=== PATIENT | male | born 1940 | race Caucasian/White ===

== ENCOUNTER → 2023-06-25 11:13 | Outpatient (CLI) | payer MEDICARE, SELFPAY ==
--- NOTE | ~2023-06-25 | XR_ITS ---
AP and lateral views of the right hip Clinical history: Pain Findings: No acute fracture or dislocation is seen. There is severe osteoarthritis of the right hip j oint, with severe joint space narrowing, subchondral cystic and sclerotic change, and mild remodeling of the femoral head. Soft tissues are unremarkable. Impression: Severe osteoarthritis of the right hip joint. Reviewed, dictated and finalized at location . Impression: Severe osteoarthritis of the right hip joint.
== END ==
PROVIDERS: PCP Nurse Practitioner; Visit Provider Nurse Practitioner
DX: M16.11 Unilateral primary osteoarthritis, right hip (principal); M25.551 Pain in right hip
CPT/HCPCS: 73502

== ENCOUNTER 2023-06-25 11:33 | Outpatient (CLI) | payer MEDICARE, SELFPAY ==
[2023-06-25 18:06] LABS: Basophils Percent Auto 0.4 % (0.2-1.2); Eosinophils Absolute Auto 0.1 K/mm3 (0-0.3); Eosinophils Percent Auto 1.6 % (0-4.4); Hematocrit 39.8 % (42.0-52.0); Immature Granulocyte Absolute 0.02 K/mm3 (0.00-0.031); Immature Granulocyte Percent A 0.3 % (0-0.5); Lymphocytes Absolute Auto 1.54 K/mm3 (0.9-3.2); Lymphocytes Percent Auto 19.9 % (18.3-44.2); Mean Corpuscular HGB Conc 32.7 g/dl (32-36); Mean Corpuscular Hemoglobin 29.8 pg (26-34); Mean Corpuscular Volume 91.3 fl (80-100); Mean Platelet Volume 9.9 fl (7.4-10.4); Monocytes Absolute Auto 0.9 K/mm3 (0.1-0.6); Monocytes Percent Auto 11.9 % (2.6-8.5); Neutrophils Absolute Auto 5.1 K/mm3 (1.3-6.7); Neutrophils Percent Auto 65.9 % (45.5-73.1); Platelet Count Result 204 k/mm3 (150-375); Red Blood Count 4.36 M/mm3 (4.6-6.20); Red Cell Distribution Width 12.3 % (11.5-14.5); White Blood Count 7.7 K/mm3 (4.5-10.0)
[2023-06-25 18:21] LABS: Appearance Urine Clear (Clear); Bacteria Urine None Seen /hpf; Bilirubin Urine Negative (Negative); Blood Urine Trace (Negative); Color Urine Yellow (Yellow); Glucose Urine UA Negative (Negative); Ketones Urine Negative (Negative); Leukocyte Esterase Ur Negative LEU/UL (Negative); Nitrate Urine Negative (Negative); Non Pathogenic Casts 0-2; Protein Urine Negative (Negative); Specific Grav Ur 1.015 (1.001-1.035); Squamous Epithelial Cell Urine None seen /hpf (Few); Urobilinogen Urine 0.2 mg/dL (<2.0); WBC Urine 0-5 /hpf
[2023-06-25 18:24] LABS: Add Urine Microscopic? YES
[2023-06-25 18:36] LABS: Alanine Aminotransferase 28 U/L (6-50); Albumin Level 4.1 g/dL (3.5-5.1); Alkaline Phosphatase 70 U/L (38-126); Anion Gap 4 mmol/L (8-16); Aspartate Amino Transferase 39 U/L (17-59); Bilirubin,Total 0.7 mg/dL (0.2-1.3); Blood Urea Nitrogen 17 mg/dL (9-20); Calcium 8.5 mg/dL (8.4-10.2); Carbon Dioxide 34 mmol/L (22-30); Chloride 96 mmol/L (98-107); Estimated Glomerular Filt Rate > 60; Glucose 88 mg/dL (65-110); Potassium 3.7 mmol/L (3.4-5.0); Sodium 134 mmol/L (137-145)
[2023-06-25 19:07] LABS: Prostate Specific Antigen 9.6 ng/mL (< OR = 4.0)
== END 2023-06-25 11:34 | disposition home or self-care (01) ==
PROVIDERS: PCP Nurse Practitioner; Visit Provider Nurse Practitioner
DX: R35.0 Frequency of micturition (principal); Z12.5 Encounter for screening for malignant neoplasm of prostate
CPT/HCPCS: 36415; 80053; 81001; 84153; 85025; G0103

== ENCOUNTER 2023-07-30 12:30 | Outpatient (RCR) | payer MEDICARE, SELFPAY ==
--- NOTE | 2023-07-02 14:33 | OPREHPOC ---
Outpatient Therapy Plan of Care This is a Multidisciplinary Plan of Care that may contain components documented by all disciplines (PT, OT, and ST.) PT Problem 1 PT Problem #1 Knowledge Deficit PT Goal 1 Goal Pt to be IND with issued HEP Target Visit 8 PT Problem 2 PT Problem #2 Pain PT Goal 1 Goal Pt to report hip pain no greater than 5/10 in the last week. Target Visit 8 PT Goal 2 Goal Pt to report 50% improvement in overall symptoms Target Visit 8 PT Problem 3 PT Problem #3 Impaired Range of Motion PT Goal 1 Goal Pt to improve passive hip extension to 0 deg on R Target Visit 8 PT Goal 2 Goal Pt to improve passive hip int rot to 0 deg to normalize gait pattern Target Visit 8 PT Problem 4 PT Problem #4 Impaired Gait PT Goal 1 Goal Pt to improve 2 min walk distance from 210ft to 300ft Target Visit 8 PT Goal 2 Goal Pt to ambulate with equal stride length Target Visit 8
--- NOTE | 2023-07-02 14:34 | PTOPEVAL1 ---
Assessment and note entered by Jaida Raygoza, PT, DPT Evaluation Information Assessment Status Evaluation Diagnosis R hip pain Onset chronic Subjective Information Pt states his hip has been bothering him for many years. He states up until about 2 years ago he was running 2 miles a day. He states he is taking advil and going stretch daily with only minimal improvements. He states he is limited in how long he can walk, he also states he would like to be able to run again. Imaging shows severe R hip OA with subchondral changes. Reported Pain Level Pain Score 8: Self Report Assessment PT Clinical Summary Sudeep presents to therapy today for his initial evaluation with a diagnosis of R hip pain. Today he demonstrates significant ROM deficits on his R hip, all limited by pain and a hard end feel. He demonstrates decreased hip strength garrison as well. He ambulates with a flexed posture, lack of hip extension, shuffled his LLE during the swing phase and has minimal weight shift to the R. Skilled therapy services are indicated to improve strength , minimize pain, and to normalized gait pattern. Plan of Care Interventions Electrical Stimulation,Gait Training,Hot Pack/Cold Pack,Manual Therapy,Neuro Re-education,Patient/ Caregiver Educati,Therapeutic Activities, Therapeutic Exercise PT Services Indicated Yes Treatment Frequency and 2x/wk for 8 visits Duration These treatments will address the objective and functional deficits as defined above. The patient will be advanced safely and appropriately in order for the patient to progress towards his/her prior level of function. Additional exercises will be introduced and as well as a comprehensive home exercise program upon discharge, if needed, ?to ensure carryover of functional gains achieved in the clinic. This treatment plan has been reviewed and agreement upon by the patient.
--- NOTE | 2023-07-30 13:23 | PTOPDC ---
Assessment and note entered by Jaida Raygoza, PT, DPT Evaluation Information Assessment Status Discharge Diagnosis R hip pain Onset chronic Subjective Information Pt states he feels like he is walking a lot better . He states he still is having some pain and soreness and wants to try a break to see if this helps at all. Reported Pain Level Pain Score 5: Self Report Assessment PT Clinical Summary Clive presents to therapy today for his progress report following 9 visits of skilled therapy with a diagnosis of R hip pain. Today he demonstrates mild improvements in his hip passive ROM but still significantly decreased from normal values. He was able to improve his gait speed and minimize his gait deviations but still ambulates with deviations and a decreased gait speed. Pt states he would like to be discharged from therapy at this time and complete his exercises IND. Plan of Care PT Services Indicated No
== END 2023-07-30 15:42 | disposition home or self-care (01) ==
LOC: ANHGOSHPT 12:30
PROVIDERS: PCP Nurse Practitioner; Visit Provider Nurse Practitioner
DX: M25.551 Pain in right hip (principal)
CPT/HCPCS: 97110; 97116; 97140; 97161; 97530

== ENCOUNTER 2023-11-01 12:54 | Outpatient (CLI) | payer MEDICARE, SELFPAY ==
--- NOTE | ~2023-11-01 | XR_ITS ---
EXAMINATION: XR lg joint inject/asp w image DATE: 11/01/2023 13:47 INDICATION: Right hip arthritis. TECHNIQUE: A time-out was performed to verify the patient's name, date of , and procedure to b e performed. The procedure including the risks, benefits, and alternatives was discussed with the pat ient. Risks discussed included bleeding and infection. The patient understood the risks and agreed to proceed. The skin overlying the right hip joint was prepped and draped in usual sterile fashion. A nesthetic was administered with 1% lidocaine subcutaneously. A 22 G needle was advanced under fluoro scopic guidance into the joint. Subsequently, injectate consisting of 2 mL 0.5% bupivacaine and 1 mL 80 mg/mL Depo-Medrol was instilled. The needle was removed and the entry site was cleaned and dress ed. There were no immediate complications. Fluoroscopy exposure time was 0.1 minutes. The total numb er of images was 1. FINDINGS: Real-time fluoroscopy demonstrates the needle in the right hip joint. Patient's pain prior to procedure:8/10. Patient's pain following the procedure: /10. IMPRESSION: 1. Fluoroscopy guided right hip joint injection of local anesthetic and steroid. Reviewed, dictated and finalized at location A. OGICAL ENGINEER IMPRESSION: 1. Fluoroscopy guided right hip joint injection of local anesthetic and steroid .
== END 2023-11-01 12:55 | disposition home or self-care (01) ==
PROVIDERS: PCP Nurse Practitioner; Visit Provider Nurse Practitioner Family
DX: M16.11 Unilateral primary osteoarthritis, right hip (principal)
CPT/HCPCS: 20610; 77002; J1040

== ENCOUNTER 2023-12-08 10:27 | Outpatient (CLI) | payer MEDICARE, SELFPAY ==
[2023-12-08 11:40] LABS: Basophils Percent Auto 0.3 % (0.2-1.2); Eosinophils Percent Auto 0.3 % (0-4.4); Hematocrit 42.9 % (42.0-52.0); Hemoglobin 14.1 g/dL (14.0-18.0); Immature Granulocyte Absolute 0.01 K/mm3 (0.00-0.031); Immature Granulocyte Percent A 0.1 % (0-0.5); Lymphocytes Absolute Auto 1.66 K/mm3 (0.9-3.2); Lymphocytes Percent Auto 24.2 % (18.3-44.2); Mean Corpuscular HGB Conc 32.9 g/dl (32-36); Mean Corpuscular Volume 91.3 fl (80-100); Mean Platelet Volume 9.8 fl (7.4-10.4); Monocytes Absolute Auto 0.6 K/mm3 (0.1-0.6); Monocytes Percent Auto 8.3 % (2.6-8.5); Neutrophils Absolute Auto 4.6 K/mm3 (1.3-6.7); Neutrophils Percent Auto 66.8 % (45.5-73.1); Platelet Count Result 207 k/mm3 (150-375); Red Cell Distribution Width 13.5 % (11.5-14.5); White Blood Count 6.9 K/mm3 (4.5-10.0)
[2023-12-08 18:45] LABS: Alanine Aminotransferase 26 U/L (6-50); Alkaline Phosphatase 77 U/L (38-126); Anion Gap 4 mmol/L (8-16); Aspartate Amino Transferase 53 U/L (17-59); Bilirubin,Total 1.7 mg/dL (0.2-1.3); Blood Urea Nitrogen 19 mg/dL (9-20); Calcium 8.9 mg/dL (8.4-10.2); Carbon Dioxide 30 mmol/L (22-30); Chloride 100 mmol/L (98-107); Estimated Glomerular Filt Rate > 60; Glucose 77 mg/dL (65-110); Sodium 134 mmol/L (137-145)
[2023-12-08 19:41] LABS: Folic Acid 14.6 ng/mL (2.76->20)
== END 2023-12-08 10:28 | disposition home or self-care (01) ==
LOC: ANHGOSHLAB 10:29
PROVIDERS: PCP Nurse Practitioner; Visit Provider Nurse Practitioner
DX: D64.9 Anemia, unspecified (principal); F32.A Depression, unspecified; R35.0 Frequency of micturition
CPT/HCPCS: 36415; 80053; 82607; 82746; 84443; 85025

== ENCOUNTER 2024-03-15 11:18 | Outpatient (CLI) | payer MEDICARE, SELFPAY ==
[2024-03-15 20:24] LABS: Bilirubin Indirect 0.8 mg/dL (0-1.1); Bilirubin,Total 1.3 mg/dL (0.2-1.3)
== END 2024-03-15 11:19 | disposition home or self-care (01) ==
LOC: ANHGOSHLAB 11:19
PROVIDERS: PCP Nurse Practitioner; Visit Provider Nurse Practitioner
DX: R17 Unspecified jaundice (principal)
CPT/HCPCS: 36415; 82247; 82248

== ENCOUNTER 2024-07-07 10:25 | Outpatient (CLI) | payer MEDICARE, SELFPAY ==
--- NOTE | ~2024-07-07 | XR_ITS ---
EXAMINATION: XR hip RT min 2V DATE: 07/07/2024 10:41 INDICATION: Lateral right hip pain post fall TECHNIQUE: Anteroposterior and frog leg lateral views of the right hip were obtained. COMPARISON: 09/23/2023 FINDINGS: Again seen is advanced osteoarthritis at the right hip with prominent subarticular cystic change and remodeling of the femoral head and acetabulum. No fracture or traumatic malalignment. Mild osteoarthr itis at the lateral sacral iliac joints. Mild lower lumbar spondylosis. IMPRESSION: 1. Advanced osteoarthritis at the right hip. No acute osseous abnormality. Reviewed, dictated and finalized at location B.
== END 2024-07-07 10:26 | disposition home or self-care (01) ==
PROVIDERS: PCP Nurse Practitioner; Visit Provider Nurse Practitioner
DX: M16.11 Unilateral primary osteoarthritis, right hip (principal); W19.XXXA Unspecified fall, initial encounter
CPT/HCPCS: 73502

== ENCOUNTER 2024-08-08 13:59 | Outpatient (CLI) | payer MEDICARE, SELFPAY ==
--- NOTE | ~2024-08-08 | MR_ITS ---
EXAMINATION: MR brain/brain stem wo/w con DATE: 08/08/2024 14:53 INDICATION: Other amnesia. TECHNIQUE: Magnetic resonance imaging (MRI) of the brain and brainstem was performed without and with 15 mL MultiHance intravenous contrast. COMPARISON: None. FINDINGS: There is no intracranial hemorrhage, acute infarction, or abnormal intracranial mass lesion . There are scattered areas of nonspecific increased T2-weighted signal intensity in the cerebral whi te matter, which is within normal limits for the patient's age. The ventricles are normal in size. Th ere is mild mucosal thickening in the paranasal sinuses. The orbits are normal. There is a trace left mastoid effusion. IMPRESSION: 1. Normal aging brain. Reviewed, dictated and finalized at location A. IMPRESSION: 1. Normal aging brain.
== END 2024-08-08 14:00 | disposition home or self-care (01) ==
LOC: MICIMG 14:00
PROVIDERS: PCP Nurse Practitioner; Visit Provider Nurse Practitioner
DX: R41.3 Other amnesia (principal)
CPT/HCPCS: 70553; A9577

== ENCOUNTER 2024-09-13 11:15 | Outpatient (CLI) | payer MEDICARE, SELFPAY ==
--- NOTE | ~2024-09-13 | XR_ITS ---
XR wrist LT min 3V Ordering provider: Vicenta Rowland NP History: . fall 2 months ago anterior wrist swelling for 2 weeks . Comparison: None. FINDINGS: BONES: No acute fracture or dislocation. No definite scaphoid fracture. Bony fragment seen anteriorl y. Old fracture in the ulnar styloid area. JOINT SPACES: Well maintained. SOFT TISSUES: Normal. IMPRESSION: No acute osseous abnormality left wrist. Old fracture and ulnar styloid area. Bony fragment seen anteriorly in the lateral view. Reviewed, dictated and finalized at location A. RNATIONAL SPECIALIST IMPRESSION: No acute osseous abnormality left wrist. Old fracture and ulnar styloid area. Bony fragment seen anteriorly in the later al view.
--- NOTE | ~2024-09-13 | XR_ITS ---
XR hand LT min 3V Ordering provider: Vicenta Rowland NP History: . fall 2 months ago anterior wrist swelling for 2 weeks . Comparison: None. FINDINGS: BONES: No acute fracture or dislocation. Bony fragment seen near to the ulnar styloid suggestive of o ld fracture. Bony fragment is seen in the lateral view anteriorly. Clinical correlation for tendernes s in the area advised. JOINT SPACES: Narrowing of the distal interphalangeal joints.. SOFT TISSUES: Unremarkable. IMPRESSION: No acute osseous abnormality left hand. Possible bony fragment seen anteriorly in the lateral view. Polyarticular osteoarthritic changes. Reviewed, dictated and finalized at location A. ETCHER HELPER
== END 2024-09-13 11:16 | disposition home or self-care (01) ==
PROVIDERS: PCP Nurse Practitioner; Visit Provider Nurse Practitioner
DX: M25.439 Effusion, unspecified wrist (principal); M79.89 Other specified soft tissue disorders
CPT/HCPCS: 73110; 73130

== ENCOUNTER 2024-11-13 12:32 | Emergency (ER) | payer MEDICARE, SELFPAY ==
[2024-11-13] VITALS (28 sets, daily range): BP systolic 149–193; BP diastolic 83–108; PULSE 86–111; RESP 15–24; TEMP 36.4–37.8; O2SAT 94–100
--- NOTE | ~2024-11-13 | CT_ITS ---
EXAMINATION: CT brain wo con DATE: 11/13/2024 12:45 INDICATION: Stroke with right-sided neurologic deficits. TECHNIQUE: Computed tomography (CT) of the head was performed without intravenous contrast. Sagittal and coronal reconstructions were performed. The mA was adjusted according to patient size. Iterative reconstruction technique was employed. The dose-length product was 681.00 mGy-cm. COMPARISON: Brain MR dated 08/08/2024 FINDINGS: No fracture. No acute intracranial hemorrhage, acute infarction or abnormal extra axial fluid collect ion. There is mild scattered white matter hypoattenuation consistent with chronic small vessel ischem ic disease. Symmetric prominence of the sulci consistent with mild age-appropriate diffuse cerebral v olume loss. Ventricles are normal and symmetric. No mass/mass effect. Mild mucosal thickening in the right maxillary and bilateral ethmoid sinuses. The orbits and mastoid air cells are normal. IMPRESSION: 1. Normal aging brain. No acute intracranial process. Reviewed, dictated and finalized at location A. UCT TECHNICIAN
--- NOTE | ~2024-11-13 | CT_ITS ---
EXAMINATION: CTA brain carotid DATE: 11/13/2024 12:50 INDICATION: Cerebrovascular accident. TECHNIQUE: Computed tomographic angiography (CTA) of the head was performed with 100 mL Omnipaque-350 intravenous contrast. CTA of the neck was performed with intravenous contrast. Automated exposure co ntrol and iterative reconstruction technique were employed. The dose-length product was 1042.29 mGy-c m. Maximum intensity projection and volume rendered 3D-reconstructions were created by the techn[employer]grami st on a separate workstation. COMPARISON: Head CT 11/13/2024, brain MRI 08/08/2024 FINDINGS: HEAD CTA: There are scattered areas of low attenuation in the cerebral white matter, which is within normal limits for the patient's age. There is no intracranial hemorrhage, acute infarction, or abnorm al intracranial mass lesion. The ventricles are normal in size. There is mild mucosal thickening in t he paranasal sinuses. The orbits are normal. The mastoid air cells are normal. There is cerumen in th e external auditory canals. The vertebral arteries are codominant. There is no significant stenosis o f basilar artery or the posterior cerebral arteries. There is no significant stenosis of the intracra nial internal carotid arteries or anterior or middle cerebral arteries. Anterior communicating artery is normal. The posterior communicating arteries are normal. There is no aneurysm. NECK CTA: There are no pathologically enlarged lymph nodes. There is no significant stenosis of the v ertebral arteries. There is plaque in the proximal internal carotid arteries. There is 0% stenosis o f the proximal right internal carotid artery relative to normal distal artery lumen diameter (NASCET criteria). There is 15% stenosis of the proximal left internal carotid artery relative to normal dist al artery lumen diameter. There is severe cervical spondylosis. IMPRESSION: 1. Normal aging brain. 2. No aneurysm or significant intracranial canal stenosis. 3. 0% stenosis of the proximal right internal carotid artery relative to normal distal artery lumen d iameter (NASCET criteria). 4. 15% stenosis of the proximal left internal carotid artery relative to normal distal artery lumen d iameter. Reviewed, dictated and finalized at location B. TECH IMPRESSION: 1. Normal aging brain. 2. No aneurysm or significant intracranial canal stenosis. 3. 0% stenosis of the proximal right internal carotid artery relative to normal distal artery lumen diameter (NASCET criteria). 4. 15% stenosis of the proximal left internal carotid artery relative to normal distal artery lumen diameter.
--- NOTE | ~2024-11-13 | XR_ITS ---
EXAMINATION: XR chest 1V portable DATE: 11/13/2024 13:12 INDICATION: Confusion. TECHNIQUE: A single frontal view of the chest was obtained on 2 radiographs. COMPARISON: Chest single view 04/14/2010 FINDINGS: There is mild atelectasis in left lower lung zone. No pleural effusion or pneumothorax. The heart size is normal. IMPRESSION: 1. Mild atelectasis in left lower lung zone. Reviewed, dictated and finalized at location B. [employer]
--- NOTE | 2024-11-13 12:36 | ECG_ITS ---
Test Date: 2024-11-13 13:01:24 Measurements Intervals [place] Rate: 106 P: 52 W[place]: 160 QRS: -67 QRSD: 156 T: 31 QT: 388 QTc: 517 Interpretive Statements SINUS TACHYCARDIA WITH FREQUENT VENTRICULAR PREMATURE COMPLEXES WITH OCCASIONAL SUPRAVENTRICULAR PREMATURE COMPLEXES RIGHT BUNDLE BRANCH BLOCK [120+ ms QRS DURATION, UPRIGHT V1, 40+ ms S IN I/aVL/V4/V5/V6] LEFT ANTERIOR FASCICULAR BLOCK [QRS AXIS <= -45, QR IN I, RS IN II] No previous ECG available for comparison Electronically Signed On 11-13-2024 18:02:01 [employer] by Shasta Valentin M.D.
--- NOTE | 2024-11-13 12:42 | ED_ITS ---
HPI - Neuro Symptoms/Deficit General Chief Complaint: Suspected CVA Stated Complaint: cva Time Seen by Provider: 11/13/24 12:38 History of Present Illness HPI Narrative: Patient a 4-year-old gentleman presents emergency department with chief complaint right-sided weakness. Patient has history of prostate CA and lives at the [facility] the patient approximately 20 minutes prior to arrival developed right-sided weakness and then was witnessed having seizure-like activity by EMS. The patient was confused afterwards and the EMS service for noticed that the patient was having movements on the right side of his body Related Data Allergies Allergy/AdvReac Type Severity Reaction Status Date / Time No Known Allergies Allergy Verified 11/13/24 14:43 Review of Systems 2 Review of Systems: A 10 system review of systems was completed on the patient and is negative except for what is stated in the HPI. Nursing and ancillary documentation was reviewed. [facility] Past Medical History Medical History Degenerative joint disease (DJD) of hip Right hip pain Frequent urination Arthritis Surgical History Surgical History History of bilateral knee replacement Family History Family History Mother Hypertension Family history of cardiomyopathy, Onset Age: 86 Patient's mother is Father Family history of congenital heart disease, Onset Age: 80 Unknown Hypertension Depression Diabetes mellitus Cerebrovascular accident Arthritis Social History Social History Social History: Caffeine-coffee Smoking status: Never smoker Alcohol intake: former Substance use: never Substance use type: does not use Lack of Transportation: No Lack of Food: Never True Current Housing: I Have Housing Concerned About Future Housing: No Difficulty Paying Gas/Electric Bills: No Difficulty Paying for Meds: No Currently Unemployed: No Education: Master's Degree or Higher Difficulty w/ Childcare or Family Care: Decline to Answer Living arrangements: alone Occupation/Education: retired 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 Gender identity (if verbalized by the patient): Male Sexual Orientation (if Verbalized by the Patient): Straight or Heterosexual Spiritual care concerns: No Agree to blood products: Yes Course Vital Signs Vital signs: Vital Signs Temperature 36.4 C 11/13/24 13:03 Pulse Rate 97 11/13/24 13:03 Respiratory Rate 22 H 11/13/24 13:03 Blood Pressure 181/91 H 11/13/24 13:03 Pulse Oximetry 97 11/13/24 13:03 Oxygen Delivery Nasal Cannula 11/13/24 13:03 Oxygen Flow Rate 2 11/13/24 13:03 Temperature 36.7 C 11/13/24 15:45 Pulse Rate 94 11/13/24 18:46 Respiratory Rate 24 H 11/13/24 18:46 Blood Pressure 166/105 H 11/13/24 18:46 Pulse Oximetry 100 11/13/24 18:46 Oxygen Delivery Nasal Cannula 11/13/24 13:49 Oxygen Flow Rate 2 11/13/24 16:53 MDM - Neuro Symptoms/Deficit MDM Narrative Medical decision making narrative: Differential diagnosis includes CVA, new onset seizure, intracranial mass, CTA head neck showed no evidence of large vessel occlusion The head showed no acute abnormality The patient had multiple seizures after developing right-sided weakness the patient would not be a candidate for thrombolytics therapy due to seizure. Patient was loaded with Keppra and also given Ativan for seizure. The patient has been confused since the onset of the last seizure and has not regained consciousness the patient now is opening his eyes spontaneously but due to prolonged postictal phase the case was discussed with [facility] transfer center and the patient will be transferred to the neuro ICU The patient was accepted by Dr. Pop of the neuro ICU Lab Data 11/13/24 12:38 11/13/24 12:42 Labs: Lab Results 11/13/24 11/13/24 11/13/24 Range/Units 12:38 12:42 13:06 WBC 9.6 (4.5-10.0) K/mm3 RBC 4.23 L (4.6-6.20) M/mm3 Hgb 12.9 L (14.0-18.0) g/dL Hct 39.4 L (42.0-52.0) % MCV 93.1 (80-100) fl MCH 30.5 (26-34) pg MCHC 32.7 (32-36) g/dl RDW 12.8 (11.5-14.5) % Plt Count 214 (150-375) k/mm3 MPV 8.8 (7.4-10.4) fl Immature Gran % (Auto) 0.3 (0-0.5) % Neut % (Auto) 71.8 (45.5-73.1) % Lymph % (Auto) 16.7 L (18.3-44.2) % [place] % (Auto) 9.8 H (2.6-8.5) % Eos % (Auto) 1.0 (0-4.4) % Baso % (Auto) 0.4 (0.2-1.2) % Lymph # (Auto) 1.60 (0.9-3.2) K/mm3 [place] # (Auto) 0.9 H (0.1-0.6) K/mm3 Eos # (Auto) 0.1 (0-0.3) K/mm3 Baso # (Auto) 0.0 (0.0-0.1) K/mm3 Abs Immat Gran (auto) 0.03 (0.00-0.031) K/mm3 Absolute Neuts (auto) 6.9 H (1.3-6.7) K/mm3 Absolute Nucleated RBC 0.000 (0.0-0.012) K/mm3 Nucleated RBC % 0.0 (0.0-0.2) % PT 13.7 (11.1-14.7) Seconds INR 1.0 APTT 27.4 (22.3-36.8) Seconds Sodium 134 L (137-145) mmol/L Potassium 3.5 (3.4-5.0) mmol/L Chloride 96 L (98-107) mmol/L Carbon Dioxide 24 (22-30) mmol/L Anion Gap 14 H (4-12) mmol/L BUN 13 D (9-20) mg/dL Creatinine 0.71 1.00 (0.7-1.3) mg/dL Estim Creat Clear Calc Not Reportable Not Reportable Estimated GFR > 60 > 60 (59 - ) Glucose 159 H (65-110) mg/dL POC Capillary Glucose 133 H (65-105) mg/dl Calcium 8.7 (8.4-10.2) mg/dL Total Bilirubin 1.3 (0.2-1.3) mg/dL AST 32 (17-59) U/L ALT 31 (6-50) U/L Alkaline Phosphatase 81 (38-126) U/L Troponin I < 0.012 (0.000-0.034) ng/mL Total Protein 7.0 (6.3-8.2) g/dL Albumin 4.4 (3.5-5.1) g/dL Urine Color (Yellow) Urine Appearance (Clear) Urine pH (5.0-9.0) Ur Specific [place] (1.001-1.035) Urine Protein (Negative) mg/dL Urine Glucose (UA) (Negative) mg/dL Urine Ketones (Negative) mg/dL Ur Blood (Man) (Negative) Urine Nitrate (Negative) Urine Bilirubin (Negative) Urine Urobilinogen (<2.0) mg/dL Leukocyte Esterase Rfl (Negative) AIDAN/UL Urine RBC (0-2) /hpf Urine WBC (0-3) /hpf Ur Squamous Epith Cells (Few) /hpf Urine Bacteria /hpf Urine Casts 11/13/24 Range/Units 14:06 WBC (4.5-10.0) K/mm3 RBC (4.6-6.20) M/mm3 Hgb (14.0-18.0) g/dL Hct (42.0-52.0) % MCV (80-100) fl MCH (26-34) pg MCHC (32-36) g/dl RDW (11.5-14.5) % Plt Count (150-375) k/mm3 MPV (7.4-10.4) fl Immature Gran % (Auto) (0-0.5) % Neut % (Auto) (45.5-73.1) % Lymph % (Auto) (18.3-44.2) % [place] % (Auto) (2.6-8.5) % Eos % (Auto) (0-4.4) % Baso % (Auto) (0.2-1.2) % Lymph # (Auto) (0.9-3.2) K/mm3 [place] # (Auto) (0.1-0.6) K/mm3 Eos # (Auto) (0-0.3) K/mm3 Baso # (Auto) (0.0-0.1) K/mm3 Abs Immat Gran (auto) (0.00-0.031) K/mm3 Absolute Neuts (auto) (1.3-6.7) K/mm3 Absolute Nucleated RBC (0.0-0.012) K/mm3 Nucleated RBC % (0.0-0.2) % PT (11.1-14.7) Seconds INR APTT (22.3-36.8) Seconds Sodium (137-145) mmol/L Potassium (3.4-5.0) mmol/L Chloride (98-107) mmol/L Carbon Dioxide (22-30) mmol/L Anion Gap (4-12) mmol/L BUN (9-20) mg/dL Creatinine (0.7-1.3) mg/dL Estim Creat Clear Calc Estimated GFR (59 - ) Glucose (65-110) mg/dL POC Capillary Glucose (65-105) mg/dl Calcium (8.4-10.2) mg/dL Total Bilirubin (0.2-1.3) mg/dL AST (17-59) U/L ALT (6-50) U/L Alkaline Phosphatase (38-126) U/L Troponin I (0.000-0.034) ng/mL Total Protein (6.3-8.2) g/dL Albumin (3.5-5.1) g/dL Urine Color Yellow (Yellow) Urine Appearance Cloudy H (Clear) Urine pH 7.5 (5.0-9.0) Ur Specific [place] 1.023 (1.001-1.035) Urine Protein Trace (Negative) mg/dL Urine Glucose (UA) Negative (Negative) mg/dL Urine Ketones Negative (Negative) mg/dL Ur Blood (Man) 1+ H (Negative) Urine Nitrate Negative (Negative) Urine Bilirubin Negative (Negative) Urine Urobilinogen 0.2 (<2.0) mg/dL Leukocyte Esterase Rfl 3+ H (Negative) AIDAN/UL Urine RBC 11-20 H (0-2) /hpf Urine WBC >100 H (0-3) /hpf Ur Squamous Epith Cells None seen (Few) /hpf Urine Bacteria 1+ H /hpf Urine Casts 0-2 Critical Care Time Critical Care Time Critical Care Time: Yes Total Critical Care Time: 75 Discharge Plan Discharge Clinical Impression: Seizure, Altered mental status, Right sided weakness Patient Disposition: Acute Care Hospital Condition: Stable Patient Language: Greek Prescriptions: No Action tamsulosin [Flomax] 0.4 mg capsule 0.4 mg PO QHS Qty: 90 1RF Follow-up/Referrals: Vicenta Rowland NP [Primary Care Provider] - Time of Disposition: 19:28
[2024-11-13 12:43] LABS: Basophils Percent Auto 0.4 % (0.2-1.2); Eosinophils Absolute Auto 0.1 K/mm3 (0-0.3); Hematocrit 39.4 % (42.0-52.0); Hemoglobin 12.9 g/dL (14.0-18.0); Immature Granulocyte Absolute 0.03 K/mm3 (0.00-0.031); Immature Granulocyte Percent A 0.3 % (0-0.5); Lymphocytes Percent Auto 16.7 % (18.3-44.2); Mean Corpuscular HGB Conc 32.7 g/dl (32-36); Mean Corpuscular Hemoglobin 30.5 pg (26-34); Mean Corpuscular Volume 93.1 fl (80-100); Mean Platelet Volume 8.8 fl (7.4-10.4); Monocytes Absolute Auto 0.9 K/mm3 (0.1-0.6); Monocytes Percent Auto 9.8 % (2.6-8.5); Neutrophils Absolute Auto 6.9 K/mm3 (1.3-6.7); Neutrophils Percent Auto 71.8 % (45.5-73.1); Platelet Count Result 214 k/mm3 (150-375); Red Blood Count 4.23 M/mm3 (4.6-6.20); Red Cell Distribution Width 12.8 % (11.5-14.5); White Blood Count 9.6 K/mm3 (4.5-10.0)
[2024-11-13 12:46] LABS: Estimated Glomerular Filt Rate > 60
[2024-11-13 12:54] LABS: Alanine Aminotransferase 31 U/L (6-50); Albumin Level 4.4 g/dL (3.5-5.1); Alkaline Phosphatase 81 U/L (38-126); Anion Gap 14 mmol/L (4-12); Aspartate Amino Transferase 32 U/L (17-59); Bilirubin,Total 1.3 mg/dL (0.2-1.3); Blood Urea Nitrogen 13 mg/dL (9-20); Calcium 8.7 mg/dL (8.4-10.2); Carbon Dioxide 24 mmol/L (22-30); Chloride 96 mmol/L (98-107); Estimated Glomerular Filt Rate > 60; Glucose 159 mg/dL (65-110); Potassium 3.5 mmol/L (3.4-5.0); Prothrombin Time 13.7 Seconds (11.1-14.7); Sodium 134 mmol/L (137-145)
[2024-11-13 12:55] LABS: Partial Thromboplastin Time 27.4 Seconds (22.3-36.8)
[2024-11-13 13:06] LABS: Troponin I < 0.012 ng/mL (0.000-0.034)
[2024-11-13 13:10] LABS: Glucose Point of Care 133 mg/dl (65-105)
[2024-11-13] MEDS: levETIRAcetam 1500MG/NACL100ML 1,500 MG/100 ML BAG 400 MG IVPB (13:25)
[2024-11-13] MEDS: LORazepam INJ (*CRX) 2 MG/ML VIAL 1 MG IV PUSH (13:51)
--- NOTE | 2024-11-13 14:01 | PC.NURSE ---
EDP is aware of pt bilateral leg swelling. this RN asked if EDP would like to add on a BNP, EDP declined. no new orders
--- NOTE | 2024-11-13 14:19 | PC.NURSE ---
pt had a seizure at 1330. pt was not moving his R arm, then started having tremors on that arm. EDP was called to bedside and determined the pt was having a seizure and ordered Keppra pt had another seizure at [id number]. pt teeth were clenched, L eye deviation, pt whole body went ridged, and bilateral clenching of the fists. EDP was called to bedside and ordered ativan that was given per orders
[2024-11-13 14:26] LABS: Add Urine Microscopic? YES; Appearance Urine Cloudy (Clear); Bacteria Urine 1+ /hpf; Bilirubin Urine Negative (Negative); Blood Urine 1+ (Negative); Color Urine Yellow (Yellow); Glucose Urine UA Negative (Negative); Ketones Urine Negative (Negative); Leukocyte Esterase Ur 3+ LEU/UL (Negative); Nitrate Urine Negative (Negative); Non Pathogenic Casts 0-2; Protein Urine Trace mg/dL (Negative); Specific Grav Ur 1.023 (1.001-1.035); Squamous Epithelial Cell Urine None Seen /hpf (Few); Urobilinogen Urine 0.2 mg/dL (<2.0); WBC Urine >100 /hpf (0-3); pH Urine 7.5 (5.0-9.0)
--- NOTE | 2024-11-13 19:24 | PC.NURSE ---
spoke to Radha at [facility] transfer center for triage assessment. pt will be going to [facility], waiting for a bed at this time
[2024-11-13] MEDS: ACETAMINOPHEN 650 MG SUPPOSITORY RECTAL (20:19)
--- OUTSIDE RECORDS SUMMARY | 2024-11-16 13:11 | XMS_ITS | Referral Summary ---
Author Organization [facility] ospital Address [address] [place] [address] Care Team Providers Care Site Controller Name Role Phone Jairo Ugalde MD Unavailable [phone] Sarbjit Saldivar DO Primary Care Provider [phone] Logan Pedro MD Unavailable [phone] Mayo Haile MD Unavailable [phone] Encounters Date Type Department Care Team Description 11/13/2024 9:22 PM HANDS HANGER - Present Hospital Encounter [facility] [address] [place] [address] Andrae Pop MD PhD Isrrael Sharma MD Dhar, Rajat, MD Seizure (HCC) (Primary Dx) 11/02/2024 Telephone [facility] Scheduling [address] [place] [address] Srini Lockwood MD Scheduling Appointments 09/08/2024 Telephone [facility] Medical Office Building 2 Radiation Oncology [address] [place] [phone] Alize Hinojosa RN 09/08/2024 Orders Only [facility] Medical Office Building 2 Radiation Oncology [address] [place] [phone] Alize Hinojosa RN Prostate CA (HCC) (Primary Dx) 09/07/2024 2:00 PM HANDS HANGER Clinical Support [facility] Medical Office Building 2 Radiation Oncology [address] [place] [address] Prostate CA (HCC) (Primary Dx) 09/07/2024 2:00 PM HANDS HANGER Office Visit [facility] Medical Office Building 2 Radiation Oncology [address] [place] [id number] Mayo Haile MD Prostate cancer (HCC) (Primary Dx) 09/01/2024 Telephone [facility] Office Building 2 Radiation Oncology [address] [place] [address] Alize Hinojosa, MAHAD 09/01/2024 Telephone [facility] Medical Office Building 2 Radiation Oncology [address] [place] [address] Alize Hinojosa, MAHAD 08/30/2024 Orders Only [facility] Medical Office Building 2 Radiation Oncology [address] [place] [address] Alize Hinojosa, MAHAD from Last 3 Months Allergies No known active allergies Medications naproxen (ALEVE) 220 mg tablet Take 1 tablet (220 mg total) by mouth Suspended tamsulosin (FLOMAX) 0.4 mg extended release capsule Take 1 capsule (0.4 mg total) by mouth nightly Suspended acetaminophen (TYLENOL) 325 mg tablet Take 2 tablets (650 mg total) by mouth every 6 (six) hours as needed for pain Suspended collagen, hydrolysate, bovine, (collagen, hydr, bovine,, bulk,) 100 % powder Suspended Active Problems Problem Noted Date Diagnosed Date Acute metabolic encephalopathy 11/14/2024 Seizure 11/13/2024 Prostate CA 06/22/2024 Cancer Staging:Clinical stage from 06/22/2024:Stage IIB(cT1c, cN0, cM0, PSA: 9.6, Grade Group: 2) - Signed by Mayo Haile MD on 06/22/2024 Social History Tobacco Use Types Packs/Day Years Used Date Smoking Tobacco: Never Smokeless Tobacco: Never Tobacco Cessation:Counseling Given: Not Answered AUDIT-C Answer Date Recorded Q1: How often do you have a drink containing alc ohol? Never 07/12/2024 Average Number of Drinks Not on file 024 Frequency of Binge Drinking Not on file 06/25 Personal Safety Answer Date Recorded Have you ever been in or are you currently in a harmful physical or emotional relationship or is someone making you feel afraid or unsafe? Patient unable to answer 11/14/2024 Sex and Gender Information Value Date Recorded Sex Assigned at Not on file Legal Sex Male 10:51 AM CDT Gender Identity Not on file Sexual Orientation Not on file Last Filed Vital Signs Vital Sign Reading Time Taken Comments Blood Pressure 152/75 11/16/2024 12:00 PM HANDS HANGER Pulse 65 11/16/2024 12:00 PM HANDS HANGER Temperature 37.3 ??C (99.1 ??F) 11/16/2024 12:[address] Respiratory Rate 19 11/16/2024 12:00 PM HANDS HANGER Oxygen Saturation 100% 11/16/2024 12:00 PM HANDS HANGER Inhaled Oxygen Concentration - - Weight 81.2 kg (179 lb 0.2 oz) 11/13/2024 9:29 P M HANDS HANGER Height 176.5 cm (5' 9.5 ) 11/13/2024 9:29 PM HANDS HANGER Body Mass Index 26.06 11/13/2024 9:29 PM HANDS HANGER Plan of Treatment Not on file Procedures * The patient is currently admitted. The information in this section might not be complete until the patient is discharged. Procedure Name Priority Date/Time Associated Diagnosis Comments POTASSIUM, WHOLE BLOOD STAT 6:35 AM HANDS HANGER CREATINE KINASE (CK), TOTAL STAT 11/16/2024 5:28 AM HANDS HANGER EGFR STAT 11/16/2024 5:28 AM HANDS HANGER DIFFERENTIAL AUTO STAT 11/16/2024 5:2 8 AM HANDS HANGER PHOSPHORUS STAT 11/16/2024 5:28 AM HANDS HANGER MAGNESIUM STAT 11/16/2024 5:28 AM HANDS HANGER CBC WITH AUTO DIFFERENTIAL STAT 11/16 5:28 AM HANDS HANGER BASIC METABOLIC PANEL STAT 11/16/2024 5:28 AM HANDS HANGER EGFR Timed 11/14/2024 8:57 PM HANDS HANGER MAGNESIUM Timed 11/14/2024 8:57 PM HANDS HANGER CREATINE KINASE (CK), TOTAL Routine 11/14/2024 8:57 PM HANDS HANGER PHOSPHORUS Timed 11/14/2024 8:57 PM HANDS HANGER COMPREHENSIVE METABOLIC PANEL Timed 11/14/2024 8:57 PM HANDS HANGER CBC WITHOUT DIFFERENTIAL Routine 025 8:57 PM HANDS HANGER TRANSTHORACIC ECHO (TTE) COMPLETE W DOPPLER/CF W CONTRAST Routine 11/14/2024 1:16 PM HANDS HANGER BLOOD CULTURE STAT 11/14/2024 12:17 PM HANDS HANGER BLOOD CULTURE STAT 11/14/2024 12:17 PM HANDS HANGER MRI BRAIN W WO CONTRAST ED Urgent/IP Urgent 11/14/2024 10:32 AM HANDS HANGER LIPID PANEL Timed 11/14/2024 6:27 AM HANDS HANGER CREATINE KINASE (CK), TOTAL Timed 11/14/2024 6:27 AM HANDS HANGER TROPONIN I HIGH-SENSITIVITY 6-HOUR Timed 11/14/2024 4:13 AM HANDS HANGER TROPONIN I HIGH-SENSITIVITY 4-HOUR Timed 11/14/2024 2:24 AM HANDS HANGER XR VENTRICULOPERITONEAL SHUNT SERIES (ADULT) ED Urgent/IP Urgent 11/14/2024 2:11 AM HANDS HANGER TROPONIN I HIGH-SENSITIVITY 2-HOUR Timed 11/14/2024 12:25 AM HANDS HANGER AR DIAGNOSTIC LUMBAR SPINAL PUNCTURE Routine 11/14/2024 12:16 AM HANDS HANGER Seizure (HCC) B CHECK SAMPLE STAT 11/13/2024 11:40 PM HANDS HANGER CELL COUNT W REFLEX DIFFERENTIAL, CSF STAT 11/13/2024 11:40 PM HANDS HANGER CSF PROTEIN STAT 11/13/2024 11:40 PM HANDS HANGER GLUCOSE, CSF STAT 11/13/2024 11:40 PM HANDS HANGER CELL COUNT W REFLEX DIFFERENTIAL, CSF Routine 11/13/2024 11:40 PM HANDS HANGER HERPES SIMPLEX VIRUS (HSV) PCR Routine 11/13/2024 11:40 PM HANDS HANGER VARICELLA ZOSTER VIRUS (VZV) PCR Routine 11/13/2024 11:40 PM HANDS HANGER BACTERIAL CULTURE AND GRAM STAIN, CSF STAT 11/13/2024 11:40 PM HANDS HANGER POCT GLUCOSE DEVICE Routine 11/13/2024 11:37 PM HANDS HANGER XR CHEST 1 VIEW ED Urgent/IP Urgent 11/13/2024 11:32 PM HANDS HANGER URINALYSIS, MICROSCOPIC ONLY STAT 11/13/2024 10:56 PM HANDS HANGER URINE CULTURE STAT 11/13/2024 10:56 PM HANDS HANGER URINALYSIS AND REFLEX TO MICROSCOPIC AND CULTURE STAT 11/13/2024 10:56 PM HANDS HANGER LACTATE, WHOLE BLOOD STAT 11/13/2024 10:54 PM HANDS HANGER CREATINE KINASE (CK), TOTAL STAT 11/13/2024 10:54 PM HANDS HANGER HEMOGLOBIN A1C STAT 11/13/2024 10:12 PM HANDS HANGER EGFR STAT 11/13/2024 10:12 PM HANDS HANGER TROPONIN I HIGH-SENSITIVITY SERIES (BASELINE, 2HR, 4HR, 6HR) STAT 11/13/2024 10:12 PM HANDS HANGER PROTIME-INR STAT 11/13/2024 10:12 PM HANDS HANGER APTT STAT 11/13/2024 10:12 PM HANDS HANGER TYPE AND SCREEN STAT 11/13/2024 10:12 PM HANDS HANGER CBC WITHOUT DIFFERENTIAL STAT 025 10:12 PM HANDS HANGER PHOSPHORUS STAT 11/13/2024 10:12 PM HANDS HANGER MAGNESIUM STAT 11/13/2024 10:12 PM HANDS HANGER COMPREHENSIVE METABOLIC PANEL STAT 11/13/2024 10:12 PM HANDS HANGER CYTOLOGY Routine 11/13/2024 10:04 PM HANDS HANGER ECG 12-LEAD STAT 11/13/2024 9:58 PM HANDS HANGER POCT GLUCOSE DEVICE Routine 11/13/2024 9 :27 PM HANDS HANGER from Last 3 Months Results * Potassium, whole blood (11/16/2024 6:35 AM HANDS HANGER) Potassium, bld 4.0 3.3 - 4.9 mmol/L Blood 11/16/2024 6:35 AM HANDS HANGER 11/16/2024 6:41 AM HANDS HANGER us Emma Regalado NP LAB BLOOD ORDERABLES Final Result [facility] [place] [address] * eGFR (11/16/2024 5:28 AM HANDS HANGER) eGFR 89 >=60 mL/min/1. 73 m2 Comment: Interpretive Data Reference Interval Normal ?>/= 90 mL/min/1.73m2 Mildly decreased* ? 60 - 89 mL/min/1.73m2 Mildly to moderately decreased ?45 - 59 mL/min/1.73m2 Moderately to severely decreased ??30 - 44 mL/min/1.73m2 Severely decreased ?15 - 29 mL/min/1.73m2 Kidney Failure ?< 15 ??mL/min/1.73m2 *Relative to young adult level Estimated glomerular filtration rate is determined by the 2020 CKD-EPI equation recommended by the National Kidney Foundation (A Unifying Approach to GFR Estimation: Recommendations of the NKF-ASK Task Force on Reassessing the Inclusion of Race in Diagnosing Kidney Disease, JASN 2020). The CKD-EPI equation should not be used for patients with unstable renal function and has not been validated in children and those over 70. Current interpretive data was last reviewed 2021. Blood 11/16/2024 5:28 AM HANDS HANGER 11/16/2024 5:42 AM HANDS HANGER us Isrrael Sharma MD LAB BLOOD ORDERABLES Final Result [facility] Department [place] [address] * (ABNORMAL) Differential, auto (11/16/2024 5:28 AM HANDS HANGER) Neutrophil abs 5.9 1.5 - 6.5 K/cumm Imm gran abs 0.0 0.0 - 0.1 K/cumm [facility] Lymphocyte abs 0.7(L) 0.8 - 3.3 K/cumm [facility] Monocyte abs 1.2(H) 0.2 - 0.8 K/cumm [facility] Eosinophil abs 0.1 0.0 - 0.5 K/cumm [facility] Basophil abs 0.0 0.0 - 0.1 K/cumm [facility] Neutrophil pct 74.2 % [facility] Comment: Interpretive Data Percent cell count reference ranges are not reported, since discordance with absolute values may lead to misinterpretation of CBC data. Current Interpretive Data was last revised on 2018. Imm gran pct 0.4 % [facility] Comment: Interpretive Data Percent cell count reference ranges are not reported, since discordance with absolute values may lead to misinterpretation of CBC data. Current Interpretive Data was last revised on 2018. Lymphocyte pct 9.0 % [facility] Comment: Interpretive Data Percent cell count reference ranges are not reported, since discordance with absolute values may lead to misinterpretation of CBC data. Current Interpretive Data was last revised on 2018. Monocyte pct 14.8 % [facility] Comment: Interpretive Data Percent cell count reference ranges are not reported, since discordance with absolute values may lead to misinterpretation of CBC data. Current Interpretive Data was last revised on 2018. Eosinophil pct 1.3 % [facility] Comment: Interpretive Data Percent cell count reference ranges are not reported, since discordance with absolute values may lead to misinterpretation of CBC data. Current Interpretive Data was last revised on 2018. Basophil pct 0.3 % [facility] Comment: Interpretive Data Percent cell count reference ranges are not reported, since discordance with absolute values may lead to misinterpretation of CBC data. Current Interpretive Data was last revised on 2018. Blood 11/16/2024 5:28 AM HANDS HANGER 11/16/2024 5:42 AM HANDS HANGER us Isrrael Sharma MD LAB BLOOD ORDERABLES Final Result [facility] Department [place] [address] * (ABNORMAL) CBC with auto differential (11/16/2024 5:28 AM HANDS HANGER) [facility] WBC 7.9 3.8 - 9.9 K/cumm Hgb 11.6(L) 13.0 - 17.5 g/dL [facility] Hct 33.2(L) 38.9 - 50.3 % [facility] Plt 178 150 - 400 K/cumm [facility] MPV 9.3 9.1 - 12.3 fL [facility] RBC 3.79(L) 4.30 - 5.80 M/cumm [facility] MCV 87.6 81.3 - 96.4 fL [facility] MCH 30.6 27.1 - 33.3 pg [facility] MCHC 34.9 32.3 - 35.7 g/dL [facility] RDW CV 12.5 11.1 - 14.9 % [facility] RDW SD 40.2 35.7 - 48.1 fL [facility] NRBC abs 0.00 0.00 - 0.01 K/cumm [facility] Blood 11/16/2024 5:28 AM HANDS HANGER 11/16/2024 5:42 AM HANDS HANGER Isrrael Sharma MD LAB BLOOD ORDERABLES Final Result Performing Organization Address City/[facility] Co de Phone Number [facility] [place] [address] * Phosphorus (11/16/2024 5:28 AM HANDS HANGER) [facility] Phosphorus, pl 3.1 2.3 - 4.5 mg/dL Blood 11/16/2024 5:28 AM HANDS HANGER 11/16/2024 5:42 AM HANDS HANGER Isrrael Sharma MD LAB BLOOD ORDERABLES Final Result Performing Organization Address City/State/[facility] Co de Phone Number [facility] Department [place] [address] * Magnesium (11/16/2024 5:28 AM HANDS HANGER) Pathologist [facility] Magnesium 1.7 1.4 - 2.5 mg/dL Blood 11/16/2024 5:28 AM HANDS HANGER 11/16/2024 5:42 AM HANDS HANGER Isrrael Sharma MD LAB BLOOD ORDERABLES Final Result Performing Organization Address City/[facility]/ZIP Co de Phone Number [facility] [place] [address] * (ABNORMAL) Creatine kinase (CK), total (11/16/2024 5:28 AM HANDS HANGER) [facility] CK 672(H) 40 - 300 Units/L Blood 11/16/2024 5:28 AM HANDS HANGER 11/16/2024 5:42 AM HANDS HANGER Isrrael Sharma MD LAB BLOOD ORDERABLES Final Result Performing Organization Address City/[facility] de Phone Number [facility] Department [place] [address] * (ABNORMAL) Basic metabolic panel (11/16/2024 5:28 AM HANDS HANGER) [facility] Sodium 140 135 - 145 mmol/L Potassium, pl 5.7(H) 3.3 - 4.9 mmol/L [facility] Chloride 107 97 - 110 mmol/L [facility] CO2 25 22 - 32 mmol/L [facility] Anion gap 8 2 - 15 mmol/L [facility] BUN 12 6 - 25 mg/dL [facility] Creatinine 0.73(L) 0.80 - 1.30 mg/dL [facility] Glucose 87 70 - 199 mg/dL [facility] Comment: Interpretive Data Fasting glucose >/= 126 mg/dl is diagnostic for diabetes. ?? Fasting is defined as no caloric intake for at least 8 hours. Fasting glucose between 100 mg/dl to 125 mg/dl is diagnostic of prediabetes. In a patient with classic symptoms of hyperglycemia or hyperglycemic crisis, a random glucose >/= 200 mg/dl is diagnostic for diabetes. In the absence of unequivocal hyperglycemia, results should be confirmed by repeat testing. The classification and Diagnosis of Diabetes Diabetes Care 202; 46: S19-S40. Current interpretive data was last revised 2022. Calcium 7.9(L) 8.5 - 10.3 mg/dL [facility] Blood 11/16/2024 5:28 AM HANDS HANGER 11/16/2024 5:42 AM HANDS HANGER us Isrrael Sharma MD LAB BLOOD ORDERABLES Final Result [facility] Department [place] [address] * eGFR (11/14/2024 8:57 PM HANDS HANGER) eGFR 88 >=60 mL/min/1. 73 m2 Comment: Interpretive Data Reference Interval Normal ?>/= 90 mL/min/1.73m2 Mildly decreased* ? 60 - 89 mL/min/1.73m2 Mildly to moderately decreased ?45 - 59 mL/min/1.73m2 Moderately to severely decreased ??30 - 44 mL/min/1.73m2 Severely decreased ?15 - 29 mL/min/1.73m2 Kidney Failure ?< 15 ??mL/min/1.73m2 *Relative to young adult level Estimated glomerular filtration rate is determined by the 2020 CKD-EPI equation recommended by the National Kidney Foundation (A Unifying Approach to GFR Estimation: Recommendations of the NKF-ASK Task Force on Reassessing the Inclusion of Race in Diagnosing Kidney Disease, JASN 2020). The CKD-EPI equation should not be used for patients with unstable renal function and has not been validated in children and those over 70. Current interpretive data was last reviewed 2021. Blood 11/14/2024 8:57 PM HANDS HANGER 11/14/2024 9:20 PM HANDS HANGER Mark Ahumada MACHINE CEMENTER AND FOLDER LAB BLOOD ORDERABLES Final Re sult Performing Organization Address [facility]/ZIP Co de Phone Number [facility] Department [place] [address] * (ABNORMAL) CBC without differential (11/14/2024 8:57 PM HANDS HANGER) Pathologist [facility] WBC 8.1 3.8 - 9.9 K/cumm Hgb 11.0(L) 13.0 - 17.5 g/dL [facility] Hct 31.8(L) 38.9 - 50.3 % [facility] Plt 198 150 - 400 K/cumm [facility] MPV 9.1 9.1 - 12.3 fL [facility] RBC 3.63(L) 4.30 - 5.80 M/cumm [facility] MCV 87.6 81.3 - 96.4 fL [facility] MCH 30.3 27.1 - 33.3 pg [facility] MCHC 34.6 32.3 - 35.7 g/dL [facility] RDW CV 12.6 11.1 - 14.9 % [facility] RDW SD 40.9 35.7 - 48.1 fL [facility] NRBC abs 0.00 0.00 - 0.01 K/cumm [facility] Blood 11/14/2024 8:57 PM HANDS HANGER 11/14/2024 9:19 PM HANDS HANGER Mark Ahumada MACHINE CEMENTER AND FOLDER LAB BLOOD ORDERABLES Final Re sult [facility] Department [place] [address] * Phosphorus (11/14/2024 8:57 PM HANDS HANGER) Pathologist [facility] Phosphorus, pl 3.1 2.3 - 4.5 mg/dL Blood 11/14/2024 8:57 PM HANDS HANGER 11/14/2024 9:12 PM HANDS HANGER us Mark Ahumada MACHINE CEMENTER AND FOLDER LAB BLOOD ORDERABLES Final Re sult Performing Organization Address [facility] Co de Phone Number [facility] [place] [address] * Magnesium (11/14/2024 8:57 PM HANDS HANGER) Pathologist [facility] Magnesium 2.1 1.4 - 2.5 mg/dL Blood 11/14/2024 8:57 PM HANDS HANGER 11/14/2024 9:12 PM HANDS HANGER us Isrrael Sharma MD LAB BLOOD ORDERABLES Final Result Performing Organization Address [facility] de Phone Number [facility] [place] [address] * (ABNORMAL) Creatine kinase (CK), total (11/14/2024 8:57 PM HANDS HANGER) [facility] CK 817(H) 40 - 300 Units/L Blood 11/14/2024 8:57 PM HANDS HANGER 11/14/2024 9:19 PM HANDS HANGER us Antolin Yancey MACHINE CEMENTER AND FOLDER LAB BLOOD ORDERABLES Fi nal Result Performing Organization Address [facility] de Phone Number [facility] [place] [address] * (ABNORMAL) Comprehensive metabolic panel (11/14/2024 8:57 PM HANDS HANGER) [facility] Sodium 139 135 - 145 mmol/L Potassium, pl 3.4 3.3 - 4.9 mmol/L [facility] Chloride 105 97 - 110 mmol/L [facility] CO2 27 22 - 32 mmol/L [facility] Anion gap 7 2 - 15 mmol/L [facility] BUN 8 6 - 25 mg/dL [facility] Creatinine 0.76(L) 0.80 - 1.30 mg/dL [facility] Glucose 93 70 - 199 mg/dL [facility] Comment: Interpretive Data Fasting glucose >/= 126 mg/dl is diagnostic for diabetes. ?? Fasting is defined as no caloric intake for at least 8 hours. Fasting glucose between 100 mg/dl to 125 mg/dl is diagnostic of prediabetes. In a patient with classic symptoms of hyperglycemia or hyperglycemic crisis, a random glucose >/= 200 mg/dl is diagnostic for diabetes. In the absence of unequivocal hyperglycemia, results should be confirmed by repeat testing. The classification and Diagnosis of Diabetes Diabetes Care 2021; 46: S19-S40. Current interpretive data was last revised 2022. Calcium 8.1(L) 8.5 - 10.3 mg/dL [facility] Bilirubin, total 1.3(H) 0.1 - 1.2 mg/dL [facility] Protein, pl 5.8(L) 6.5 - 8.5 g/dL [facility] Albumin 3.3(L) 3.5 - 5.0 g/dL [facility] Alk phos 68 40 - 130 Units/L [facility] ALT 24 7 - 55 Units/L [facility] AST 51(H) 10 - 50 Units/L [facility] Blood 11/14/2024 8:57 PM HANDS HANGER 11/14/2024 9:12 PM HANDS HANGER Mark Ahumada MACHINE CEMENTER AND FOLDER LAB BLOOD ORDERABLES Final Re sult [facility] [place] [address] * TRANSTHORACIC ECHO (TTE) COMPLETE W DOPPLER/CF W CONTRAST (11/14/2024 1:16 PM HANDS HANGER) LV EF % CONS SCIMAGE Anatomical Region Laterality Modality Ultrasound 11/14/2024 12:1 5 PM HANDS HANGER Narrative 11/14/2024 4:47 PM HANDS HANGER [facility] Cardiac [place] [address] Transthoracic Echocardiographic Report Patient Name: JARRELL RUBIO MELVIN ?? : 1940 (84y 4m) ??Gender: M Study Date: 11/14/2024 12:15:56 PM Ht(Inch): 69 ??Wt(Lb): 179.01 ??BSA: 1.99 Head Packager: Clay Mckeon RDCS ??Location: [id number] Order Provider: ANTOLIN YANCEY BMI: 26.43 ??BP: 140 / 70 ?Quality: The study images were of technically good quality. Ref Provider: ANTOLIN YANCEY ?? PROCEDURES: Echocardiographic Report: ([id number], [id number]) Transthoracic complete echo with contrast, 2D, spectral and tissue Doppler, color flow Doppler, M-mode. Contrast: 0.8 ml Optison Administered, (2.2 ml wasted). Technically difficult study due to: acoustic windows. ?? INDICATIONS: Stroke. ?? MEASUREMENTS: 2D/MM ? Value ?Range ? Doppler ? Value ? Range LVIDd 2D ?5.49 cm ?[ 4.20 - 5.80 ] ? AV Peak Oz ? 1.00 m/s ?[ 1.00 - 1.70 ] LVIDs 2D ?4.16 cm ?[ 2.50 - 4.00 ] ? AV Peak PG ?4.00 IVSd 2D ? 1.04 cm ?[ 0.60 - 1.00 ] ? AV Mean PG ?2.16 mmHg LVPWd 2D ?1.11 cm ?[ 0.60 - 1.00 ] ? AV VTI ?22.85 cm LV Thickness Ratio ?0.94 ? [ 1.50 - 3.00 ] ? LVOT Peak Oz ? 0.69 m/s ?[ 0.70 - 1.10 ] LV FS 2D ?24.16 % ?[ 25.00 - 43.00 ] ? LVOT Peak PG ?1.90 LV Mass 2D ?239.25 g ? LVOT Mean PG ?0.80 mmHg LV Mass Index 2D ?120.23 g/m2 ?LVOT VTI ?13.56 cm RWT ? 0.40 ? LVOT Diam ? 2.04 cm LV EDV 2D ? 146.80 ? LILI VTI ? 1.94 cm2 LV ESV 2D ? 76.82 ?LILI Vmax ?2.25 cm2 EF Teich 2D ? 48 % ? [ 52 - 72 ] ? LVOT/AV VTI ? 0.59 - Dimensionless index (DVI) LV EDV Index ?77.80 ml/m2 ?MV E Peak Oz ? 0.51 m/s ?[ 0.60 - 1.30 ] EDV Mod 2C ?136.78 ml ?[ 59.00 - 175.00 ] ?MV A Peak Oz ? 0.76 m/s ?[ 1.00 - 1.20 ] EDV Mod 4C ?163.25 ml ?MV E/A ?0.67 ratio ?[ 0.80 - 1.50 ] EDV Mod BP ?154.83 ml ?[ 62.00 - 150.00 ] ?MV Decel Time ? 230.46 msec ? [ 104.00 - 258.00 ] ESV Mod 2C ?71.64 ml ? Med E` Oz ?5.68 cm/sec ? [ 8.00 - 15.00 ] ESV Mod 4C ?85.97 ml ? Lat E` Oz ?4.55 cm/sec ? [ 10.00 - 15.00 ] ESV Mod BP ?80.86 ml ? [ 21.00 - 61.00 ] ? Average E/E` ?9.97 EF Mod 2C ? 48 % ? RV S` ? 0.126 m/s EF Mod 4C ? 47 % ? PV Peak Oz ? 0.61 m/s ?[ 0.40 - 0.80 ] EF Mod BP ? 48 % ? [ 52 - 72 ] ? PV Peak PG ?1.49 LA Length 2C ?4.31 cm ?PV Accel Time ? 57.09 msec ?[ 103.00 - 142.00 ] LA Length 4C ?3.77 cm ?PV Accel Simpson ?9.13 m/s LA Volume 2C ? 41.8 ml LA Volume 4C ? 32.9 ml LA Volume BP ? 42.81 ml LA Volume Index ?21.51 ml/m2 TAPSE ? 1.74 cm ?[ 1.71 - 5.00 ] RA Area ? 11.62 cm/m2 ?[ 10.00 - 18.00 ] RA Volume ?24.51 ml RA Volume Index ?12.32 ml/m2 AoR Diam 2D ? 4.61 cm ?[ 3.10 - 3.70 ] - ?? FINDINGS: Left Ventricle: Normal left ventricular cavity size based on 2D measurements. Mildly dilated left ventricle based on volume index. Eccentric LV hypertrophy. Mildly depressed left ventricular systolic function. The Ejection Fraction (Murray's) is measured at 48 %. Left ventricular diastolic parameters are consistent with mild (Grade I) diastolic dysfunction (impaired relaxation). The average global longitudinal strain rate is abnormal (less negative than -16%). Resting Segmental Wall Motion Analysis: Total wall motion score is 2.00. There is global left ventricular hypokinesis. Right Ventricle: Normal right ventricular systolic function. Left Atrium: The left atrium is normal in size. Right Atrium: The right atrium is normal in size. Mitral Valve: The mitral valve demonstrates normal leaflet morphology and function. No mitral regurgitation seen. Aortic Valve: Trileaflet aortic valve. The aortic cusps appear mildly thickened. Mild aortic valve regurgitation. No aortic valve stenosis. The peak transaortic gradient is 4 mmHg. The mean transaortic gradient is 2.16 mmHg. The aortic valve area by the continuity equation (using VTI) is 1.94 cm2. The aortic valve area by the continuity equation (using Vmax) is 2.25 cm2. The dimensionless index is 0.59. Tricuspid Valve: Normal tricuspid valve appearance and function. There is mild tricuspid regurgitation. Pulmonic Valve: Normal appearance of the pulmonic valve leaflets without evidence stenosis. There is trivial pulmonic regurgitation. Pericardium: Normal pericardium without evidence of pericardial effusion. Aorta: There is dilation of the aortic root. IVC: The inferior vena cava is of normal size. ?? CONCLUSIONS: 1. Normal left ventricular cavity size based on 2D measurements. Mildly dilated left ventricle based on volume index. Eccentric LV hypertrophy. Mildly depressed left ventricular systolic function. The Ejection Fraction (Murray's) is measured at 48 %. Left ventricular diastolic parameters are consistent with mild (Grade I) diastolic dysfunction (impaired relaxation). The average global longitudinal strain rate is abnormal (less negative than -16%). 2. Resting Segmental Wall Motion Analysis: Total wall motion score is 2.00. There is global left ventricular hypokinesis. 3. Normal right ventricular systolic function. 4. The left atrium is normal in size. 5. The mitral valve demonstrates normal leaflet morphology and function. No mitral regurgitation seen. 6. Trileaflet aortic valve. Mild aortic valve regurgitation. No aortic valve stenosis. The peak transaortic gradient is 4 mmHg. 7. Normal tricuspid valve appearance and function. There is mild tricuspid regurgitation. 8. There is dilation of the aortic root (4.6 cm). ?? ATTESTATION: I have reviewed and interpreted the pertinent images and measurements of this study. I attest to the conclusions in the final report that is provided above. ?? DISCLAIMER: The study images and the final report will be retained in the patient chart by the [facility] for the legally required time period. This chart constitutes the legal record of any testing performed. Electronically Signed By: Alban Hampton MD 11/14/2024 4:46:36 PM HANDS HANGER Electronically Signed By: Alban Hampton MD 11/14/2024 4:46:36 PM HANDS HANGER Wall Motion Analysis - Resting Procedure Note Alban Bennett MD - 11/14/2024 [facility] [place] [address] Transthoracic Echocardiographic Report Patient Name: JARRELL RUBIO MELVIN : 1940 (84y 4m) Gender: M Study Date: 11/14/2024 12:15:56 PM Ht(Inch): 69 Wt(Lb): 179.01 BSA: 1.99 Head Packager: Clay Mckeon RDCS Location: [id number] Order Provider:ANTOLIN YANCEY BMI: 26.43 BP: 140 / 70 Quality: The study images were oftechnically good quality. Ref Provider: ANTOLIN YANCEY PROCEDURES: Echocardiographic Report: [id number], [id number]) Transthoracic complete echo withcontrast, 2D, spectral and tissue Doppler, color flow Doppler, M-mode. Contrast: 0.8 ml Optison Administered, (2.2 ml wasted). Technically difficult study due to: acoustic windows. INDICATIONS: Stroke. MEASUREMENTS: 2D/MM Value Range DopplerValue Range LVIDd 2D 5.49 cm [ 4.20 - 5.80 ] AV Peak Vel1.00 m/s [ 1.00 - 1.70 ] LVIDs 2D 4.16 cm [ 2.50 - 4.00 ] AV Peak PG4.00 IVSd 2D 1.04 cm [ 0.60 - 1.00 ] AV Mean PG2.16 mmHg LVPWd 2D 1.11 cm [ 0.60 - 1.00 ] AV VTI22.85 cm LV Thickness Ratio 0.94 [ 1.50 - 3.00 ] LVOT Peak Vel0.69 m/s [ 0.70 - 1.10 ] LV FS 2D 24.16 % [ 25.00 - 43.00 ] LVOT Peak PG1.90 LV Mass 2D 239.25 g LVOT Mean PG0.80 mmHg LV Mass Index 2D 120.23 g/m2 LVOT VTI13.56 cm RWT 0.40 LVOT Diam2.04 cm LV EDV 2D 146.80 LILI VTI1.94 cm2 LV ESV 2D 76.82 LILI Vmax2.25 cm2 EF Teich 2D 48 % [ 52 - 72 ] LVOT/AV VTI0.59 - Dimensionless index (DVI) LV EDV Index 77.80 ml/m2 MV E Peak Vel0.51 m/s [ 0.60 - 1.30 ] EDV Mod 2C 136.78 ml [ 59.00 - 175.00 ] MV A Peak Vel0.76 m/s [ 1.00 - 1.20 ] EDV Mod 4C 163.25 ml MV E/A0.67 ratio [ 0.80 - 1.50 ] EDV Mod BP 154.83 ml [ 62.00 - 150.00 ] MV Decel Tuvp029.46 msec [ 104.00 - 258.00 ] ESV Mod 2C 71.64 ml Med E` Vel5.68 cm/sec [ 8.00 - 15.00 ] ESV Mod 4C 85.97 ml Lat E` Vel4.55 cm/sec [ 10.00 - 15.00 ] ESV Mod BP 80.86 ml [ 21.00 - 61.00 ] Average E/E`9.97 EF Mod 2C 48 % RV S`0.126 m/s EF Mod 4C 47 % PV Peak Vel0.61 m/s [ 0.40 - 0.80 ] EF Mod BP 48 % [ 52 - 72 ] PV Peak PG1.49 LA Length 2C 4.31 cm PV Accel Time57.09 msec [ 103.00 - 142.00 ] LA Length 4C 3.77 cm PV Accel Slope9.13 m/s LA Volume 2C41.8 ml LA Volume 4C32.9 ml LA Volume BP42.81 ml LA Volume Index21.51 ml/m2 TAPSE 1.74 cm [ 1.71 - 5.00 ] RA Area 11.62 cm/m2 [ 10.00 - 18.00 ] RA Nqcskb33.51 ml RA Volume Index12.32 ml/m2 AoR Diam 2D 4.61 cm [ 3.10 - 3.70 ] - FINDINGS: Left Ventricle: Normal left ventricular cavity size based on 2Dmeasurements. Mildly dilated left ventricle based on volume index. Eccentric LV hypertrophy.Mildly depressed left ventricular systolic function. The Ejection Fraction (Murray's) ismeasured at 48 %. Left ventricular diastolic parameters are consistent with mild (GradeI) diastolic dysfunction (impaired relaxation). The average global longitudinal strainrate is abnormal (less negative than -16%). Resting Segmental Wall Motion Analysis: Total wall motion score is 2.00.There is global left ventricular hypokinesis. Right Ventricle: Normal right ventricular systolic function. Left Atrium: The left atrium is normal in size. Right Atrium: The right atrium is normal in size. Mitral Valve: The mitral valve demonstrates normal leaflet morphology andfunction. No mitral regurgitation seen. Aortic Valve: Trileaflet aortic valve. The aortic cusps appear mildlythickened. Mild aortic valve regurgitation. No aortic valve stenosis. The peak transaorticgradient is 4 mmHg. The mean transaortic gradient is 2.16 mmHg. The aortic valve area bythe continuity equation (using VTI) is 1.94 cm2. The aortic valve area by the continuityequation (using Vmax) is 2.25 cm2. The dimensionless index is 0.59. Tricuspid Valve: Normal tricuspid valve appearance and function. There ismild tricuspid regurgitation. Pulmonic Valve: Normal appearance of the pulmonic valve leaflets withoutevidence stenosis. There is trivial pulmonic regurgitation. Pericardium: Normal pericardium without evidence of pericardialeffusion. Aorta: There is dilation of the aortic root. IVC: The inferior vena cava is of normal size. CONCLUSIONS: 1. Normal left ventricular cavity size based on 2D measurements. Mildlydilated left ventricle based on volume index. Eccentric LV hypertrophy. Mildlydepressed left ventricular systolic function. The Ejection Fraction (Murray's) ismeasured at 48 %. Left ventricular diastolic parameters are consistent with mild (Grade I)diastolic dysfunction (impaired relaxation). The average global longitudinal strainrate is abnormal (less negative than -16%). 2. Resting Segmental Wall Motion Analysis: Total wall motion score is2.00. There is global left ventricular hypokinesis. 3. Normal right ventricular systolic function. 4. The left atrium is normal in size. 5. The mitral valve demonstrates normal leaflet morphology and function.No mitral regurgitation seen. 6. Trileaflet aortic valve. Mild aortic valve regurgitation. No aorticvalve stenosis. The peak transaortic gradient is 4 mmHg. 7. Normal tricuspid valve appearance and function. There is mild tricuspidregurgitation. 8. There is dilation of the aortic root (4.6 cm). ATTESTATION: I have reviewed and interpreted the pertinent images and measurements ofthis study. I attest to the conclusions in the final report that is provided above. DISCLAIMER: The study images and the final report will be retained in the patientchart by the [facility] Laboratory for the legally required time period. This chart constitutesthe legal record of any testing performed. Electronically Signed By: Alban Hampton MD 11/14/2024 4:46:36 PM HANDS HANGER Electronically Signed By: Alban Hampton MD 11/14/2024 4:46:36 PM HANDS HANGER Wall Motion Analysis - Resting us Antolin Yancey NP CV ECHO PROCEDURES Angela l Result * MRI Brain W WO Contrast (11/14/2024 10:32 AM HANDS HANGER) Anatomical Region Laterality Modality Head and Neck N/A Magnetic Resonan ce 11/14/2024 10:5 0 AM HANDS HANGER Impressions 11/14/2024 11:20 AM HANDS HANGER 1. No acute intracranial process. 2. Small foci of susceptibility within the right frontal lobe and left occipital lobe are nonspecific and may represent sequela of aging or cerebral amyloid angiopathy. 3. Findings of small vessel disease as described above. Dictated by: Pop Ford MD The radiology attending physician has personally reviewed this study, and had reviewed and/or edited this written report and agrees with it. Electronically signed by: Abdon Cespedes M.D. Narrative 11/14/2024 11:20 AM HANDS HANGER EXAMINATION: Magnetic resonance imaging (MRI) of the brain and brainstem without and with contrast HISTORY: New onset of seizure TECHNIQUE: Multiplanar multi-weighted MRI of the brain and brainstem was performed without and with intravenous contrast using the general brain protocol. Contrast information: 16 mL Gadoterate Meglumine COMPARISON: None Available. FINDINGS: There is global parenchymal volume loss with ex vacuo dilatation of the lateral ventricles. Mild periventricular and subcortical T2/FLAIR hyperintensities are nonspecific but likely represent small vessel ischemic change. The scalp and calvarium are normal. The superior sagittal sinus demonstrates normal venous flow. The corpus callosum is normal in shape and signal intensity. The posterior fossa is unremarkable. The pituitary and sella are normal. The brainstem and craniocervical junction are unremarkable. Diffusion weighted images reveal no hyperintensities to suggest acute cerebral infarction. Small foci of susceptibility within the right frontal lobe and left occipital lobe are nonspecific and may represent sequela of aging or cerebral amyloid angiopathy. The ventricles are normal in size and position without evidence of hydrocephalus. Mild paranasal sinus disease. The visualized portions of the mastoids are unremarkable. The orbits appear normal. Normal flow voids are demonstrated in the carotid arteries and basilar artery. Post contrast images are limited due to patient motion. No abnormal contrast enhancement within this limitation. Procedure Note Abdon Cespedes MD - 11/14/2024 EXAMINATION: Magnetic resonance imaging (MRI) of the brain and brainstem without and with contrast HISTORY: New onset of seizure TECHNIQUE: Multiplanar multi-weighted MRI of the brain and brainstem was performed without and with intravenous contrast using the general brain protocol. Contrast information: 16 mL Gadoterate Meglumine COMPARISON: None Available. FINDINGS: There is global parenchymal volume loss with ex vacuo dilatation of the lateral ventricles. Mild periventricular and subcortical T2/FLAIR hyperintensities are nonspecific but likely represent small vessel ischemic change. The scalp and calvarium are normal. The superior sagittal sinus demonstrates normal venous flow. The corpus callosum is normal in shape and signal intensity. The posterior fossa is unremarkable. The pituitary and sella are normal. The brainstem and craniocervical junction are unremarkable. Diffusion weighted images reveal no hyperintensities to suggest acute cerebral infarction. Small foci of susceptibility within the right frontal lobe and left occipital lobe are nonspecific and may represent sequela of aging or cerebral amyloid angiopathy. The ventricles are normal in size and position without evidence of hydrocephalus. Mild paranasal sinus disease. The visualized portions of the mastoids are unremarkable. The orbits appear normal. Normal flow voids are demonstrated in the carotid arteries and basilar artery. Post contrast images are limited due to patient motion. No abnormal contrast enhancement within this limitation. IMPRESSION: 1. No acute intracranial process. 2. Small foci of susceptibility within the right frontal lobe and left occipital lobe are nonspecific and may represent sequela of aging or cerebral amyloid angiopathy. 3. Findings of small vessel disease as described above. Dictated by: Pop Ford MD The radiology attending physician has personally reviewed this study, and had reviewed and/or edited this written report and agrees with it. Electronically signed by: Abdon Cespedes M.D. Mark Ahumada MACHINE CEMENTER AND FOLDER IMG MRI PROCEDURES Final Resu lt * (ABNORMAL) Creatine kinase (CK), total (11/14/2024 6:27 AM HANDS HANGER) CK 782(H) 40 - 300 Units/L Blood 11/14/2024 6:2 7 AM HANDS HANGER 11/14/2024 6:48 AM HANDS HANGER us Mark Ahumada NP LAB BLOOD ORDERABLES Final Re sult [facility] [place] [address] * (ABNORMAL) Lipid panel (11/14/2024 6:27 AM HANDS HANGER) Cholesterol 199 30 - 199 mg/dL Comment: Interpretive Data Ages < or = 19 years ??Acceptable: ? <170 mg/dL ??Borderline high: ??170-199 mg/dL ??High: ? >or= 200 mg/dL Ages > or = 20 years ??Desirable: ?<200 mg/dL ??Borderline high: ??200-239 mg/dL ??High: ? >or= 240 mg/dL Literature References: 1. Expert Panel on Integrated Guidelines for Cardiovascular Health and Risk Reduction in Children and Adolescents. Pediatrics 2011;128:S213 2. NCEP Expert Panel. Circulation 2004;110:227 Current Interpretive Data was last revised on 2018. Triglycerides 69 <=149 mg/dL [facility] Comment: Interpretive Data Ages < or = 9 years ??Acceptable: ? <75 mg/dL ??Borderline high: ??75-99 mg/dL ??High: ? >or= 100 mg/dL Ages 10 to 20 years ??Acceptable: ? <90 mg/dL ??Borderline high: ??90-129 mg/dL ??High: ? >or= 130 mg/dL Ages > or = 20 years ??Desirable: ?<150 mg/dL ??Borderline high: ??150-199 mg/dL ??High: ? 200-499 mg/dL ?Very high: ?? >or= 499 mg/dL Literature References: 1. Expert Panel on Integrated Guidelines for Cardiovascular Health and Risk Reduction in Children and Adolescents. Pediatrics 2011;128:S213 2. NCEP Expert Panel. Circulation 2004;110:227 Current Interpretive Data was last revised on 2018. HDL 48 >=40 mg/dL [facility] Comment: Interpretive Data Ages < or = 19 years ??Acceptable: ? >45 mg/dL ??Borderline low: ?? 40-45 mg/dL ??Low: ? <40 mg/dL Ages > or = 20 years ??Desirable: ?>or= 60 mg/dL ??Low: ? <40 mg/dL Literature References: 1. Expert Panel on Integrated Guidelines for Cardiovascular Health and Risk Reduction in Children and Adolescents. Pediatrics 2011;128:S213 2. NCEP Expert Panel. Circulation 2004;110:227 Current Interpretive Data was last revised on 2018. LDL, calculated 138(H) <=129 mg/dL [facility] Comment: Interpretive Data Ages < or = 19 years ??Acceptable: ? <110 mg/dL ??Borderline high: ??110-129 mg/dL ??High: ?>or= 130 mg/dL Ages > or = 20 years ??Optimal: ? <100 mg/dL ??Near optimal: ?100-129 mg/dL ??Borderline high: ?? 130-159 mg/dL ??High: ?>160 mg/dL Calculated using the Ramiro LDL-C estimating equation. This equation was implemented on 2024. Prior to this date LDL-C was estimated using the Friedewald equation. Literature References: 1. Expert Panel on Integrated Guidelines for Cardiovascular Health and Risk Reduction in Children and Adolescents. Pediatrics 2011;128:S213 2. NCEP Expert Panel. Circulation 2004;110:227 3. Ramiro Woods et al. LEEANN Cardiol. 2020 February 22;5(5):540-548. doi: 10.1001/jamacardio.2020.0013 Current Interpretive Data was last revised on 2024. Non-HDL Cholesterol 151 mg/dL [facility] Comment: Interpretive Data Ages < or = 19 years ??Acceptable: ?<120 mg/dL ??Borderline high: ??120-144 mg/dL ??High: ?>145 mg/dL Ages > or = 20 years ??When triglycerides are >200 mg/dL, Non-HDL cholesterol is a secondary target of ? therapy with treatment goals that are 30 mg/dL greater than the LDL cholesterol target. ? Literature References: 1. Expert Panel on Integrated Guidelines for Cardiovascular Health and Risk Reduction in Children and Adolescents. Pediatrics 2011;128:S213 2. NCEP Expert Panel. Circulation 2004;110:227 Current Interpretive Data was last revised on 2018. Chol/HDL ratio 4 [facility] Blood 11/14/2024 6:27 AM HANDS HANGER 11/14/2024 6:48 AM HANDS HANGER us Isrrael Hunter Sharma MD LAB BLOOD ORDERABLES Final Result Performing Organization Address [facility] Co de Phone Number [facility] [place] [address] * Troponin I high-sensitivity 6-hour (11/14/2024 4:13 AM HANDS HANGER) Trop I hs 25 <=35 ng/L Comment: Interpretive Data For further hscTnI resources including the diagnostic algorithm and an aid in interpretation, copy and paste this link: [email or web address]/show/[email or web address] Current Interpretive Data last revised 2020. Trop I hs delta 7 ng/L [facility] Trop I hs interp Equivocal [facility] Blood 11/14/2024 4:13 AM HANDS HANGER 11/14/2024 4:34 AM HANDS HANGER us Mark Ahumada MACHINE CEMENTER AND FOLDER LAB BLOOD ORDERABLES Final Re sult Performing Organization Address [facility] [place] [address] * Troponin I high-sensitivity 4-hour (11/14/2024 2:24 AM HANDS HANGER) Trop I hs 25 <=35 ng/L Comment: Interpretive Data For further hscTnI resources including the diagnostic algorithm and an aid in interpretation, copy and paste this link: [email or web address]://[email or web address]/show/[email or web address] Current Interpretive Data last revised 2020. Trop I hs delta 7 ng/L [facility] Trop I hs interp Equivocal [facility] Blood 11/14/2024 2:24 AM HANDS HANGER 11/14/2024 2:38 AM HANDS HANGER Mark Ahumada MACHINE CEMENTER AND FOLDER LAB BLOOD ORDERABLES Final Re sult Performing Organization Address City/[facility]/ZIP Co de Phone Number [facility] [place] [address] * XR Ventriculoperitoneal Shunt Series (11/14/2024 2:11 AM HANDS HANGER) Anatomical Region Laterality Modality Head and Neck N/A Computed Radiogr aphy 11/14/2024 2:24 AM HANDS HANGER Impressions 11/14/2024 9:20 AM HANDS HANGER Stone catheter in place. ??No additional retained radiopaque foreign body. Dictated by: Veronique Duke MD The radiology attending physician has personally reviewed this study, and had reviewed and/or edited this written report and agrees with it. Electronically signed by: Augusto Evans M.D, PHD Narrative 11/14/2024 9:20 AM HANDS HANGER EXAMINATION: XR VENTRICULOPERITONEAL SHUNT SERIES HISTORY: Rule out metallic foreign body prior to MRI. COMPARISON: None Available. FINDINGS: A radiographic shunt series was performed including 4 total radiographs and the following views: AP SKULL, AP CHEST, AP ABDOMEN AND AP PELVIS. Multiple dental restorations. ??Low lung volumes. ??Tortuous trachea. No pulmonary consolidation. ??No pleural effusion or pneumothorax. Mildly enlarged cardiomediastinal silhouette. ??Nonobstructive bowel gas pattern. ??Severe right hip osteoarthritis. ??Temperature probe Stone catheter tip overlies the mid pelvis. Procedure Note Augusto Evans MD PhD - 11/14/2024 EXAMINATION: XR VENTRICULOPERITONEAL SHUNT SERIES HISTORY: Rule out metallic foreign body prior to MRI. COMPARISON: None Available. FINDINGS: A radiographic shunt series was performed including 4 total radiographs and the following views: AP SKULL, AP CHEST, AP ABDOMEN AND AP PELVIS. Multiple dental restorations. Low lung volumes. Tortuous trachea. No pulmonary consolidation. No pleural effusion or pneumothorax. Mildly enlarged cardiomediastinal silhouette. Nonobstructive bowel gas pattern. Severe right hip osteoarthritis. Temperature probe Stone catheter tip overlies the mid pelvis. IMPRESSION: Stone catheter in place. No additional retained radiopaque foreign body. Dictated by: Veronique Duke MD The radiology attending physician has personally reviewed this study, and had reviewed and/or edited this written report and agrees with it. Electronically signed by: Augusto Evans M.D, PHD Mark Ahumada MACHINE CEMENTER AND FOLDER IMG XR PROCEDURES Final Resul t * Troponin I high-sensitivity 2-hour (11/14/2024 12:25 AM HANDS HANGER) Trop I hs 25 <=35 ng/L Comment: Interpretive Data For further hscTnI resources including the diagnostic algorithm and an aid in interpretation, copy and paste this link: https://bjhlab.[email or web address]/show/[email or web address] Current Interpretive Data last revised 2020. Trop I hs delta 7 ng/L [facility] Trop I hs interp Equivocal [facility] Blood 11/14/2024 12:2 5 AM HANDS HANGER 11/14/2024 12:44 AM HANDS HANGER Mark Ahumada MACHINE CEMENTER AND FOLDER LAB BLOOD ORDERABLES Final Re sult Performing Organization Address City/State/[facility] Co de Phone Number [facility] [place] [address] * AR DIAGNOSTIC LUMBAR SPINAL PUNCTURE (11/14/2024 12:16 AM HANDS HANGER) Narrative Andrae Pop MD PhD - 11/14/2024 12:16 AM HANDS HANGER Andrae Pop MD PhD ? 11/14/2024 12:18 AM Lumbar Puncture Date/Time: 11/14/2024 12:16 AM Performed by: Andrae Pop MD PhD Authorized by: Andrae Pop MD PhD ?? Sidney Protocol: RN Notified of Procedure: yes ?? Informed consent: ??Risks, benefits, alternatives discussed and patient/accounts payable representative/guardian agrees and accepts Patient's stated name/ matches armband: ??Yes and patient unable to verbalize - armband matched to name and within medical record Allergies confirmed: yes ?? Consent form signed, dated, timed; matches correct patient, intended procedure and site: ??No consent form due to emergent status Imaging: ??N/a Lab/Diag test results: ??N/a Supplies, devices and special equipment are available: n/a ?? Site/side marked: n/a ??Immediately prior to the procedure a time out was called: a verbal verification by the procedure participants confirmed correct patient identity, correct site/side marked and visible (if applicable); agreement on procedure to be done; and correct patient positioning ?? Indications: ??Evaluation for infection and evaluation for altered mental status Anesthesia (see MAR for exact dosage) Anesthesia method: ??Local infiltration Local anesthetic: ??Lidocaine 1% Patient prepararion: ??Gloves, cap, mask and towels Skin preparation: ??Skin prepped with povidone-iodine Lumbar space: ??L3-L4 interspace Patient's position: ??Left lateral decubitus Needle gauge: ??18 Needle length: ??5.0 Needle type: ??Spinal needle - Quincke tip Number of attempts: ??1 Fluid appearance: ??Clear Tubes of fluid: ??5 Total volume (ml): ??15 Post-procedure: ??Adhesive bandage applied Patient tolerance: ??Patient tolerated the procedure well with no immediate complications Post Procedure Debrief: All guidewires, needles, sponges or other items are accounted for: yes ?? Any special post procedure monitoring, testing or other considerations: n/a ?? All specimens identified, labeled and matched to patient identification: n/a ?? Responsible libertarian for transporting specimen(s) to lab determined: n/a ?? Andrae Pop MD PhD IN CLINIC/[facility] DE ORDERABLES Final Result * Varicella Zoster Virus (VZV) PCR CSF (11/13/2024 11:40 PM HANDS HANGER) Pathologist [facility] VZV DNA Not Detected Not Detected [facility] Comment: Interpretative Data: Testing performed by [facility] ([phone]). This assay is performed using the [employer] Simplexa VZV Direct assay. This is a qualitative, real-time PCR assay for the detection of Varicella-zoster virus (VZV). This assay has been cleared by the U.S. Food and Drug Administration for performance on cerebrospinal fluid and lesion swabs. The performance characteristics have been verified by the [facility]. Results must be considered in the clinical context, and a negative result does not rule out infection. Interpretive data last revised 2021. CSF 11/13/2024 11:4 0 PM HANDS HANGER 11/14/2024 5:00 PM HANDS HANGER Isrrael Sharma MD LAB MICROBIOLOGY - GENERAL ORDERABLES Final Result Performing Organization Address [facility]/[place]IP [place] [address] [facility] * Herpes Simplex Virus (HSV) PCR CSF (11/13/2024 11:40 PM HANDS HANGER) Pathologist [facility] HSV DNA Not Detected Not Detected [facility] Comment: Interpretive Data This assay is performed using primers specific for the DNA polymerase gene of both HSV-1 and HSV-2. ??The assay contains unique primer/probe sets capable of distinguishing between HSV-1 and HSV-2. ??This assay has been cleared by the U.S. Food and Drug Administration for performance on cerebrospinal fluid and genital swabs. ??The assay has been evaluated for use on alternative sample types, though it is not FDA cleared for these applications. ??The performance of all sample types has been validated by the performing laboratory and deemed acceptable for patient testing. Current Interpretive Data was last reviewed on 02/21/2019 CSF 11/13/2024 11:4 0 PM HANDS HANGER 11/14/2024 5:00 PM HANDS HANGER Isrrael Sharma MD LAB MICROBIOLOGY - GENERAL ORDERABLES Final Result Performing Organization Address [facility] Co de Phone Number NADEGE [facility] [place] [address] [facility] * Cell count w/reflex diff, CSF (11/13/2024 11:40 PM HANDS HANGER) Tube Number, CSF Tube 1 Color, CSF Colorless Colorless [facility] Clarity, CSF Clear Clear [facility] Xanthochromia , CSF Absent Absent [facility] Nucleated cells, CSF 0 0 - 5 /cumm [facility] RBC, CSF 0 0 - 0 /cumm [facility] CSF 11/13/2024 11:4 0 PM HANDS HANGER 11/13/2024 11:52 PM HANDS HANGER Mark Ahumada MACHINE CEMENTER AND FOLDER LAB BODY FLUIDS AND STOOLS OR DERABLES Final Result Performing Organization Address [facility] Co de Phone Number [facility] [place] [address] * Cell count w/reflex diff, CSF (11/13/2024 11:40 PM HANDS HANGER) Tube Number, CSF Tube 4 Color, CSF Colorless Colorless [facility] Clarity, CSF Clear Clear [facility] Xanthochromia , CSF Absent Absent [facility] Nucleated cells, CSF 0 0 - 5 /cumm [facility] RBC, CSF 0 0 - 0 /cumm [facility] CSF 11/13/2024 11:4 0 PM HANDS HANGER 11/13/2024 11:52 PM HANDS HANGER Mark Ahumada MACHINE CEMENTER AND FOLDER LAB BODY FLUIDS AND STOOLS OR DERABLES Final Result Performing Organization Address [facility] Co de Phone Number [facility] [place] [address] * Check Sample (11/13/2024 11:40 PM HANDS HANGER) Pathologist [facility] ABO Rh A Positive [facility] HCLL OTHER 11/13/2024 11:4 0 PM HANDS HANGER 11/13/2024 11:59 PM HANDS HANGER Andrae Pop MD PhD LAB BLOOD ORDER DAR Final Result Performing Organization Address City/[facility] Co de Phone Number [facility] [place] [address] [facility] * (ABNORMAL) Protein, total, CSF (11/13/2024 11:40 PM HANDS HANGER) Pathologist [facility] Protein, CSF 60(H) 5 - 45 mg/dL Comment:Reviewed CSF 11/13/2024 11:4 0 PM HANDS HANGER 11/13/2024 11:52 PM HANDS HANGER Mark Ahumada MACHINE CEMENTER AND FOLDER LAB BODY FLUIDS AND STOOLS OR DERABLES Final Result Performing Organization Address [facility] de Phone Number [facility] [place] [address] * Glucose, CSF (11/13/2024 11:40 PM HANDS HANGER) Glucose, CSF 77 mg/dL Comment: Reviewed Reference Interval Information: CSF Glucose should be 60-66% of the most current plasma glucose concentration (milligrams/deciliter) CLIN. CHEM. 41/3, 343-360 (1994), Clinical Utility of Biochemical Analysis of Cerebrospinal Fluid, Noble Ram and Kasi Flores. Current interpretive data was last revised on 2019. CSF 11/13/2024 11:4 0 PM HANDS HANGER 11/13/2024 11:52 PM HANDS HANGER Mark Ahumada MACHINE CEMENTER AND FOLDER LAB BODY FLUIDS AND STOOLS OR DERABLES Final Result Performing Organization Address [facility] de Phone Number [facility] [place] [address] * POCT glucose (11/13/2024 11:37 PM HANDS HANGER) Glucose, POC 117 70 - 199 mg/dL Blood 11/13/2024 11:3 7 PM HANDS HANGER 11/13/2024 11:37 PM HANDS HANGER Andrae Pop MD PhD LAB POCT ORDERA BLES - DEVICE Final Result Performing Organization Address [facility] [place] [address] * XR chest 1 view (Portable) (11/13/2024 11:32 PM HANDS HANGER) Anatomical Region Laterality Modality Body, Chest N/A Digital Radiogra phy 11/14/2024 7:59 AM HANDS HANGER Impressions 11/14/2024 7:59 AM HANDS HANGER There are no prior chest radiographs for comparison. ??The patient's markedly rotated. ??Heart is mildly enlarged no mass or lymphadenopathy no pleural effusions There is no pneumothorax.. There is patchy atelectasis. Electronically signed by: Poonam Barrera M.D. Narrative 11/14/2024 7:59 AM HANDS HANGER EXAMINATION: 1 view chest radiograph Procedure Note Poonam Barrera MD - 11/14/2024 EXAMINATION: 1 view chest radiograph IMPRESSION: There are no prior chest radiographs for comparison. The patient's markedly rotated. Heart is mildly enlarged no mass or lymphadenopathy no pleural effusions There is no pneumothorax.. There is patchy atelectasis. Electronically signed by: Poonam Barrera M.D. Mark Ahumada NP IMG XR PROCEDURES Final Resul t * (ABNORMAL) Urinalysis reflex to microscopic and culture Urine (11/13/2024 10:56 PM HANDS HANGER) Color, ur Straw Yellow Clarity, ur Clear Clear [facility] Specific gravity, ur 1.022 1.003 - 1.030 [facility] pH, urine 8.0 [facility] Comment: Interpretive Data ? Urine pH is affected by diet, medications, systemic acid-base disturbances, and renal tubular function. ??pH may affect urinary stone formation. ??For example, urine pH below 6.0 may help reduce the tendency for calcium phosphate stones and pH greater than 6.0 may reduce the tendency for uric acid stone formation. Source: [employer] Current Interpretive Data was last revised on 2017 Protein, ur ql 1+(A) Negative [facility] Glucose, ur ql Negative Negative [facility] Ketones, ur Negative Negative [facility] Bilirubin, ur Negative Negative [facility] Blood, ur 2+(A) Negative [facility] Urobilinogen, ur <2.0 <2.0 mg/dL [facility] Nitrite, ur Negative Negative [facility] Leukocyte esterase, ur 3+(A) Negative [facility] UA reflex comment Reflex to microscopic UA will be performed. [facility] Urine 11/13/2024 10:5 6 PM HANDS HANGER 11/13/2024 11:10 PM HANDS HANGER Mark Ahumada MACHINE CEMENTER AND FOLDER LAB MICROBIOLOGY - GENERAL OR DERABLES Final Result Performing Organization Address [facility] de Phone Number [facility] [place] [address] * (ABNORMAL) Urinalysis, microscopic only (11/13/2024 10:56 PM HANDS HANGER) WBC, ur >50(A) 0 - 5 /HPF RBC, ur 11-20(A) 0 - 2 /HPF [facility] Mucous, ur Present(A) [facility] Culture Reflex Comment Reflex to urine culture will be performed. [facility] Urine 11/13/2024 10:5 6 PM HANDS HANGER 11/13/2024 11:10 PM HANDS HANGER Mark Ahumada NP LAB URINE ORDERABLES Final Re sult Performing Organization Address [facility] de Phone Number [facility] [place] [address] * Urine culture Urine (11/13/2024 10:56 PM HANDS HANGER) Report Final Report: No growth Urine 11/13/2024 10:5 6 PM HANDS HANGER 11/14/2024 2:50 AM HANDS HANGER Narrative [facility] - 11/15/2024 7:04 AM HANDS HANGER Urine culture reflexed based upon urinalysis results. Testing performed by [facility] ([phone]) Mark Ahumada NP LAB MICROBIOLOGY - GENERAL OR DERABLES Final Result Performing Organization Address [facility] de Phone Number [facility] Department [place] [address] * Lactate, whole blood (11/13/2024 10:54 PM HANDS HANGER) [facility] Lactate, bld 1.3 0.7 - 2.0 mmol/L Blood 11/13/2024 10:5 4 PM HANDS HANGER 11/13/2024 11:10 PM HANDS HANGER Mark Ahumada MACHINE CEMENTER AND FOLDER LAB BLOOD ORDERABLES Final Re sult Performing Organization Address [facility] Co de Phone Number [facility] [place] [address] * (ABNORMAL) Creatine kinase (CK), total (11/13/2024 10:54 PM HANDS HANGER) [facility] CK 596(H) 40 - 300 Units/L Blood 11/13/2024 10:5 4 PM HANDS HANGER 11/13/2024 11:21 PM HANDS HANGER Mark Ahumada MACHINE CEMENTER AND FOLDER LAB BLOOD ORDERABLES Final Re sult Performing Organization Address [facility] de Phone Number [facility] Department [place] [address] * Troponin I high-sensitivity series (baseline, 2hr, 4hr, 6hr) (11/13/2024 10:12 PM HANDS HANGER) [facility] Trop I hs 18 <=35 ng/L Comment: Interpretive Data For further hscTnI resources including the diagnostic algorithm and an aid in interpretation, copy and paste this link: [email or web address].testcatalog.org/[email or web address] Current Interpretive Data last revised 2020. Blood 11/13/2024 10:1 2 PM HANDS HANGER 11/13/2024 10:22 PM HANDS HANGER us Mark Ahumada MACHINE CEMENTER AND FOLDER LAB BLOOD ORDERABLES Final Re sult Performing Organization Address [facility] Co de Phone Number NADEGE DE LEON [facility] [place] [address] * eGFR (11/13/2024 10:12 PM HANDS HANGER) Pathologist [facility] eGFR >90 >=60 mL/min/1. 73 m2 Comment: Interpretive Data Reference Interval Normal ?>/= 90 mL/min/1.73m2 Mildly decreased* ? 60 - 89 mL/min/1.73m2 Mildly to moderately decreased ?45 - 59 mL/min/1.73m2 Moderately to severely decreased ??30 - 44 mL/min/1.73m2 Severely decreased ?15 - 29 mL/min/1.73m2 Kidney Failure ?< 15 ??mL/min/1.73m2 *Relative to young adult level Estimated glomerular filtration rate is determined by the 2020 CKD-EPI equation recommended by the National Kidney Foundation (A Unifying Approach to GFR Estimation: Recommendations of the NKF-ASK Task Force on Reassessing the Inclusion of Race in Diagnosing Kidney Disease, JASN 2020). The CKD-EPI equation should not be used for patients with unstable renal function and has not been validated in children and those over 70. Current interpretive data was last reviewed 2021. Blood 11/13/2024 10:1 2 PM HANDS HANGER 11/13/2024 10:22 PM HANDS HANGER Mark Ahumada NP LAB BLOOD ORDERABLES Final Re tigist Performing Organization Address City/[facility] Co de Phone Number NADEGE MA [facility] Department [place] [address] * (ABNORMAL) aPTT (11/13/2024 10:12 PM HANDS HANGER) Pathologist [facility] aPTT 27(L) 28 - 38 sec Comment: Interpretive Data Heparin therapeutic range: 66.0 - 100.0 seconds. Range based on correlation with therapeutic heparin activity range of 0.3 - 0.7 Units/mL. Current interpretive data was last revised on 2023. Blood 11/13/2024 10:1 2 PM HANDS HANGER 11/13/2024 10:26 PM HANDS HANGER Mark Ahumada MACHINE CEMENTER AND FOLDER LAB BLOOD ORDERABLES Final Re sul Performing Organization Address [facility] de Phone Number [facility] [place] [address] * Protime-INR (11/13/2024 10:12 PM HANDS HANGER) [facility] PT 11.9 9.7 - 13.0 sec INR 1.10 0.90 - 1.20 [facility] Comment: Interpretive data Oral anticoagulant therapeutic ranges: Venous thromboembolism prophylaxis or treatment: 2.0-3.0 CARDIOLOGY Standard range: 2.0-3.0 High-intensity range: 2.5-3.5 Refer to indication-specific guidelines for appropriate target ranges for prosthetic heart valve replacement. Current interpretive data was last revised on 2019. Blood 11/13/2024 10:1 2 PM HANDS HANGER 11/13/2024 10:26 PM HANDS HANGER Mark Ahumada MACHINE CEMENTER AND FOLDER LAB BLOOD ORDERABLES Final [facility] Performing Organization Address [facility] de Phone Number [facility] [place] [address] * (ABNORMAL) CBC without differential (11/13/2024 10:12 PM HANDS HANGER) [facility] WBC 11.5(H) 3.8 - 9.9 K/cumm Hgb 12.6(L) 13.0 - 17.5 g/dL [facility] Hct 36.5(L) 38.9 - 50.3 % [facility] Plt 226 150 - 400 K/cumm [facility] MPV 9.2 9.1 - 12.3 fL [facility] RBC 4.14(L) 4.30 - 5.80 M/cumm [facility] MCV 88.2 81.3 - 96.4 fL [facility] MCH 30.4 27.1 - 33.3 pg [facility] MCHC 34.5 32.3 - 35.7 g/dL [facility] RDW CV 12.7 11.1 - 14.9 % [facility] RDW SD 41.6 35.7 - 48.1 fL [facility] NRBC abs 0.00 0.00 - 0.01 K/cumm [facility] Blood 11/13/2024 10:1 2 PM HANDS HANGER 11/13/2024 10:22 PM HANDS HANGER Mark Ahumada MACHINE CEMENTER AND FOLDER LAB BLOOD ORDERABLES Final Re sult Performing Organization Address City/[facility]/ZIP Co de Phone Number [facility] Department [place] [address] * Type and screen (11/13/2024 10:12 PM HANDS HANGER) Denice, indirect Negative ABO Rh A Positive [facility] Blood 11/13/2024 10:1 2 PM HANDS HANGER 11/13/2024 11:05 PM HANDS HANGER Narrative [facility] - 11/14/2024 12:02 AM HANDS HANGER Has the patient had Daratumumab or Isatuximab in the past 6 months?->Unknown Mark Ahumada MACHINE CEMENTER AND FOLDER LAB BLOOD BANK TEST ORDERABLE S Final Result [facility] [place] [address] * Phosphorus (11/13/2024 10:12 PM HANDS HANGER) Phosphorus, pl 2.9 2.3 - 4.5 mg/dL Blood 11/13/2024 10:1 2 PM HANDS HANGER 11/13/2024 10:22 PM HANDS HANGER Mark Ahumada MACHINE CEMENTER AND FOLDER LAB BLOOD ORDERABLES Final Re sult Performing Organization Address City/[facility] Co de Phone Number [facility] [place] [address] * Magnesium (11/13/2024 10:12 PM HANDS HANGER) Pathologist [facility] Magnesium 1.9 1.4 - 2.5 mg/dL Blood 11/13/2024 10:1 2 PM HANDS HANGER 11/13/2024 10:22 PM HANDS HANGER Mark Ahmuada MACHINE CEMENTER AND FOLDER LAB BLOOD ORDERABLES Final Re sult Performing Organization Address [facility] [place] [address] * Hemoglobin A1c (11/13/2024 10:12 PM HANDS HANGER) [facility] Hgb A1C 5.0 4.0 - 5.6 % Estimated Average Glucose 97 mg/dL [facility] Comment: The ADA recommends reporting an estimated Average Glucose (eAG) with all Hemoglobin A1c results using the equation derived from a study of 507 normal and diabetic adults. ??Minority populations were underrepresented and children were not included. ?? (Diabetes Care 2020; 43(S1): S66-S76). ??The eAG is not equivalent to a fasting glucose. Blood 11/13/2024 10:1 2 PM HANDS HANGER 11/13/2024 10:26 PM HANDS HANGER Isrrael Sharma MD LAB BLOOD ORDERABLES Final Result Performing Organization Address [facility] [place] [address] * (ABNORMAL) Comprehensive metabolic panel (11/13/2024 10:12 PM HANDS HANGER) Pathologist [facility] Sodium 137 135 - 145 mmol/L Potassium, pl 3.4 3.3 - 4.9 mmol/L [facility] Chloride 102 97 - 110 mmol/L [facility] CO2 27 22 - 32 mmol/L [facility] Anion gap 8 2 - 15 mmol/L [facility] BUN 8 6 - 25 mg/dL [facility] Creatinine 0.67(L) 0.80 - 1.30 mg/dL [facility] Glucose 104 70 - 199 mg/dL [facility] Comment: Interpretive Data Fasting glucose >/= 126 mg/dl is diagnostic for diabetes. ?? Fasting is defined as no caloric intake for at least 8 hours. Fasting glucose between 100 mg/dl to 125 mg/dl is diagnostic of prediabetes. In a patient with classic symptoms of hyperglycemia or hyperglycemic crisis, a random glucose >/= 200 mg/dl is diagnostic for diabetes. In the absence of unequivocal hyperglycemia, results should be confirmed by repeat testing. The classification and Diagnosis of Diabetes Diabetes Care 2021; 46: S19-S40. Current interpretive data was last revised 2022. Calcium 8.0(L) 8.5 - 10.3 mg/dL [facility] Bilirubin, total 0.9 0.1 - 1.2 mg/dL [facility] Protein, pl 6.5 6.5 - 8.5 g/dL [facility] Albumin 3.7 3.5 - 5.0 g/dL [facility] Alk phos 73 40 - 130 Units/L [facility] ALT 27 7 - 55 Units/L [facility] AST 38 10 - 50 Units/L [facility] Blood 11/13/2024 10:1 2 PM HANDS HANGER 11/13/2024 10:22 PM HANDS HANGER us Mark Ahumada NP LAB BLOOD ORDERABLES Final Re sult [facility] Department [place] [address] * Cytology (11/13/2024 10:04 PM HANDS HANGER) Fluid (Cerebrospinal Fluid (Cytology)) 11/13/2024 10:04 PM HANDS HANGER 11/14/2024 5:40 AM HANDS HANGER Narrative PATHOLOGY [facility] - 11/14/2024 8:38 PM HANDS HANGER EPIC results best viewed via link to PDF [facility] [place] [address] Note to Patients: This report may contain a detailed description of human tissue sent by a health care provider to the laboratory for pathologic evaluation. The content of this report is essential for diagnosis and may provide important critical findings. This information may be unfamiliar to patients to review without a medical professional present. It is advised that the patient review this report in the presence of a health care provider who can answer questions and explain the details. CYTOPATHOLOGY REPORT FINAL Patient Name: ?? JARRELL RUBIO Gender: ??M : ??1940 (Age: 84) Address: ??[facility], [facility] [address] ??[address] Hospital #: ??[id number] Taken:11/13/2024 Received:11/14/2024 Reported: 11/14/2024 Patient Type: [facility] Inpatient ?? Service: Neurology Location: Physician(s): ??Sarbjit Saldivar, DO FINAL DIAGNOSIS A. ??Cerebrospinal fluid: ?- Negative for malignancy pamo/11/14/2024 12:29 By this signature, I attest that the above diagnosis is based upon my personal examination of the slides(and/or other material indicated in the diagnosis). Jamal Cardenas, DO Report Electronically Reviewed and Signed Out By ??Jamal Cardenas DO 11/14/2024 20:38:18 Sai Meraz [facility] Gross Description A. ??Cerebrospinal fluid: ??7.5 ml clear fluid - 2 Diff-Quik stained cytospins. (ep) Clinical Diagnosis and History The patient is a 84-year-old man with a history of prostate cancer and new seizures. REPORT IMAGES AND SCANNED DOCUMENTS, IF INCLUDED, ONLY VIEWABLE IN PDF VERSION OF REPORT The performance characteristics of some immunohistochemical stains, in-situ hybridization and fluorescence in-situ hybridization tests and immunophenotyping by flow cytometry cited in this report (if any) were determined by the Surgical Pathology and Flow Cytometry Departments at [facility] as part of an ongoing quality assurance monitor final program and in compliance with federally mandated regulations drawn from the Clinical Laboratory Improvement Act of 1988 (CLIA '88). ??Some of these tests rely on the use of analyte specific reagents and are subject to specific labeling requirements by the US Food and Drug Administration. ??Such diagnostic tests may only be performed in a facility that is certified by the Department of Health and Human Services as a high complexity laboratory under CLIA '88. ??The FDA has determined that such clearance or approval is not necessary. ??This test is used for clinical purposes. ??It should not be regarded as investigational or for research. ??Nevertheless, federal rules concerning the medical use of analyte specific reagents require that the following disclaimer be attached to the report: ??This test was developed and its performance characteristics determined by the Surgical Pathology and Flow Cytometry Departments of [facility]. ??It has not been cleared or approved by the U. S. Food and Drug Administration. Mark Ahumada NP LAB CYTOLOGY ORDERABLES Final Result PATHOLOGY [facility] 3rd Floor [place], [place] [phone] * ECG 12 lead (11/13/2024 9:58 PM HANDS HANGER) Ventricular Rate EKG/Min 112 BPM [facility] Atrial Rate 112 BPM [facility] AR-Interval (MSEC) 144 ms [facility] QRS-Interval (MSEC) 140 ms [facility] QT-Interval (MSEC) 360 ms [facility] QTc 491 ms [facility] P [place] 61 degrees [facility] R [place] -73 degrees [facility] T [place] 37 degrees [facility] Diagnosis Sinus tachycardia with Premature atrial complexes with Aberrant conduction Right bundle branch block Left anterior fascicular block Bifascicular block Abnormal ECG No previous ECGs available Confirmed by Nahid Slaughter MD ([id number]) on 11/15/2024 12:49:38 AM [facility] 11/13/2024 9:58 PM HANDS HANGER 11/15/2024 12:49 AM HANDS HANGER us Mark Ahumada MACHINE CEMENTER AND FOLDER ECG ORDERABLES Final Result [facility] * POCT glucose (11/13/2024 9:27 PM HANDS HANGER) Glucose, POC 104 70 - 199 mg/dL Blood 11/13/2024 9:27 PM HANDS HANGER 11/13/2024 9:27 PM HANDS HANGER us Andrae Pop MD PhD LAB POCT ORDERA BLES - DEVICE Final Result [facility] [place] [address] from Last 3 Months Insurance T MEDICARE [employer] MEDICARE Advance Directives For more information, please contact: [phone] * Full Code (Latest Code Status on File) Date Activated Date Inactivated Comments 11/13/2024 9:58 PM Care Teams Site Controller Relationship Specialty Start Date End Date Sarbjit Saldivar DO [address] [place] [address] PCP - General Internal Medicine 06/05/24 Jairo Ugalde MD [address] [place] [address] Referring Physician Hematology 05/15/24 Logan Pedro MD [address] [facility] [address] [place] [address] Urology 06/05/24 Mayo Haile MD [address] [id number] Radiation Oncologist Radiation Oncology 06/15/24
--- OUTSIDE RECORDS SUMMARY | 2024-11-16 13:11 | XMS_ITS | Clinical Summary ---
Author Organization [facility] ospital Address [address] [place] [address] Care Team Providers Care Machine Stonecutter Name Role Phone Jairo Ugalde MD Unavailable [phone] Sarbjit Saldivar DO Primary Care Provider [phone] Logan Pedro MD Unavailable [phone] Mayo Haile MD Unavailable [phone] Allergies No known active allergies Medications naproxen [...] Signed by Mayo Haile MD on 06/22/2024 Encounters Date Type Department Care Team Description 11/13/2024 9:22 PM CORK MOLDER - Present Hospital Encounter [facility] [address] [place] [address] Andrae Pop MD PhD Sharma, MD Celia Harman Rajat, MD Seizure (HCC) (Primary Dx) 11/02/2024 Telephone [facility] Sched[facility] [address] [place] [address] Srini Lockwood MD Scheduling Appointments 09/08/2024 Telephone [facility] Medical Office Building 2 Radiation Oncology [address] [place] [address] Alize Hinojosa, MAHAD 09/08/2024 Orders Only [facility] Office Building 2 Radiation Oncology [address] [place] [address] 24[address] Alize Hinojosa RN Prostate CA (HCC) (Primary Dx) 09/07/2024 2:00 PM CORK MOLDER Clinical Support [facility] Office Building 2 Radiation Oncology [address] [place] [address] Prostate CA (HCC) (Primary Dx) 09/07/2024 2:00 PM CORK MOLDER Office Visit [facility] Office [facility] 2 Radiation Oncology [address] [place] [address] Mayo Haile MD Prostate cancer (HCC) (Primary Dx) 09/01/2024 Telephone [facility] Medical Office Building 2 Radiation Oncology [address] [place] [address] Alize Hinojosa, MAHAD 09/01/2024 Telephone [facility] Medical Office Building 2 Radiation Oncology [address] [place] [address] 18022 Alize Hinojosa, MAHAD 08/30/2024 Orders Only [facility] Medical Office Building 2 Radiation Oncology [address] [place] [address] Alize Hinojosa, MAHAD from Last 3 Months Surgical History Surgery Date Site/Laterality Comments REPLACEMENT TOTAL KNEE BILATERAL PROSTATE BIOPSY Medical History Medical History Date Comments Prostate cancer (HCC) Social History Tobacco Use Types Packs/Day Years [...] on file Sexual Orientation Not on file Obstetrics History Last Filed Vital Signs Vital Sign Reading Time Taken Comments Blood Pressure 152/75 11/16/2024 12:00 PM CORK MOLDER Pulse 65 11/16/2024 12:00 PM CORK MOLDER Temperature 37.3 ??C (99.1 ??F) 11/16/2024 12:[address] Respiratory Rate 19 11/16/2024 12:00 PM CORK MOLDER Oxygen Saturation 100% 11/16/2024 12:00 PM CORK MOLDER Inhaled Oxygen Concentration - - Weight 81.2 kg (179 lb 0.2 oz) 11/13/2024 9:29 P M CORK MOLDER Height 176.5 cm (5' 9.5 ) 11/13/2024 9:29 PM CORK MOLDER Body Mass Index 26.06 11/13/2024 9:29 PM CORK MOLDER Plan of Treatment Health Maintenance Due Date Last Done Comments Depression Screening 1940 DTaP/Tdap/Td Vaccine (1 - Tdap) 1951 Hepatitis B Screening 1958 Well Visit 65+ 2004 Covid-19 Vaccine (2023-2 5 season) 2024 08/06/2023, 07/09/2022, 01/29/2022, Additional history exists Influenza Vaccine (#1) 2024 , 06/25/2022, 06/13/2021, Additional history exists Fall Risk Assessment 11/16/2025 11/16/2024, 07/12/20 24 Zoster Vaccine Completed 10/04/2018, 06/28/2018 Pneumococcal vaccine 65+ Completed 11/05/2023, 07/25 Procedures * The patient is currently admitted. The information in this section might not be complete until the patient is discharged. Procedure Name Priority Date/Time Associated Diagnosis Comments POTASSIUM, WHOLE BLOOD STAT 6:35 AM CORK MOLDER CREATINE KINASE (CK), TOTAL STAT 11/16/2024 5:28 AM CORK MOLDER EGFR STAT 11/16/2024 5:28 AM CORK MOLDER DIFFERENTIAL AUTO STAT 11/16/2024 5:2 8 AM CORK MOLDER PHOSPHORUS STAT 11/16/2024 5:28 AM CORK MOLDER MAGNESIUM STAT 11/16/2024 5:28 AM CORK MOLDER CBC WITH AUTO DIFFERENTIAL STAT 11/16 5:28 AM CORK MOLDER BASIC METABOLIC PANEL STAT 11/16/2024 5:28 AM CORK MOLDER EGFR Timed 11/14/2024 8:57 PM CORK MOLDER MAGNESIUM Timed 11/14/2024 8:57 PM CORK MOLDER CREATINE KINASE (CK), TOTAL Routine 11/14/2024 8:57 PM CORK MOLDER PHOSPHORUS Timed 11/14/2024 8:57 PM CORK MOLDER COMPREHENSIVE METABOLIC PANEL Timed 11/14/2024 8:57 PM CORK MOLDER CBC WITHOUT DIFFERENTIAL Routine 025 8:57 PM CORK MOLDER TRANSTHORACIC ECHO (TTE) COMPLETE W DOPPLER/CF W CONTRAST Routine 11/14/2024 1:16 PM CORK MOLDER BLOOD CULTURE STAT 11/14/2024 12:17 PM CORK MOLDER BLOOD CULTURE STAT 11/14/2024 12:17 PM CORK MOLDER MRI BRAIN W WO CONTRAST ED Urgent/IP Urgent 11/14/2024 10:32 AM CORK MOLDER LIPID PANEL Timed 11/14/2024 6:27 AM CORK MOLDER CREATINE KINASE (CK), TOTAL Timed 11/14/2024 6:27 AM CORK MOLDER TROPONIN I HIGH-SENSITIVITY 6-HOUR Timed 11/14/2024 4:13 AM CORK MOLDER TROPONIN I HIGH-SENSITIVITY 4-HOUR Timed 11/14/2024 2:24 AM CORK MOLDER XR VENTRICULOPERITONEAL SHUNT SERIES (ADULT) ED Urgent/IP Urgent 11/14/2024 2:11 AM CORK MOLDER TROPONIN I HIGH-SENSITIVITY 2-HOUR Timed 11/14/2024 12:25 AM CORK MOLDER MS DIAGNOSTIC LUMBAR SPINAL PUNCTURE Routine 11/14/2024 12:16 AM CORK MOLDER Seizure (HCC) B CHECK SAMPLE STAT 11/13/2024 11:40 PM CORK MOLDER CELL COUNT W REFLEX DIFFERENTIAL, CSF STAT 11/13/2024 11:40 PM CORK MOLDER CSF PROTEIN STAT 11/13/2024 11:40 PM CORK MOLDER GLUCOSE, CSF STAT 11/13/2024 11:40 PM CORK MOLDER CELL COUNT W REFLEX DIFFERENTIAL, CSF Routine 11/13/2024 11:40 PM CORK MOLDER HERPES SIMPLEX VIRUS (HSV) PCR Routine 11/13/2024 11:40 PM CORK MOLDER VARICELLA ZOSTER VIRUS (VZV) PCR Routine 11/13/2024 11:40 PM CORK MOLDER BACTERIAL CULTURE AND GRAM STAIN, CSF STAT 11/13/2024 11:40 PM CORK MOLDER POCT GLUCOSE DEVICE Routine 11/13/2024 11:37 PM CORK MOLDER XR CHEST 1 VIEW ED Urgent/IP Urgent 11/13/2024 11:32 PM CORK MOLDER URINALYSIS, MICROSCOPIC ONLY STAT 11/13/2024 10:56 PM CORK MOLDER URINE CULTURE STAT 11/13/2024 10:56 PM CORK MOLDER URINALYSIS AND REFLEX TO MICROSCOPIC AND CULTURE STAT 11/13/2024 10:56 PM CORK MOLDER LACTATE, WHOLE BLOOD STAT 11/13/2024 10:54 PM CORK MOLDER CREATINE KINASE (CK), TOTAL STAT 11/13/2024 10:54 PM CORK MOLDER HEMOGLOBIN A1C STAT 11/13/2024 10:12 PM CORK MOLDER EGFR STAT 11/13/2024 10:12 PM CORK MOLDER TROPONIN I HIGH-SENSITIVITY SERIES (BASELINE, 2HR, 4HR, 6HR) STAT 11/13/2024 10:12 PM CORK MOLDER PROTIME-INR STAT 11/13/2024 10:12 PM CORK MOLDER APTT STAT 11/13/2024 10:12 PM CORK MOLDER TYPE AND SCREEN STAT 11/13/2024 10:12 PM CORK MOLDER CBC WITHOUT DIFFERENTIAL STAT 025 10:12 PM CORK MOLDER PHOSPHORUS STAT 11/13/2024 10:12 PM CORK MOLDER MAGNESIUM STAT 11/13/2024 10:12 PM CORK MOLDER COMPREHENSIVE METABOLIC PANEL STAT 11/13/2024 10:12 PM CORK MOLDER CYTOLOGY Routine 11/13/2024 10:04 PM CORK MOLDER ECG 12-LEAD STAT 11/13/2024 9:58 PM CORK MOLDER POCT GLUCOSE DEVICE Routine 11/13/2024 9 :27 PM CORK MOLDER from Last 3 Months Results * Potassium, whole blood (11/16/2024 6:35 AM CORK MOLDER) Potassium, bld 4.0 3.3 - 4.9 mmol/L Blood 11/16/2024 6:35 AM CORK MOLDER 11/16/2024 6:41 AM CORK MOLDER us Emma Regalado NP LAB BLOOD ORDERABLES Final Result Performing Organization Address City/State/[facility] Co de Phone Number [facility] Department [place] [address] * eGFR (11/16/2024 5:28 AM CORK MOLDER) eGFR 89 >=60 mL/min/1. 73 m2 Comment: [...] last reviewed 2021. Blood 11/16/2024 5:28 AM CORK MOLDER 11/16/2024 5:42 AM CORK MOLDER us Isrrael Sharma MD LAB BLOOD ORDERABLES Final Result [facility] One [facility] Department [place] [address] * (ABNORMAL) Differential, auto (11/16/2024 5:28 AM CORK MOLDER) Neutrophil abs 5.9 1.5 - 6.5 K/cumm Imm gran abs 0.0 0.0 - 0.1 K/cumm [facility] Lymphocyte abs 0.7(L) 0.8 - 3.3 K/cumm [facility] Monocyte abs 1.2(H) 0.2 - 0.8 K/cumm [facility] Eosinophil abs 0.1 0.0 - 0.5 K/cumm [facility] Basophil abs 0.0 0.0 - 0.1 K/cumm [facility] Neutrophil pct 74.2 % [facility] Comment: Interpretive Data Percent cell count reference ranges are not reported, since discordance with absolute values may lead to misinterpretation of CBC data. Current Interpretive Data was last revised on 2018. Imm gran pct 0.4 % [facility] Comment: Interpretive Data Percent cell count reference ranges are not reported, since discordance with absolute values may lead to misinterpretation of CBC data. Current Interpretive Data was last revised on 2018. Lymphocyte pct 9.0 % [facility] Comment: Interpretive Data Percent cell count reference ranges are not reported, since discordance with absolute values may lead to misinterpretation of CBC data. Current Interpretive Data was last revised on 2018. Monocyte pct 14.8 % [facility] Comment: Interpretive Data Percent cell count reference ranges are not reported, since discordance with absolute values may lead to misinterpretation of CBC data. Current Interpretive Data was last revised on 2018. Eosinophil pct 1.3 % [facility] Comment: Interpretive Data Percent cell count reference ranges are not reported, since discordance with absolute values may lead to misinterpretation of CBC data. Current Interpretive Data was last revised on 2018. Basophil pct 0.3 % [facility] Comment: Interpretive Data Percent cell count reference ranges are not reported, since discordance with absolute values may lead to misinterpretation of CBC data. Current Interpretive Data was last revised on 2018. Blood 11/16/2024 5:28 AM CORK MOLDER 11/16/2024 5:42 AM CORK MOLDER Isrrael Sharma MD LAB BLOOD ORDERABLES Final Result [facility] Department [place] [address] * (ABNORMAL) CBC with auto differential (11/16/2024 5:28 AM CORK MOLDER) WBC 7.9 3.8 - 9.9 K/cumm Hgb 11.6(L) 13.0 - 17.5 g/dL [facility] Hct 33.2(L) 38.9 - 50.3 % [facility] Plt 178 150 - 400 K/cumm [facility] MPV 9.3 9.1 - 12.3 fL [facility] RBC 3.79(L) 4.30 - 5.80 M/cumm [facility] MCV 87.6 81.3 - 96.4 fL [facility] MCH 30.6 27.1 - 33.3 pg [facility] MCHC 34.9 32.3 - 35.7 g/dL [facility] RDW CV 12.5 11.1 - 14.9 % [facility] RDW SD 40.2 35.7 - 48.1 fL [facility] NRBC abs 0.00 0.00 - 0.01 K/cumm [facility] Blood 11/16/2024 5:28 AM CORK MOLDER 11/16/2024 5:42 AM CORK MOLDER Isrrael Sharma MD LAB BLOOD ORDERABLES [place] [address] * Phosphorus (11/16/2024 5:28 AM CORK MOLDER) Phosphorus, pl 3.1 2.3 - 4.5 mg/dL Blood 11/16/2024 5:28 AM CORK MOLDER 11/16/2024 5:42 AM CORK MOLDER Isrrael Sharma MD LAB BLOOD ORDERABLES Final Result Performing Organization Address [facility] [place] [address] * Magnesium (11/16/2024 5:28 AM CORK MOLDER) Magnesium 1.7 1.4 - 2.5 mg/dL Blood 11/16/2024 5:28 AM CORK MOLDER 11/16/2024 5:42 AM CORK MOLDER Result [facility] Isrrael Sharma MD LAB BLOOD ORDERABLES Final Result Performing Organization Address [facility] Co de Phone Number [facility] Department [place] [address] * (ABNORMAL) Creatine kinase (CK), total (11/16/2024 5:28 AM CORK MOLDER) CK 672(H) 40 - 300 Units/L Blood 11/16/2024 5:28 AM CORK MOLDER 11/16/2024 5:42 AM CORK MOLDER Isrrael Sharma MD LAB BLOOD ORDERABLES Final Result Performing Organization Address City/[facility] Co de Phone Number [facility] [place] [address] * (ABNORMAL) Basic metabolic panel (11/16/2024 5:28 AM CORK MOLDER) Pathologist [facility] Sodium 140 135 - 145 mmol/L Potassium, pl 5.7(H) 3.3 - 4.9 mmol/L [facility] Chloride 107 97 - 110 mmol/L [facility] CO2 25 22 - 32 mmol/L [facility] Anion gap 8 2 - 15 mmol/L [facility] BUN 12 6 - 25 mg/dL [facility] Creatinine 0.73(L) 0.80 - 1.30 mg/dL [facility] Glucose 87 70 - 199 mg/dL [facility] Comment: Interpretive Data Fasting glucose >/= 126 [...] 2022. Calcium 7.9(L) 8.5 - 10.3 mg/dL [facility] Blood 11/16/2024 5:28 AM CORK MOLDER 11/16/2024 5:42 AM CORK MOLDER us Isrrael Sharma MD LAB BLOOD ORDERABLES Final Result Performing Organization Address City/State/[facility] Co de Phone Number [facility] One [facility] Department [place] [address] * eGFR (11/14/2024 8:57 PM CORK MOLDER) Pathologist [facility] eGFR 88 >=60 mL/min/1. 73 m2 Comment: [...] last reviewed 2021. Blood 11/14/2024 8:57 PM CORK MOLDER 11/14/2024 9:20 PM CORK MOLDER us Mark Ahumada NP LAB BLOOD ORDERABLES Final Re sult [facility] Department [place] [address] * (ABNORMAL) CBC without differential (11/14/2024 8:57 PM CORK MOLDER) WBC 8.1 3.8 - 9.9 K/cumm Hgb 11.0(L) 13.0 - 17.5 g/dL [facility] Hct 31.8(L) 38.9 - 50.3 % [facility] Plt 198 150 - 400 K/cumm [facility] MPV 9.1 9.1 - 12.3 fL [facility] RBC 3.63(L) 4.30 - 5.80 M/cumm [facility] MCV 87.6 81.3 - 96.4 fL [facility] MCH 30.3 27.1 - 33.3 pg [facility] MCHC 34.6 32.3 - 35.7 g/dL [facility] RDW CV 12.6 11.1 - 14.9 % [facility] RDW SD 40.9 35.7 - 48.1 fL [facility] NRBC abs 0.00 0.00 - 0.01 K/cumm [facility] Blood 11/14/2024 8:57 PM CORK MOLDER 11/14/2024 9:19 PM CORK MOLDER Mark Ahumada SHEEP FARMER LAB BLOOD ORDERABLES Final Re sult Performing Organization Address City/[facility] Co de Phone Number [facility] [place] [place] [address] * Phosphorus (11/14/2024 8:57 PM CORK MOLDER) Pathologist [facility] Phosphorus, pl 3.1 2.3 - 4.5 mg/dL Blood 11/14/2024 8:57 PM CORK MOLDER 11/14/2024 9:12 PM CORK MOLDER Mark Ahumada SHEEP FARMER LAB BLOOD ORDERABLES Final Re sult Performing Organization Address [facility] de Phone Number [facility] [place] [place] [address] * Magnesium (11/14/2024 8:57 PM CORK MOLDER) Pathologist [facility] Magnesium 2.1 1.4 - 2.5 mg/dL Blood 11/14/2024 8:57 PM CORK MOLDER 11/14/2024 9:12 PM CORK MOLDER Isrrael Sharma MD LAB BLOOD ORDERABLES Final Result Performing Organization Address [facility] de Phone Number [facility] [place] [address] * (ABNORMAL) Creatine kinase (CK), total (11/14/2024 8:57 PM CORK MOLDER) Pathologist [facility] CK 817(H) 40 - 300 Units/L Blood 11/14/2024 8:57 PM CORK MOLDER 11/14/2024 9:19 PM CORK MOLDER us Antolin Yancey NP LAB BLOOD ORDERABLES Fi nal Result [facility] Department [place] [address] * (ABNORMAL) Comprehensive metabolic panel (11/14/2024 8:57 PM CORK MOLDER) Pathologist [facility] Sodium 139 135 - 145 mmol/L Potassium, pl 3.4 3.3 - 4.9 mmol/L [facility] Chloride 105 97 - 110 mmol/L [facility] CO2 27 22 - 32 mmol/L [facility] Anion gap 7 2 - 15 mmol/L [facility] BUN 8 6 - 25 mg/dL [facility] Creatinine 0.76(L) 0.80 - 1.30 mg/dL [facility] Glucose 93 70 - 199 mg/dL [facility] Comment: Interpretive Data Fasting glucose >/= 126 [...] 2022. Calcium 8.1(L) 8.5 - 10.3 mg/dL [facility] Bilirubin, total 1.3(H) 0.1 - 1.2 mg/dL [facility] Protein, pl 5.8(L) 6.5 - 8.5 g/dL [facility] Albumin 3.3(L) 3.5 - 5.0 g/dL [facility] Alk phos 68 40 - 130 Units/L [facility] ALT 24 7 - 55 Units/L [facility] AST 51(H) 10 - 50 Units/L [facility] Blood 11/14/2024 8:57 PM CORK MOLDER 11/14/2024 9:12 PM CORK MOLDER us Mark Ahumada SHEEP FARMER LAB BLOOD ORDERABLES Final Re sult [facility] Department [place] [address] * TRANSTHORACIC ECHO (TTE) COMPLETE W DOPPLER/CF W CONTRAST (11/14/2024 1:16 PM CORK MOLDER) LV EF % CONS SCIMAGE Anatomical Region Laterality Modality Ultrasound 11/14/2024 12:1 5 PM CORK MOLDER Narrative 11/14/2024 4:47 PM CORK MOLDER [facility] [place] [address] Transthoracic Echocardiographic Report Patient Name: JARRELL RUBIO MELVIN ?? : 1940 (84y 4m) ??Gender: M Study Date: 11/14/2024 12:15:56 PM Ht(Inch): 69 ??Wt(Lb): 179.01 ??BSA: 1.99 [employer] Assistant Teacher: Clay Mckeon RDCS ??Location: [id number] Order Provider: ANTOLIN YANCEY BMI: 26.43 ??BP: 140 / 70 ?Quality: The study images were of technically good quality. Ref Provider: ANTOLIN YANCEY ?? PROCEDURES: Echocardiographic Report: ([id number], [id number]) Transthoracic complete echo with contrast, 2D, spectral [...] LA Length 4C ?3.77 cm ?PV Accel [place] ?9.13 m/s LA Volume 2C ? 41.8 [...] By: Alban Hampton MD 11/14/2024 4:46:36 PM CORK MOLDER Electronically Signed By: Alban Hampton MD 11/14/2024 4:46:36 PM CORK MOLDER Wall Motion Analysis - Resting Procedure Note Alban Bennett MD - 11/14/2024 [facility] [place] [address] Transthoracic Echocardiographic Report Patient Name: JARRELL RUBIO MELVIN : 1940 (84y 4m) Gender: M Study Date: 11/14/2024 12:15:56 PM Ht(Inch): 69 Wt(Lb): 179.01 BSA: 1.99 [employer] Assistant Teacher: Clay Mckeon LELO Location: [id number] Order Provider:ANTOLIN YANCEY BMI: 26.43 BP: 140 / 70 Quality: The study images were oftechnically good quality. Ref Provider: ANTOLIN YANCEY PROCEDURES: Echocardiographic Report: ([id number], [id number]) Transthoracic complete echo withcontrast, 2D, spectral and [...] [ 62.00 - 150.00 ] MV Decel Wssp330.46 msec [ 104.00 - 258.00 ] ESV [...] cm/m2 [ 10.00 - 18.00 ] RA Hsytmi80.51 ml RA Volume Index12.32 ml/m2 AoR Diam [...] By: Alban Hampton MD 11/14/2024 4:46:36 PM CORK MOLDER Electronically Signed By: Alban Hampton MD 11/14/2024 4:46:36 PM CORK MOLDER Wall Motion Analysis - Resting us Antolin Mary Distler SHEEP FARMER CV ECHO PROCEDURES Angela l Result * MRI Brain W WO Contrast (11/14/2024 10:32 AM CORK MOLDER) Anatomical Region Laterality Modality Head and Neck N/A Magnetic Resonan ce 11/14/2024 10:5 0 AM CORK MOLDER Impressions 11/14/2024 11:20 AM CORK MOLDER 1. No acute intracranial process. 2. Small [...] Abdon Cespedes M.D. Narrative 11/14/2024 11:20 AM CORK MOLDER EXAMINATION: Magnetic resonance imaging (MRI) of the [...] it. Electronically signed by: Abdon Cespedes M.D. us Mark Ahumada NP IMG MRI PROCEDURES Final Resu lt * (ABNORMAL) Creatine kinase (CK), total (11/14/2024 6:27 AM CORK MOLDER) CK 782(H) 40 - 300 Units/L Blood 11/14/2024 6:27 AM CORK MOLDER 11/14/2024 6:48 AM CORK MOLDER us Mark E. Ahumada SHEEP FARMER LAB BLOOD ORDERABLES Final Re sult [facility] Department [place] [address] * (ABNORMAL) Lipid panel (11/14/2024 6:27 AM CORK MOLDER) Cholesterol 199 30 - 199 mg/dL Comment: [...] revised on 2018. Triglycerides 69 <=149 mg/dL [facility] Comment: Interpretive Data Ages < or [...] revised on 2018. HDL 48 >=40 mg/dL [facility] Comment: Interpretive Data Ages < or = [...] on 2018. LDL, calculated 138(H) <=129 mg/dL [facility] Comment: Interpretive Data Ages < or = [...] NCEP Expert Panel. Circulation 2004;110:227 3. Ramiro Bernal al. LEEANN Cardiol. 2020 February 22;5(5):540-548. doi: 10.1001/jamacardio.2020.0013 Current Interpretive Data was last revised on 2024. Non-HDL Cholesterol 151 mg/dL [facility] Comment: Interpretive Data Ages < or = [...] last revised on 2018. Chol/HDL ratio 4 [facility] Blood 11/14/2024 6:27 AM CORK MOLDER 11/14/2024 6:48 AM CORK MOLDER us Isrrael Sharma MD LAB BLOOD ORDERABLES Final Result Performing Organization Address [facility] Co de Phone Number [facility] Department [place] [address] * Troponin I high-sensitivity 6-hour (11/14/2024 4:13 AM CORK MOLDER) Trop I hs 25 <=35 ng/L Comment: Interpretive Data For further hscTnI resources including the diagnostic algorithm and an aid in interpretation, copy and paste this link: https://bjhlab.testcatalog.org/show/hsTrop-1 Current Interpretive Data last revised 2020. Trop I hs delta 7 ng/L [facility] Trop I hs interp Equivocal [facility] Blood 11/14/2024 4:13 AM CORK MOLDER 11/14/2024 4:34 AM CORK MOLDER us Mark Ahumada NP LAB BLOOD ORDERABLES Final Re sult Performing Organization Address City/[facility]/ZIP Co de Phone Number [facility] Department [place] [address] * Troponin I high-sensitivity 4-hour (11/14/2024 2:24 AM CORK MOLDER) Trop I hs 25 <=35 ng/L Comment: Interpretive Data For further [facility] resources including the diagnostic algorithm and an aid in interpretation, copy and paste this link: https://bjhlab.testcatalog.org/show/hsTrop-1 Current Interpretive Data last revised 2020. Trop I hs delta 7 ng/L [facility] Trop I hs interp Equivocal [facility] Blood 11/14/2024 2:24 AM CORK MOLDER 11/14/2024 2:38 AM CORK MOLDER us Mark Ahumada NP LAB BLOOD ORDERABLES Final Re sult [facility] One [facility] Department [place] [address] * XR Ventriculoperitoneal Shunt Series (11/14/2024 2:11 AM CORK MOLDER) Anatomical Region Laterality Modality Head and Neck N/A Computed Radiogr aphy 11/14/2024 2:24 AM CORK MOLDER Impressions 11/14/2024 9:20 AM CORK MOLDER Stone catheter in place. ??No additional retained radiopaque foreign body. Dictated by: Veronique Duke MD The radiology attending physician has personally reviewed this study, and had reviewed and/or edited this written report and agrees with it. Electronically signed by: Augusto Evans M.D, PHD Narrative 11/14/2024 9:20 AM CORK MOLDER EXAMINATION: XR VENTRICULOPERITONEAL SHUNT SERIES HISTORY: Rule [...] by: Augusto Evans M.D, PHD Mark Ahumada SHEEP FARMER IMG XR PROCEDURES Final Resul t * Troponin I high-sensitivity 2-hour (11/14/2024 12:25 AM CORK MOLDER) Trop I hs 25 <=35 ng/L Comment: Interpretive Data For further hscTnI resources including the diagnostic algorithm and an aid in interpretation, copy and paste this link: https://bjhlab.testcatalog.org/show/hsTrop-1 Current Interpretive Data last revised 2020. Trop I hs delta 7 ng/L [facility] Trop I hs interp Equivocal [facility] Blood 11/14/2024 12:2 5 AM CORK MOLDER 11/14/2024 12:44 AM CORK MOLDER Mark Ahumada NP LAB BLOOD ORDERABLES Final Re sult [facility] Department [place] [address] * MS DIAGNOSTIC LUMBAR SPINAL PUNCTURE (11/14/2024 12:16 AM CORK MOLDER) Narrative Andrae Pop MD PhD - 11/14/2024 12:16 AM CORK MOLDER Andrae Pop MD PhD ? 11/14/2024 12:18 AM Lumbar Puncture Date/Time: 11/14/2024 12:16 AM Performed by: Andrae Pop MD PhD Authorized by: Andrae Pop MD PhD ?? Katy Protocol: RN Notified of Procedure: yes ?? 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 Responsible constitution party for transporting specimen(s) to lab determined: n/a ?? Andrae Pop MD PhD IN CLINIC/[facility] DE ORDERABLES Final Result * Varicella Zoster Virus (VZV) PCR CSF (11/13/2024 11:40 PM CORK MOLDER) Pathologist [facility] VZV DNA Not Detected Not Detected [facility] Comment: Interpretative Data: Testing performed by [facility] ([phone]). This assay is performed using the [employer] Molecular Simplexa VZV Direct assay. This is a qualitative, real-time PCR assay for the detection of Varicella-zoster virus (VZV). This assay has been cleared by the U.S. Food and Drug Administration for performance on cerebrospinal fluid and lesion swabs. The performance characteristics have been verified by the [facility]. Results must be considered in the clinical context, and a negative result does not rule out infection. Interpretive data last revised 2021. CSF 11/13/2024 11:4 0 PM CORK MOLDER 11/14/2024 5:00 PM CORK MOLDER Isrrael Sharma MD LAB MICROBIOLOGY - GENERAL ORDERABLES Final Result [facility] One [facility] Department [place] [address] [facility] * Herpes Simplex Virus (HSV) PCR CSF (11/13/2024 11:40 PM CORK MOLDER) [facility] HSV DNA Not Detected Not Detected [facility] Comment: Interpretive Data This assay is [...] on 02/21/2019 CSF 11/13/2024 11:4 0 PM CORK MOLDER 11/14/2024 5:00 PM CORK MOLDER us Isrrael Sharma MD LAB MICROBIOLOGY - GENERAL ORDERABLES Final Result [facility] [place] [address] BJ * Cell count w/reflex diff, CSF (11/13/2024 11:40 PM CORK MOLDER) Tube Number, CSF Tube 1 Color, CSF Colorless Colorless [facility] Clarity, CSF Clear Clear [facility] Xanthochromia , CSF Absent Absent [facility] Nucleated cells, CSF 0 0 - 5 /cumm [facility] RBC, CSF 0 0 - 0 /cumm [facility] CSF 11/13/2024 11:4 0 PM CORK MOLDER 11/13/2024 11:52 PM CORK MOLDER us Mark Ahumada SHEEP FARMER LAB BODY FLUIDS AND STOOLS OR DERABLES Final Result Performing Organization Address [facility] Co de Phone Number [facility] [place] [address] * Cell count w/reflex diff, CSF (11/13/2024 11:40 PM CORK MOLDER) Tube Number, CSF Tube 4 Color, CSF Colorless Colorless [facility] Clarity, CSF Clear Clear [facility] Xanthochromia , CSF Absent Absent [facility] Nucleated cells, CSF 0 0 - 5 /cumm [facility] RBC, CSF 0 0 - 0 /cumm [facility] CSF 11/13/2024 11:4 0 PM CORK MOLDER 11/13/2024 11:52 PM CORK MOLDER us Mark Ahumada SHEEP FARMER LAB BODY FLUIDS AND STOOLS OR DERABLES Final Result Performing Organization Address City/[facility] Co de Phone Number [facility] [place] [address] * Check Sample (11/13/2024 11:40 PM CORK MOLDER) Pathologist [facility] ABO Rh A Positive [facility] HCLL OTHER 11/13/2024 11:4 0 PM CORK MOLDER 11/13/2024 11:59 PM CORK MOLDER Andrae Pop MD PhD LAB BLOOD ORDER DAR Final Result Performing Organization Address [facility] de Phone Number [facility] [place] [address] [facility] * (ABNORMAL) Protein, total, CSF (11/13/2024 11:40 PM CORK MOLDER) [facility] Protein, CSF 60(H) 5 - 45 mg/dL Comment:Reviewed CSF 11/13/2024 11:4 0 PM CORK MOLDER 11/13/2024 11:52 PM CORK MOLDER us Mark Ahumada SHEEP FARMER LAB BODY FLUIDS AND STOOLS OR DERABLES Final Result Performing Organization Address [facility] de Phone Number [facility] [place] [address] * Glucose, CSF (11/13/2024 11:40 PM CORK MOLDER) Pathologist [facility] Glucose, CSF 77 mg/dL Comment: Reviewed Reference Interval Information: CSF Glucose should be 60-66% of the most current plasma glucose concentration (milligrams/deciliter) CLIN. CHEM. 41/3, 343-360 (1994), Clinical Utility of Biochemical Analysis of Cerebrospinal Fluid, Noble Ram and Kasi Flores. Current interpretive data was last revised on 2019. CSF 11/13/2024 11:4 0 PM CORK MOLDER 11/13/2024 11:52 PM CORK MOLDER us Mark Ahumada SHEEP FARMER LAB BODY FLUIDS AND STOOLS OR DERABLES Final Result Performing Organization Address [facility]/State/ZIP Co de Phone Number [facility] Department [place] [address] * POCT glucose (11/13/2024 11:37 PM CORK MOLDER) [facility] Glucose, POC 117 70 - 199 mg/dL Blood 11/13/2024 11:3 7 PM CORK MOLDER 11/13/2024 11:37 PM CORK MOLDER Andrae Pop MD PhD LAB POCT ORDERA BLES - DEVICE Final Result [facility] Department [place] [address] * XR chest 1 view (Portable) (11/13/2024 11:32 PM CORK MOLDER) Anatomical Region Laterality Modality Body, Chest N/A Digital Radiogra phy 11/14/2024 7:59 AM CORK MOLDER Impressions 11/14/2024 7:59 AM CORK MOLDER There are no prior chest radiographs for comparison. ??The patient's markedly rotated. ??Heart is mildly enlarged no mass or lymphadenopathy no pleural effusions There is no pneumothorax.. There is patchy atelectasis. Electronically signed by: Poonam Barrera M.D. Narrative 11/14/2024 7:59 AM CORK MOLDER EXAMINATION: 1 view chest radiograph Procedure Note Poonam Barrera MD - 11/14/2024 EXAMINATION: 1 view chest radiograph IMPRESSION: There are no prior chest radiographs for comparison. The patient's markedly rotated. Heart is mildly enlarged no mass or lymphadenopathy no pleural effusions There is no pneumothorax.. There is patchy atelectasis. Electronically signed by: Poonam Barrera M.D. us Mark Ahumada SHEEP FARMER IMG XR PROCEDURES Final Resul t * (ABNORMAL) Urinalysis reflex to microscopic and culture Urine (11/13/2024 10:56 PM CORK MOLDER) Color, ur Straw Yellow Clarity, ur Clear Clear [facility] Specific gravity, ur 1.022 1.003 - 1.030 [facility] pH, urine 8.0 [facility] Comment: Interpretive Data ? Urine pH is affected by diet, medications, systemic acid-base disturbances, and renal tubular function. ??pH may affect urinary stone formation. ??For example, urine pH below 6.0 may help reduce the tendency for calcium phosphate stones and pH greater than 6.0 may reduce the tendency for uric acid stone formation. Source: [facility] Current Interpretive Data was last revised on 2017 Protein, ur ql 1+(A) Negative [facility] Glucose, ur ql Negative Negative [facility] Ketones, ur Negative Negative [facility] Bilirubin, ur Negative Negative [facility] Blood, ur 2+(A) Negative [facility] Urobilinogen, ur <2.0 <2.0 mg/dL [facility] Nitrite, ur Negative Negative [facility] Leukocyte esterase, ur 3+(A) Negative [facility] UA reflex comment Reflex to microscopic UA will be performed. [facility] Urine 11/13/2024 10:5 6 PM CORK MOLDER 11/13/2024 11:10 PM CORK MOLDER us Mark Ahumada NP LAB MICROBIOLOGY - GENERAL OR DERABLES Final Result [facility] One [facility] Department [place] [address] * (ABNORMAL) Urinalysis, microscopic only (11/13/2024 10:56 PM CORK MOLDER) WBC, ur >50(A) 0 - 5 /HPF RBC, ur 11-20(A) 0 - 2 /HPF [facility] Mucous, ur Present(A) [facility] Culture Reflex Comment Reflex to urine culture will be performed. [facility] Urine 11/13/2024 10:5 6 PM CORK MOLDER 11/13/2024 11:10 PM CORK MOLDER us Mark Ahumada SHEEP FARMER LAB URINE ORDERABLES Final Re sult Performing Organization Address [facility] de Phone Number [facility] [place] [address] * Urine culture Urine (11/13/2024 10:56 PM CORK MOLDER) Report Final Report: No growth Urine 11/13/2024 10:5 6 PM CORK MOLDER 11/14/2024 2:50 AM CORK MOLDER Narrative [facility] 11/15/2024 7:04 AM CORK MOLDER Urine culture reflexed based upon urinalysis results. Testing performed by [facility] ([phone]) us Mark Ahumada SHEEP FARMER LAB MICROBIOLOGY - GENERAL OR DERABLES Final Result Performing Organization Address [facility] Phone Number [facility] [place] [address] * Lactate, whole blood (11/13/2024 10:54 PM CORK MOLDER) Lactate, bld 1.3 0.7 - 2.0 mmol/L Blood 11/13/2024 10:5 4 PM CORK MOLDER 11/13/2024 11:10 PM CORK MOLDER us Mark Ahumada SHEEP FARMER LAB BLOOD ORDERABLES Final Re sult Performing Organization Address [facility] de Phone Number [facility] Department [place] [address] * (ABNORMAL) Creatine kinase (CK), total (11/13/2024 10:54 PM CORK MOLDER) CK 596(H) 40 - 300 Units/L Blood 11/13/2024 10:5 4 PM CORK MOLDER 11/13/2024 11:21 PM CORK MOLDER us Mark Ahumada SHEEP FARMER LAB BLOOD ORDERABLES Final Re sult Performing Organization Address [facility] de Phone Number [facility] Department [place] [address] * Troponin I high-sensitivity series (baseline, 2hr, 4hr, 6hr) (11/13/2024 10:12 PM CORK MOLDER) Trop I hs 18 <=35 ng/L Comment: Interpretive Data For further hscTnI resources including the diagnostic algorithm and an aid in interpretation, copy and paste this link: [email or web address].testcatalog.org/show/[email or web address] Current Interpretive Data last revised 2020. Blood 11/13/2024 10:1 2 PM CORK MOLDER 11/13/2024 10:22 PM CORK MOLDER Mark Ahumada SHEEP FARMER LAB BLOOD ORDERABLES Final sult Performing Organization Address [facility] de Phone Number [facility] Department [place] [address] * eGFR (11/13/2024 10:12 PM CORK MOLDER) [facility] eGFR >90 >=60 mL/min/1. 73 m2 Comment: [...] reviewed 2021. Blood 11/13/2024 10:1 2 PM CORK MOLDER 11/13/2024 10:22 PM CORK MOLDER us Mark Ahumada SHEEP FARMER LAB BLOOD ORDERABLES Final Re sult Performing Organization Address [facility] de Phone Number [facility] [place] [address] * (ABNORMAL) aPTT (11/13/2024 10:12 PM CORK MOLDER) aPTT 27(L) 28 - 38 sec Comment: Interpretive Data Heparin therapeutic range: 66.0 - 100.0 seconds. Range based on correlation with therapeutic heparin activity range of 0.3 - 0.7 Units/mL. Current interpretive data was last revised on 2023. Blood 11/13/2024 10:1 2 PM CORK MOLDER 11/13/2024 10:26 PM CORK MOLDER Mark Ahumada SHEEP FARMER LAB BLOOD ORDERABLES Final Re sult Performing Organization Address [facility] de Phone Number [facility] [place] [place] [address] * Protime-INR (11/13/2024 10:12 PM CORK MOLDER) PT 11.9 9.7 - 13.0 sec INR 1.10 0.90 - 1.20 [facility] Comment: Interpretive data Oral anticoagulant therapeutic ranges: Venous thromboembolism prophylaxis or treatment: 2.0-3.0 CARDIOLOGY Standard range: 2.0-3.0 High-intensity range: 2.5-3.5 Refer to indication-specific guidelines for appropriate target ranges for prosthetic heart valve replacement. Current interpretive data was last revised on 2019. Blood 11/13/2024 10:1 2 PM CORK MOLDER 11/13/2024 10:26 PM CORK MOLDER Mark Ahumada SHEEP FARMER LAB BLOOD ORDERABLES Final Re sult Performing Organization Address City/[facility]/ZIP Co de Phone Number [facility] [place] [address] * (ABNORMAL) CBC without differential (11/13/2024 10:12 PM CORK MOLDER) Pathologist [facility] WBC 11.5(H) 3.8 - 9.9 K/cumm Hgb 12.6(L) 13.0 - 17.5 g/dL [facility] Hct 36.5(L) 38.9 - 50.3 % [facility] Plt 226 150 - 400 K/cumm [facility] MPV 9.2 9.1 - 12.3 fL [facility] RBC 4.14(L) 4.30 - 5.80 M/cumm [facility] MCV 88.2 81.3 - 96.4 fL [facility] MCH 30.4 27.1 - 33.3 pg [facility] MCHC 34.5 32.3 - 35.7 g/dL [facility] RDW CV 12.7 11.1 - 14.9 % [facility] RDW SD 41.6 35.7 - 48.1 fL [facility] NRBC abs 0.00 0.00 - 0.01 K/cumm [facility] Blood 11/13/2024 10:1 2 PM CORK MOLDER 11/13/2024 10:22 PM CORK MOLDER Mark Ahumada SHEEP FARMER LAB BLOOD ORDERABLES Final Re sult Performing Organization Address City/[facility]/ZIP Co de Phone Number [facility] [place] [address] * Type and screen (11/13/2024 10:12 PM CORK MOLDER) Pathologist [facility] Denice, indirect Negative ABO Rh A Positive [facility] Blood 11/13/2024 10:1 2 PM CORK MOLDER 11/13/2024 11:05 PM CORK MOLDER Narrative [facility] - 11/14/2024 12:02 AM CORK MOLDER Has the patient had Daratumumab or Isatuximab in the past 6 months?->Unknown Mark Ahumada SHEEP FARMER LAB BLOOD BANK TEST ORDERABLE S Final Result Performing Organization Address [facility] Co de Phone Number [facility] [place] [address] * Phosphorus (11/13/2024 10:12 PM CORK MOLDER) Pathologist [facility] Phosphorus, pl 2.9 2.3 - 4.5 mg/dL Blood 11/13/2024 10:1 2 PM CORK MOLDER 11/13/2024 10:22 PM CORK MOLDER Mark Ahumada SHEEP FARMER LAB BLOOD ORDERABLES Final Re sult Performing Organization Address [facility] de Phone Number [facility] [place] [address] * Magnesium (11/13/2024 10:12 PM CORK MOLDER) Pathologist [facility] Magnesium 1.9 1.4 - 2.5 mg/dL Blood 11/13/2024 10:1 2 PM CORK MOLDER 11/13/2024 10:22 PM CORK MOLDER Mark Ahumada SHEEP FARMER LAB BLOOD ORDERABLES Final Re sult Performing Organization Address [facility] Co de Phone Number [facility] [place] [address] * Hemoglobin A1c (11/13/2024 10:12 PM CORK MOLDER) Pathologist [facility] Hgb A1C 5.0 4.0 - 5.6 % Estimated Average Glucose 97 mg/dL [facility] Comment: The ADA recommends reporting an estimated Average Glucose (eAG) with all Hemoglobin A1c results using the equation derived from a study of 507 normal and diabetic adults. ??Minority populations were underrepresented and children were not included. ?? (Diabetes Care 2020; 43(S1): S66-S76). ??The eAG is not equivalent to a fasting glucose. Blood 11/13/2024 10:1 2 PM CORK MOLDER 11/13/2024 10:26 PM CORK MOLDER us Isrrael Sharma MD LAB BLOOD ORDERABLES Final Result [facility] One [facility] Department [place] [address] * (ABNORMAL) Comprehensive metabolic panel (11/13/2024 10:12 PM CORK MOLDER) Sodium 137 135 - 145 mmol/L Potassium, pl 3.4 3.3 - 4.9 mmol/L [facility] Chloride 102 97 - 110 mmol/L [facility] CO2 27 22 - 32 mmol/L [facility] Anion gap 8 2 - 15 mmol/L [facility] BUN 8 6 - 25 mg/dL [facility] Creatinine 0.67(L) 0.80 - 1.30 mg/dL [facility] Glucose 104 70 - 199 mg/dL [facility] Comment: Interpretive Data Fasting glucose >/= 126 [...] 2022. Calcium 8.0(L) 8.5 - 10.3 mg/dL [facility] Bilirubin, total 0.9 0.1 - 1.2 mg/dL [facility] Protein, pl 6.5 6.5 - 8.5 g/dL [facility] Albumin 3.7 3.5 - 5.0 g/dL [facility] Alk phos 73 40 - 130 Units/L [facility] ALT 27 7 - 55 Units/L [facility] AST 38 10 - 50 Units/L [facility] Blood 11/13/2024 10:1 2 PM CORK MOLDER 11/13/2024 10:22 PM CORK MOLDER us Mark Ahumada NP LAB BLOOD ORDERABLES Final Re sult [facility] Department [place] [address] * Cytology (11/13/2024 10:04 PM CORK MOLDER) Fluid (Cerebrospinal Fluid (Cytology)) 11/13/2024 10:04 PM CORK MOLDER 11/14/2024 5:40 AM CORK MOLDER Narrative PATHOLOGY [facility] - 11/14/2024 8:38 PM CORK MOLDER EPIC results best viewed via link to PDF [facility] Surgical Pathology [place], [place] [id number] Note to Patients: This report may contain [...] Gender: ??M : ??[id number] (Age: 84) Address: ??[facility], [address] [place], [place] ??[address] Hospital #: ??[id number] Taken:11/13/2024 Received:11/14/2024 Reported: 11/14/2024 Patient Type: [facility] Inpatient ?? Service: Neurology Location: Physician(s): ??Sarbjit Saldivar, DO FINAL DIAGNOSIS A. ??Cerebrospinal fluid: ?- Negative for malignancy pamo/11/14/2024 12:29 By this signature, I attest that the above diagnosis is based upon my personal examination of the slides(and/or other material indicated in the diagnosis). Jamal Cardenas, DO Report Electronically Reviewed and Signed Out By ??Jamal Cardenas DO 11/14/2024 20:38:18 Sai Meraz, [facility](ASCP), [facility] Gross Description A. ??Cerebrospinal fluid: ??7.5 ml [...] Surgical Pathology and Flow Cytometry Departments at [facility] as part of an ongoing software quality manager program and in compliance with federally mandated [...] Surgical Pathology and Flow Cytometry Departments of [facility]. ??It has not been cleared or approved by the U. S. Food and Drug Administration. Mark Ahumada SHEEP FARMER LAB CYTOLOGY ORDERABLES Final Result PATHOLOGY [facility] IOH 3rd Floor [place], [place] [phone] * ECG 12 lead (11/13/2024 9:58 PM CORK MOLDER) Ventricular Rate EKG/Min 112 BPM [facility] Atrial Rate 112 BPM [facility] MS-Interval (MSEC) 144 ms [facility] QRS-Interval (MSEC) 140 ms [facility] QT-Interval (MSEC) 360 ms [facility] QTc 491 ms [facility] P [place] 61 degrees [facility] R [place] -73 degrees [facility] T [place] 37 degrees [facility] Diagnosis Sinus tachycardia with Premature atrial complexes with Aberrant conduction Right bundle branch block Left anterior fascicular block Bifascicular block Abnormal ECG No previous ECGs available Confirmed by Kasandra WHITE, [facility] ([id number]) on 11/15/2024 12:49:38 AM [facility] 11/13/2024 9:58 PM CORK MOLDER 11/15/2024 12:49 AM CORK MOLDER us aMrk Ahumada SHEEP FARMER ECG ORDERABLES Final Result Performing Organization Address [facility] de Phone Number [facility] * POCT glucose (11/13/2024 9:27 PM CORK MOLDER) Pathologist [facility] Glucose, POC 104 70 - 199 mg/dL Blood 11/13/2024 9:27 PM CORK MOLDER 11/13/2024 9:27 PM CORK MOLDER us Andrae Pop MD PhD LAB POCT ORDERA BLES - DEVICE Final Result Performing Organization Address City/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
--- OUTSIDE RECORDS SUMMARY | 2024-11-16 13:11 | XMS_ITS ---
Author Organization [facility] ospital Address [address] [place] [address] Care Team Providers Care Complex Director Name Role Phone Jairo Ugalde MD Unavailable [phone] Sarbjit Saldivar DO Primary Care Provider [phone] Logan Pedro MD Unavailable [phone] Mayo Haile MD Unavailable [phone] Active Problems Problem Noted Date Diagnosed Date Acute metabolic encephalopathy 11/14/2024 Seizure 11/13/2024 Prostate CA 06/22/2024 Cancer Staging:Clinical stage from 06/22/2024:Stage IIB(cT1c, cN0, cM0, PSA: 9.6, Grade Group: 2) - Signed by Mayo Haile MD on 06/22/2024 Current Oncology Plans Eligard Injection - 45 mg every 24 weeks* Plan Start Date:09/07/2024 Plan Provider:Mayo Haile MD Linked Problems Prostate CA (HCC) Treatment Medications leuprolide acetate (6 month) (ELIGARD) Past Plans No past plan information found. Radiation Treatments * No radiation treatments are documented for this patient in [facility]. Treatments may have been administered in another system.
--- OUTSIDE RECORDS SUMMARY | 2024-11-16 13:12 | XMS_ITS | Clinical Summary ---
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 Active naproxen sodium (ALEVE) 220 mg Tablet Take 220 mg by mouth. Active Active Problems No known active problems Encounters Date Type Department Care Team Description 11/14/2024 External Device Data STL ABSTRACTION Provider, Abstract from Last 3 Months Family History Medical History Relation Name Comments No Known Problems Brother 1 No Known Problems Brother 2 No Known Problems Child Heart Disease Father Heart Disease Mother No Known Problems Sister Relation Name Status Comments Brother 1 Brother 2 Alive Child Alive Father Mother Sister Social History Tobacco Use Types Packs/Day Years Used Date Smoking Tobacco: Never Alcohol Use Standard Drinks/Week Comments Never 0 (1 standard drink = 0.6 oz pur e alcohol) Sex and Gender Information Value Date Recorded Sex Assigned at Not on file Legal Sex Male 9:37 AM CDT Gender Identity Not on file Sexual Orientation Not on file Last Filed Vital Signs Vital Sign Reading Time Taken Comments Blood Pressure 130/82 04/20/2024 3:03 PM CDT Pulse 80 04/20/2024 3:03 PM CDT Temperature 36.7 ??C (98 ??F) 04/20/2024 3:03 PM CDT Respiratory Rate 18 04/20/2024 3:03 PM CDT Oxygen Saturation 95% 04/20/2024 3:03 PM CDT Inhaled Oxygen Concentration - - Weight 78.9 kg (174 lb) 04/20/2024 3:03 PM CDT Height 175.3 cm (5' 9 ) 04/20/2024 3:03 PM CDT Body Mass Index 25.7 04/20/2024 3:03 PM CDT Plan of Treatment Health Maintenance Due Date Last Done Comments DTAP/TDAP/TD VACCINES (1 - Tdap) 1958 PNEUMOCOCCAL VACCINE 65+ YEARS (1 of 1 - PCV) 07/04/19 89 ZOSTER VACCINE (1 of 2) 1989 RSV VACCINE (60+ or ) (1 - 1-dose 75+ series) 2014 INFLUENZA VACCINE (#1) 2024 Insurance [employer] PPO MCR Care Teams Class A Truck Driver Relationship Specialty Start Date End Date Sarbjit Saldivar DO [address] [place] [address] PCP - General Internal Medicine 05/23/24
== END 2024-11-13 20:45 | disposition short-term general hospital (02) ==
PROVIDERS: Emergency Provider Emergency Medicine; PCP Nurse Practitioner
DX: R56.9 Unspecified convulsions (principal); R53.1 Weakness; R41.82 Altered mental status, unspecified; M16.9 Osteoarthritis of hip, unspecified; Z96.653 Presence of artificial knee joint, bilateral; Z85.46 Personal history of malignant neoplasm of prostate; R00.0 Tachycardia, unspecified; I49.3 Ventricular premature depolarization; I49.1 Atrial premature depolarization; I45.10 Unspecified right bundle-branch block
CPT/HCPCS: 36415; 70450; 70496; 70498; 71045; 80053; 81001; 82948; 84484; 85025; 85610; 85730; 87040; 87086; 93005; 96365; 96367; 96375; 99285; A9270; J0696; J1953; J2060; Q9967

== ENCOUNTER 2025-01-02 13:30 | Outpatient (RCR) | payer MEDICARE, SELFPAY ==
[2024-03-17 11:10] VITALS: BMI 25.6
[2024-03-17 11:11] VITALS: BP 126/58; PULSE 72; TEMP 36.8; O2SAT 96
--- NOTE | 2024-03-17 11:28 | PDRADONCCN ---
PMFSH - Date/Time Seen 03/17/24 11:28 - Medical History Medical History (Last Reviewed 12/08/23 @ 09:37 by Alexandra Leigh MA) Arthritis Degenerative joint disease (DJD) of hip Frequent urination Right hip pain - Surgical History Surgical History (Last Reviewed 12/08/23 @ 09:37 by Alexandra Leigh MA) History of bilateral knee replacement - Family History Family History (Last Reviewed 12/08/23 @ 09:37 by Alexandra Leigh MA) Mother Hypertension Family history of cardiomyopathy, Onset Age: 86 Patient's mother is Father Family history of congenital heart disease, Onset Age: 80 Unknown Hypertension Depression Diabetes mellitus Cerebrovascular accident Arthritis - Social History Social History (Last Reviewed 12/08/23 @ 09:37 by Alexandra Leigh MA) Gender Identity: Gender identity (if verbalized by the patient): Male Sexual Orientation: Sexual Orientation (if Verbalized by the Patient): Straight or Heterosexual Alcohol Use: Alcohol intake: former Substance Use: Substance use: never Substance use type: does not use Others: Spiritual care concerns: No Agree to blood products: Yes Living Arrangements: Living arrangements: alone Oppucation/Education: Occupation/Education: retired Smoking Status: Smoking status: Never smoker Social Determinants of Health: Has the Lack of Transportation Kept You From Medical Appointments or From Getting Medications?: No Within the Past 12 Months, Were You Worried Whether Your Food Would Run Out Before You Got Money to Buy More?: Never True What is Your Housing Situation Today?: I Have Housing Are You Worried That in the Next 2 Months, You May Not Have Your Own Housing to Live In?: No Do You Have Trouble Paying Your Heating Or Electricity Bill?: No Do You Have Trouble Paying For Medicines?: No Are You Currently Unemployed and Looking for Work?: No Highest Level of Education Completed: Master's Degree or Higher Do You Have Trouble With Childcare or the Care of a Family Member?: Decline to Answer - Allergies Allergies Allergy/AdvReac Type Severity Reaction Status Date / Time No Known Allergies Allergy Verified 03/17/24 11:11 Exam - Vital Signs Vital Signs - 24 hr 03/17/24 11:11 Temperature 36.8 C Pulse Rate 72 Blood Pressure 126/58 L Pulse Oximetry 96
--- NOTE | 2024-03-17 12:26 | P.CONRAD_ITS ---
Recommendations RECOMMENDATIONS Based on the [facility] prostate cancer nomogram, his chances of being cancer free at 5 & 10 years after surgery is 78% and 66% respectively, and his chances of having organ confined disease is 45%, LAUREANO is 54%, SV invasion is 5%, pelvic claudia involvement is 5%. The male life expectancy survey estimates that without treatment intended to cure his prostate cancer, over the next 10 years the chance of him dying from untreated prostate cancer is 4% and the chance of him dying from other causes is 73%. By NCCN guidelines, he has favorable intermediate risk prostate cancer. Consensus treatment guidelines for those with at least 10 year life expectancy include active surveillance, radical prostatectomy + pelvic LND if probability of nodes metastasis > 2%, or definitive radiation as acceptable initial therapies. For those with 5-10-year life expectancy, the guidelines recommend radiation therapy or observation/surveillance. I discussed the treatment options for early stage prostate cancer including observation, androgen deprivation therapy, radical prostatectomy, cryotherapy, and radiation therapy. The benefit of active surveillance is that there is no side effects incurred from treatment. Obviously, the downside of is the risk of cancer progression and spread. I described a typical course of prostate radiation consisting of IMRT/IGRT using VMAT with daily CT image guidance, delivered Wednesday through Wednesday, either with conventional fractionation delivered in 43-45 fractions over 8.5-9 weeks or moderate hypofractionation delivered in 25-30 fractions over 5-6 weeks. For hypofractionation, placement of a SpaceOAR is preferable to decrease rectal toxicity. Androgen deprivation therapy is not generally used routinely for favorable intermediate risk prostate cancer, but can be considered if additional risk assessments (Prolaris, Decipher, Oncotype Dx) suggest aggressive tumor behavior. Intermediate risk prostate cancer is a heterogeneous group, with some patients having an excellent prognosis with radiation alone and others who have a high risk of recurrence and distant metastases and may benefit from treatment intensification. There have now been over 30 published papers from numerous independent patient cohorts showing the prognostic superiority of genomic interior systems carpenter-based risk stratification compared to clinical models alone. Therefore, genomic testing is commonly performed for intermediate risk patients; however, at his age it would also be quite reasonable to defer ADT due to the added toxicity Mr. Rubio expressed good understanding of the issues discussed and all of his questions were addressed to his apparent satisfaction. He will consider his treatment options and contact me with a decision soon; however, at this time he is leaning towards active surveillance. In the setting of ob servation/surveillance, consideration should be given to ordering genomic testing (Prolaris, Decipher, or Oncotype Dx) to ensure that he does not have a biologically aggressive tumor. If he decides to pursue definitive radiation for his prostate cancer, he will first need to have placement of a SpaceOAR and have gold fiducial markers placed in the prostate gland to aid in precise localization prior to each radiation fraction, and then return for a CT- simulation session approximately 2 weeks later. He will also begin a bowel regimen of gas-X and milk of magnesia 3 days prior to simulation to minimize rectal distension, and fill his bladder daily for treatment. Thank you for asking me to participate in the care of your patient. If any further questions or concerns should arise, please do not hesitate to contact me. I spent?~60 minutes with evaluation and management of this visit including preparation to see the patient (including but not limited to review of recent imaging, laboratory results and recent procedure) as well as obtaining a history, examination of the patient, ordering any appropriate tests, imaging and radiation therapy, as indicated and educating the patient. ?Also included in this time is my coordination of care with other health care providers for this cancer. ? Rosalba Parish Mai, MD This note was transcribed using 'Collarity', a computerized voice recognition without a human ultrasound technol. This report may or may not have been adjusted for typographical, grammatical and syntax errors. Impression IMPRESSION Sudeep Rubio is a 83 old male with clinical stage T1c N0 M0 prostate cancer, Boise score 7(3+4) involving 6/18 cores (33%), PSA 8.7; NCCN favorable intermediate risk group. [facility] - Date/Time Seen 03/17/24 12:26 DATE OF SERVICE: 03/17/2024 IDENTIFICATION Sudeep Rubio is a 83 old male with clinical stage T1c N0 M0 prostate cancer, Boise score 7(3+4) involving 6/18 cores (33%), PSA 8.7. He is seen in consultation at the request of Dr. Pedro for a radiation oncology opinion. The patient is by himself today. HISTORY OF PRESENT ILLNESS Oncologic History: Prostate Ca Stage cT1c, Boise 7(3+4), PSA 8.7 01/31/2024 PSA = 8.7 vs 6.9 (11/2023) and 9.6 (07/20/2023) 02/15/2024 MRI Pelvis: Prostate volume = 67.2, 9 mm nodule at left anterior base and 12 mm nodule at left mid gland peripheral zone, PI-RADS 4 03/06/2024 Prostate Biopsy (Dr Pedro): RIGHT: 0/6 cores; LEFT: 3/6+ cores, Boise 3+4 adenoca in 2 (base 20%, mid 20%) & Boise 3+3 adenoca in 1 (lateral base 25%); LT Mid CHARLES: 3/3+ cores, Boise 3+4 (30-55%); LT Anterior Base CHARLES: 0/3 He presented with elevated PSA of 9.6 in June 2023. He was referred to Dr. Pedro. Repeat PSA in November was 6.9, and most recent PSA on 01/31/2024 was 8.7. On 02/15/2024, MRI of the pelvis was performed. Prostate measured 5.6 x 5 x 5.5 cm with a volume of 67.2 cc. There was a restricted diffusion nodule at the left anterior base measuring 9 mm and another nodule at the left mid gland peripheral zone posteriorly measuring 12 mm, both were PI-RADS 4. The seminal vesicles appeared normal. There was no evidence of extraprostatic extension. There is no adenopathy or malignant appearing bone lesions. This prompted a prostate biopsy which was performed on 03/06/2024. Pathology revealed Zandra 3+4 adenoca on the left. No prior TURP. At baseline, he describes nocturia?3- 4x/night, weak stream, excessive daytime?frequency (q1-2 hours), with no urgency, dysuria, gross?hematuria, or incontinence. He takes tamsulosin for BPH. No bowel concerns. He has never undergone screening colonoscopy. He denies new bony pain. He reports erectile dysfunction. He is otherwise fairly healthy. Medical comorbidities include arthritis with chronic right hip pain requiring ambulation with a cane or walker. Prior Radiation Treatment: none Radiation Considerations: No known history of active collagen vascular disease including Scleroderma or SLE. No history of inflammatory bowel disease. No implanted pacemaker, defibrillator, loop recorder, or nerve stimulator. No prior hip replacement. Tobacco Counseling: No history of smoking Family Cancer History: No FH of breast, ovarian, prostate, colorectal, or pancreatic ca REVIEW OF SYSTEMS GENERAL: No unexplained weight loss, loss of appetite, energy loss, fatigue, fevers or chills, night sweats. ENT: No nasal congestion, drainage or bleeding; sore throat; ear pain, neck swelling RESPIRATORY: No shortness of breath, cough or wheezing, hemoptysis. CARDIOVASCULAR: No chest pain, leg swelling GASTROINTESTINAL: No diarrhea, rectal bleeding, constipation. No abdominal or pelvic pain. No nausea or vomiting. GENITOURINARY: (+)Per history MUSCULOSKELETAL: (+)Arthritis with chronic right hip pain for which he ambulates with a cane or a walker. No new focal bony aches or pain. PSYCHOLOGICAL: No anxiety, depressive symptoms, or poor sleep DERMATOLOGICAL: No skin rashes or lesions NEUROLOGIC: No headaches, vision changes, focal motor weakness, numbness, paresthesias, ataxia. PERFORMANCE SCORE ECOG PS = 1 - Restricted in physically strenuous activity but ambulatory and able to carry out work of a light or sedentary nature, such as light house work and office work. PAIN ASSESSMENT Pain Assessment: 0/10 (no pain) Pain Management: no pain - no intervention required - Medical History Medical History (Last Reviewed 12/08/23 @ 09:37 by Alexandra Leigh MA) Arthritis Degenerative joint disease (DJD) of hip Frequent urination Right hip pain - Surgical History Surgical History (Last Reviewed 12/08/23 @ 09:37 by Alexandra Leigh MA) History of bilateral knee replacement - Family History Family History (Last Reviewed 12/08/23 @ 09:37 by Alexandra Leigh MA) Mother Hypertension Family history of cardiomyopathy, Onset Age: 86 Patient's mother is Father Family history of congenital heart disease, Onset Age: 80 Unknown Hypertension Depression Diabetes mellitus Cerebrovascular accident Arthritis - Social History Social History (Last Reviewed 12/08/23 @ 09:37 by Alexandra Leigh MA) Gender Identity: Gender identity (if verbalized by the patient): Male Sexual Orientation: Sexual Orientation (if Verbalized by the Patient): Straight or Heterosexual Alcohol Use: Alcohol intake: former Substance Use: Substance use: never Substance use type: does not use Others: Spiritual care concerns: No Agree to blood products: Yes Living Arrangements: Living arrangements: alone Oppucation/Education: Occupation/Education: retired Smoking Status: Smoking status: Never smoker Social Determinants of Health: Has the Lack of Transportation Kept You From Medical Appointments or From Getting Medications?: No Within the Past 12 Months, Were You Worried Whether Your Food Would Run Out Before You Got Money to Buy More?: Never True What is Your Housing Situation Today?: I Have Housing Are You Worried That in the Next 2 Months, You May Not Have Your Own Housing to Live In?: No Do You Have Trouble Paying Your Heating Or Electricity Bill?: No Do You Have Trouble Paying For Medicines?: No Are You Currently Unemployed and Looking for Work?: No Highest Level of Education Completed: Master's Degree or Higher Do You Have Trouble With Childcare or the Care of a Family Member?: Decline to Answer - Allergies Allergies Allergy/AdvReac Type Severity Reaction Status Date / Time No Known Allergies Allergy Verified 03/17/24 11:11 Exam - General PHYSICAL EXAMINATION HEENT: Normocephalic, atraumatic. Extraocular muscles intact. Pupils equal, round, and reactive. Sclerae anicteric and conjunctivae clear. Face symmetrical. NECK: Supple without masses. No JVD or edema. LYMPHATICS: No cervical, supraclavicular, infraclavicular, or axillary adenopathy. LUNGS: Clear to auscultation and percussion bilaterally. No wheezes, rhonchi or rales. HEART: Regular rate and rhythm. No murmurs, rubs, or gallops. MUSCULOSKELETAL: No tenderness over the axial or appendicular skeleton. EXTREMITIES: No clubbing, cyanosis, or lymphedema. ABDOMEN: Soft, nontender, nondistended, without hepatosplenomegaly or masses. No rebound or guarding. NEUROLOGIC/PSYCHOLOGIC: ?Alert & oriented. ?Normal affect and mood. Speech is fluent and comprehension appears intact. Moves all 4 extremities well. Ambul ates with a cane. DIGITAL RECTAL EXAM: Deferred - Vital Signs Vital Signs - 24 hr 03/17/24 11:11 Temperature 36.8 C Pulse Rate 72 Blood Pressure 126/58 L Pulse Oximetry 96
[2024-09-19 10:23] VITALS: BP 156/66; PULSE 74; RESP 12; TEMP 36.3; O2SAT 99
--- NOTE | 2024-09-19 11:42 | P.RADPN_ITS ---
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 He received ST-ADT in 08/[address] Haile at [facility]. Referred back for RT. HISTORY & NARRATIVE: He was previously seen in consultation and returns today follow-up. Since consultation, he reports feeling generally well. There have been no significant changes to the health history in the interim. Accompanied by his 2 children - son, daughter. Arrives with lisa hensley. He saw Dr. Haile at [facility] in [place], [place]. Decipher score >0.8 He was recommended to undergo RT + ST-ADT. He received lupron 45 mg injection. Referred back here to discuss RT due to proximity to his home. Lives in a [facility] currently. They will arrange for transport. Denies significant / GI symptoms. PHYSICAL EXAMINATION: Vital signs: see RN ECO General Appearance: The patient is a well-developed, well-nourished male, sitting, in no acute distress. HEENT: normocephalic, atraumatic. Mucus membranes moist Lungs: Breathing comfortably at rest without wheeze Abdomen: Non-distended Skin: warm, dry, no rashes or lesions Neurologic: Patient awake and alert, responds to questions appropriately ASSESSMENT & PLAN: He returns for follow-up. I recommend RT + ST-ADT. He has received ST-ADT. I would recommend IMRT. We discussed conventional versus hypofractionated regimens. The patient and his family prefer hypofractionated. I will plan to treat the prostate/pSV with 70Gy/28Fx using IMRT. Given his age and KPS, will defer fiducial marker placement and use daily IGRT/CBCT for image guidance. I reviewed the bowel/bladder prep with him and his family. Reviewed toxicities with RT with them. I reviewed with them the steps involved in the CT simulation We also discussed the logistics involved with radiation treatment planning. We reviewed the anticipated acute and late effects of treatment. Written informed consent was signed in clinic today. He will RTC in [address] simulation. He knows to contact me with questions or concerns prior to the return visit. Sunil Roberts MD Pain score 5/10, due to right hip pain, mgmt per PCP Time spent: 40 min H&P - Exam - Vital Signs Vital Signs - 24 hr 09/19/24 10:23 Temperature 36.3 C L Pulse Rate 74 Respiratory Rate 12 Blood Pressure 156/66 H Pulse Oximetry 99
--- NOTE | 2024-10-03 13:43 | WPDONCPN ---
Subjective Date/time seen: 10/03/24 13:43 Interval history: Procedure Date: 10/03/[address] SIMULATION PROCEDURE PURPOSE: Patient is undergoing a virtual CT simulation for external beam radiation treatment planning. Today?s CT dataset will be utilized for intensity modulated treatment planning (IMRT). TREATMENT SITE(S): Prostate, Proximal Seminal Vesicles NUMBER OF AREAS OR THORNTON: One treatment area was simulated today. NUMBER OF PORTS: IMRT using multiple static gantry angles, arcs, or helical tomotherapy will be needed to cover the treatment volume and adequately protect nearby critical normal tissues. The number of ports will be determined during the treatment planning process. EQUIPMENT USED: Simulation was performed on the department?s dedicated CT simulator. IMMOBILIZATION: An alpha cradle device was fabricated to immobilize the patient?s body in treatment position. CONTRAST MEDIA: None EXTERNAL MARKERS: No external markers were used. TATTOOS: Positioning tattoos were applied to the patient?s skin BLOCKING: An intensity map generated by multiple MLC-shaped beamlets of complex design will be constructed as part of an IMRT treatment plan. COMPENSATING FILTER / WEDGE: None ISODOSE PLAN: An IMRT treatment plan will be performed to precisely deliver a specified dose to the treatment volume with narrow margins and to protect adjacent critical normal tissues from receiving excessive radiation exposure. SCHEDULING Prior to delivering the first radiation fraction, a simulation will be performed on the linear accelerator utilizing electronic portal imaging to verify the isocenter location and block design. DAILY IMAGE GUIDANCE: Utilizing the integrated CT scanner on the treatment machine, CT images through the treatment volume will be acquired daily prior to treatment to ensure precise patient positioning, thus allowing treatment of the tumor with narrow margins, with alignment to the prostate gland. MEDICAL NECESSITY FOR IMRT TREATMENT PANNING: Dose escalation is planned to deliver radiation doses in excess of those commonly utilized with conventional treatments. The target volume is in close proximity to critical normal structures (rectum, bladder, femoral heads, penile bulb) and must be treated with narrow margins to adequately protect immediately adjacent structures in order to reduce the probability of radiation toxicity. IMRT is the only external beam treatment modality that can achieve this, as opposed to conventional 3D-treatment planning. MEDICAL NECESSITY FOR IGRT TREATMENT PLANNING: The target volume has inherent setup variation as result of differential bladder and rectal filling. IGRT is the only treatment modality that can correct for daily variances in target volume location, further improving the therapeutic ratio over IMRT alone. Sunil Roberts MD
--- NOTE | 2024-10-03 13:45 | WPDONCPN ---
Subjective Date/time seen: 10/03/24 13:45 Interval history: RADIATION ONCOLOGY CLINICAL TREATMENT PLAN PATIENT NAME: Sudeep Rubio PROCEDURE DATE: 1940 DIAGNOSIS: Adenocarcinoma of the prostate, NCCN intermediate risk TREATMENT INTENT: Definitive ANDROGEN DEPRIVATION: Concurrent short-term ADT TREATMENT SITE(S): Prostate, proximal seminal vesicles NUMBER OF AREAS OR THORNTON: 1 treatment area NUMBER OF TREATMENT PORTS: IMRT using multiple static gantry angles, arcs, or helical tomotherapy will be needed to cover the treatment volume and adequately protect nearby critical normal tissues. The number of ports will be determined during the treatment planning process. IMMOBILIZATION: Supine, Alphacradle TREATMENT DEVICES: Custom blocks of complex design TREATMENT MODALITY: External photon beam PLANNED DOSE: 7000 in 250 cGy fractions to prostate FRACTIONATION: Daily TECHNIQUE CONTEMPLATED: IMRT, IGRT MEDICAL NECESSITY FOR IMRT TREATMENT PLANNING: The target volume is in close proximity to critical normal structures (bowel, rectum) and must be treated with narrow margins to adequately protect immediately adjacent structures in order to reduce the probability of radiation toxicity. The dose required to deliver to the target volume exceeds the tolerance of these adjacent normal structures, which are so close that IMRT is the only treatment modality that can achieve this, as opposed to conventional 3D-treatment planning. MEDICAL NECESSITY FOR IGRT TREATMENT PLANNING: There is inherent setup variation as a result of differential bladder filling that could result in geometric miss of the target volume and/or excessive dose delivery to the adjacent normal structures. IGRT is the only treatment modality that can correct for daily variances in target volume location, further improving the therapeutic ratio over IMRT alone. Sunil Roberts MD
[2024-10-17 09:34] VITALS: BP 145/70; PULSE 87; RESP 18; TEMP 36.7; O2SAT 98
--- NOTE | 2024-10-17 10:20 | PDRADONCFUV ---
Follow Up Note Date/Time Date/Time: 10/17/24 10:20 Interval History Interval History: Procedure Date: 10/17/24 RADIATION ONCOLOGY VERIFICATION SIMULATION PURPOSE: The patient initially underwent virtual CT simulation. A simple simulation was performed on the linear accelerator utilizing the integrated CBCT for isocenter verification prior to treatment delivery of the first fraction. EQUIPMENT USED: Simulation was performed on the linear accelerator. PROCEDURE DETAILS: This simulation was performed prior to the first radiation fraction to the prostate/proximal seminal vesicles. The patient was placed on the treatment couch with his body immobilized using a custom fabricated alpha-cradle in treatment position and aligned to the 3-point setup tattoos. A CBCT was acquired through the treatment area. The CBCT images were fused and aligned to the treatment planning CT image set. I reviewed the CT alignment images and made any necessary adjustments. Couch shifts were calculated in order to bring the patient into precise alignment prior to treatment delivery. ASSESSMENT: The isocenter alignment process was successful. ORDERS: Proceed with radiation treatment as planned. Sunil Roberts MD H&P - Exam Vital Signs: Vital Signs - 24 hr 10/17/24 09:34 Temperature 36.7 C Pulse Rate 87 Respiratory Rate 18 Blood Pressure 145/70 H Pulse Oximetry 98
--- NOTE | 2024-10-17 10:23 | WPDRADONCOTV ---
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 He received ST-ADT in 08/[address] Haile at [facility]. Referred back for RT. I am treating him with definitive RT 70Gy/28Fx to the prostate/proximal seminal vesicles using IMRT. SITE: Prostate/proximal SV DOSE: 250 cGy of planned 7000 cGy (1 of 28 Fx) HISTORY: He reports feeling generally well. No complaints. EXAM: Well-appearing, NAD. Breathing comfortably on RA ASSESSMENT/PLAN: Tolerating radiotherapy well. Imaging checked. Continue radiation therapy as planned. He is noted to have 0/10 pain in clinic today. His individualized pain management will therefore consist of no intervention needed as the patient notes no pain of significance. Sunil Roberts MD
--- NOTE | 2024-10-27 09:37 | P.RADPN_ITS ---
Follow Up Note Date/Time Date/Time: 10/27/24 09:37
--- NOTE | 2024-10-27 09:37 | PDRADONCFUV ---
Follow Up Note Date/Time Date/Time: 10/27/24 09:37
--- NOTE | 2024-10-27 09:39 | P.RADONC_ITS ---
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 He received ST-ADT in 08/[address] Haile at [facility]. Referred back for RT. I am treating him with definitive RT 70Gy/28Fx to the prostate/proximal seminal vesicles using IMRT. SITE: Prostate/proximal SV DOSE: 1750 cGy of planned 7000 cGy (7 of 28 Fx) HISTORY: He reports feeling generally well. No complaints. EXAM: Well-appearing, NAD. Breathing comfortably on RA ASSESSMENT/PLAN: Tolerating radiotherapy well. Imaging checked. Continue radiation therapy as planned. He is noted to have 0/10 pain in clinic today. His individualized pain management will therefore consist of no intervention needed as the patient notes no pain of significance. Sunil Roberts MD
[2024-10-27 09:58] VITALS: BP 172/73; PULSE 73; RESP 20; TEMP 36.4; O2SAT 98
--- NOTE | 2024-11-03 09:27 | WPDRADONCOTV ---
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 He received ST-ADT in 08/[address] Haile at [facility]. Referred back for RT. I am treating him with definitive RT 70Gy/28Fx to the prostate/proximal seminal vesicles using IMRT. SITE: Prostate/proximal SV DOSE: 2750 cGy of planned 7000 cGy (11 of 28 Fx) HISTORY: He reports feeling generally well. No complaints. EXAM: Well-appearing, NAD. Breathing comfortably on RA ASSESSMENT/PLAN: Tolerating radiotherapy well. Imaging checked. Continue radiation therapy as planned. He is aware that Dr. Lim will be taking over his care. He is noted to have 0/10 pain in clinic today. His individualized pain management will therefore consist of no intervention needed as the patient notes no pain of significance. Sunil Roberts MD
[2024-11-03 09:36] VITALS: BP 166/75; PULSE 83; RESP 20; TEMP 36.5; O2SAT 98
--- NOTE | 2025-01-02 13:44 | PDRADONCFUV ---
Follow Up Note Date/Time Date/Time: 01/02/25 13:44 Interval History Interval History: I saw him today He had completed 42.5Gy/70Gy; planned Fx of radiation for his prostate cancer. His last RT was 11/13/24. He was then admitted to an OSH for a prolonged period of time due to seizures. He is alone today. He is in a wheelchair. Here today to discuss resuming RT. He is very very hard of hearing. He told me that he did not want to resume radiation. Given the long time interval (nearly 2 mo) since his last RT treatment, this may be a reasonable option. Resuming and completing the planned course would likely have decreased efficacy due to long gap in the middle of treatment. He did receive a 6 mo ADT injection. It may be reasonable to observe him at this point given his age and poor performance status. If he has continued progression based on his PSA, consideration of ADT +/- RT at that time may be a reasonable consideration. I will reach out to his family to discuss. Sunil Roberts MD
== END 2025-01-23 08:26 ==
LOC: AMCRADONC 13:30
PROVIDERS: Visit Provider Radiology Radiation Oncology
DX: C61 Malignant neoplasm of prostate (principal); Z08 Encounter for follow-up examination after completed treatment for malignant neoplasm; R35.1 Nocturia; R39.12 Poor urinary stream; H91.8X9 Other specified hearing loss, unspecified ear; R56.9 Unspecified convulsions; R35.0 Frequency of micturition; M25.551 Pain in right hip; Z79.899 Other long term (current) drug therapy; M16.10 Unilateral primary osteoarthritis, unspecified hip; Z96.653 Presence of artificial knee joint, bilateral; Z82.49 Family history of ischemic heart disease and other diseases of the circulatory system; Z83.3 Family history of diabetes mellitus; Z92.3 Personal history of irradiation
CPT/HCPCS: 77280; 77290; 77300; 77301; 77334; 77336; 77338; 77385; 99211; 99212; G0463

== ENCOUNTER 2025-01-04 13:12 | Emergency (ER) | payer MEDICARE, SELFPAY ==
[2025-01-04 13:09] VITALS: BP 137/73; PULSE 84; RESP 13; TEMP 36.6; O2SAT 96
--- NOTE | 2025-01-04 13:40 | ECG_ITS ---
Test Date: 2025-01-04 13:51:51 Measurements Intervals [place] Rate: 82 P: 53 FL: 195 QRS: -53 QRSD: 154 T: 0 QT: 419 QTc: 490 Interpretive Statements SINUS RHYTHM RIGHT BUNDLE BRANCH BLOCK [120+ ms QRS DURATION, UPRIGHT V1, 40+ ms S IN I/aVL/V4/V5/V6] LEFT ANTERIOR FASCICULAR BLOCK [QRS AXIS <= -45, QR IN I, RS IN II] WARNING: DATA QUALITY MAY AFFECT INTERPRETATION Compared to ECG 11/13/2024 13:01:24 Sinus tachycardia no longer present Ventricular premature complex(es) no longer present Electronically Signed On 01-05-2025 16:41:15 CDT by Abida Mejias M.D.
[2025-01-04 13:57] LABS: Basophils Percent Auto 0.4 % (0.2-1.2); Eosinophils Absolute Auto 0.1 K/mm3 (0-0.3); Eosinophils Percent Auto 1.1 % (0-4.4); Hematocrit 32.7 % (42.0-52.0); Hemoglobin 10.8 g/dL (14.0-18.0); Immature Granulocyte Absolute 0.01 K/mm3 (0.00-0.031); Immature Granulocyte Percent A 0.2 % (0-0.5); Lymphocytes Absolute Auto 1.09 K/mm3 (0.9-3.2); Lymphocytes Percent Auto 19.8 % (18.3-44.2); Mean Corpuscular Hemoglobin 30.9 pg (26-34); Mean Corpuscular Volume 93.4 fl (80-100); Mean Platelet Volume 9.2 fl (7.4-10.4); Monocytes Absolute Auto 0.7 K/mm3 (0.1-0.6); Monocytes Percent Auto 13.5 % (2.6-8.5); Neutrophils Absolute Auto 3.6 K/mm3 (1.3-6.7); Platelet Count Result 192 k/mm3 (150-375); Red Cell Distribution Width 13.2 % (11.5-14.5); White Blood Count 5.5 K/mm3 (4.5-10.0)
[2025-01-04 14:05] LABS: Alanine Aminotransferase 30 U/L (6-50); Albumin Level 3.4 g/dL (3.5-5.1); Alkaline Phosphatase 89 U/L (38-126); Anion Gap 9 mmol/L (4-12); Aspartate Amino Transferase 30 U/L (17-59); Bilirubin,Total 0.8 mg/dL (0.2-1.3); Blood Urea Nitrogen 17 mg/dL (9-20); Calcium 8.3 mg/dL (8.4-10.2); Carbon Dioxide 26 mmol/L (22-30); Chloride 102 mmol/L (98-107); Estimated CRCL calculation 72 ml/min; Estimated Glomerular Filt Rate > 60; Glucose 123 mg/dL (65-110); Potassium 3.6 mmol/L (3.4-5.0); Sodium 137 mmol/L (137-145)
[2025-01-04 14:08] LABS: Prothrombin Time 13.8 Seconds (11.1-14.7)
[2025-01-04 14:09] LABS: Partial Thromboplastin Time 27.6 Seconds (22.3-36.8)
[2025-01-04 14:12] LABS: Add Urine Microscopic? NO; Appearance Urine Clear (Clear); Bilirubin Urine Negative (Negative); Blood Urine Negative (Negative); Color Urine Yellow (Yellow); Glucose Urine UA Negative (Negative); Ketones Urine Negative (Negative); Leukocyte Esterase Ur Negative LEU/UL (Negative); Nitrate Urine Negative (Negative); Protein Urine Negative (Negative); Specific Grav Ur 1.017 (1.001-1.035)
[2025-01-04 15:02] LABS: NT Pro B Type Natriuretic Pept 932 pg/mL (19.9-100)
--- NOTE | 2025-01-04 15:22 | ED.GENADULT ---
HPI - General Adult General Chief complaint: Weakness Stated complaint: weakness and swelling bilateral lower legs Time Seen by Provider: 01/04/25 14:08 History of Present Illness HPI narrative: 84-year-old male with a past medical history including dementia, prostate cancer previously on radiation therapy with recent cessation. Patient presents via EMS for concerns of weakness. Patient himself is alert oriented x2 which is apparently his baseline. He is somewhat unpleasant and expresses desire to go back to his facility. He was informed that he was coming here for a physical exam and was frustrated with the wait time and wishes to go back to his facility. He appears to be at his baseline mentation, does have some edema to his lower extremities but no signs of injury or trauma. long term will be contacted for collateral formation. Patient denies any pain anywhere, no headache or vision changes, no chest or abdominal pain. No urinary complaints. No falls. 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 Right hip pain Frequent urination Arthritis Surgical History Surgical History History of bilateral knee replacement Family History Family History Mother Hypertension Family history of cardiomyopathy, Onset Age: 86 Patient's mother is Father Family history of congenital heart disease, Onset Age: 80 Unknown Hypertension Depression Diabetes mellitus Cerebrovascular accident Arthritis Social History Social History Social History: Caffeine-coffee Smoking status: Never smoker Alcohol intake: former Substance use: never Substance use type: does not use Lack of Transportation: No Lack of Food: Never True Current Housing: I Have Housing Concerned About Future Housing: No Difficulty Paying Gas/Electric Bills: No Difficulty Paying for Meds: No Currently Unemployed: No Education: Master's Degree or Higher Difficulty w/ Childcare or Family Care: Decline to Answer Living arrangements: alone Occupation/Education: retired 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 Mucous membranes moist. NECK: Supple. CHEST: [Clear to auscultation. No respiratory distress.] HEART: [Regular rate and rhythm]. No murmur heard. [Normal peripheral pulses.] ABDOMEN: [Soft, nondistended], [nontender], [No rigidity or guarding] EXTREMITIES: Normal range of motion. 1+ pitting edema to the bilateral ankles. Warm well-perfused extremities. SKIN: Warm, dry, no rash. NEURO: [No focal deficits]. Alert and oriented x2 which is his reported baseline PSYCH: [Normal mood and affect.] Course Vital Signs Vital signs: Vital Signs Temperature 36.6 C 01/04/25 13:09 Pulse Rate 84 01/04/25 13:09 Respiratory Rate 13 01/04/25 13:09 Blood Pressure 137/73 01/04/25 13:09 Pulse Oximetry 96 01/04/25 13:09 Temperature 36.6 C 01/04/25 13:09 Pulse Rate 84 01/04/25 13:09 Respiratory Rate 13 01/04/25 13:09 Blood Pressure 137/73 01/04/25 13:09 Pulse Oximetry 96 01/04/25 13:09 Medical Decision Making [facility] Narrative Medical decision making narrative: 84-year-old male presenting from his nursing facility for concerns of bilateral leg swelling. Patient himself is hard of hearing, frustrated and does not wish to be in the emergency department. Patient wishes to go back to his facility. He is not any distress, appears to be as baseline mentation which is x2 reportedly. No signs of injury or trauma. He is active and moving all extremities equally. Does have 1+ edema to the bilateral legs. No reported history of heart failure. Patient did agree to workup including blood work. He has normal vital signs and warm well-perfused extremities. Suspicion presently is for potential dependent edema, deconditioning, low suspicion for malnutrition or hypoalbuminemia, CKD or liver failure. Bilateral swelling without any history of heart failure is unlikely to be new onset CHF. Orders were placed including CBC, CMP, urinalysis with straight catheterization, BNP, EKG, PT, PTT. Workup shows no leukocytosis or significant anemia. Normal platelet count. Coagulation panel within normal limits, normal electrolytes, normal renal function panel. Normal glucose and normal LFTs. Mildly elevated BNP and low albumin which could be likely attributing to his leg swelling. Urinalysis without infection. EKG shows sinus rhythm with right bundle-branch block. Patient remained hemodynamically stable here in the emergency department and did not wish to have any further workup. Patient is safe and stable for discharge back to his care facility at this time. He will follow-up with regular doctor outpatient. Medical Records Medical records reviewed: Yes I reviewed the external patient's medical records. Vital Signs Vital Signs: Vital Signs Temperature 36.6 C 01/04/25 13:09 Pulse Rate 84 01/04/25 13:09 Respiratory Rate 13 01/04/25 13:09 Blood Pressure 137/73 01/04/25 13:09 Pulse Oximetry 96 01/04/25 13:09 Temperature 36.6 C 01/04/25 13:09 Pulse Rate 84 01/04/25 13:09 Respiratory Rate 13 01/04/25 13:09 Blood Pressure 137/73 01/04/25 13:09 Pulse Oximetry 96 01/04/25 13:09 Lab Data Lab results reviewed: Yes I reviewed the patient's lab results. 01/04/25 13:46 01/04/25 13:46 Labs: Lab Results 01/04/25 Range/Units 13:46 WBC 5.5 (4.5-10.0) K/mm3 RBC 3.50 L (4.6-6.20) M/mm3 Hgb 10.8 L (14.0-18.0) g/dL Hct 32.7 L (42.0-52.0) % MCV 93.4 (80-100) fl MCH 30.9 (26-34) pg MCHC 33.0 (32-36) g/dl RDW 13.2 (11.5-14.5) % Plt Count 192 (150-375) k/mm3 MPV 9.2 (7.4-10.4) fl Immature Gran % (Auto) 0.2 (0-0.5) % Neut % (Auto) 65.0 (45.5-73.1) % Lymph % (Auto) 19.8 (18.3-44.2) % [place] % (Auto) 13.5 H (2.6-8.5) % Eos % (Auto) 1.1 (0-4.4) % Baso % (Auto) 0.4 (0.2-1.2) % Lymph # (Auto) 1.09 (0.9-3.2) K/mm3 [place] # (Auto) 0.7 H (0.1-0.6) K/mm3 Eos # (Auto) 0.1 (0-0.3) K/mm3 Baso # (Auto) 0.0 (0.0-0.1) K/mm3 Abs Immat Gran (auto) 0.01 (0.00-0.031) K/mm3 Absolute Neuts (auto) 3.6 (1.3-6.7) K/mm3 Absolute Nucleated RBC 0.000 (0.0-0.012) K/mm3 Nucleated RBC % 0.0 (0.0-0.2) % PT 13.8 (11.1-14.7) Seconds INR 1.0 APTT 27.6 (22.3-36.8) Seconds Sodium 137 (137-145) mmol/L Potassium 3.6 (3.4-5.0) mmol/L Chloride 102 (98-107) mmol/L Carbon Dioxide 26 (22-30) mmol/L Anion Gap 9 (4-12) mmol/L BUN 17 (9-20) mg/dL Creatinine 0.71 (0.7-1.3) mg/dL Estim Creat Clear Calc 72 ml/min Estimated GFR > 60 (59 - ) Glucose 123 H (65-110) mg/dL Calcium 8.3 L (8.4-10.2) mg/dL Total Bilirubin 0.8 (0.2-1.3) mg/dL AST 30 (17-59) U/L ALT 30 (6-50) U/L Alkaline Phosphatase 89 (38-126) U/L NT-Pro-B Natriuret Pep 932 H (19.9-100) pg/mL Total Protein 6.0 L (6.3-8.2) g/dL Albumin 3.4 L (3.5-5.1) g/dL Urine Color Yellow (Yellow) Urine Appearance Clear (Clear) Urine pH 6.0 (5.0-9.0) Ur Specific [place] 1.017 (1.001-1.035) Urine Protein Negative (Negative) mg/dL Urine Glucose (UA) Negative (Negative) mg/dL Urine Ketones Negative (Negative) mg/dL Ur Blood (Man) Negative (Negative) Urine Nitrate Negative (Negative) Urine Bilirubin Negative (Negative) Urine Urobilinogen 1.0 (<2.0) mg/dL Leukocyte Esterase Rfl Negative (Negative) AIDAN/UL Discharge Plan Discharge Clinical Impression: Dependent edema, History of dementia Patient Disposition: NH Snf/Asst Living Condition: Stable Instructions: Antibiotic Form Additional Instructions: Your workup here was largely unremarkable, follow-up with regular doctor. Return with any new or worsening concerns or any emergencies. Patient Language: Swedish Prescriptions: No Action tamsulosin [Flomax] 0.4 mg capsule 0.4 mg PO QHS Qty: 90 1RF lacosamide 100 mg tablet 100 mg PO Q12H Qty: 60 0RF Follow-up/Referrals: Vicenta Rowland NP [Primary Care Provider] - Stand Alone Forms: Mcc Discharge Time of Disposition: 16:23
--- NOTE | 2025-01-04 15:28 | PC.NURSE ---
while at the nurses station in front of the patient room, could hear yelling from patient. Upon entering the room, patient had gown off, was attempting to put socks on and asking for his clothes. patient reminded that we need for him to stay in a hospital gown while he is here. at this point, patient became verbally abusive to myself and MAHAD Gutiérrez. patient was also found to be wet, i advised patient that we needed to change him. patient started cursing at myself and telephoner students. was able to get patient depend, gown, and sheet changed. put new gown on patient, provided him a warm blanket and advised patient to stay in bed
--- OUTSIDE RECORDS SUMMARY | 2025-01-04 16:03 | XMS_ITS ---
Author Organization [facility] Address [address] [place] [address] Care Team Providers Care [facility] Name Role Phone Jairo Ugalde MD Unavailable [phone] Logan Pedro MD Unavailable [phone] Mayo Haile MD Unavailable [phone] Von Woods MD Primary Care Provider [phone] Active Problems Problem Noted Date Diagnosed Date Acute metabolic encephalopathy 11/14/2024 Seizure 11/13/2024 Prostate CA 06/22/2024 Cancer Staging:Clinical stage from 06/22/2024:Stage IIB(cT1c, cN0, cM0, PSA: 9.6, Grade Group: 2) - Signed by Myao Haile MD on 06/22/2024 Current Treatment and Therapy Plans Eligard Injection - 45 mg every 24 weeks* Plan Start Date:09/07/2024 Plan Provider:Mayo Haile MD Linked Problems Prostate CA (HCC) Treatment Medications leuprolide acetate (6 month) (ELIGARD) Past Treatment and Therapy Plans No past plan information found. Lifetime Dose Tracking * Chemical Lifetime Dose Automatic Entry Manual Entr y DLP 1,219 mGycm 1,219 mGycm 0 mGycm
--- OUTSIDE RECORDS SUMMARY | 2025-01-04 16:04 | XMS_ITS | Referral Summary ---
Author Organization [facility] ospital Address [address] [place] [address] Care Team Providers Care Inventory Analyst Name Role Phone Jairo Ugalde MD Unavailable [phone] Logan Pedor MD Unavailable [phone] Mayo Haile MD Unavailable [phone] Von Woods MD Primary Care Provider Encounters Date Type Department Care Team Description 12/19/2024 9:40 AM [facility] Office Visit [facility] [address] [place] [phone] Timothy Gomez, BRIANNA Urinary retention (Primary Dx) 11/13/2024 9:22 PM [facility] OR [facility] - 12/01/2024 2:24 PM [facility] Hospital Encounter [address] [phone] Andrae Pop MD PhD Zachary, MD Celia Harman Rajat, MD Valtcheva, Manouela Vesselinova, MD PhD Ines Oswald MD PhD Seizure (HCC) (Primary Dx); Urinary retention Discharge Disposition: Discharge to [facility] 11/02/2024 Telephone [facility] Scheduling [address] [place] [address] Srini Lockwood MD Scheduling Appointments from Last 3 Months Allergies No known active allergies Medications acetaminophen (TYLENOL) 325 mg tablet Take 2 tablets (650 mg total) by mouth every 6 (six) hours as needed for pain Active collagen, hydrolysate, bovine, (collagen, hydr, bovine,, bulk,) 100 % powder Active tamsulosin (FLOMAX) 0.4 mg extended release capsule Take 2 capsules (0.8 mg total) by mouth daily 12/01/2024 Active atorvastatin (LIPITOR) 40 mg tablet Take 1 tablet (40 mg total) by mouth daily 12/01/2024 12/01/19 26 Active finasteride (PROSCAR) 5 mg tablet Take 1 tablet (5 mg total) by mouth nightly 12/01/2024 12/01/19 26 Active QUEtiapine (SEROquel) 25 mg tablet Take 1 tablet (25 mg total) by mouth nightly 12/01/2024 Active lacosamide (VIMPAT) 100 mg tablet Take 1 tablet (100 mg total) by mouth 2 (two) times a day 12/01/2024 03/31/20 25 Active Active Problems Problem Noted Date Diagnosed Date [...] Sign Reading Time Taken Comments Blood Pressure 145/76 12/01/2024 8:00 AM [facility] OR [facility] Pulse 77 12/01/2024 8:00 AM [facility] OR [facility] Temperature 36.3 C (97.3 F) 12/01/2024 8:00 AM [facility] OR [facility] Respiratory Rate 16 12/01/2024 8:00 AM [facility] OR [facility] G[facility] Oxygen Saturation 95% 12/01/2024 8:00 AM [facility] OR [facility] Inhaled Oxygen Concentration - - Weight 81.2 kg (179 lb 0.2 oz) 11/13/2024 9:29 P M [facility] Height 176.5 cm (5' 9.5 ) 11/13/2024 9:29 PM [facility] OR [facility] Body Mass Index 26.06 11/13/2024 9:29 PM [facility] OR [facility] Plan of Treatment Not on file Procedures Procedure Name Priority Date/Time Associated Diagnosis Comments MEASURE POST VOID RESIDUAL Routine 12/19 9:57 AM [facility] OR [facility] Urinary retention COVID-19 CORONAVIRUS RNA Routine 025 10:26 AM [facility] OR [facility] CBC WITHOUT DIFFERENTIAL Routine 025 5:45 AM [facility] OR [facility] EGFR Routine 11/29/2024 5:27 AM [facility] OR [facility] BASIC METABOLIC PANEL Routine 11/29/2024 5:27 AM [facility] OR [facility] EGFR Routine 11/26/2024 9:45 PM [facility] OR [facility] BASIC METABOLIC PANEL Routine 11/26/2024 9:45 PM [facility] OR [facility] G[facility] CBC WITHOUT DIFFERENTIAL Routine 025 9:45 PM [facility] URINALYSIS, MICROSCOPIC ONLY STAT 11/26/2024 6:10 PM [facility] URINALYSIS AND REFLEX TO MICROSCOPIC AND CULTURE STAT 11/26/2024 6:10 PM [facility] MAGNESIUM Routine 11/25/2024 8:46 PM [facility] EGFR Routine 11/25/2024 8:46 PM [facility] OR [facility] G[facility] BASIC METABOLIC PANEL Routine 11/25/2024 8:46 PM [facility] OR [facility] G[employer] CBC WITHOUT DIFFERENTIAL Routine 025 8:46 PM [facility] OR [facility] EGFR STAT 11/25/2024 5:57 AM [facility] OR [facility] DIFFERENTIAL AUTO STAT 11/25/2024 5:57 AM [facility] OR [facility] CBC WITH AUTO DIFFERENTIAL STAT 11/25 5:57 AM [facility] BASIC METABOLIC PANEL STAT 11/25/2024 5:57 AM [facility] EGFR Routine 11/25/2024 2:30 AM [facility] CRITICAL RESULT CALLBACK CHEMISTRY Routine 11/25/2024 2:30 AM [facility] CALCIUM, IONIZED Routine 11/25/2024 2:30 AM [facility] BASIC METABOLIC PANEL Routine 11/25/2024 2:30 AM [facility] EGFR Routine 11/23/2024 11:33 PM [facility] PHOSPHORUS Routine 11/23/2024 11:33 PM [facility] MAGNESIUM Routine 11/23/2024 11:33 PM [facility] OR [facility] BASIC METABOLIC PANEL Routine 11/23/2024 11:33 PM [facility] CBC WITHOUT DIFFERENTIAL Routine 025 11:33 PM [facility] MRI BRAIN W CONTRAST IP Routine 11/23/2024 4:55 AM [facility] EGFR Routine 11/22/2024 9:21 PM [facility] PHOSPHORUS Routine 11/22/2024 9:21 PM [facility] MAGNESIUM Routine 11/22/2024 9:21 PM [facility] BASIC METABOLIC PANEL Routine 11/22/2024 9:21 PM [facility] CBC WITHOUT DIFFERENTIAL Routine 025 9:21 PM [facility]ER PAOLO-WEATHERS VIRUS VCA ANTIBODY PANEL Routine 11/22/2024 9:21 PM [facility] MRI BRAIN WO CONTRAST IP Routine 11/22/2024 4:33 AM [facility] EGFR Routine 11/21/2024 10:08 PM [facility] PHOSPHORUS Routine 11/21/2024 10:08 PM [facility] G[facility]ER MAGNESIUM Routine 11/21/2024 10:08 PM [facility] BASIC METABOLIC PANEL Routine 11/21/2024 10:08 PM [facility] CBC WITHOUT DIFFERENTIAL Routine 025 10:08 PM [facility] XR HIP RIGHT W PELVIS 2 OR 3 VIEWS IP Routine 11/21/2024 12:48 PM [facility] EGFR Routine 11/20/2024 10:11 PM [facility] PHOSPHORUS Routine 11/20/2024 10:11 PM [facility] MAGNESIUM Routine 11/20/2024 10:11 PM [facility] BASIC METABOLIC PANEL Routine 11/20/2024 10:11 PM [facility] CBC WITHOUT DIFFERENTIAL Routine 025 10:11 PM [facility] CT CHEST ABDOMEN PELVIS W CONTRAST Pending Discharge 11/20/2024 2:37 PM [facility] EGFR Routine 11/19/2024 11:01 PM [facility] BASIC METABOLIC PANEL Routine 11/19/2024 11:01 PM [facility] CBC WITHOUT DIFFERENTIAL Routine 025 11:01 PM [facility] MYELOPEROXIDASE ANTIBODY Routine 025 4:02 PM [facility] PROTEINASE-3 ANTIBODY Routine 11/19/2024 4:02 PM [facility] ANTI-NEUTROPHILIC CYTOPLASMIC ANTIBODY (ANCA) WITH REFLEX TO MPO AND PR3 ABS Routine 11/19/2024 4:02 PM [facility] SRIDEVI ANTIBODY EVALUATION WITH REFLEX Routine 11/19/2024 4:02 PM [facility] CLAUDIA QUALITATIVE WITH REFLEX TO CLAUDIA QUANTITATIVE Routine 11/19/2024 4:02 PM [facility] CBC WITHOUT DIFFERENTIAL Routine 025 4:02 PM [facility] EGFR Routine 11/18/2024 10:19 PM [facility] BASIC METABOLIC PANEL Routine 11/18/2024 10:19 PM [facility] CBC WITHOUT DIFFERENTIAL Routine 025 10:19 PM [facility] CONTINUOUS VIDEO EEG Routine 11/18/2024 11:48 AM [facility] EGFR Routine 11/16/2024 9:13 PM [facility] MAGNESIUM Routine 11/16/2024 9:13 PM [facility] BASIC METABOLIC PANEL Routine 11/16/2024 9:13 PM [facility] CBC WITHOUT DIFFERENTIAL Routine 025 9:13 PM [facility] CONTINUOUS VIDEO EEG Routine 11/16/2024 9:21 AM [facility] POTASSIUM, WHOLE BLOOD STAT 6:35 AM [facility] CREATINE KINASE (CK), TOTAL STAT 11/16/2024 5:28 AM [facility] EGFR STAT 11/16/2024 5:28 AM [facility] DIFFERENTIAL AUTO STAT 11/16/2024 5:28 AM [facility] PHOSPHORUS STAT 11/16/2024 5:28 AM [facility] MAGNESIUM STAT 11/16/2024 5:28 AM [facility] CBC WITH AUTO DIFFERENTIAL STAT 11/16 5:28 AM [facility] BASIC METABOLIC PANEL STAT 11/16/2024 5:28 AM [facility] EGFR Timed 11/14/2024 8:57 PM [facility] MAGNESIUM Timed 11/14/2024 8:57 PM [facility] CREATINE KINASE (CK), TOTAL Routine 11/14/2024 8:57 PM [facility] PHOSPHORUS Timed 11/14/2024 8:57 PM [facility] COMPREHENSIVE METABOLIC PANEL Timed 11/14/2024 8:57 PM [facility] CBC WITHOUT DIFFERENTIAL Routine 025 8:57 PM [facility] TRANSTHORACIC ECHO (TTE) COMPLETE W DOPPLER/CF W CONTRAST Routine 11/14/2024 1:16 PM [facility] BLOOD CULTURE STAT 11/14/2024 12:17 PM [facility] BLOOD CULTURE STAT 11/14/2024 12:17 PM [facility] MRI BRAIN W WO CONTRAST ED Urgent/IP Urgent 11/14/2024 10:32 AM [facility] LIPID PANEL Timed 11/14/2024 6:27 AM [facility] CREATINE KINASE (CK), TOTAL Timed 11/14/2024 6:27 AM [facility] TROPONIN I HIGH-SENSITIVITY 6-HOUR Timed 11/14/2024 4:13 AM [facility] TROPONIN I HIGH-SENSITIVITY 4-HOUR Timed 11/14/2024 2:24 AM [facility] XR VENTRICULOPERITONEAL SHUNT SERIES (ADULT) ED Urgent/IP Urgent 11/14/2024 2:11 AM [facility] TROPONIN I HIGH-SENSITIVITY 2-HOUR Timed 11/14/2024 12:25 AM [facility] ND DIAGNOSTIC LUMBAR SPINAL PUNCTURE Routine 11/14/2024 12:16 AM [facility] Seizure (HCC) B CHECK SAMPLE STAT 11/13/2024 11:40 PM [facility] CELL COUNT W REFLEX DIFFERENTIAL, CSF STAT 11/13/2024 11:40 PM [facility] CSF PROTEIN STAT 11/13/2024 11:40 PM [facility] GLUCOSE, CSF STAT 11/13/2024 11:40 PM [facility] CELL COUNT W REFLEX DIFFERENTIAL, CSF Routine 11/13/2024 11:40 PM [facility] CYTOMEGALOVIRUS (CMV) PCR QUALITATIVE Routine 11/13/2024 11:40 PM [facility] ENTEROVIRUS PCR Routine 11/13/2024 11:40 PM [facility] HERPES SIMPLEX VIRUS (HSV) PCR Routine 11/13/2024 11:40 PM [facility] G[facility]ER VARICELLA ZOSTER VIRUS (VZV) PCR Routine 11/13/2024 11:40 PM [facility] BACTERIAL CULTURE AND GRAM STAIN, CSF STAT 11/13/2024 11:40 PM [facility] POCT GLUCOSE DEVICE Routine 11/13/2024 11:37 PM [facility] XR CHEST 1 VIEW ED Urgent/IP Urgent 11/13/2024 11:32 PM [facility] URINALYSIS, MICROSCOPIC ONLY STAT 11/13/2024 10:56 PM [facility] URINE CULTURE STAT 11/13/2024 10:56 PM [facility] URINALYSIS AND REFLEX TO MICROSCOPIC AND CULTURE STAT 11/13/2024 10:56 PM [facility] LACTATE, WHOLE BLOOD STAT 11/13/2024 10:54 PM [facility] CREATINE KINASE (CK), TOTAL STAT 11/13/2024 10:54 PM [facility] HEMOGLOBIN A1C STAT 11/13/2024 10:12 PM [facility] EGFR STAT 11/13/2024 10:12 PM [facility] TROPONIN I HIGH-SENSITIVITY SERIES (BASELINE, 2HR, 4HR, 6HR) STAT 11/13/2024 10:12 PM [facility] PROTIME-INR STAT 11/13/2024 10:12 PM [facility] APTT STAT 11/13/2024 10:12 PM [facility] TYPE AND SCREEN STAT 11/13/2024 10:12 PM [facility] CBC WITHOUT DIFFERENTIAL STAT 025 10:12 PM [facility] PHOSPHORUS STAT 11/13/2024 10:12 PM [facility] MAGNESIUM STAT 11/13/2024 10:12 PM [facility] COMPREHENSIVE METABOLIC PANEL STAT 11/13/2024 10:12 PM [facility] CYTOLOGY Routine 11/13/2024 10:04 PM [facility] ECG 12-LEAD STAT 11/13/2024 9:58 PM [facility] POCT GLUCOSE DEVICE Routine 11/13/2024 9:27 PM [facility] from Last 3 Months Results * Measure post void residual (12/19/2024 9:57 AM [facility]ER) Narrative Niki Santiago RMA - 12/19/2024 9:57 AM [facility] Measurement of Post Void Residual urine and/or bladder capacity PVR = 189 ml Timothy Gomez [employer] AUTOMOTIVE TECHNICIAN NURSING ASSESSMENTS Final Res ult * COVID-19 Coronavirus RNA Nasopharyngeal (12/01/2024 10:26 AM [facility]) COVID-19 RNA Negative Negative [facility] Nasopharyngeal 12/01/2024 10 :26 AM [facility] 12/01/2024 10:52 AM [facility]ER Narrative [facility] - 12/01/2024 11:29 AM [facility] OR [facility] Is the patient experiencing any symptoms consistent with COVID (eg. Fever, cough, shortness of breath)?->No What is the reason for testing?->Screening for post-acute care placement Interpretive data Testing performed by [facility] ([phone]). This test is performed using the [employer] Xpert Xpress CoV-2 plus assay. This is a real-time RT-PCR test intended for the qualitative detection of nucleic acid from the SARS-CoV-2. This assay has been cleared by the [place] Food and Drug administration. The performance characteristics have been verified by the [facility]. Results must be considered in the clinical context, and a negative result does not rule out infection. Interpretive data last revised 2024. Interpretive data Testing performed by [facility] ([phone]). This test is performed using the [employer] Xpert Xpress CoV-2 plus assay. This is a real-time RT-PCR test intended for the qualitative detection of nucleic acid from the SARS-CoV-2. This assay has been cleared by the [place] Food and Drug administration. The performance characteristics have been verified by the [facility]. Results must be considered in the clinical context, and a negative result does not rule out infection. Interpretive data last revised 2024. Lynne Dickerson [employer] AUTOMOTIVE TECHNICIAN LAB MICROBIOLOGY - GENERAL O RDERABLES Final Result Performing Organization Address [facility]/ZIP Co de Phone Number [facility] Department [place] [address] [facility] * (ABNORMAL) CBC without differential (11/29/2024 5:45 AM K[facility] OR [facility]ER) [facility] WBC 7.5 3.8 - 9.9 K/cumm Hgb 11.2(L) 13.0 - 17.5 g/dL [facility] Hct 33.0(L) 38.9 - 50.3 % [facility] Plt 227 150 - 400 K/cumm [facility] MPV 9.7 9.1 - 12.3 fL [facility] RBC 3.67(L) 4.30 - 5.80 M/cumm [facility] MCV 89.9 81.3 - 96.4 fL [facility] MCH 30.5 27.1 - 33.3 pg [facility] MCHC 33.9 32.3 - 35.7 g/dL [facility] RDW CV 12.5 11.1 - 14.9 % [facility] RDW SD 40.7 35.7 - 48.1 fL [facility] NRBC abs 0.00 0.00 - 0.01 K/cumm [facility] Blood 11/29/2024 5:45 AM [facility] 11/29/2024 6:25 AM [facility] OR [facility]ER Mark Ahumada [employer] AUTOMOTIVE TECHNICIAN LAB BLOOD ORDERABLES Final Re sult [facility] Department [place] [address] * eGFR (11/29/2024 5:27 AM K[facility] OR [facility] GATHERER) [facility] eGFR 87 >=60 mL/min/1. 73 m2 Comment: Interpretive Data Reference Interval Normal >/= 90 mL/min/1.73m2 Mildly decreased* 60 - 89 mL/min/1.73m2 Mildly to moderately decreased 45 - 59 mL/min/1.73m2 Moderately to severely decreased 30 - 44 mL/min/1.73m2 Severely decreased 15 - 29 mL/min/1.73m2 Kidney Failure < 15 mL/min/1.73m2 *Relative to young adult level Estimated glomerular filtration rate is determined by the 2020 CKD-EPI equation recommended by the National Kidney Foundation (A Unifying Approach to GFR Estimation: Recommendations of the NKF-ASK Task Force on Reassessing the Inclusion of Race in Diagnosing Kidney Disease, JASN 202). The CKD-EPI equation should not be used for patients with unstable renal function and has not been validated in children and those over 70. Current interpretive data was last reviewed 2021. Blood 11/29/2024 5:27 AM [facility]ER 11/29/2024 6:23 AM [facility] OR [facility] G[facility]ER us Mark Ahumada NP LAB BLOOD ORDERABLES Final Re sult [facility] Department [place] [address] * (ABNORMAL) Basic metabolic panel (11/29/2024 5:27 AM K[facility] OR [facility] GATHERER) Sodium 140 135 - 145 mmol/L Potassium, pl 3.2(L) 3.3 - 4.9 mmol/L [facility] Chloride 107 97 - 110 mmol/L [facility] CO2 27 22 - 32 mmol/L [facility] Anion gap 6 2 - 15 mmol/L [facility] BUN 25 6 - 25 mg/dL [facility] Creatinine 0.80 0.80 - 1.30 mg/dL [facility] Glucose 91 70 - 199 mg/dL [facility] Comment: Interpretive Data Fasting glucose >/= 126 mg/dl is diagnostic for diabetes. Fasting is defined as no caloric intake [...] interpretive data was last revised 2022. Calcium 8.4(L) 8.5 - 10.3 mg/dL [facility] Blood 11/29/2024 5:27 AM [facility] OR [facility]R[facility] G[facility]ER 11/29/2024 6:23 AM [facility] OR [facility] G[facility]ER Mark Ahumada [employer] AUTOMOTIVE TECHNICIAN LAB BLOOD ORDERABLES Final Re sult Performing Organization Address [facility] de Phone Number [facility] Department [place] [address] * eGFR (11/26/2024 9:45 PM KEL[facility] OR SE[facility]R[employer] GATHERER) eGFR 90 >=60 mL/min/1. 73 m2 Comment: Interpretive Data Reference Interval Normal >/= 90 mL/min/1.73m2 Mildly decreased* 60 - 89 mL/min/1.73m2 Mildly to moderately decreased 45 - 59 mL/min/1.73m2 Moderately to severely decreased 30 - 44 mL/min/1.73m2 Severely decreased 15 - 29 mL/min/1.73m2 Kidney Failure < 15 mL/min/1.73m2 *Relative to young adult level Estimated glomerular [...] interpretive data was last reviewed 2021. Blood 11/26/2024 9:45 PM [facility] OR [facility]R[facility] GATH[facility]ER 11/26/2024 10:33 PM [facility] OR [facility]R[facility] GATH[facility]ER Mark Ahumada [employer] AUTOMOTIVE TECHNICIAN LAB BLOOD ORDERABLES Final Re sult Performing Organization Address [facility] de Phone Number [facility] Department [place] [address] * (ABNORMAL) CBC without differential (11/26/2024 9:45 PM KELP OR SEAGR[employer] GATHERER) [facility] WBC 8.0 3.8 - 9.9 K/cumm Hgb 11.9(L) 13.0 - 17.5 g/dL [facility] Hct 35.2(L) 38.9 - 50.3 % [facility] Plt 223 150 - 400 K/cumm [facility] MPV 9.7 9.1 - 12.3 fL [facility] RBC 3.94(L) 4.30 - 5.80 M/cumm [facility] MCV 89.3 81.3 - 96.4 fL [facility] MCH 30.2 27.1 - 33.3 pg [facility] MCHC 33.8 32.3 - 35.7 g/dL [facility] RDW CV 12.4 11.1 - 14.9 % [facility] RDW SD 40.1 35.7 - 48.1 fL [facility] NRBC abs 0.00 0.00 - 0.01 K/cumm [facility] Blood 11/26/2024 9:45 PM [facility] OR [employer] GATHERER 11/26/2024 10:28 PM [facility] OR [employer] GATH[facility]ER Mark Ahumada NP LAB BLOOD ORDERABLES Final Re sult [facility] Department [place] [address] * (ABNORMAL) Basic metabolic panel (11/26/2024 9:45 PM KEL[facility] OR [employer] GATHERER) [facility] Sodium 144 135 - 145 mmol/L Potassium, pl 4.0 3.3 - 4.9 mmol/L [facility] Chloride 110 97 - 110 mmol/L [facility] CO2 27 22 - 32 mmol/L [facility] Anion gap 7 2 - 15 mmol/L [facility] BUN 20 6 - 25 mg/dL [facility] Creatinine 0.71(L) 0.80 - 1.30 mg/dL [facility] Glucose 109 70 - 199 mg/dL [facility] Comment: Interpretive Data Fasting glucose >/= 126 mg/dl is diagnostic for diabetes. Fasting is defined as no caloric intake [...] interpretive data was last revised 2022. Calcium 8.5 8.5 - 10.3 mg/dL [facility] Blood 11/26/2024 9:45 PM [facility] OR [employer] GATHERER 11/26/2024 10:33 PM K[facility] OR [employer] GATH[employer]ER us Mark Ahumada NP LAB BLOOD ORDERABLES Final Re sult [facility] Department [place] [address] * (ABNORMAL) Urinalysis reflex to microscopic and culture Urine (11/26/2024 6:10 PM KEL[facility] OR [facility] GATHERER) Color, ur Straw Yellow Clarity, ur Clear Clear [facility] Specific gravity, ur 1.025 1.003 - 1.030 [facility] pH, urine 6.5 [facility] Comment: Interpretive Data U rine pH is affected by diet, medications, systemic acid-base disturbances, and renal tubular function. pH may affect urinary stone formation. For example, urine pH below 6.0 may help reduce the tendency for calcium phosphate stones and pH greater than 6.0 may reduce the tendency for uric acid stone formation. Source: [facility] [place] Current Interpretive Data was last revised on 2017 Protein, ur ql Trace Negative [facility] Glucose, ur ql Negative Negative [facility] Ketones, ur Negative Negative [facility] Bilirubin, ur Negative Negative [facility] Blood, ur Trace(A) Negative [facility] Urobilinogen, ur <2.0 <2.0 mg/dL [facility] Nitrite, ur Negative Negative [facility] Leukocyte esterase, ur 1+(A) Negative [facility] UA reflex comment Reflex to microscopic UA will be performed. [facility] Urine 11/26/2024 6:10 PM KEL[facility] OR [employer]RASS GATHERER 11/26/2024 6:20 PM KEL[facility] OR [facility]AGRASS GATHERER Ines Oswald MD PhD LAB MICROBIOLOGY - GENERAL ORDERABLES Final Result Performing Organization Address [facility] de Phone Number [facility] [place] [address] * (ABNORMAL) Urinalysis, microscopic only (11/26/2024 6:10 PM KEL[facility] OR SEAGRASS GATHERER) WBC, ur 6-10(A) 0 - 5 /HPF RBC, ur 11-20(A) 0 - 2 /HPF [facility] Epithelial cells, squamous, ur 1-5 0 - 5 /HPF [facility] Mucous, ur Present(A) [facility] Culture Reflex Comment Reflex conditions for urine culture (WBC >10) not met. [facility] Urine 11/26/2024 6:10 PM KEL[facility] OR SEAGRASS GATHERER 11/26/2024 6:20 PM KEL[facility] OR SEAGRASS GATHERER Ines Oswald MD PhD LAB URINE ORDERABLES Final Result Performing Organization Address [facility] de Phone Number [facility] [place] [address] * eGFR (11/25/2024 8:46 PM KELP OR SEAGRASS GATHERER) eGFR 84 >=60 mL/min/1. 73 m2 Comment: Interpretive Data Reference Interval Normal >/= 90 mL/min/1.73m2 Mildly decreased* 60 - 89 mL/min/1.73m2 Mildly to moderately decreased 45 - 59 mL/min/1.73m2 Moderately to severely decreased 30 - 44 mL/min/1.73m2 Severely decreased 15 - 29 mL/min/1.73m2 Kidney Failure < 15 mL/min/1.73m2 *Relative to young adult level Estimated glomerular filtration rate is determined by the 2020 CKD-EPI equation recommended by the [employer] (A Unifying Approach to GFR Estimation: Recommendations of the NKF-ASK Task Force on Reassessing the Inclusion of Race in Diagnosing Kidney Disease, JASN 202). The CKD-EPI equation should not be used for patients with unstable renal function and has not been validated in children and those over 70. Current interpretive data was last reviewed 2021. Blood 11/25/2024 8:46 PM [facility] 11/25/2024 9:42 PM [facility] Mark Ahumada [employer] LAB BLOOD ORDERABLES Final Re sult Performing Organization Address [facility]/ZIP Co de Phone Number [facility] Department [place] [address] * (ABNORMAL) CBC without differential (11/25/2024 8:46 PM [facility] [employer]) WBC 7.1 3.8 - 9.9 K/cumm Hgb 12.3(L) 13.0 - 17.5 g/dL [facility] Hct 35.5(L) 38.9 - 50.3 % [facility] Plt 242 150 - 400 K/cumm [facility] MPV 9.8 9.1 - 12.3 fL [facility] RBC 4.08(L) 4.30 - 5.80 M/cumm [facility] MCV 87.0 81.3 - 96.4 fL [facility] MCH 30.1 27.1 - 33.3 pg [facility] MCHC 34.6 32.3 - 35.7 g/dL [facility] RDW CV 12.4 11.1 - 14.9 % [facility] RDW SD 39.5 35.7 - 48.1 fL [facility] NRBC abs 0.00 0.00 - 0.01 K/cumm [facility] Blood 11/25/2024 8:46 PM [facility] 11/25/2024 9:44 PM [facility] [employer] G[employer]ER Mark Ahumada [employer] AUTOMOTIVE TECHNICIAN LAB BLOOD ORDERABLES Final Re sult Performing Organization Address City/[facility]/ZIP Co de Phone Number [facility] Department [place] [address] * Magnesium (11/25/2024 8:46 PM [facility] G[employer]ER) Magnesium 2.0 1.4 - 2.5 mg/dL Blood 11/25/2024 8:46 PM [facility] [facility] 11/25/2024 9:42 PM [facility] G[employer] us Ines Oswald MD PhD LAB BLOOD ORDERABLES Final Result [facility] Department [place] [address] * Basic metabolic panel (11/25/2024 8:46 PM K[facility] OR SEAGR[employer] GATHERER) Pathologist [facility] Sodium 143 135 - 145 mmol/L Potassium, pl 3.6 3.3 - 4.9 mmol/L [facility] Chloride 105 97 - 110 mmol/L [facility] CO2 31 22 - 32 mmol/L [facility] Anion gap 7 2 - 15 mmol/L [facility] BUN 22 6 - 25 mg/dL [facility] Creatinine 0.89 0.80 - 1.30 mg/dL [facility] Glucose 148 70 - 199 mg/dL [facility] Comment: Interpretive Data Fasting glucose >/= 126 mg/dl is diagnostic for diabetes. Fasting is defined as no caloric intake [...] interpretive data was last revised 2022. Calcium 8.9 8.5 - 10.3 mg/dL [facility] Blood 11/25/2024 8:46 PM [facility] [employer] 11/25/2024 9:42 PM [facility] [employer] us Mark Ahumada [employer] AUTOMOTIVE TECHNICIAN LAB BLOOD ORDERABLES Final Re sult Performing Organization Address [facility]/ZIP Co de Phone [facility] [place] [address] * eGFR (11/25/2024 5:57 AM [facility] [facility]) eGFR 90 >=60 mL/min/1. 73 m2 Comment: Interpretive Data Reference Interval Normal >/= 90 mL/min/1.73m2 Mildly decreased* 60 - 89 mL/min/1.73m2 Mildly to moderately decreased 45 - 59 mL/min/1.73m2 Moderately to severely decreased 30 - 44 mL/min/1.73m2 Severely decreased 15 - 29 mL/min/1.73m2 Kidney Failure < 15 mL/min/1.73m2 *Relative to young adult level Estimated glomerular [...] interpretive data was last reviewed 2021. Blood 11/25/2024 5:57 AM [facility] [facility] 11/25/2024 6:38 AM [facility] [employer] us Valeriano Marie MD PhD LAB BLOOD ORDERABLES Final Result Performing Organization Address [facility]/ZIP Co de Phone Number [facility] [place] [address] * Differential, auto (11/25/2024 5:57 AM [facility] [facility]) Neutrophil abs 2.9 1.5 - 6.5 K/cumm Imm gran abs 0.0 0.0 - 0.1 K/cumm [facility] Lymphocyte abs 1.1 0.8 - 3.3 K/cumm [facility] Monocyte abs 0.7 0.2 - 0.8 K/cumm [facility] Eosinophil abs 0.1 0.0 - 0.5 K/cumm [facility] Basophil abs 0.0 0.0 - 0.1 K/cumm [facility] Neutrophil pct 58.9 % [facility] Comment: Interpretive Data Percent cell count reference ranges are not reported, since discordance with absolute values may lead to misinterpretation of CBC data. Current Interpretive Data was last revised on 2018. Imm gran pct 0.2 % [facility] Comment: Interpretive Data Percent cell count reference ranges are not reported, since discordance with absolute values may lead to misinterpretation of CBC data. Current Interpretive Data was last revised on 2018. Lymphocyte pct 23.1 % [facility] Comment: Interpretive Data Percent cell count reference ranges are not reported, since discordance with absolute values may lead to misinterpretation of CBC data. Current Interpretive Data was last revised on 2018. Monocyte pct 14.6 % [facility] Comment: Interpretive Data Percent cell count reference ranges are not reported, since discordance with absolute values may lead to misinterpretation of CBC data. Current Interpretive Data was last revised on 2018. Eosinophil pct 2.6 % [facility] Comment: Interpretive Data Percent cell count reference ranges are not reported, since discordance with absolute values may lead to misinterpretation of CBC data. Current Interpretive Data was last revised on 2018. Basophil pct 0.6 % [facility] Comment: Interpretive Data Percent cell count reference ranges are not reported, since discordance with absolute values may lead to misinterpretation of CBC data. Current Interpretive Data was last revised on 2018. Blood 11/25/2024 5:57 AM [facility] [employer] G[employer]ER 11/25/2024 6:38 AM [facility] [employer] G[employer]ER us Valeriano Marie MD PhD LAB BLOOD ORDERABLES Final Result [facility] Department [place] [address] * (ABNORMAL) CBC with auto differential (11/25/2024 5:57 AM [facility] [employer]) WBC 4.9 3.8 - 9.9 K/cumm Hgb 12.4(L) 13.0 - 17.5 g/dL [facility] Hct 36.1(L) 38.9 - 50.3 % [facility] Plt 244 150 - 400 K/cumm [facility] MPV 9.8 9.1 - 12.3 fL [facility] RBC 4.12(L) 4.30 - 5.80 M/cumm [facility] MCV 87.6 81.3 - 96.4 fL [facility] MCH 30.1 27.1 - 33.3 pg [facility] MCHC 34.3 32.3 - 35.7 g/dL [facility] RDW CV 12.2 11.1 - 14.9 % [facility] RDW SD 39.3 35.7 - 48.1 fL [facility] NRBC abs 0.00 0.00 - 0.01 K/cumm [facility] Blood 11/25/2024 5:57 AM [facility] [employer]ER 11/25/2024 6:38 AM [facility] [employer] us Valeriano Marie MD PhD LAB BLOOD ORDERABLES Final Result [facility] Department [place] [address] * (ABNORMAL) Basic metabolic panel (11/25/2024 5:57 AM [facility] [facility]) Sodium 146(H) 135 - 145 mmol/L Potassium, pl 3.1(L) 3.3 - 4.9 mmol/L [facility] Chloride 106 97 - 110 mmol/L [facility] CO2 30 22 - 32 mmol/L [facility] Anion gap 10 2 - 15 mmol/L [facility] BUN 18 6 - 25 mg/dL [facility] Creatinine 0.72(L) 0.80 - 1.30 mg/dL [facility] Glucose 104 70 - 199 mg/dL [facility] Comment: Interpretive Data Fasting glucose >/= 126 mg/dl is diagnostic for diabetes. Fasting is defined as no caloric intake [...] interpretive data was last revised 2022. Calcium 8.8 8.5 - 10.3 mg/dL [facility] Blood 11/25/2024 5:57 AM [facility] [employer] 11/25/2024 6:38 AM [facility] [employer] us Valeriano Marie MD PhD LAB BLOOD ORDERABLES Final Result [facility] Department [place] [address] * eGFR (11/25/2024 2:30 AM [facility] [facility]) eGFR See Comment >=60 Comment: Credited: Sample investigated and is suggestive of an improper collection (e.g., IV fluid contamination, improper tube type). Deleted at the Request of MANJINDER FISHER RN on 11/25/2024 04:43:07 [facility] by STEPHANY . Interpretive Data Reference Interval Normal >/= 90 mL/min/1.73m2 Mildly decreased* 60 - 89 mL/min/1.73m2 Mildly to moderately decreased 45 - 59 mL/min/1.73m2 Moderately to severely decreased 30 - 44 mL/min/1.73m2 Severely decreased 15 - 29 mL/min/1.73m2 Kidney Failure < 15 mL/min/1.73m2 *Relative to young adult level Estimated glomerular [...] interpretive data was last reviewed 2021. Blood 11/25/2024 2:30 AM [facility] 11/25/2024 3:51 AM [facility] [employer] Mark Ahumada [employer] AUTOMOTIVE TECHNICIAN LAB BLOOD ORDERABLES Edited R esult - Final Performing Organization Address [facility]/State/ZIP Co de Phone Number [facility] [place] [address] * Critical Result Callback Chemistry (11/25/2024 2:30 AM [facility] [facility]) Date Notified [id number] Time Notified [address] [facility] TestName KRIS DE LEON Called/Read Back MANJINDER DE LEON Credentials RN [facility] Called By STEPHANY DE LEON Blood 11/25/2024 2:30 AM [facility] 11/25/2024 3:51 AM [facility] [employer]ER Mark Ahumada [employer] AUTOMOTIVE TECHNICIAN LAB BLOOD ORDERABLES Final Re sult Performing Organization Address [facility] Co de Phone Number [facility] Department [place] [address] * Calcium, ionized (11/25/2024 2:30 AM [facility] [facility]) Calcium, Ionized 4.54 4.50 - 5.10 mg/dL Blood 11/25/2024 2:30 AM [facility] [facility] 11/25/2024 3:46 AM [facility] [employer] G[employer]ER Valeriano Marie MD PhD LAB BLOOD ORDERABLES Final Result Performing Organization Address [facility] Co de Phone Number [facility] [place] [address] * Basic metabolic panel (11/25/2024 2:30 AM [facility]) Sodium See Comment 135 - 145 mmol/L Comment:Credited: Sample inv estigated and is suggestive of an improper collection (e.g., IV fluid contamination, improper tube type). Deleted at the Request of MANJINDER FISHER RN on 11/25/2024 04:43:07 [facility] [facility] by EW . Potassium, pl See Comment 3.3 - 4.9 mmol/L [facility] Comment: Repeated and Verified Credited: Sample investigated and is suggestive of an improper collection (e.g., IV fluid contamination, improper tube type). Deleted at the Request of MANJINDER FISHER RN on 11/25/2024 04:43:07 [facility] [facility] by EW . Chloride See Comment 97 - 110 mmol/L [facility] Comment:Credited: Sample inv estigated and is suggestive of an improper collection (e.g., IV fluid contamination, improper tube type). Deleted at the Request of MANJINDER FISHER RN on 11/25/2024 04:43:07 [facility] [employer] G[employer]ER by EW . CO2 See Comment 22 - 32 mmol/L [facility] Comment:Credited: Sample inv estigated and is suggestive of an improper collection (e.g., IV fluid contamination, improper tube type). Deleted at the Request of MANJINDER FISHER RN on 11/25/2024 04:43:07 [facility] [employer] G[employer]ER by EW . Anion gap See Comment 2 - 15 mmol/L [facility] Comment:Credited: Sample inv estigated and is suggestive of an improper collection (e.g., IV fluid contamination, improper tube type). Deleted at the Request of MANJINDER FISHER RN on 11/25/2024 04:43:07 [facility] [employer] G[employer]ER by EW . BUN See Comment 6 - 25 mg/dL [facility] Comment:Credited: Sample inv estigated and is suggestive of an improper collection (e.g., IV fluid contamination, improper tube type). Deleted at the Request of MANJINDER FISHER RN on 11/25/2024 04:43:07 [facility] [employer] GATHERER by EW . Creatinine See Comment 0.80 - 1.30 mg/dL [facility] Comment:Credited: Sample inv estigated and is suggestive of an improper collection (e.g., IV fluid contamination, improper tube type). Deleted at the Request of MANJINDER FISHER RN on 11/25/2024 04:43:07 [facility] [employer] G[employer]ER by EW . Glucose See Comment 70 - 199 mg/dL [facility] Comment: Credited: Sample investigated and is suggestive of an improper collection (e.g., IV fluid contamination, improper tube type). Deleted at the Request of MANJINDER FISHER RN on 11/25/2024 04:43:07 [facility] [employer] G[employer]ER by EW . Interpretive Data Fasting glucose >/= 126 mg/dl is diagnostic for diabetes. Fasting is defined as no caloric intake [...] interpretive data was last revised 2022. Calcium See Comment 8.5 - 10.3 mg/dL [facility] Comment: Repeated and Verified Credited: Sample investigated and is suggestive of an improper collection (e.g., IV fluid contamination, improper tube type). Deleted at the Request of MANJINDER FISHER RN on 11/25/2024 04:43:07 [facility] [employer]ER by STEPHANY . Blood 11/25/2024 2:30 AM [facility] [facility] 11/25/2024 3:40 AM [facility] [employer] G[employer]ER us Mark Ahumada NP LAB BLOOD ORDERABLES Edited R esult - Final [facility] Department [place] [address] * eGFR (11/23/2024 11:33 PM [facility] [facility]) eGFR 85 >=60 mL/min/1. 73 m2 Comment: Interpretive Data Reference Interval Normal >/= 90 mL/min/1.73m2 Mildly decreased* 60 - 89 mL/min/1.73m2 Mildly to moderately decreased 45 - 59 mL/min/1.73m2 Moderately to severely decreased 30 - 44 mL/min/1.73m2 Severely decreased 15 - 29 mL/min/1.73m2 Kidney Failure < 15 mL/min/1.73m2 *Relative to young adult level Estimated glomerular [...] interpretive data was last reviewed 2021. Blood 11/23/2024 11:3 3 PM [facility] [employer] [facility] 11/24/2024 12:42 AM [facility] [employer] G[employer]ER Mark Ahumada [employer] AUTOMOTIVE TECHNICIAN LAB BLOOD ORDERABLES Final Re sult Performing Organization Address City/State/[facility] Co de Phone Number [facility] Department [place] [address] * (ABNORMAL) CBC without differential (11/23/2024 11:33 PM [facility] [facility]) WBC 4.8 3.8 - 9.9 K/cumm Hgb 11.8(L) 13.0 - 17.5 g/dL [facility] Hct 34.6(L) 38.9 - 50.3 % [facility] Plt 221 150 - 400 K/cumm [facility] MPV 9.3 9.1 - 12.3 fL [facility] RBC 3.90(L) 4.30 - 5.80 M/cumm [facility] MCV 88.7 81.3 - 96.4 fL [facility] MCH 30.3 27.1 - 33.3 pg [facility] MCHC 34.1 32.3 - 35.7 g/dL [facility] RDW CV 12.3 11.1 - 14.9 % [facility] RDW SD 39.5 35.7 - 48.1 fL [facility] NRBC abs 0.00 0.00 - 0.01 K/cumm [facility] Blood 11/23/2024 11:3 3 PM [facility] [employer] G[employer] 11/24/2024 12:42 AM [facility] [employer] G[employer]ER Mark Ahumada [employer] AUTOMOTIVE TECHNICIAN LAB BLOOD ORDERABLES Final Re sult Performing Organization Address [facility] Co de Phone Number [facility] Department [place] [address] * Phosphorus (11/23/2024 11:33 PM [facility] [employer] GATHERER) [facility] Phosphorus, pl 3.5 2.3 - 4.5 mg/dL Blood 11/23/2024 11:3 3 PM [facility] [employer] G[employer] 11/24/2024 12:42 AM [facility] [employer] G[employer]ER Valeriano Marie MD PhD LAB BLOOD ORDERABLES Final Result Performing Organization Address [facility] Co de Phone Number [facility] Department [place] [address] * Magnesium (11/23/2024 11:33 PM [facility] [employer] GATHERER) [facility] Magnesium 2.2 1.4 - 2.5 mg/dL Blood 11/23/2024 11:3 3 PM [facility] [employer] G[employer]ER 11/24/2024 12:42 AM [facility] [employer] G[employer]ER Valeriano Marie MD PhD LAB BLOOD ORDERABLES Final Result Performing Organization Address [facility] Co de Phone Number [facility] [place] [address] * (ABNORMAL) Basic metabolic panel (11/23/2024 11:33 PM [facility] [employer] GATHERER) [facility] Sodium 143 135 - 145 mmol/L Potassium, pl 3.6 3.3 - 4.9 mmol/L [facility] Chloride 106 97 - 110 mmol/L [facility] CO2 29 22 - 32 mmol/L [facility] Anion gap 8 2 - 15 mmol/L [facility] BUN 24 6 - 25 mg/dL [facility] Creatinine 0.87 0.80 - 1.30 mg/dL [facility] Glucose 115 70 - 199 mg/dL [facility] Comment: Interpretive Data Fasting glucose >/= 126 mg/dl is diagnostic for diabetes. Fasting is defined as no caloric intake [...] interpretive data was last revised 2022. Calcium 8.2(L) 8.5 - 10.3 mg/dL [facility] Blood 11/23/2024 11:3 3 PM [facility] [employer] G[employer]ER 11/24/2024 12:42 AM [facility] [employer] G[employer]ER us Mark Ahumada NP LAB BLOOD ORDERABLES Final Re sult [facility] Department [place] [address] * MRI Brain W Contrast (11/23/2024 4:55 AM [facility] [facility]) Anatomical Region Laterality Modality Head and Neck N/A Magnetic Resonan ce 11/23/2024 7:48 AM [facility] [facility] Impressions 11/23/2024 12:13 PM [facility] [employer] [facility] There is no significant contrast enhancement associated with previously described temporal lobe white matter lesion. Active inflammatory or infectious etiologies are less favored due to lack of significant enhancement, as are neoplastic processes due to abrupt development. This finding may represent a focal white matter injury possibly due to medication or toxic/metabolic insult. Recommend continued interval follow-up. Dictated by: Shubham Quesada M.D. The radiology attending physician has personally reviewed this study, and had reviewed and/or edited this written report and agrees with it. Electronically signed by: Garrett Gold M.D. Narrative 11/23/2024 12:13 PM [facility] [employer] [facility] EXAMINATION: Magnetic resonance imaging (MRI) of the brain and brainstem with contrast HISTORY: 84 years-old Male with New onset seizure, encephalopathy. TECHNIQUE: Multiplanar multi-weighted MRI of the brain and brainstem was performed with intravenous contrast using the general brain protocol.. Only pre and postcontrast T1 axial, sagittal, and coronal obtained due to recent noncontrasted MRI. Contrast information: 18 mL Gadoterate Meglumine COMPARISON: MRI brain 11/22/2024, 11/14/2024 FINDINGS: The scalp and calvarium are normal. The dural venous sinuses are patent. The corpus callosum is normal in shape and signal intensity. The posterior fossa is unremarkable. The pituitary and sella are normal. The brainstem and craniocervical junction are unremarkable. There is no significant postcontrast enhancement. Mild periventricular and subcortical T1 hypointensity is present corresponding to T2/FLAIR seen on prior exam and more focally in the left temporal lobe as previously described. The ventricles are normal in size and position without evidence of hydrocephalus. There is mild mucosal thickening of paranasal sinuses. Trace bilateral mastoid effusions. The orbits appear normal. Normal flow voids are demonstrated in the carotid arteries and basilar artery. Procedure Note Garrett Gold MD - 11/23/2024 EXAMINATION: Magnetic resonance imaging (MRI) of the brain and brainstem with contrast HISTORY: 84 years-old Male with New onset seizure, encephalopathy. TECHNIQUE: Multiplanar multi-weighted MRI of the brain and brainstem was performed with intravenous contrast using the general brain protocol.. Only pre and postcontrast T1 axial, sagittal, and coronal obtained due to recent noncontrasted MRI. Contrast information: 18 mL Gadoterate Meglumine COMPARISON: MRI brain 11/22/2024, 11/14/2024 FINDINGS: The scalp and calvarium are normal. The dural venous sinuses are patent. The corpus callosum is normal in shape and signal intensity. The posterior fossa is unremarkable. The pituitary and sella are normal. The brainstem and craniocervical junction are unremarkable. There is no significant postcontrast enhancement. Mild periventricular and subcortical T1 hypointensity is present corresponding to T2/FLAIR seen on prior exam and more focally in the left temporal lobe as previously described. The ventricles are normal in size and position without evidence of hydrocephalus. There is mild mucosal thickening of paranasal sinuses. Trace bilateral mastoid effusions. The orbits appear normal. Normal flow voids are demonstrated in the carotid arteries and basilar artery. IMPRESSION: There is no significant contrast enhancement associated with previously described temporal lobe white matter lesion. Active inflammatory or infectious etiologies are less favored due to lack of significant enhancement, as are neoplastic processes due to abrupt development. This finding may represent a focal white matter injury possibly due to medication or toxic/metabolic insult. Recommend continued interval follow-up. Dictated by: Shubham Quesada M.D. The radiology attending physician has personally reviewed this study, and had reviewed and/or edited this written report and agrees with it. Electronically signed by: Garrett Gold M.D. us Valeriano Marie MD PhD IMG MRI ND OCEDURES Final Result * eGFR (11/22/2024 9:21 PM [facility] GATHERER) eGFR 90 >=60 mL/min/1. 73 m2 Comment: Interpretive Data Reference Interval Normal >/= 90 mL/min/1.73m2 Mildly decreased* 60 - 89 mL/min/1.73m2 Mildly to moderately decreased 45 - 59 mL/min/1.73m2 Moderately to severely decreased 30 - 44 mL/min/1.73m2 Severely decreased 15 - 29 mL/min/1.73m2 Kidney Failure < 15 mL/min/1.73m2 *Relative to young adult level Estimated glomerular [...] interpretive data was last reviewed 2021. Blood 11/22/2024 9:21 PM [facility] [employer] G[employer]ER 11/22/2024 9:48 PM K[facility] OR SE[employer] GATHERER us Mark Ahumada [employer] AUTOMOTIVE TECHNICIAN LAB BLOOD ORDERABLES Final Re sult [facility] Department [place] [address] * (ABNORMAL) Paolo-Weathers virus (EBV) antibody panel Blood (11/22/2024 9:21 PM K[facility] SE[employer] GATHERER) Pathologist [facility] EBV nuclear Ab Positive(A) Negative Comment:Indicates the presen ce of detectable IgG antibody to EBV Nuclear Antigen. EBV VCA IgG Positive(A) Negative [facility] Comment:Indicates the presen ce of antibody; 90% of the adult population will have been infected with EBV sometime in the past. EBV VCA IgM Negative Negative [facility] Comment:No detectable IgM an tibody to EBV-VCA. A negative result indicates no current infection with EBV. If clinical suspicion of acute EBV infection is present, testing should be repeated after one week. EBV interp Past Infection [facility] Blood 11/22/2024 9:21 PM K[facility] [employer] GATHERER 11/22/2024 9:48 PM [facility] OR [employer] GATHERER Valeriano toribio MD PhD LAB MICROBIOLOGY - GENERAL ORDERABLES Final Result [facility] Department [place] [address] * (ABNORMAL) CBC without differential (11/22/2024 9:21 PM K[facility] [employer] GATHERER) [facility] WBC 4.5 3.8 - 9.9 K/cumm Hgb 12.1(L) 13.0 - 17.5 g/dL [facility] Hct 35.5(L) 38.9 - 50.3 % [facility] Plt 209 150 - 400 K/cumm [facility] MPV 9.3 9.1 - 12.3 fL [facility] RBC 3.99(L) 4.30 - 5.80 M/cumm [facility] MCV 89.0 81.3 - 96.4 fL [facility] MCH 30.3 27.1 - 33.3 pg [facility] MCHC 34.1 32.3 - 35.7 g/dL [facility] RDW CV 12.2 11.1 - 14.9 % [facility] RDW SD 40.0 35.7 - 48.1 fL [facility] NRBC abs 0.00 0.00 - 0.01 K/cumm [facility] Blood 11/22/2024 9:21 PM [facility] [employer] G[employer]ERER 11/22/2024 9:48 PM K[facility] OR SE[employer] GATHERER us Mark Ahumada [employer] AUTOMOTIVE TECHNICIAN LAB BLOOD ORDERABLES Final Re sult Performing Organization Address [facility] Co de Phone Number [facility] [place] [address] * Phosphorus (11/22/2024 9:21 PM KELP OR SEAGRASS GATHERER) [facility] Phosphorus, pl 3.2 2.3 - 4.5 mg/dL Blood 11/22/2024 9:21 PM [facility] [employer] GATHERER 11/22/2024 9:48 PM [facility] OR SE[employer] GATHERER us Valeriano Marie MD PhD LAB BLOOD ORDERABLES Final Result Performing Organization Address [facility] de Phone Number [facility] Department [place] [address] * Magnesium (11/22/2024 9:21 PM KEL[facility] OR SEAGR[employer] GATHERER) [facility] Magnesium 1.9 1.4 - 2.5 mg/dL Blood 11/22/2024 9:21 PM [facility] [employer] GATHERER 11/22/2024 9:48 PM [facility]R[facility] G[employer]ER Valeriano Marie MD PhD LAB BLOOD ORDERABLES Final Result Performing Organization Address [facility] [place] [address] * (ABNORMAL) Basic metabolic panel (11/22/2024 9:21 PM [facility] SEAGR[facility] GATHERER) [facility] Sodium 144 135 - 145 mmol/L Potassium, pl 4.0 3.3 - 4.9 mmol/L [facility] Chloride 109 97 - 110 mmol/L [facility] CO2 25 22 - 32 mmol/L [facility] Anion gap 10 2 - 15 mmol/L [facility] BUN 17 6 - 25 mg/dL [facility] Creatinine 0.72(L) 0.80 - 1.30 mg/dL [facility] Glucose 84 70 - 199 mg/dL [facility] Comment: Interpretive Data Fasting glucose >/= 126 mg/dl is diagnostic for diabetes. Fasting is defined as no caloric intake [...] interpretive data was last revised 2022. Calcium 8.5 8.5 - 10.3 mg/dL [facility] Blood 11/22/2024 9:21 PM [facility] [employer] 11/22/2024 9:48 PM [facility] [employer] Mark Ahumada NP LAB BLOOD ORDERABLES Final Re sult [facility] Department [place] [address] * MRI Brain WO Contrast (11/22/2024 4:33 AM KEL[facility] OR SE[employer] G[employer]) Anatomical Region Laterality Modality Head and Neck N/A Magnetic Resonan ce 11/22/2024 6:29 AM [facility] Impressions 11/22/2024 6:29 AM [facility] OR [facility] [facility] 1. Interval development of focus of mildly expansile FLAIR hyperintensity in the left temporal subcortical white matter along the posterior aspect of the sylvian fissure without diffusion restriction. This is nonspecific and differential considerations include such processes as focal demyelination, focal inflammatory process such as vasculitis, or less likely focal infection given relative sparing of the adjacent cortex and limited nature of this finding. Tumor also considered less likely given relatively rapid development over 8 days. Contrast-enhanced study may be helpful for further evaluation. 2. Single punctate focus of chronic microhemorrhage in the right frontal subcortical white matter. The possible microhemorrhage in the left occipital lobe appears to be a vessel on this study. No new areas of microhemorrhages identified. Electronically signed by: Garrett Gold M.D. Narrative 11/22/2024 6:29 AM [facility] EXAMINATION: Magnetic resonance imaging (MRI) of the brain and brainstem without contrast HISTORY: Transient ischemic attack, concern for CAA TECHNIQUE: Multiplanar multi-weighted MRI of the brain and brainstem was performed without intravenous contrast using the general brain protocol. COMPARISON: Brain MR from 11/14/2024 FINDINGS: Diffuse cerebral volume loss. Scattered periventricular and subcortical FLAIR hyperintensities are nonspecific. Interval development of a focus of FLAIR hyperintensity in the left temporal region along the posterior aspect of the left sylvian fissure (series 8 image 13), with mild expansion in this region. No associated diffusion restriction or blood products identified. The superior sagittal sinus demonstrates normal venous flow. The corpus callosum is normal in shape and signal intensity. The posterior fossa is unremarkable. The pituitary and sella are normal. The brainstem and craniocervical junction are unremarkable. Diffusion weighted images reveal no hyperintensities to suggest acute cerebral infarction. There is a punctate focus of susceptibility artifact in the right frontal subcortical white matter. The previously described punctate focus of susceptibility artifact in the left occipital region appears to represent a vessel. No other foci of susceptibility artifact to suggest microhemorrhage identified. The ventricles are normal in size and position without evidence of hydrocephalus. The paranasal sinuses are normal. The visualized portions of the mastoids are unremarkable. The orbits appear normal. Normal flow voids are demonstrated in the carotid arteries and basilar artery. Procedure Note Garrett Gold MD - 11/22/2024 EXAMINATION: Magnetic resonance imaging (MRI) of the brain and brainstem without contrast HISTORY: Transient ischemic attack, concern for CAA TECHNIQUE: Multiplanar multi-weighted MRI of the brain and brainstem was performed without intravenous contrast using the general brain protocol. COMPARISON: Brain MR from 11/14/2024 FINDINGS: Diffuse cerebral volume loss. Scattered periventricular and subcortical FLAIR hyperintensities are nonspecific. Interval development of a focus of FLAIR hyperintensity in the left temporal region along the posterior aspect of the left sylvian fissure (series 8 image 13), with mild expansion in this region. No associated diffusion restriction or blood products identified. The superior sagittal sinus demonstrates normal venous flow. The corpus callosum is normal in shape and signal intensity. The posterior fossa is unremarkable. The pituitary and sella are normal. The brainstem and craniocervical junction are unremarkable. Diffusion weighted images reveal no hyperintensities to suggest acute cerebral infarction. There is a punctate focus of susceptibility artifact in the right frontal subcortical white matter. The previously described punctate focus of susceptibility artifact in the left occipital region appears to represent a vessel. No other foci of susceptibility artifact to suggest microhemorrhage identified. The ventricles are normal in size and position without evidence of hydrocephalus. The paranasal sinuses are normal. The visualized portions of the mastoids are unremarkable. The orbits appear normal. Normal flow voids are demonstrated in the carotid arteries and basilar artery. IMPRESSION: 1. Interval development of focus of mildly expansile FLAIR hyperintensity in the left temporal subcortical white matter along the posterior aspect of the sylvian fissure without diffusion restriction. This is nonspecific and differential considerations include such processes as focal demyelination, focal inflammatory process such as vasculitis, or less likely focal infection given relative sparing of the adjacent cortex and limited nature of this finding. Tumor also considered less likely given relatively rapid development over 8 days. Contrast-enhanced study may be helpful for further evaluation. 2. Single punctate focus of chronic microhemorrhage in the right frontal subcortical white matter. The possible microhemorrhage in the left occipital lobe appears to be a vessel on this study. No new areas of microhemorrhages identified. Electronically signed by: Garrett Gold M.D. Valeriano Marie MD PhD IMG MRI ND OCEDURES Final Result * eGFR (11/21/2024 10:08 PM K[facility] G[employer]) eGFR 87 >=60 mL/min/1. 73 m2 Comment: Interpretive Data Reference Interval Normal >/= 90 mL/min/1.73m2 Mildly decreased* 60 - 89 mL/min/1.73m2 Mildly to moderately decreased 45 - 59 mL/min/1.73m2 Moderately to severely decreased 30 - 44 mL/min/1.73m2 Severely decreased 15 - 29 mL/min/1.73m2 Kidney Failure < 15 mL/min/1.73m2 *Relative to young adult level Estimated glomerular [...] interpretive data was last reviewed 2021. Blood 11/21/2024 10:0 8 PM [facility] [facility] 11/21/2024 10:52 PM [facility] [employer] G[employer] Mark Ahumada [employer] AUTOMOTIVE TECHNICIAN LAB BLOOD ORDERABLES Final Re sult [facility] Department [place] [address] * (ABNORMAL) CBC without differential (11/21/2024 10:08 PM [facility] [employer]) WBC 5.5 3.8 - 9.9 K/cumm Hgb 12.9(L) 13.0 - 17.5 g/dL [facility] Hct 37.6(L) 38.9 - 50.3 % [facility] Plt 233 150 - 400 K/cumm [facility] MPV 9.4 9.1 - 12.3 fL [facility] RBC 4.23(L) 4.30 - 5.80 M/cumm [facility] MCV 88.9 81.3 - 96.4 fL [facility] MCH 30.5 27.1 - 33.3 pg [facility] MCHC 34.3 32.3 - 35.7 g/dL [facility] RDW CV 12.5 11.1 - 14.9 % [facility] RDW SD 40.9 35.7 - 48.1 fL [facility] NRBC abs 0.00 0.00 - 0.01 K/cumm [facility] Blood 11/21/2024 10:0 8 PM [facility] [employer] 11/21/2024 10:53 PM [facility] OR [employer] G[employer]ER Mark Ahumada [employer] AUTOMOTIVE TECHNICIAN LAB BLOOD ORDERABLES Final Re sult Performing Organization Address [facility]/ZIP Co de Phone Number [facility] Department [place] [address] * Phosphorus (11/21/2024 10:08 PM K[facility] OR [facility] GATHERER) Pathologist [facility] Phosphorus, pl 2.8 2.3 - 4.5 mg/dL Blood 11/21/2024 10:0 8 PM [facility] [employer] [facility] 11/21/2024 10:52 PM [facility] [employer] G[employer]ER Valeriano Marie MD PhD LAB BLOOD ORDERABLES Final Result Performing Organization Address [facility]/ZIP Co de Phone Number [facility] [place] [address] * Magnesium (11/21/2024 10:08 PM K[facility] OR [facility] GATHERER) [facility] Magnesium 2.0 1.4 - 2.5 mg/dL Blood 11/21/2024 10:0 8 PM [facility] OR [employer] G[employer]ER 11/21/2024 10:52 PM [facility] OR [facility] G[employer]ER Valeriano Marie MD PhD LAB BLOOD ORDERABLES Final Result Performing Organization Address [facility] [place] [address] * (ABNORMAL) Basic metabolic panel (11/21/2024 10:08 PM [facility] OR [facility] GATHERER) [facility] Sodium 146(H) 135 - 145 mmol/L Potassium, pl 3.8 3.3 - 4.9 mmol/L [facility] Chloride 110 97 - 110 mmol/L [facility] CO2 26 22 - 32 mmol/L [facility] Anion gap 10 2 - 15 mmol/L [facility] BUN 12 6 - 25 mg/dL [facility] Creatinine 0.78(L) 0.80 - 1.30 mg/dL [facility] Glucose 92 70 - 199 mg/dL [facility] Comment: Interpretive Data Fasting glucose >/= 126 mg/dl is diagnostic for diabetes. Fasting is defined as no caloric intake [...] interpretive data was last revised 2022. Calcium 8.5 8.5 - 10.3 mg/dL [facility] Blood 11/21/2024 10:0 8 PM [facility] [employer] [facility] 11/21/2024 10:52 PM [facility] OR [employer] G[employer] us Mark Ahumada NP LAB BLOOD ORDERABLES Final Re sult [facility] Department [place] [address] * XR Hip Right 2 or 3 Views W Pelvis (11/21/2024 12:48 PM [facility] [facility]) Anatomical Region Laterality Modality Lower Extremities, Hip, Pelvis Right C omputed Radiography 11/21/2024 1:16 PM [facility] Impressions 11/21/2024 1:16 PM [facility] [facility] Severe right hip osteoarthritis. Electronically signed by: Senthil Shen M.D. Narrative 11/21/2024 1:16 PM [facility] [employer] [facility] XR HIP RIGHT 2 OR 3 VIEWS W PELVIS HISTORY: Right hip pain. FINDINGS: 3 views of the pelvis and right hip are obtained and compared with 11/20/2024. There is redemonstrated severe right hip osteoarthritis with acetabular and femoral head remodeling and subchondral cyst formation. Mild left hip osteoarthritis is present. There is no fracture. Soft tissues are normal. Procedure Note Senthil Shen MD - 11/21/2024 XR HIP RIGHT 2 OR 3 VIEWS W PELVIS HISTORY: Right hip pain. FINDINGS: 3 views of the pelvis and right hip are obtained and compared with 11/20/2024. There is redemonstrated severe right hip osteoarthritis with acetabular and femoral head remodeling and subchondral cyst formation. Mild left hip osteoarthritis is present. There is no fracture. Soft tissues are normal. IMPRESSION: Severe right hip osteoarthritis. Electronically signed by: Senthil Shen M.D. Valeriano Marie MD PhD IMG XR PRO CEDURES Final Result * eGFR (11/20/2024 10:11 PM K[facility] OR SEAGR[facility] GATHERER) Pathologist [facility] eGFR >90 >=60 mL/min/1. 73 m2 Comment: Interpretive Data Reference Interval Normal >/= 90 mL/min/1.73m2 Mildly decreased* 60 - 89 mL/min/1.73m2 Mildly to moderately decreased 45 - 59 mL/min/1.73m2 Moderately to severely decreased 30 - 44 mL/min/1.73m2 Severely decreased 15 - 29 mL/min/1.73m2 Kidney Failure < 15 mL/min/1.73m2 *Relative to young adult level Estimated glomerular [...] interpretive data was last reviewed 2021. Blood 11/20/2024 10:1 1 PM [facility] [employer] [facility]ER 11/20/2024 10:34 PM [facility] OR [employer] G[employer]ER Mark Ahumada NP LAB BLOOD ORDERABLES Final Re sult [facility] Department [place] [address] * (ABNORMAL) CBC without differential (11/20/2024 10:11 PM KEL[facility] OR SEAGR[employer] GATHERER) Pathologist [facility] WBC 5.3 3.8 - 9.9 K/cumm Hgb 12.8(L) 13.0 - 17.5 g/dL [facility] Hct 36.8(L) 38.9 - 50.3 % [facility] Plt 216 150 - 400 K/cumm [facility] MPV 9.2 9.1 - 12.3 fL [facility] RBC 4.16(L) 4.30 - 5.80 M/cumm [facility] MCV 88.5 81.3 - 96.4 fL [facility] MCH 30.8 27.1 - 33.3 pg [facility] MCHC 34.8 32.3 - 35.7 g/dL [facility] RDW CV 12.2 11.1 - 14.9 % [facility] RDW SD 39.5 35.7 - 48.1 fL [facility] NRBC abs 0.00 0.00 - 0.01 K/cumm [facility] Blood 11/20/2024 10:1 1 PM [facility] [employer] G[employer]ER 11/20/2024 10:35 PM K[facility] OR [employer] GATHERER Mark Ahumada [employer] AUTOMOTIVE TECHNICIAN LAB BLOOD ORDERABLES Final Re sult Performing Organization Address [facility]/ZIP Co de Phone Number [facility] Department [place] [address] * Phosphorus (11/20/2024 10:11 PM K[facility] OR [employer] G[employer]ERER) Phosphorus, pl 2.5 2.3 - 4.5 mg/dL Blood 11/20/2024 10:1 1 PM [facility] [employer]ER 11/20/2024 10:34 PM [facility] OR [employer] G[employer]ER Valeriano Marie MD PhD LAB BLOOD ORDERABLES Final Result [facility] Department [place] [address] * Magnesium (11/20/2024 10:11 PM K[facility] OR [employer] G[employer]ER) Magnesium 1.9 1.4 - 2.5 mg/dL Blood 11/20/2024 10:1 1 PM [facility] [employer] G[employer]ER 11/20/2024 10:34 PM [facility] OR [employer] G[employer]ER Valeriano Marie MD PhD LAB BLOOD ORDERABLES Final Result Performing Organization Address [facility]/ZIP Co de Phone Number [facility] Department [place] [address] * (ABNORMAL) Basic metabolic panel (11/20/2024 10:11 PM [facility] OR [facility] G[employer]) Sodium 142 135 - 145 mmol/L Potassium, pl 3.4 3.3 - 4.9 mmol/L [facility] Chloride 108 97 - 110 mmol/L [facility] CO2 26 22 - 32 mmol/L [facility] Anion gap 8 2 - 15 mmol/L [facility] BUN 12 6 - 25 mg/dL [facility] Creatinine 0.67(L) 0.80 - 1.30 mg/dL [facility] Glucose 108 70 - 199 mg/dL [facility] Comment: Interpretive Data Fasting glucose >/= 126 mg/dl is diagnostic for diabetes. Fasting is defined as no caloric intake [...] interpretive data was last revised 2022. Calcium 8.4(L) 8.5 - 10.3 mg/dL [facility] Blood 11/20/2024 10:1 1 PM [facility] [employer] G[employer]ER 11/20/2024 10:34 PM [facility] OR SE[employer] GATH[employer]ER Mark Ahumada [employer] AUTOMOTIVE TECHNICIAN LAB BLOOD ORDERABLES Final Re sult Performing Organization Address [facility]/ZIP Co de Phone Number [facility] Department [place] [address] * CT Chest Abdomen Pelvis W Contrast (11/20/2024 2:37 PM K[facility] [employer] G[employer]) Anatomical Region Laterality Modality Body N/A Computed Tomogra phy 11/20/2024 3:33 PM [facility] [employer] G[employer] Impressions 11/20/2024 5:49 PM [facility] [employer] 1. No evidence of metastatic disease in the chest, abdomen or pelvis. 2. Thick-walled decompressed urinary bladder with scattered eccentric foci of gas and adjacent stranding, which may be seen in setting of emphysematous cystitis. 3. Small left pleural effusion. 4. Mildly dilated ascending aorta measuring up to 4.5 cm. Dictated by: Veronique Duke MD The radiology attending physician has personally reviewed this study, and had reviewed and/or edited this written report and agrees with it. 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 TECHNIQUE: Transaxial computed tomographic images of the chest, abdomen and pelvis were obtained with intravenous contrast according to the standard protocol after the uneventful administration of 88 mL Opti-Ray 350 intravenous contrast. COMPARISON: None available FINDINGS: Chest: Small left pleural effusion with associated left lower lobe atelectasis. No suspicious pulmonary nodule. No pneumothorax. Mildly dilated thoracic ascending aorta measuring up to 4.5 cm. Normal caliber main pulmonary artery. Mildly enlarged cardiac size without pericardial effusion. Moderate coronary artery atherosclerosis. Thoracic aortic calcifications. Normal imaged thyroid. No suspicious thoracic lymphadenopathy. Calcified right hilar lymph nodes. Abdomen/Pelvis: Scattered hepatic cysts. Patent portal and splenic veins. No biliary ductal dilatation. Normal appearance of the gallbladder, spleen and pancreas. Indeterminate right 1.3 cm adrenal nodule. Left adrenal nodularity. Symmetric enhancement of the kidneys without hydronephrosis. Bilateral renal cysts and too small to characterize hypodense lesions. Thick-walled decompressed urinary bladder with scattered foci of gas in the dent and adjacent stranding. Stone catheter in place. Prostatomegaly. Presacral edema. Normal appearance of the stomach and duodenal sweep. Colonic diverticulosis without diverticulitis. No pneumoperitoneum or free fluid. No abdominal or pelvic lymphadenopathy. Mild to moderate atherosclerosis of the abdominal aorta and branches without aneurysm. Severe right hip osteoarthritis with adjacent iliopsoas bursal fluid. Degenerative changes of the spine. Diffuse osteopenia. No suspicious osseous lesion. 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 TECHNIQUE: Transaxial computed tomographic images of the chest, abdomen and pelvis were obtained with intravenous contrast according to the standard protocol after the uneventful administration of 88 mL Opti-Ray 350 intravenous contrast. COMPARISON: None available FINDINGS: Chest: Small left pleural effusion with associated left lower lobe atelectasis. No suspicious pulmonary nodule. No pneumothorax. Mildly dilated thoracic ascending aorta measuring up to 4.5 cm. Normal caliber main pulmonary artery. Mildly enlarged cardiac size without pericardial effusion. Moderate coronary artery atherosclerosis. Thoracic aortic calcifications. Normal imaged thyroid. No suspicious thoracic lymphadenopathy. Calcified right hilar lymph nodes. Abdomen/Pelvis: Scattered hepatic cysts. Patent portal and splenic veins. No biliary ductal dilatation. Normal appearance of the gallbladder, spleen and pancreas. Indeterminate right 1.3 cm adrenal nodule. Left adrenal nodularity. Symmetric enhancement of the kidneys without hydronephrosis. Bilateral renal cysts and too small to characterize hypodense lesions. Thick-walled decompressed urinary bladder with scattered foci of gas in the dent and adjacent stranding. Stone catheter in place. Prostatomegaly. Presacral edema. Normal appearance of the stomach and duodenal sweep. Colonic diverticulosis without diverticulitis. No pneumoperitoneum or free fluid. No abdominal or pelvic lymphadenopathy. Mild to moderate atherosclerosis of the abdominal aorta and branches without aneurysm. Severe right hip osteoarthritis with adjacent iliopsoas bursal fluid. Degenerative changes of the spine. Diffuse osteopenia. No suspicious osseous lesion. IMPRESSION: 1. No evidence of metastatic disease in the chest, abdomen or pelvis. 2. Thick-walled decompressed urinary bladder with scattered eccentric foci of gas and adjacent stranding, which may be seen in setting of emphysematous cystitis. 3. Small left pleural effusion. 4. Mildly dilated ascending aorta measuring up to 4.5 cm. Dictated by: Veronique Duke MD The radiology attending physician has personally reviewed this study, and had reviewed and/or edited this written report and agrees with it. Electronically signed by: Jose Eduardo Krishna MD, PHD us Valeriano Marie MD PhD IMG CT PRO CEDURES Final Result * eGFR (11/19/2024 11:01 PM KELP OR [employer]AGR[employer] GATHERER) [facility] eGFR 90 >=60 mL/min/1. 73 m2 Comment: Interpretive Data Reference Interval Normal >/= 90 mL/min/1.73m2 Mildly decreased* 60 - 89 mL/min/1.73m2 Mildly to moderately decreased 45 - 59 mL/min/1.73m2 Moderately to severely decreased 30 - 44 mL/min/1.73m2 Severely decreased 15 - 29 mL/min/1.73m2 Kidney Failure < 15 mL/min/1.73m2 *Relative to young adult level Estimated glomerular [...] interpretive data was last reviewed 2021. Blood 11/19/2024 11:0 1 PM K[facility] [employer] G[employer]ER 11/19/2024 11:40 PM K[facility] OR [employer] G[employer]ER us Mark Ahumada NP LAB BLOOD ORDERABLES Final Re sult [facility] Department of Laboratories [place], [place] [id number] * (ABNORMAL) CBC without differential (11/19/2024 11:01 PM KELP OR SEAGR[employer] GATHERER) [facility] WBC 4.9 3.8 - 9.9 K/cumm Hgb 12.2(L) 13.0 - 17.5 g/dL [facility] Hct 36.9(L) 38.9 - 50.3 % [facility] Plt 216 150 - 400 K/cumm [facility] MPV 9.4 9.1 - 12.3 fL [facility] RBC 4.00(L) 4.30 - 5.80 M/cumm [facility] MCV 92.3 81.3 - 96.4 fL [facility] MCH 30.5 27.1 - 33.3 pg [facility] MCHC 33.1 32.3 - 35.7 g/dL [facility] RDW CV 12.6 11.1 - 14.9 % [facility] RDW SD 42.5 35.7 - 48.1 fL [facility] NRBC abs 0.00 0.00 - 0.01 K/cumm [facility] Blood 11/19/2024 11:0 1 PM K[facility] OR [employer] G[employer]ERER 11/19/2024 11:40 PM K[facility] OR [employer] GATHERER us Mark Ahumada NP LAB BLOOD ORDERABLES Final Re sult [facility] Department [place] [address] * (ABNORMAL) Basic metabolic panel (11/19/2024 11:01 PM K[facility] OR [employer] G[employer]ERER) Sodium 146(H) 135 - 145 mmol/L Potassium, pl 3.3 3.3 - 4.9 mmol/L [facility] Chloride 111(H) 97 - 110 mmol/L [facility] CO2 27 22 - 32 mmol/L [facility] Anion gap 8 2 - 15 mmol/L [facility] BUN 16 6 - 25 mg/dL [facility] Creatinine 0.71(L) 0.80 - 1.30 mg/dL [facility] Glucose 112 70 - 199 mg/dL [facility] Comment: Interpretive Data Fasting glucose >/= 126 mg/dl is diagnostic for diabetes. Fasting is defined as no caloric intake [...] interpretive data was last revised 2022. Calcium 8.3(L) 8.5 - 10.3 mg/dL [facility] Blood 11/19/2024 11:0 1 PM [facility] OR [employer] G[employer]ER 11/19/2024 11:40 PM [facility] OR [employer] G[employer]ER Mark Ahumada [employer] AUTOMOTIVE TECHNICIAN LAB BLOOD ORDERABLES Final Re sult Performing Organization Address [facility] Co de Phone Number [facility] [address] * CLAUDIA ab ql w/rflx to CLAUDIA qn (11/19/2024 4:02 PM KEL[facility] OR [employer] GATHER[employer]) CLAUDIA Negative Comment: Interpretive Data Normal range for CLAUDIA Qualitative Antibody = Negative. 1. CLAUDIA is performed using indirect immunofluorescence against HEp-2 cells 2. CLAUDIA titers are performed on all positive qualitative results. 3. A significantly positive CLAUDIA result is defined as a positive nuclear fluorescence at a titer of 1:80 or greater. 4. 15% of normal people above age 65 have significantly positive CLAUDIA results. 5% or less of normal people age 65 or under have significantly positive CLAUDIA results. Current interpretive data was last revised on 2020. Blood 11/19/2024 4:02 PM K[facility] OR [employer] GATHERER 11/19/2024 4:18 PM [facility] OR [employer] GATH[employer]ER Valeriano Marie MD PhD LAB BLOOD ORDERABLES Final Result Performing Organization Address [facility] Co de Phone Number [facility] [place] [address] * SRIDEVI ab eval w/reflex (11/19/2024 4:02 PM KELP OR SEAGRASS GATHERER) SRIDEVI ab Negative Negative Comment: Interpretive Data Positive Screens will be reflexed to specific testing for Antibodies against the following antigens: Angela-1 Ab, DAMAGED FREIGHT INSPECTOR Ab, Scl-70 Ab, Pope Ab, SS-A/Ro Ab, and SS- B/La Ab. Further testing for dsDNA, Centromere, or Ribosomal P antibodies is suggested in patient with a positive screen and negative specific antibodies. Current interpretive data was last revised on 2023. Blood 11/19/2024 4:02 PM KELP OR SEAGRASS GATHERER 11/19/2024 4:18 PM KELP OR SEAGRASS GATHERER Valeriano Marie MD PhD LAB BLOOD ORDERABLES Final Result Performing Organization Address [facility] Co de Phone Number [facility] [place] [address] * PR3 - proteinase 3, Ab (11/19/2024 4:02 PM KELP OR SEAGRASS GATHERER) Proteinase 3 ab <0.2 <=0.9 Ab Index Comment: Interpretive Data Negative: <1 Ab Index Positive: > or = 1 Ab Index Current interpretive data was last revised on 2017. Blood 11/19/2024 4:02 PM KELP OR SEAGRASS GATHERER 11/19/2024 4:18 PM KELP OR SEAGRASS GATHERER Valeriano Marie MD PhD LAB BLOOD ORDERABLES Final Result Performing Organization Address [facility] [place] [address] * MPO - myeloperoxidase antibody (11/19/2024 4:02 PM KELP OR SEAGRASS GATHERER) Myeloperoxidase ab <0.2 <=0.9 Ab Index Comment: Interpretive Data Negative: <1 Ab Index Positive: > or = 1 Ab Index Current interpretive data was last revised on 2017. Blood 11/19/2024 4:02 PM KELP OR SEAGRASS GATHERER 11/19/2024 4:18 PM KELP OR SEAGRASS GATHERER Valeriano Marie MD PhD LAB BLOOD ORDERABLES Final Result Performing Organization Address [facility] Co de Phone Number [facility] [place] [address] * (ABNORMAL) Anti-Neutrophilic Cytoplasmic Antibody (ANCA) with Reflex to MPO and PR3 Abs (54:02 PM KELP OR SEAGRASS GATHERER) [facility] ANCA Indetermi cathleen(A) Negative Comment:Indeterminate for P- ANCA - Results by antigen specific immunoassay (MPO & PR3) to follow. May indicate ulcerative colitis or Crohn's disease. Blood 11/19/2024 4:02 PM KELP OR SEAGRASS GATHERER 11/19/2024 4:18 PM KELP OR SEAGRASS GATHERER Valeriano Marie MD PhD LAB BLOOD ORDERABLES Final Result [facility] Department [place] [address] * (ABNORMAL) CBC without differential (11/19/2024 4:02 PM KELP OR SEAGRASS GATHERER) [facility] WBC 5.1 3.8 - 9.9 K/cumm Hgb 13.0 13.0 - 17.5 g/dL [facility] Hct 37.9(L) 38.9 - 50.3 % [facility] Plt 216 150 - 400 K/cumm [facility] MPV 9.2 9.1 - 12.3 fL [facility] RBC 4.29(L) 4.30 - 5.80 M/cumm [facility] MCV 88.3 81.3 - 96.4 fL [facility] MCH 30.3 27.1 - 33.3 pg [facility] MCHC 34.3 32.3 - 35.7 g/dL [facility] RDW CV 12.4 11.1 - 14.9 % [facility] RDW SD 40.3 35.7 - 48.1 fL [facility] NRBC abs 0.00 0.00 - 0.01 K/cumm [facility] Blood 11/19/2024 4:02 PM KELP OR SEAGRASS GATHERER 11/19/2024 4:19 PM KELP OR SEAGRASS GATHERER Mark Ahumada [employer] AUTOMOTIVE TECHNICIAN LAB BLOOD ORDERABLES Final Re sult [facility] Department [place] [address] * eGFR (11/18/2024 10:19 PM KELP OR SEAGRASS GATHERER) Pathologist [facility] eGFR 86 >=60 mL/min/1. 73 m2 Comment: Interpretive Data Reference Interval Normal >/= 90 mL/min/1.73m2 Mildly decreased* 60 - 89 mL/min/1.73m2 Mildly to moderately decreased 45 - 59 mL/min/1.73m2 Moderately to severely decreased 30 - 44 mL/min/1.73m2 Severely decreased 15 - 29 mL/min/1.73m2 Kidney Failure < 15 mL/min/1.73m2 *Relative to young adult level Estimated glomerular [...] interpretive data was last reviewed 2021. Blood 11/18/2024 10:1 9 PM KELP OR SEAGRASS GATHERER 11/18/2024 11:00 PM KELP OR SEAGRASS GATHERER Mark Ahumada NP LAB BLOOD ORDERABLES Final Re sult [facility] Department [place] [address] * (ABNORMAL) CBC without differential (11/18/2024 10:19 PM KELP OR SEAGRASS GATHERER) Pathologist [facility] WBC 6.6 3.8 - 9.9 K/cumm Hgb 13.4 13.0 - 17.5 g/dL [facility] Hct 38.6(L) 38.9 - 50.3 % [facility] Plt 229 150 - 400 K/cumm [facility] MPV 9.4 9.1 - 12.3 fL [facility] RBC 4.38 4.30 - 5.80 M/cumm [facility] MCV 88.1 81.3 - 96.4 fL [facility] MCH 30.6 27.1 - 33.3 pg [facility] MCHC 34.7 32.3 - 35.7 g/dL [facility] RDW CV 12.7 11.1 - 14.9 % [facility] RDW SD 41.3 35.7 - 48.1 fL [facility] NRBC abs 0.00 0.00 - 0.01 K/cumm [facility] Blood 11/18/2024 10:1 9 PM KELP OR SEAGRASS GATHERER 11/18/2024 11:00 PM KELP OR SEAGRASS GATHERER us Mark Ahumada [employer] AUTOMOTIVE TECHNICIAN LAB BLOOD ORDERABLES Final Re sult [facility] Department [place] [address] * Basic metabolic panel (11/18/2024 10:19 PM KELP OR SEAGRASS GATHERER) Sodium 142 135 - 145 mmol/L Potassium, pl 3.7 3.3 - 4.9 mmol/L [facility] Chloride 105 97 - 110 mmol/L [facility] CO2 26 22 - 32 mmol/L [facility] Anion gap 11 2 - 15 mmol/L [facility] BUN 21 6 - 25 mg/dL [facility] Creatinine 0.83 0.80 - 1.30 mg/dL [facility] Glucose 91 70 - 199 mg/dL [facility] Comment: Interpretive Data Fasting glucose >/= 126 mg/dl is diagnostic for diabetes. Fasting is defined as no caloric intake [...] interpretive data was last revised 2022. Calcium 8.8 8.5 - 10.3 mg/dL [facility] Blood 11/18/2024 10:1 9 PM KELP OR SEAGRASS GATHERER 11/18/2024 11:00 PM KELP OR SEAGRASS GATHERER us Mark Ahumada NP LAB BLOOD ORDERABLES Final Re sult [facility] Department [place] [address] * Continuous Video EEG (11/18/2024 11:48 AM KELP OR SEAGRASS GATHERER) Anatomical Region Laterality Modality EEG Narrative 11/19/2024 12:34 PM KELP OR SEAGRASS GATHERER Video-EEG Report Patient Name: Jarrell Rubio [facility] Medical Record Number (MRN): [id number] [facility] Record: No Soarian MRN Date of (): 1940 EEG Date: 11/17/2024 Ordering Provider: Denise Landin MD CC: Sarbjit Saldivar Start Time: 11/17/2024 2:58:37 PM End Time: 11/18/2024 11:00:45 AM Introduction: Mr. Rubio is a 84 y.o. male with a history of prostate cancer and dementia presenting from an outside hospital with right sided weakness, and several reported episodes of seizure like activity described as right arm shaking and whole body rigidity with left gaze deviation. The EEG was performed to evaluate for seizures. This is a report of continuous video-EEG monitoring. High definition digital video and digital EEG were recorded continuously with a [employer] EEG acquisition system. This was a 32 channel EEG with additional anterior temporal electrodes. Electrodes were placed with collodion following the 10/20 International System. The patient was monitored and observed continuously by technical personnel. Digital seizure and spike detection were utilized during the recording. EEG description: Epoch 1 : 11/17/2024 2:58:37 PM to 11/18/2024 08:00:00 AM BACKGROUND: The background was continuous, asymmetric, and at times moderately organized with a posterior dominant rhythm of up to 8 Hz observed, better formed over the right hemisphere. The background also included diffuse polymorphic delta and theta activity, with relative attenuation over the left hemisphere, maximum over the left temporal region. Variability was present. Reactivity was present. Sleep architecture was observed in the form of sleep spindles. Photic strobe stimulation and hyperventilation were not performed. SPORADIC DISCHARGES: None. PERIODIC OR RHYTHMIC PATTERNS: None. SEIZURES: None. EVENTS: None reported. EKG: No significant dysrhythmia. Epoch 2 : 11/18/2024 08:00:00 AM to 11/18/2024 11:00:45 AM BACKGROUND: The background was continuous, asymmetric, and at times moderately organized with a posterior dominant rhythm of up to 8 Hz observed, better formed over the right hemisphere. The background also included diffuse polymorphic delta and theta activity. There was continuous, voltage attenuated polymorphic theta and delta frequency slowing over the left hemisphere, maximal over the temporal region. Reactivity was present. Photic strobe stimulation and hyperventilation were not performed. SPORADIC DISCHARGES: None. PERIODIC OR RHYTHMIC PATTERNS: None. SEIZURES: None. EVENTS: None reported. EKG: No significant dysrhythmia. Interpretation: No clinical or electrographic seizures were recorded during this study. The interictal EEG was abnormal due to 1) left hemispheric slowing, maximal over the left temporal region, and 2) mild to moderate generalized slowing. Focal slowing is indicative of focal cerebral dysfunction but is not specific for etiology. Generalized slowing observed in this record is indicative of mild to moderate encephalopathy/diffuse cerebral dysfunction but is not specific for etiology. These findings were discussed with the treating physicians on an at least twice daily basis. By signing this report, the attending Electroencephalographer certifies that he/she personally reviewed the electrodiagnostics study and has edited this report to fully conform with his/her intent. Signing Attending: Bryan Boyer MD us Shalom Yang MD NEUROLOGY ORDERABLES Final Resul t * eGFR (11/16/2024 9:13 PM KELP OR SEAGRASS GATHERER) eGFR 88 >=60 mL/min/1. 73 m2 Comment: Interpretive Data Reference Interval Normal >/= 90 mL/min/1.73m2 Mildly decreased* 60 - 89 mL/min/1.73m2 Mildly to moderately decreased 45 - 59 mL/min/1.73m2 Moderately to severely decreased 30 - 44 mL/min/1.73m2 Severely decreased 15 - 29 mL/min/1.73m2 Kidney Failure < 15 mL/min/1.73m2 *Relative to young adult level Estimated glomerular [...] data was last reviewed 2021. Blood 11/16/2024 9:13 PM KELP OR SEAGRASS GATHERER 11/16/2024 9:46 PM KELP OR SEAGRASS GATHERER Mark Ahumada NP LAB BLOOD ORDERABLES Final Re sult [facility] Department [place] [address] * (ABNORMAL) CBC without differential (11/16/2024 9:13 PM KELP OR SEAGRASS GATHERER) WBC 8.3 3.8 - 9.9 K/cumm Hgb 13.0 13.0 - 17.5 g/dL [facility] Hct 37.9(L) 38.9 - 50.3 % [facility] Plt 223 150 - 400 K/cumm [facility] MPV 9.1 9.1 - 12.3 fL [facility] RBC 4.33 4.30 - 5.80 M/cumm [facility] MCV 87.5 81.3 - 96.4 fL [facility] MCH 30.0 27.1 - 33.3 pg [facility] MCHC 34.3 32.3 - 35.7 g/dL [facility] RDW CV 12.4 11.1 - 14.9 % [facility] RDW SD 39.7 35.7 - 48.1 fL [facility] NRBC abs 0.00 0.00 - 0.01 K/cumm [facility] Blood 11/16/2024 9:13 PM KELP OR SEAGRASS GATHERER 11/16/2024 9:47 PM KELP OR SEAGRASS GATHERER Mark Ahumada [employer] EMISS[employer] AUTOMOTIVE TECHNICIAN LAB BLOOD ORDERABLES Final Re sult [facility] Department [place] [address] * Magnesium (11/16/2024 9:13 PM KELP OR SEAGRASS GATHERER) [facility] Magnesium 2.0 1.4 - 2.5 mg/dL Blood 11/16/2024 9:13 PM KELP OR SEAGRASS GATHERER 11/16/2024 9:46 PM KELP OR SEAGRASS GATHERER Emma Regalado [employer]HA[employer] EMISS[employer] AUTOMOTIVE TECHNICIAN LAB BLOOD ORDERABLES Final Result Performing Organization Address [facility] Co de Phone Number [facility] [place] [address] * (ABNORMAL) Basic metabolic panel (11/16/2024 9:13 PM KELP OR SEAGRASS GATHERER) [facility] Sodium 138 135 - 145 mmol/L Potassium, pl 3.5 3.3 - 4.9 mmol/L [facility] Chloride 100 97 - 110 mmol/L [facility] CO2 27 22 - 32 mmol/L [facility] Anion gap 11 2 - 15 mmol/L [facility] BUN 12 6 - 25 mg/dL [facility] Creatinine 0.76(L) 0.80 - 1.30 mg/dL [facility] Glucose 89 70 - 199 mg/dL [facility] Comment: Interpretive Data Fasting glucose >/= 126 mg/dl is diagnostic for diabetes. Fasting is defined as no caloric intake [...] interpretive data was last revised 2022. Calcium 8.6 8.5 - 10.3 mg/dL [facility] Blood 11/16/2024 9:13 PM KELP OR SEAGRASS GATHERER 11/16/2024 9:46 PM KELP OR SEAGRASS GATHERER us Mark Ahumada NP LAB BLOOD ORDERABLES Final Re sult [facility] Department [place] [address] * Continuous Video EEG (11/16/2024 9:21 AM KELP OR SEAGRASS GATHERER) Anatomical Region Laterality Modality EEG Narrative 11/16/2024 2:58 PM KELP OR SEAGRASS GATHERER Video-EEG Report Patient Name: Jarrell Rubio [facility] Medical Record Number (MRN): [id number] [facility] Record: No Soarian MRN Date of (): 1940 EEG Date: 11/14/2024 Ordering Provider: Mark Ahumada NP CC: Sarbjit Saldivar Start Time: 04:10:32 AM 11/14/2024 End Time: 08:55:55 AM 11/16/2024 Introduction: Mr. Rubio is a 84 y.o. male with a history of prostate cancer and dementia presenting from an outside hospital with right sided weakness, and several reported episodes of seizure like activity described as right arm shaking and whole body rigidity with left gaze deviation. The EEG was performed to evaluate for seizures. This is a report of continuous video-EEG monitoring. High definition digital video and digital EEG were recorded continuously with a [employer] EEG acquisition system. This was a 32 channel EEG with additional anterior temporal electrodes. Electrodes were placed with collodion following the 10/20 International System. The patient was monitored and observed continuously by technical personnel. Digital seizure and spike detection were utilized during the recording. EEG description: Epoch 1: 04:10:32 AM 11/14/2024 to 08:00:00 AM 11/14/2024 BACKGROUND: The background was continuous, asymmetric, and at times moderately organized with a posterior dominant rhythm of up to 8 Hz observed, better formed over the right hemisphere. The background also included diffuse polymorphic delta and theta activity, with relative attenuation over the left hemisphere, maximum over the left posterior quadrant. Variability was present. Reactivity was present. Sleep architecture was observed in the form of sleep spindles, but were poorly formed. Photic strobe stimulation and hyperventilation were not performed. SPORADIC DISCHARGES: None. PERIODIC OR RHYTHMIC PATTERNS: None. SEIZURES: None. EVENTS: None reported. EKG: No significant dysrhythmia. Epoch 2: 08:00:00 AM 11/14/2024 to 08:00:00 AM 11/15/2024 BACKGROUND: The background was continuous, asymmetric, and at times moderately organized with a posterior dominant rhythm of 7-8 Hz better formed over the right hemisphere. The background also included diffuse polymorphic delta and theta activity, with relative attenuation over the left hemisphere, maximal over the left posterior quadrant. Variability was present. Reactivity was present. Sleep architecture was observed in the form of sleep spindles, but were poorly formed. Photic strobe stimulation and hyperventilation were not performed. SPORADIC DISCHARGES: None. PERIODIC OR RHYTHMIC PATTERNS: None. SEIZURES: None. EVENTS: None reported. EKG: No significant dysrhythmia. Epoch 3: 08:00:00 AM 11/15/2024 to 08:50:55 AM 11/16/2024 BACKGROUND: The background was continuous, asymmetric, and at times moderately organized with a posterior dominant rhythm of 7-8 Hz better formed over the right hemisphere. The background also included diffuse polymorphic delta and theta activity, with relative attenuation over the left hemisphere, maximal over the left posterior quadrant. Variability was present. Reactivity was present. Sleep architecture was observed in the form of sleep spindles, but were poorly formed. Photic strobe stimulation and hyperventilation were not performed. SPORADIC DISCHARGES: None. PERIODIC OR RHYTHMIC PATTERNS: None. SEIZURES: None. EVENTS: None reported. EKG: No significant dysrhythmia. Interpretation: No events or seizures were captured. The interictal EGG was abnormal due to 1) left hemispheric slowing, maximal over the left posterior quadrant, and 2) mild to moderate generalized slowing. Focal slowing is indicative of focal cerebral dysfunction but is not specific for etiology. Generalized slowing observed in this record is indicative of mild to moderate encephalopathy/diffuse cerebral dysfunction but is not specific for etiology. By signing this report, the attending Electroencephalographer certifies that he/she personally reviewed the electrodiagnostics study and has edited this report to fully conform with his/her intent. Signing Attending: Bryan Boyer MD Mark Ahumada [employer] AUTOMOTIVE TECHNICIAN NEUROLOGY ORDERABLES Final Re sult * Potassium, whole blood (11/16/2024 6:35 AM KELP OR SEAGRASS GATHERER) Potassium, bld 4.0 3.3 - 4.9 mmol/L Blood 11/16/2024 6:35 AM KELP OR SEAGRASS GATHERER 11/16/2024 6:41 AM KELP OR SEAGRASS GATHERER Emma Regalado NP LAB BLOOD ORDERABLES Final Result Performing Organization Address [facility] Co de Phone Number [facility] Department [place] [address] * eGFR (11/16/2024 5:28 AM KELP OR SEAGRASS GATHERER) eGFR 89 >=60 mL/min/1. 73 m2 Comment: Interpretive Data Reference Interval Normal >/= 90 mL/min/1.73m2 Mildly decreased* 60 - 89 mL/min/1.73m2 Mildly to moderately decreased 45 - 59 mL/min/1.73m2 Moderately to severely decreased 30 - 44 mL/min/1.73m2 Severely decreased 15 - 29 mL/min/1.73m2 Kidney Failure < 15 mL/min/1.73m2 *Relative to young adult level Estimated glomerular [...] last reviewed 2021. Blood 11/16/2024 5:28 AM KELP OR SEAGRASS GATHERER 11/16/2024 5:42 AM KELP OR SEAGRASS GATHERER us Isrrael Sharma MD LAB BLOOD ORDERABLES Final Result Performing Organization Address [facility] Co de Phone Number [facility] [place] [address] * (ABNORMAL) Differential, auto (11/16/2024 5:28 AM KELP OR SEAGRASS GATHERER) Neutrophil abs 5.9 1.5 - 6.5 K/cumm Imm gran abs 0.0 0.0 - 0.1 K/cumm [facility] Lymphocyte abs 0.7(L) 0.8 - 3.3 K/cumm [facility] Monocyte abs 1.2(H) 0.2 - 0.8 K/cumm [facility] Eosinophil abs 0.1 0.0 - 0.5 K/cumm [facility] Basophil abs 0.0 0.0 - 0.1 K/cumm [facility] Neutrophil pct 74.2 % [facility] Comment: Interpretive Data Percent cell count reference ranges are not reported, since discordance with absolute values may lead to misinterpretation of CBC data. Current Interpretive Data was last revised on 2018. Imm gran pct 0.4 % [facility] Comment: Interpretive Data Percent cell count reference ranges are not reported, since discordance with absolute values may lead to misinterpretation of CBC data. Current Interpretive Data was last revised on 2018. Lymphocyte pct 9.0 % [facility] Comment: Interpretive Data Percent cell count reference ranges are not reported, since discordance with absolute values may lead to misinterpretation of CBC data. Current Interpretive Data was last revised on 2018. Monocyte pct 14.8 % [facility] Comment: Interpretive Data Percent cell count reference ranges are not reported, since discordance with absolute values may lead to misinterpretation of CBC data. Current Interpretive Data was last revised on 2018. Eosinophil pct 1.3 % [facility] Comment: Interpretive Data Percent cell count reference ranges are not reported, since discordance with absolute values may lead to misinterpretation of CBC data. Current Interpretive Data was last revised on 2018. Basophil pct 0.3 % [facility] Comment: Interpretive Data Percent cell count reference ranges are not reported, since discordance with absolute values may lead to misinterpretation of CBC data. Current Interpretive Data was last revised on 2018. Blood 11/16/2024 5:28 AM KELP OR SEAGRASS GATHERER 11/16/2024 5:42 AM KELP OR SEAGRASS GATHERER Isrrael Sharma MD LAB BLOOD ORDERABLES Final Result Performing Organization Address [facility]ZIP Co de Phone Number [facility] [place] [address] * (ABNORMAL) CBC with auto differential (11/16/2024 5:28 AM KELP OR SEAGRASS GATHERER) Pathologist [facility] WBC 7.9 3.8 - 9.9 K/cumm Hgb 11.6(L) 13.0 - 17.5 g/dL [facility] Hct 33.2(L) 38.9 - 50.3 % [facility] Plt 178 150 - 400 K/cumm [facility] MPV 9.3 9.1 - 12.3 fL [facility] RBC 3.79(L) 4.30 - 5.80 M/cumm [facility] MCV 87.6 81.3 - 96.4 fL [facility] MCH 30.6 27.1 - 33.3 pg [facility] MCHC 34.9 32.3 - 35.7 g/dL [facility] RDW CV 12.5 11.1 - 14.9 % [facility] RDW SD 40.2 35.7 - 48.1 fL [facility] NRBC abs 0.00 0.00 - 0.01 K/cumm [facility] Blood 11/16/2024 5:28 AM KELP OR SEAGRASS GATHERER 11/16/2024 5:42 AM KELP OR SEAGRASS GATHERER Isrrael Sharma MD LAB BLOOD ORDERABLES Final Result [facility] Department [place] [address] * Phosphorus (11/16/2024 5:28 AM KELP OR SEAGRASS GATHERER) Pathologist [facility] Phosphorus, pl 3.1 2.3 - 4.5 mg/dL Blood 11/16/2024 5:28 AM KELP OR SEAGRASS GATHERER 11/16/2024 5:42 AM KELP OR SEAGRASS GATHERER Isrrael Sharma MD LAB BLOOD ORDERABLES Final Result Performing Organization Address [facility] Co de Phone Number [facility] [place] [address] * Magnesium (11/16/2024 5:28 AM KELP OR SEAGRASS GATHERER) [facility] Magnesium 1.7 1.4 - 2.5 mg/dL Blood 11/16/2024 5:28 AM KELP OR SEAGRASS GATHERER 11/16/2024 5:42 AM KELP OR SEAGRASS GATHERER Isrrael Sharma MD LAB BLOOD ORDERABLES Final Result Performing Organization Address [facility] Co de Phone Number [facility] [place] [address] * (ABNORMAL) Creatine kinase (CK), total (11/16/2024 5:28 AM KELP OR SEAGRASS GATHERER) [facility] CK 672(H) 40 - 300 Units/L Blood 11/16/2024 5:28 AM KELP OR SEAGRASS GATHERER 11/16/2024 5:42 AM KELP OR SEAGRASS GATHERER Isrrael Sharma MD LAB BLOOD ORDERABLES Final Result Performing Organization Address [facility] Co de Phone Number [facility] [place] [address] * (ABNORMAL) Basic metabolic panel (11/16/2024 5:28 AM KELP OR SEAGRASS GATHERER) [facility] Sodium 140 135 - 145 mmol/L Potassium, pl 5.7(H) 3.3 - 4.9 mmol/L [facility] Chloride 107 97 - 110 mmol/L [facility] CO2 25 22 - 32 mmol/L [facility] Anion gap 8 2 - 15 mmol/L [facility] BUN 12 6 - 25 mg/dL [facility] Creatinine 0.73(L) 0.80 - 1.30 mg/dL [facility] Glucose 87 70 - 199 mg/dL [facility] Comment: Interpretive Data Fasting glucose >/= 126 mg/dl is diagnostic for diabetes. Fasting is defined as no caloric intake [...] Calcium 7.9(L) 8.5 - 10.3 mg/dL [facility] Blood 11/16/2024 5:28 AM KELP OR SEAGRASS GATHERER 11/16/2024 5:42 AM KELP OR SEAGRASS GATHERER us Isrrael Sharma MD LAB BLOOD ORDERABLES Final Result [facility] Department [place] [address] * eGFR (11/14/2024 8:57 PM KELP OR SEAGRASS GATHERER) eGFR 88 >=60 mL/min/1. 73 m2 Comment: Interpretive Data Reference Interval Normal >/= 90 mL/min/1.73m2 Mildly decreased* 60 - 89 mL/min/1.73m2 Mildly to moderately decreased 45 - 59 mL/min/1.73m2 Moderately to severely decreased 30 - 44 mL/min/1.73m2 Severely decreased 15 - 29 mL/min/1.73m2 Kidney Failure < 15 mL/min/1.73m2 *Relative to young adult level Estimated glomerular [...] last reviewed 2021. Blood 11/14/2024 8:57 PM KELP OR SEAGRASS GATHERER 11/14/2024 9:20 PM KELP OR SEAGRASS GATHERER Mark Ahumada EXHAUST EMISSIONS AUTOMOTIVE TECHNICIAN LAB BLOOD ORDERABLES Final Re sult Performing Organization Address City/[facility]/ZIP Co de Phone Number [facility] [place] [address] * (ABNORMAL) CBC without differential (11/14/2024 8:57 PM KELP OR SEAGRASS GATHERER) [facility] WBC 8.1 3.8 - 9.9 K/cumm Hgb 11.0(L) 13.0 - 17.5 g/dL [facility] Hct 31.8(L) 38.9 - 50.3 % [facility] Plt 198 150 - 400 K/cumm [facility] MPV 9.1 9.1 - 12.3 fL [facility] RBC 3.63(L) 4.30 - 5.80 M/cumm [facility] MCV 87.6 81.3 - 96.4 fL [facility] MCH 30.3 27.1 - 33.3 pg [facility] MCHC 34.6 32.3 - 35.7 g/dL [facility] RDW CV 12.6 11.1 - 14.9 % [facility] RDW SD 40.9 35.7 - 48.1 fL [facility] NRBC abs 0.00 0.00 - 0.01 K/cumm [facility] Blood 11/14/2024 8:57 PM KELP OR SEAGRASS GATHERER 11/14/2024 9:19 PM KELP OR SEAGRASS GATHERER Mark Ahumada EXHAUST EMISSIONS AUTOMOTIVE TECHNICIAN LAB BLOOD ORDERABLES Final Re sult [facility] [place] [address] * Phosphorus (11/14/2024 8:57 PM KELP OR SEAGRASS GATHERER) Pathologist [facility] Phosphorus, pl 3.1 2.3 - 4.5 mg/dL Blood 11/14/2024 8:57 PM KELP OR SEAGRASS GATHERER 11/14/2024 9:12 PM KELP OR SEAGRASS GATHERER us Mark Ahumada EXHAUST EMISSIONS AUTOMOTIVE TECHNICIAN LAB BLOOD ORDERABLES Final Re sult Performing Organization Address [facility] Co de Phone Number [facility] [place] [address] * Magnesium (11/14/2024 8:57 PM KELP OR SEAGRASS GATHERER) Pathologist [facility] Magnesium 2.1 1.4 - 2.5 mg/dL Blood 11/14/2024 8:57 PM KELP OR SEAGRASS GATHERER 11/14/2024 9:12 PM KELP OR SEAGRASS GATHERER us Isrrael Sharma MD LAB BLOOD ORDERABLES Final Result Performing Organization Address [facility] de Phone Number [facility] [place] [address] * (ABNORMAL) Creatine kinase (CK), total (11/14/2024 8:57 PM KELP OR SEAGRASS GATHERER) [facility] CK 817(H) 40 - 300 Units/L Blood 11/14/2024 8:57 PM KELP OR SEAGRASS GATHERER 11/14/2024 9:19 PM KELP OR SEAGRASS GATHERER Antolin Yancey EXHAUST EMISSIONS AUTOMOTIVE TECHNICIAN LAB BLOOD ORDERABLES Fi nal Result Performing Organization Address [facility] Co de Phone Number [facility] [place] [address] * (ABNORMAL) Comprehensive metabolic panel (11/14/2024 8:57 PM KELP OR SEAGRASS GATHERER) Pathologist [facility] Sodium 139 135 - 145 mmol/L Potassium, pl 3.4 3.3 - 4.9 mmol/L [facility] Chloride 105 97 - 110 mmol/L [facility] CO2 27 22 - 32 mmol/L [facility] Anion gap 7 2 - 15 mmol/L [facility] BUN 8 6 - 25 mg/dL [facility] Creatinine 0.76(L) 0.80 - 1.30 mg/dL [facility] Glucose 93 70 - 199 mg/dL [facility] Comment: Interpretive Data Fasting glucose >/= 126 mg/dl is diagnostic for diabetes. Fasting is defined as no caloric intake [...] 2022. Calcium 8.1(L) 8.5 - 10.3 mg/dL [facility] Bilirubin, total 1.3(H) 0.1 - 1.2 mg/dL [facility] Protein, pl 5.8(L) 6.5 - 8.5 g/dL [facility] Albumin 3.3(L) 3.5 - 5.0 g/dL [facility] Alk phos 68 40 - 130 Units/L [facility] ALT 24 7 - 55 Units/L [facility] AST 51(H) 10 - 50 Units/L [facility] Blood 11/14/2024 8:57 PM KELP OR SEAGRASS GATHERER 11/14/2024 9:12 PM KELP OR SEAGRASS GATHERER us Mark Ahumada EXHAUST EMISSIONS AUTOMOTIVE TECHNICIAN LAB BLOOD ORDERABLES Final Re sult [facility] Department [place] [address] * TRANSTHORACIC ECHO (TTE) COMPLETE W DOPPLER/CF W CONTRAST (11/14/2024 1:16 PM KELP OR SEAGRASS GATHERER) LV EF % CONS SCIMAGE Anatomical Region Laterality Modality Ultrasound 11/14/2024 12:1 5 PM KELP OR SEAGRASS GATHERER Narrative 11/14/2024 4:47 PM KELP OR SEAGRASS GATHERER [facility] [place] [address] Transthoracic Echocardiographic Report Patient Name: JARRELL RUBIO MELVIN : 1940 (84y 4m) Gender: M Study Date: 11/14/2024 12:15:56 PM Ht(Inch): 69 Wt(Lb): 179.01 BSA: 1.99 Legal Contracts Specialist: Clay Mckeon RDCS Location: [id number] Order Provider: ANTOLIN YANCEY BMI: 26.43 BP: 140 / 70 Quality: The study images were of technically good quality. Ref Provider: ANTOLIN YANCEY PROCEDURES: Echocardiographic Report: ([id number]) Transthoracic complete echo with contrast, 2D, spectral and tissue Doppler, color flow Doppler, M-mode. Contrast: 0.8 ml Optison Administered, (2.2 ml wasted). Technically difficult study due to: acoustic windows. INDICATIONS: Stroke. MEASUREMENTS: 2D/MM Value Range Doppler Value Range LVIDd 2D 5.49 cm [ 4.20 - 5.80 ] AV Peak Oz 1.00 m/s [ 1.00 - 1.70 ] LVIDs 2D 4.16 cm [ 2.50 - 4.00 ] AV Peak PG 4.00 IVSd 2D 1.04 cm [ 0.60 - 1.00 ] AV Mean PG 2.16 mmHg LVPWd 2D 1.11 cm [ 0.60 - 1.00 ] AV VTI 22.85 cm LV Thickness Ratio 0.94 [ 1.50 - 3.00 ] LVOT Peak Oz 0.69 m/s [ 0.70 - 1.10 ] LV FS 2D 24.16 % [ 25.00 - 43.00 ] LVOT Peak PG 1.90 LV Mass 2D 239.25 g LVOT Mean PG 0.80 mmHg LV Mass Index 2D 120.23 g/m2 LVOT VTI 13.56 cm RWT 0.40 LVOT Diam 2.04 cm LV EDV 2D 146.80 LILI VTI 1.94 cm2 LV ESV 2D 76.82 LILI Vmax 2.25 cm2 EF Teich 2D 48 % [ 52 - 72 ] LVOT/AV VTI 0.59 - Dimensionless index (DVI) LV EDV Index 77.80 ml/m2 MV E Peak Oz 0.51 m/s [ 0.60 - 1.30 ] EDV Mod 2C 136.78 ml [ 59.00 - 175.00 ] MV A Peak Oz 0.76 m/s [ 1.00 - 1.20 ] EDV Mod 4C 163.25 ml MV E/A 0.67 ratio [ 0.80 - 1.50 ] EDV Mod BP 154.83 ml [ 62.00 - 150.00 ] MV Decel Time 230.46 msec [ 104.00 - 258.00 ] ESV Mod 2C 71.64 ml Med E` Oz 5.68 cm/sec [ 8.00 - 15.00 ] ESV Mod 4C 85.97 ml Lat E` Oz 4.55 cm/sec [ 10.00 - 15.00 ] ESV Mod BP 80.86 ml [ 21.00 - 61.00 ] Average E/E` 9.97 EF Mod 2C 48 % RV S` 0.126 m/s EF Mod 4C 47 % PV Peak Oz 0.61 m/s [ 0.40 - 0.80 ] EF Mod BP 48 % [ 52 - 72 ] PV Peak PG 1.49 LA Length 2C 4.31 cm PV Accel Time 57.09 msec [ 103.00 - 142.00 ] LA Length 4C 3.77 cm PV Accel Graves 9.13 m/s LA Volume 2C 41.8 ml LA Volume 4C 32.9 ml LA Volume BP 42.81 ml LA Volume Index 21.51 ml/m2 TAPSE 1.74 cm [ 1.71 - 5.00 ] RA Area 11.62 cm/m2 [ 10.00 - 18.00 ] RA Volume 24.51 ml RA Volume Index 12.32 ml/m2 AoR Diam 2D 4.61 cm [ [...] By: Alban Hampton MD 11/14/2024 4:46:36 PM KELP OR SEAGRASS GATHERER Electronically Signed By: Alban Hampton MD 11/14/2024 4:46:36 PM KELP OR SEAGRASS GATHERER [facility] - Resting Procedure Note Alban Bennett MD - 11/14/2024 [facility] [place] [address] Transthoracic Echocardiographic Report Patient Name: JARRELL RUBIO MELVIN : 1940 (84y 4m) Gender: M Study Date: 11/14/2024 12:15:56 PM Ht(Inch): 69 Wt(Lb): 179.01 BSA: 1.99 Legal Contracts Specialist: Clay Mckeon RDCS Location: [id number] Order Provider:ANTOLIN YANCEY BMI: 26.43 BP: 140 / 70 Quality: The study images were oftechnically good quality. Ref Provider: ANTOLIN YANCEY PROCEDURES: Echocardiographic Report: ([id number], [id number]) Transthoracic complete echo withcontrast, 2D, spectral and [...] [ 62.00 - 150.00 ] MV Decel Iuuf251.46 msec [ 104.00 - 258.00 ] ESV [...] cm/m2 [ 10.00 - 18.00 ] RA Zefcjf78.51 ml RA Volume Index12.32 ml/m2 AoR Diam [...] By: Alban Hampton MD 11/14/2024 4:46:36 PM KELP OR SEAGRASS GATHERER Electronically Signed By: Alban Hampton MD 11/14/2024 4:46:36 PM KELP OR SEAGRASS GATHERER [facility] - Resting us Antolin Yancey NP CV ECHO PROCEDURES Angela l Result * Blood culture Blood (11/14/2024 12:17 PM KELP OR SEAGRASS GATHERER) Report Final Report: No growth Blood 11/14/2024 12:1 7 PM KELP OR SEAGRASS GATHERER 11/14/2024 12:27 PM KELP OR SEAGRASS GATHERER Narrative [facility] - 11/18/2024 4:00 PM KELP OR SEAGRASS GATHERER Collection->Peripheral 1. Blood cultures are incubated for 4 days on a continuously monitored blood culture system. The first report of a negative culture is issued within 24 hours of receipt of the specimen in the laboratory. 2. Positive culture results are reported as soon as they are detected. 3. The most important factor for detection of microbes in the setting of bloodstream infection is the volume of blood submitted for culture. Failure to collect an optimal blood volume can result in false negative blood cultures. 4. For pediatric patients, the recommended blood volume to collect follows a weight based strategy. See the electronic test catalog for collection instructions. 5. For positive blood cultures, a rapid molecular test may be performed for organism identification using the hermann ePlex blood culture identification panel for gram positive (BCID-GP) and gram negative (BCID-GN) organisms. This nucleic acid amplification test detects microbial DNA in positive blood culture broth. This assay has been cleared by the [place] Food and Drug Administration and its performance characteristics have been verified by the [facility] Microbiology Laboratory. For questions about this culture, contact the Microbiology Laboratory at [phone]. Interpretive data was last revised on 24. us Isrrael Sharma MD LAB MICROBIOLOGY - GENERAL ORDERABLES Final Result [facility] Department [place] [address] * Blood culture Blood (11/14/2024 12:17 PM KELP OR SEAGRASS GATHERER) Report Final Report: No growth Blood 11/14/2024 12:1 7 PM KELP OR SEAGRASS GATHERER 11/14/2024 12:27 PM KELP OR SEAGRASS GATHERER Narrative [facility] 11/18/2024 4:00 PM KELP OR SEAGRASS GATHERER Collection->Peripheral From second site 1. Blood cultures are incubated for 4 days on a continuously monitored blood culture system. The first report of a negative culture is issued within 24 hours of receipt of the specimen in the laboratory. 2. Positive culture results are reported as soon as they are detected. 3. The most important factor for detection of microbes in the setting of bloodstream infection is the volume of blood submitted for culture. Failure to collect an optimal blood volume can result in false negative blood cultures. 4. For pediatric patients, the recommended blood volume to collect follows a weight based strategy. See the electronic test catalog for collection instructions. 5. For positive blood cultures, a rapid molecular test may be performed for organism identification using the hermann ePlex blood culture identification panel for gram positive (BCID-GP) and gram negative (BCID-GN) organisms. This nucleic acid amplification test detects microbial DNA in positive blood culture broth. This assay has been cleared by the [place] Food and Drug Administration and its performance characteristics have been verified by the [facility] Microbiology Laboratory. For questions about this culture, contact the Microbiology Laboratory at [phone]. Interpretive data was last revised on 24. Isrrael Sharma MD LAB MICROBIOLOGY - GENERAL ORDERABLES Final Result [facility] Department [place] [address] * MRI Brain W WO Contrast (11/14/2024 10:32 AM KELP OR SEAGRASS GATHERER) Anatomical Region Laterality Modality Head and Neck N/A Magnetic Resonan ce 11/14/2024 10:5 0 AM KELP OR SEAGRASS GATHERER Impressions 11/14/2024 11:20 AM KELP OR SEAGRASS GATHERER 1. No acute intracranial process. 2. Small [...] and agrees with it. Electronically signed by: Ayaz Joseph 11/14/2024 11:20 AM KELP OR SEAGRASS GATHERER EXAMINATION: Magnetic resonance imaging (MRI) of the [...] signed by: Abdon Cespedes M.D. Mark Ahumada EXHAUST EMISSIONS AUTOMOTIVE TECHNICIAN IMG MRI PROCEDURES Final Resu lt * (ABNORMAL) Creatine kinase (CK), total (11/14/2024 6:27 AM KELP OR SEAGRASS GATHERER) CK 782(H) 40 - 300 Units/L Blood 11/14/2024 6:27 AM KELP OR SEAGRASS GATHERER 11/14/2024 6:48 AM KELP OR SEAGRASS GATHERER Mark Ahumada EXHAUST EMISSIONS AUTOMOTIVE TECHNICIAN LAB BLOOD ORDERABLES Final Re sult [facility] Department [place] [address] * (ABNORMAL) Lipid panel (11/14/2024 6:27 AM KELP OR SEAGRASS GATHERER) Cholesterol 199 30 - 199 mg/dL Comment: Interpretive Data Ages < or = 19 years Acceptable: <170 mg/dL Borderline high: 170-199 mg/dL High: >or= 200 mg/dL Ages > or = 20 years Desirable: <200 mg/dL Borderline high: 200-239 mg/dL High: >or= 240 mg/dL Literature References: 1. Expert Panel on Integrated Guidelines for Cardiovascular Health and Risk Reduction in Children and Adolescents. Pediatrics 2011;128:S213 2. NCEP Expert Panel. Circulation 2004;110:227 Current Interpretive Data was last revised on 2018. Triglycerides 69 <=149 mg/dL [facility] Comment: Interpretive Data Ages < or = 9 years Acceptable: <75 mg/dL Borderline high: 75-99 mg/dL High: >or= 100 mg/dL Ages 10 to 20 years Acceptable: <90 mg/dL Borderline high: 90-129 mg/dL High: >or= 130 mg/dL Ages > or = 20 years Desirable: <150 mg/dL Borderline high: 150-199 mg/dL High: 200-499 mg/dL Very high: >or= 499 mg/dL Literature References: 1. Expert Panel on Integrated Guidelines for Cardiovascular Health and Risk Reduction in Children and Adolescents. Pediatrics 2011;128:S213 2. NCEP Expert Panel. Circulation 2004;110:227 Current Interpretive Data was last revised on 2018. HDL 48 >=40 mg/dL [facility] Comment: Interpretive Data Ages < or = 19 years Acceptable: >45 mg/dL Borderline low: 40-45 mg/dL Low: <40 mg/dL Ages > or = 20 years Desirable: >or= 60 mg/dL Low: <40 mg/dL Literature References: 1. Expert Panel on Integrated Guidelines for Cardiovascular Health and Risk Reduction in Children and Adolescents. Pediatrics 2011;128:S213 2. NCEP Expert Panel. Circulation 2004;110:227 Current Interpretive Data was last revised on 2018. LDL, calculated 138(H) <=129 mg/dL [facility] Comment: Interpretive Data Ages < or = 19 years Acceptable: <110 mg/dL Borderline high: 110-129 mg/dL High: >or= 130 mg/dL Ages > or = 20 years Optimal: <100 mg/dL Near optimal: 100-129 mg/dL Borderline high: 130-159 mg/dL High: >160 mg/dL Calculated using the Ramiro LDL-C estimating equation. This equation was implemented on 2024. Prior to this date LDL-C was estimated using the Friedewald equation. Literature References: 1. Expert Panel on Integrated Guidelines for Cardiovascular Health and Risk Reduction in Children and Adolescents. Pediatrics 2011;128:S213 2. NCEP Expert Panel. Circulation 2004;110:227 3. Ramiro Fuentes. LEEANN Cardiol. 2020 February 22;5(5):540-548. doi: [email or web address] Current Interpretive Data was last revised on 2024. Non-HDL Cholesterol 151 mg/dL [facility] Comment: Interpretive Data Ages < or = 19 years Acceptable: <120 mg/dL Borderline high: 120-144 mg/dL High: >145 mg/dL Ages > or = 20 years When triglycerides are >200 mg/dL, Non-HDL cholesterol is a secondary target of therapy with treatment goals that are 30 mg/dL greater than the LDL cholesterol target. Literature References: 1. Expert Panel on Integrated Guidelines for Cardiovascular Health and Risk Reduction in Children and Adolescents. Pediatrics 2011;128:S213 2. NCEP Expert Panel. Circulation 2004;110:227 Current Interpretive Data was last revised on 2018. Chol/HDL ratio 4 [facility] Blood 11/14/2024 6:27 AM KELP OR SEAGRASS GATHERER 11/14/2024 6:48 AM KELP OR SEAGRASS GATHERER us Isrrael Sharma MD LAB BLOOD ORDERABLES Final Result Performing Organization Address [facility]/ZIP Co de Phone Number [facility] Department [place] [address] * Troponin I high-sensitivity 6-hour (11/14/2024 4:13 AM KELP OR SEAGRASS GATHERER) Trop I hs 25 <=35 ng/L Comment: Interpretive Data For further [facility] resources including the diagnostic algorithm and an aid in interpretation, copy and paste this link: [email or web address].testcatalog.org/show/[email or web address] Current Interpretive Data last revised 2020. Trop I hs delta 7 ng/L [facility] Trop I hs interp Equivocal [facility] Blood 11/14/2024 4:13 AM KELP OR SEAGRASS GATHERER 11/14/2024 4:34 AM KELP OR SEAGRASS GATHERER us Mark Ahumada NP LAB BLOOD ORDERABLES Final Re sult Performing Organization Address City[facility]/ZIP Co de Phone Number [facility] Department [place] [address] * Troponin I high-sensitivity 4-hour (11/14/2024 2:24 AM KELP OR SEAGRASS GATHERER) Trop I hs 25 <=35 ng/L Comment: Interpretive Data For further [facility]scTnI resources including the diagnostic algorithm and an aid in interpretation, copy and paste this link: https://bjhlab.testcatalog.org/show/[email or web address] Current Interpretive Data last revised 2020. Trop I hs delta 7 ng/L [facility] Trop I hs interp Equivocal [facility] Blood 11/14/2024 2:24 AM KELP OR SEAGRASS GATHERER 11/14/2024 2:38 AM KELP OR SEAGRASS GATHERER us Mark Ahumada EXHAUST EMISSIONS AUTOMOTIVE TECHNICIAN LAB BLOOD ORDERABLES Final Re sult [facility] Department [place] [address] * XR Ventriculoperitoneal Shunt Series (11/14/2024 2:11 AM KELP OR SEAGRASS GATHERER) Anatomical Region Laterality Modality Head and Neck N/A Computed Radiogr aphy 11/14/2024 2:24 AM KELP OR SEAGRASS GATHERER Impressions 11/14/2024 9:20 AM KELP OR SEAGRASS GATHERER Stone catheter in place. No additional retained radiopaque foreign body. Dictated by: Veronique Duke MD The radiology attending physician has personally reviewed this study, and had reviewed and/or edited this written report and agrees with it. Electronically signed by: Augusto Evans M.D, PHD Narrative 11/14/2024 9:20 AM KELP OR SEAGRASS GATHERER EXAMINATION: XR VENTRICULOPERITONEAL SHUNT SERIES HISTORY: Rule [...] by: Augusto Evans M.D, PHD Mark Ahumada EXHAUST EMISSIONS AUTOMOTIVE TECHNICIAN IMG XR PROCEDURES Final Resul t * Troponin I high-sensitivity 2-hour (11/14/2024 12:25 AM KELP OR SEAGRASS GATHERER) Trop I hs 25 <=35 ng/L Comment: Interpretive Data For further hscTnI resources including the diagnostic algorithm and an aid in interpretation, copy and paste this link: https://bjhlab.testcatalog.org/show/[email or web address] Current Interpretive Data last revised 2020. Trop I hs delta 7 ng/L [facility] Trop I hs interp Equivocal [facility] Blood 11/14/2024 12:2 5 AM KELP OR SEAGRASS GATHERER 11/14/2024 12:44 AM KELP OR SEAGRASS GATHERER Mark Ahumada EXHAUST EMISSIONS AUTOMOTIVE TECHNICIAN LAB BLOOD ORDERABLES Final Re sult [facility] Department [place] [address] * ND DIAGNOSTIC LUMBAR SPINAL PUNCTURE (11/14/2024 12:16 AM KELP OR SEAGRASS GATHERER) Narrative Andrae Pop MD PhD - 11/14/2024 12:16 AM KELP OR SEAGRASS GATHERER Andrae Pop MD PhD 11/14/2024 12:18 AM Lumbar Puncture Date/Time: 11/14/2024 12:16 AM Performed by: Andrae Pop MD PhD Authorized by: Andrae Pop MD PhD [place] Protocol: RN Notified of Procedure: yes Informed consent: Risks, benefits, alternatives discussed and patient/account services representative/guardian agrees and accepts Patient's stated name/ matches armband: Yes and patient unable to verbalize - armband matched to name and within medical record Allergies confirmed: yes Consent form signed, dated, timed; matches correct patient, intended procedure and site: No consent form due to emergent status Imaging: N/a Lab/Diag test results: N/a Supplies, devices and special equipment are available: n/a Site/side marked: n/a Immediately prior to the procedure a time out was called: a verbal verification by the procedure participants confirmed correct patient identity, correct site/side marked and visible (if applicable); agreement on procedure to be done; and correct patient positioning Indications: Evaluation for infection and evaluation for altered mental status Anesthesia (see MAR for exact dosage) Anesthesia method: Local infiltration Local anesthetic: Lidocaine 1% Patient prepararion: Gloves, cap, mask and towels Skin preparation: Skin prepped with povidone-iodine Lumbar space: L3-L4 interspace Patient's position: Left lateral decubitus Needle gauge: 18 Needle length: 5.0 Needle type: Spinal needle - Quincke tip Number of attempts: 1 Fluid appearance: Clear Tubes of fluid: 5 Total volume (ml): 15 Post-procedure: Adhesive bandage applied Patient tolerance: Patient tolerated the procedure well with no immediate complications Post Procedure Debrief: All guidewires, needles, sponges or other items are accounted for: yes Any special post procedure monitoring, testing or other considerations: n/a All specimens identified, labeled and matched to patient identification: n/a Responsible alliance party for transporting specimen(s) to lab determined: n/a Andrae Pop MD PhD IN CLINIC/BEDSI DE ORDERABLES Final Result * Cytomegalovirus (CMV) PCR qualitative CSF (11/13/2024 11:40 PM KELP OR SEAGRASS GATHERER) Pathologist [facility] CMV DNA Not Detected Not Detected [facility] Comment: Interpretive Data: This assay tests for the presence of CMV. This test is laboratory developed and its performance characteristics were determined by the performing laboratory in a manner consistent with CLIA requirements. This test has not been cleared or approved by the U.S. Food and Drug Administration. Current Interpretive Data was last revised on 2020. CSF 11/13/2024 11:4 0 PM KELP OR SEAGRASS GATHERER 11/22/2024 2:59 PM KELP OR SEAGRASS GATHERER Valeriano toribio MD PhD LAB MICROBIOLOGY - GENERAL ORDERABLES Final Result Performing Organization Address [facility] Co de Phone Number [facility] [place] [address] [facility] * Varicella Zoster Virus (VZV) PCR CSF (11/13/2024 11:40 PM KELP OR SEAGRASS GATHERER) Pathologist [facility] VZV DNA Not Detected Not Detected [facility] Comment: Interpretative Data: Testing performed by [facility] ([phone]). This assay is performed using the [employer] Molecular Simplexa VZV Direct assay. This is a qualitative, real-time PCR assay for the detection of Varicella-zoster virus (VZV). This assay has been cleared by the U.S. Food and Drug Administration for performance on cerebrospinal fluid and lesion swabs. The performance characteristics have been verified by the [facility]. Results must be considered in the clinical context, and a negative result does not rule out infection. Interpretive data last revised 2021. CSF 11/13/2024 11:4 0 PM KELP OR SEAGRASS GATHERER 11/14/2024 5:00 PM KELP OR SEAGRASS GATHERER us Isrrael Sharma MD LAB MICROBIOLOGY - GENERAL ORDERABLES Final Result Performing Organization Address [facility] Co de Phone Number [facility] [place] [address] [facility] * Herpes Simplex Virus (HSV) PCR CSF (11/13/2024 11:40 PM KELP OR SEAGRASS GATHERER) [facility] HSV DNA Not Detected Not Detected [facility] Comment: Interpretive Data This assay is performed using primers specific for the DNA polymerase gene of both HSV-1 and HSV-2. The assay contains unique primer/probe sets capable of distinguishing between HSV-1 and HSV-2. This assay has been cleared by the U.S. Food and Drug Administration for performance on cerebrospinal fluid and genital swabs. The assay has been evaluated for use on alternative sample types, though it is not FDA cleared for these applications. The performance of all sample types has been validated by the performing laboratory and deemed acceptable for patient testing. Current Interpretive Data was last reviewed on 02/21/2019 CSF 11/13/2024 11:4 0 PM [facility] 11/14/2024 5:00 PM KELP OR SEAGRASS GATHERER Isrrael Sharma MD LAB MICROBIOLOGY - GENERAL ORDERABLES Final Result Performing Organization Address [facility] Co de Phone Number [facility] [place] [address] [facility] * Enterovirus PCR CSF (11/13/2024 11:40 PM KELP OR SEAGRASS GATHERER) Pathologist [facility] Enterovirus RNA, CSF Not Detected Not Detected [facility] Comment: Interpretive Data Testing performed by [facility] Molecular Infectious Disease Laboratory using the [employer] Liaison MDX enterovirus assay. This assay detects RNA from enterovirus using Real Time PCR. This assay is laboratory developed and is not cleared by the [place] Food and Drug Administration. The performance characteristics have been verified by the [facility] Molecular Infectious Disease Laboratory. If negative results are obtained in patients less than two years of age with symptoms and laboratory findings consistent with enterovirus, testing for parechovirus may be appropriate. Current Interpretive Data was last revised on 2024. CSF 11/13/2024 11:4 0 PM KELP OR [facility] GATHER[facility] 11/22/2024 2:59 PM KELP OR SEAGRASS GATHERER Valeriano toribio MD PhD LAB MICROBIOLOGY - GENERAL ORDERABLES Final Result Performing Organization Address [facility] Co de Phone Number [facility] Department [place] [address] [facility] * Cell count w/reflex diff, CSF (11/13/2024 11:40 PM KELP OR SEAGRASS GATHERER) Tube Number, CSF Tube 1 Color, CSF Colorless Colorless [facility] Clarity, CSF Clear Clear [facility] Xanthochromia , CSF Absent Absent [facility] Nucleated cells, CSF 0 0 - 5 /cumm [facility] RBC, CSF 0 0 - 0 /cumm [facility] CSF 11/13/2024 11:4 0 PM K[facility] OR [employer] GATHER[facility] 11/13/2024 11:52 PM KELP OR SEAGRASS GATHERER us Mark Ahumada EXHAUST EMISSIONS AUTOMOTIVE TECHNICIAN LAB BODY FLUIDS AND STOOLS OR DERABLES Final Result Performing Organization Address [facility]/ZIP Co de Phone Number [facility] Department [place] [address] * Cell count w/reflex diff, CSF (11/13/2024 11:40 PM KELP OR SEAGRASS GATHERER) Tube Number, CSF Tube 4 Color, CSF Colorless Colorless [facility] Clarity, CSF Clear Clear [facility] Xanthochromia , CSF Absent Absent [facility] Nucleated cells, CSF 0 0 - 5 /cumm [facility] RBC, CSF 0 0 - 0 /cumm [facility] CSF 11/13/2024 11:4 0 PM KELP OR SE[employer] GATHERER 11/13/2024 11:52 PM KELP OR SEAGRASS GATHERER Mark Ahumada EXHAUST EMISSIONS AUTOMOTIVE TECHNICIAN LAB BODY FLUIDS AND STOOLS OR DERABLES Final Result [facility] Department [place] [address] * Check Sample (11/13/2024 11:40 PM KELP OR SEAGRASS GATHERER) ABO Rh A Positive [facility] OTHER 11/13/2024 11:4 0 PM KELP OR SEAGRASS GATHERER 11/13/2024 11:59 PM KELP OR SEAGRASS GATHERER us Andrae Pop MD PhD LAB BLOOD ORDER DAR Final Result Performing Organization Address [facility] de Phone Number [facility] [place] [address] [facility] * Bacterial culture and gram stain, CSF CSF (11/13/2024 11:40 PM KELP OR SEAGRASS GATHERER) [facility] Direct Specimen Exam Stain: Cytospin Gram stain shows: No polymorphonuclear leukocytes seen. No organisms seen. Report Final Report: No growth [facility] CSF 11/13/2024 11:4 0 PM KELP OR SEAGRASS GATHERER 11/13/2024 11:54 PM KELP OR SEAGRASS GATHERER Narrative [facility] - 11/19/2024 11:51 AM KELP OR SEAGRASS GATHERER Testing performed by [facility] Microbiology Laboratory ([phone]). Mark Ahumada EXHAUST EMISSIONS AUTOMOTIVE TECHNICIAN LAB MICROBIOLOGY - GENERAL OR DERABLES Final Result Performing Organization Address [facility] de Phone Number [facility] Department [place] [address] * (ABNORMAL) Protein, total, CSF (11/13/2024 11:40 PM KELP OR SEAGRASS GATHERER) [facility] Protein, CSF 60(H) 5 - 45 mg/dL Comment:Reviewed CSF 11/13/2024 11:4 0 PM KELP OR SEAGRASS GATHERER 11/13/2024 11:52 PM KELP OR SEAGRASS GATHERER Mark Ahumada EXHA[employer] EMISSIONS AUTOMOTIVE TECHNICIAN LAB BODY FLUIDS AND STOOLS OR DERABLES Final Result Performing Organization Address [facility] de Phone Number [facility] [place] [address] * Glucose, CSF (11/13/2024 11:40 PM KELP OR SEAGRASS GATHERER) [facility] Glucose, CSF 77 mg/dL Comment: Reviewed Reference Interval Information: CSF Glucose should be 60-66% of the most current plasma glucose concentration (milligrams/deciliter) CLIN. CHEM. 41/3, 343-360 (1994), Clinical Utility of Biochemical Analysis of Cerebrospinal Fluid, Noble Ram and Kasi Flores. Current interpretive data was last revised on 2019. CSF 11/13/2024 11:4 0 PM KELP OR SEAGRASS GATHERER 11/13/2024 11:52 PM KELP OR SEAGRASS GATHERER us Mark Ahumada EXHA[employer] EMISS[employer] AUTOMOTIVE TECHNICIAN LAB BODY FLUIDS AND STOOLS OR DERABLES Final Result Performing Organization Address [facility] Co de Phone Number [facility] Department [place] [address] * POCT glucose (11/13/2024 11:37 PM KELP OR SEAGRASS GATHERER) Glucose, POC 117 70 - 199 mg/dL Blood 11/13/2024 11:3 7 PM KELP OR SEAGRASS GATHERER 11/13/2024 11:37 PM KELP OR SEAGRASS GATHERER Andrae Pop MD PhD LAB POCT ORDERA BLES - DEVICE Final Result Performing Organization Address [facility] de Phone Number [facility] Department [place] [address] * XR chest 1 view (Portable) (11/13/2024 11:32 PM KELP OR SEAGRASS GATHERER) Anatomical Region Laterality Modality Body, Chest N/A Digital Radiogra phy 11/14/2024 7:59 AM KELP OR [facility]AGR[facility] GATHERER Impressions 11/14/2024 7:59 AM KELP OR [employer]AGRASS GATHERER There are no prior chest radiographs for comparison. The patient's markedly rotated. Heart is mildly enlarged no mass or lymphadenopathy no pleural effusions There is no pneumothorax.. There is patchy atelectasis. Electronically signed by: Poonam Barrera M.D. Narrative 11/14/2024 7:59 AM K[facility] OR [employer]AGR[employer] GATHERER EXAMINATION: 1 view chest radiograph Procedure Note Poonam Barrera MD - 11/14/2024 EXAMINATION: 1 view chest radiograph IMPRESSION: There are no prior chest radiographs for comparison. The patient's markedly rotated. Heart is mildly enlarged no mass or lymphadenopathy no pleural effusions There is no pneumothorax.. There is patchy atelectasis. Electronically signed by: Poonam Barrera M.D. Mark Ahumada EXHA[employer] EMISSIONS AUTOMOTIVE TECHNICIAN IMG XR PROCEDURES Final Resul t * (ABNORMAL) Urinalysis reflex to microscopic and culture Urine (11/13/2024 10:56 PM KELP OR SEAGRASS GATHERER) Color, ur Straw Yellow Clarity, ur Clear Clear [facility] Specific gravity, ur 1.022 1.003 - 1.030 [facility] pH, urine 8.0 [facility] Comment: Interpretive Data U rine pH is affected by diet, medications, systemic acid-base disturbances, and renal tubular function. pH may affect urinary stone formation. For example, urine pH below 6.0 may help reduce the tendency for calcium phosphate stones and pH greater than 6.0 may reduce the tendency for uric acid stone formation. Source: [facility] [place] Current Interpretive Data was last revised on 2017 Protein, ur ql 1+(A) Negative [facility] Glucose, ur ql Negative Negative [facility] Ketones, ur Negative Negative [facility] Bilirubin, ur Negative Negative [facility] Blood, ur 2+(A) Negative [facility] Urobilinogen, ur <2.0 <2.0 mg/dL [facility] Nitrite, ur Negative Negative [facility] Leukocyte esterase, ur 3+(A) Negative [facility] UA reflex comment Reflex to microscopic UA will be performed. [facility] Urine 11/13/2024 10:5 6 PM KELP OR SEAGRASS GATHERER 11/13/2024 11:10 PM KELP OR SEAGRASS GATHERER Mark Ahumada NP LAB MICROBIOLOGY - GENERAL OR DERABLES Final Result [facility] Department [place] [address] * (ABNORMAL) Urinalysis, microscopic only (11/13/2024 10:56 PM KELP OR SEAGRASS GATHERER) WBC, ur >50(A) 0 - 5 /HPF RBC, ur 11-20(A) 0 - 2 /HPF [facility] Mucous, ur Present(A) [facility] Culture Reflex Comment Reflex to urine culture will be performed. [facility] Urine 11/13/2024 10:5 6 PM KELP OR SEAGRASS GATHERER 11/13/2024 11:10 PM KELP OR SEAGRASS GATHERER Mark Ahumada EXHA[employer] EMISSIONS AUTOMOTIVE TECHNICIAN LAB URINE ORDERABLES Final Re sult Performing Organization Address [facility] Co de Phone Number [facility] Department [place] [address] * Urine culture Urine (11/13/2024 10:56 PM KELP OR SEAGRASS GATHERER) Report Final Report: No growth Urine 11/13/2024 10:5 6 PM KELP OR SEAGRASS GATHERER 11/14/2024 2:50 AM KELP OR SEAGRASS GATHERER Narrative [facility] - 11/15/2024 7:04 AM KELP OR SEAGRASS GATHERER Urine culture reflexed based upon urinalysis results. Testing performed by [facility] Microbiology Laboratory ([phone]) us Mark Ahumada NP LAB MICROBIOLOGY - GENERAL OR DERABLES Final Result Performing Organization Address [facility] de Phone Number [facility] Department [place] [address] * Lactate, whole blood (11/13/2024 10:54 PM KELP OR SEAGRASS GATHERER) Lactate, bld 1.3 0.7 - 2.0 mmol/L Blood 11/13/2024 10:5 4 PM KELP OR SEAGRASS GATHERER 11/13/2024 11:10 PM KELP OR SEAGRASS GATHERER us Mark Ahumada EXHA[employer] EMISSIONS AUTOMOTIVE TECHNICIAN LAB BLOOD ORDERABLES Final Re sult Performing Organization Address [facility] Co de Phone Number [facility] [place] [address] * (ABNORMAL) Creatine kinase (CK), total (11/13/2024 10:54 PM KELP OR SEAGRASS GATHERER) [facility] CK 596(H) 40 - 300 Units/L Blood 11/13/2024 10:5 4 PM KELP OR SEAGRASS GATHERER 11/13/2024 11:21 PM KELP OR SEAGRASS GATHERER Mark Ahumada EXHAUST EMISSIONS AUTOMOTIVE TECHNICIAN LAB BLOOD ORDERABLES Final Re sult Performing Organization Address [facility]/ZIP Co de Phone Number [facility] Department [place] [address] * Troponin I high-sensitivity series (baseline, 2hr, 4hr, 6hr) (11/13/2024 10:12 PM KELP OR SEAGRASS GATHERER) [facility] Trop I hs 18 <=35 ng/L Comment: Interpretive Data For further hscTnI resources including the diagnostic algorithm and an aid in interpretation, copy and paste this link: [email or web address] Current Interpretive Data last revised 2020. Blood 11/13/2024 10:1 2 PM KELP OR SEAGRASS GATHERER 11/13/2024 10:22 PM KELP OR SEAGRASS GATHERER Mark Ahumada EXHAUST EMISSIONS AUTOMOTIVE TECHNICIAN LAB BLOOD ORDERABLES Final Re sult Performing Organization Address [facility] Co de Phone Number [facility] [place] [address] * eGFR (11/13/2024 10:12 PM KELP OR SEAGRASS GATHERER) [facility] eGFR >90 >=60 mL/min/1. 73 m2 Comment: Interpretive Data Reference Interval Normal >/= 90 mL/min/1.73m2 Mildly decreased* 60 - 89 mL/min/1.73m2 Mildly to moderately decreased 45 - 59 mL/min/1.73m2 Moderately to severely decreased 30 - 44 mL/min/1.73m2 Severely decreased 15 - 29 mL/min/1.73m2 Kidney Failure < 15 mL/min/1.73m2 *Relative to young adult level Estimated glomerular [...] reviewed 2021. Blood 11/13/2024 10:1 2 PM KELP OR SEAGRASS GATHERER 11/13/2024 10:22 PM KELP OR SEAGRASS GATHERER us Mark Ahumada EXHAUST EMISSIONS AUTOMOTIVE TECHNICIAN LAB BLOOD ORDERABLES Final Re sult Performing Organization Address [facility] de Phone Number [facility] [place] [address] * (ABNORMAL) aPTT (11/13/2024 10:12 PM KELP OR SEAGRASS GATHERER) aPTT 27(L) 28 - 38 sec Comment: Interpretive Data Heparin therapeutic range: 66.0 - 100.0 seconds. Range based on correlation with therapeutic heparin activity range of 0.3 - 0.7 Units/mL. Current interpretive data was last revised on 2023. Blood 11/13/2024 10:1 2 PM KELP OR SEAGRASS GATHERER 11/13/2024 10:26 PM KELP OR SEAGRASS GATHERER Mark Ahumada EXHAUST EMISSIONS AUTOMOTIVE TECHNICIAN LAB BLOOD ORDERABLES Final Re sult Performing Organization Address [facility] de Phone Number [facility] [place] [address] * Protime-INR (11/13/2024 10:12 PM KELP OR SEAGRASS GATHERER) PT 11.9 9.7 - 13.0 sec INR 1.10 0.90 - 1.20 [facility] Comment: Interpretive data Oral anticoagulant therapeutic ranges: Venous thromboembolism prophylaxis or treatment: 2.0-3.0 CARDIOLOGY Standard range: 2.0-3.0 High-intensity range: 2.5-3.5 Refer to indication-specific guidelines for appropriate target ranges for prosthetic heart valve replacement. Current interpretive data was last revised on 2019. Blood 11/13/2024 10:1 2 PM KELP OR SEAGRASS GATHERER 11/13/2024 10:26 PM KELP OR SEAGRASS GATHERER Mark Ahumada EXHAUST EMISSIONS AUTOMOTIVE TECHNICIAN LAB BLOOD ORDERABLES Final Re sult Performing Organization Address [facility]/ZIP Co de Phone Number [facility] [place] [address] * (ABNORMAL) CBC without differential (11/13/2024 10:12 PM KELP OR SEAGRASS GATHERER) Pathologist [facility] WBC 11.5(H) 3.8 - 9.9 K/cumm Hgb 12.6(L) 13.0 - 17.5 g/dL [facility] Hct 36.5(L) 38.9 - 50.3 % [facility] Plt 226 150 - 400 K/cumm [facility] MPV 9.2 9.1 - 12.3 fL [facility] RBC 4.14(L) 4.30 - 5.80 M/cumm [facility] MCV 88.2 81.3 - 96.4 fL [facility] MCH 30.4 27.1 - 33.3 pg [facility] MCHC 34.5 32.3 - 35.7 g/dL [facility] RDW CV 12.7 11.1 - 14.9 % [facility] RDW SD 41.6 35.7 - 48.1 fL [facility] NRBC abs 0.00 0.00 - 0.01 K/cumm [facility] Blood 11/13/2024 10:1 2 PM KELP OR SEAGRASS GATHERER 11/13/2024 10:22 PM KELP OR SEAGRASS GATHERER Mark Ahumada EXHAUST EMISSIONS AUTOMOTIVE TECHNICIAN LAB BLOOD ORDERABLES Final Re sult Performing Organization Address [facility]/ZIP Co de Phone Number [facility] [place] [address] * Type and screen (11/13/2024 10:12 PM KELP OR SEAGRASS GATHERER) Pathologist [facility] Denice, indirect Negative ABO Rh A Positive [facility] Blood 11/13/2024 10:1 2 PM KELP OR SEAGRASS GATHERER 11/13/2024 11:05 PM KELP OR SEAGRASS GATHERER Narrative [facility] - 11/14/2024 12:02 AM KELP OR SEAGRASS GATHERER Has the patient had Daratumumab or Isatuximab in the past 6 months?->Unknown Mark Ahumada EXHAUST EMISSIONS AUTOMOTIVE TECHNICIAN LAB BLOOD BANK TEST ORDERABLE S Final Result Performing Organization Address [facility] Co de Phone Number [facility] [place] [address] * Phosphorus (11/13/2024 10:12 PM KELP OR SEAGRASS GATHERER) Pathologist [facility] Phosphorus, pl 2.9 2.3 - 4.5 mg/dL Blood 11/13/2024 10:1 2 PM KELP OR SEAGRASS GATHERER 11/13/2024 10:22 PM KELP OR SEAGRASS GATHERER Mark Ahumada EXHAUST EMISSIONS AUTOMOTIVE TECHNICIAN LAB BLOOD ORDERABLES Final Re sult Performing Organization Address [facility] de Phone Number [facility] [place] [address] * Magnesium (11/13/2024 10:12 PM KELP OR SEAGRASS GATHERER) Pathologist [facility] Magnesium 1.9 1.4 - 2.5 mg/dL Blood 11/13/2024 10:1 2 PM KELP OR SEAGRASS GATHERER 11/13/2024 10:22 PM KELP OR SEAGRASS GATHERER Mark Ahumada EXHAUST EMISSIONS AUTOMOTIVE TECHNICIAN LAB BLOOD ORDERABLES Final Re sult Performing Organization Address [facility] Co de Phone Number [facility] [place] [address] * Hemoglobin A1c (11/13/2024 10:12 PM KELP OR SEAGRASS GATHERER) Pathologist [facility] Hgb A1C 5.0 4.0 - 5.6 % Estimated Average Glucose 97 mg/dL [facility] Comment: The ADA recommends reporting an estimated Average Glucose (eAG) with all Hemoglobin A1c results using the equation derived from a study of 507 normal and diabetic adults. Minority populations were underrepresented and children were not included. (Diabetes Care 2020; 43(S1): S66-S76). The eAG is not equivalent to a fasting glucose. Blood 11/13/2024 10:1 2 PM KELP OR SEAGRASS GATHERER 11/13/2024 10:26 PM KELP OR SEAGRASS GATHERER us Isrrael Sharma MD LAB BLOOD ORDERABLES Final Result [facility] Department [place] [address] * (ABNORMAL) Comprehensive metabolic panel (11/13/2024 10:12 PM KELP OR SEAGRASS GATHERER) Sodium 137 135 - 145 mmol/L Potassium, pl 3.4 3.3 - 4.9 mmol/L [facility] Chloride 102 97 - 110 mmol/L [facility] CO2 27 22 - 32 mmol/L [facility] Anion gap 8 2 - 15 mmol/L [facility] BUN 8 6 - 25 mg/dL [facility] Creatinine 0.67(L) 0.80 - 1.30 mg/dL [facility] Glucose 104 70 - 199 mg/dL [facility] Comment: Interpretive Data Fasting glucose >/= 126 mg/dl is diagnostic for diabetes. Fasting is defined as no caloric intake [...] 2022. Calcium 8.0(L) 8.5 - 10.3 mg/dL [facility] Bilirubin, total 0.9 0.1 - 1.2 mg/dL [facility] Protein, pl 6.5 6.5 - 8.5 g/dL [facility] Albumin 3.7 3.5 - 5.0 g/dL [facility] Alk phos 73 40 - 130 Units/L [facility] ALT 27 7 - 55 Units/L [facility] AST 38 10 - 50 Units/L [facility] Blood 11/13/2024 10:1 2 PM KELP OR SEAGRASS GATHERER 11/13/2024 10:22 PM KELP OR SEAGRASS GATHERER us Mark Ahumada EXHAUST EMISSIONS AUTOMOTIVE TECHNICIAN LAB BLOOD ORDERABLES Final Re sult [facility] Department [place] [address] * Cytology (11/13/2024 10:04 PM KELP OR SEAGRASS GATHERER) Fluid (Cerebrospinal Fluid (Cytology)) 11/13/2024 10:04 PM KELP OR SEAGRASS GATHERER 11/14/2024 5:40 AM KELP OR SEAGRASS GATHERER Narrative PATHOLOGY [facility] - 11/14/2024 8:38 PM KELP OR SEAGRASS GATHERER EPIC results best viewed via link to PDF [facility] [place] [address] Note to Patients: This report may contain [...] the details. CYTOPATHOLOGY REPORT FINAL Patient Name: JARRELL RUBIO Gender: Chuck : 1940 (Age: 84) Address: [facility], [address] [place] [address] Hospital #: [id number] Taken:11/13/2024 Received:11/14/2024 Reported: 11/14/2024 Patient Type: [facility] Inpatient Service: Neurology Location: Physician(s): Sarbjit Saldivar DO FINAL DIAGNOSIS A. Cerebrospinal fluid: - Negative for malignancy pamo/11/14/2024 12:29 By this signature, I attest that the above diagnosis is based upon my personal examination of the slides(and/or other material indicated in the diagnosis). Jamal Cardenas DO Report Electronically Reviewed and Signed Out By Jamal Cardenas DO 11/14/2024 20:38:18 Sai Meraz, [facility](AS[facility]), [facility] Gross Description A. Cerebrospinal fluid: 7.5 ml clear fluid - 2 Diff-Quik stained [...] Surgical Pathology and Flow Cytometry Departments at [facility] as part of an ongoing type disk quality control supervisor program and in compliance with federally mandated regulations drawn from the Clinical Laboratory Improvement Act of 1988 (CLIA '88). Some of these tests rely on the use of analyte specific reagents and are subject to specific labeling requirements by the US Food and Drug Administration. Such diagnostic tests may only be performed in a facility that is certified by the Department of Health and Human Services as a high complexity laboratory under CLIA '88. The FDA has determined that such clearance or approval is not necessary. This test is used for clinical purposes. It should not be regarded as investigational or for research. Nevertheless, federal rules concerning the medical use of analyte specific reagents require that the following disclaimer be attached to the report: This test was developed and its performance characteristics determined by the Surgical Pathology and Flow Cytometry Departments of [facility]. It has not been cleared or approved by the U. S. Food and Drug Administration. Mark Ahumada NP LAB CYTOLOGY ORDERABLES Final Result PATHOLOGY [facility] 3rd Floor [place], [place] [phone] * ECG 12 lead (11/13/2024 9:58 PM KELP OR SEAGRASS GATHERER) Ventricular Rate EKG/Min 112 BPM [facility] Atrial Rate 112 BPM [facility] ND-Interval (MSEC) 144 ms [facility] QRS-Interval (MSEC) 140 ms [facility] QT-Interval (MSEC) 360 ms [facility] QTc 491 ms [facility] P [place] 61 degrees [facility] R [place] -73 degrees [facility] T [place] 37 degrees [facility] Diagnosis Sinus tachycardia with Premature atrial complexes with Aberrant conduction Right bundle branch block Left anterior fascicular block Bifascicular block Abnormal ECG No previous ECGs available Confirmed by Nahid Slaughter MD [id number]) on 11/15/2024 12:49:38 AM [facility] 11/13/2024 9:58 PM K[facility]P OR SEAGRASS GATHERER 11/15/2024 12:49 AM KELP OR SEAGRASS GATHERER Mark Ahumada [employer] EMISSIONS AUTOMOTIVE TECHNICIAN ECG ORDERABLES Final Result [facility] * POCT glucose (11/13/2024 9:27 PM KELP OR SEAGRASS GATHERER) Glucose, POC 104 70 - 199 mg/dL Blood 11/13/2024 9:27 PM KELP OR SEAGRASS GATHERER 11/13/2024 9:27 PM KELP OR SEAGRASS GATHERER Andrae Pop MD PhD LAB POCT ORDERA BLES - DEVICE Final Result [facility] Department [place] [address] from Last 3 Months Insurance [employer] MEDICARE [facility] [facility] MEDICARE Advance Directives For more information, please contact: [phone] * Full Code (Latest Code Status on File) Date Activated Date Inactivated Comments 11/13/2024 9:58 PM 12/01/2024 10:02 PM Care Teams Inventory Analyst Relationship Specialty Start Date End Date Von Woods MD [address] [facility] [place] [address] PCP - General Family Medicine 12/12/24 Jairo Ugalde MD [address] [facility] [address] [place] [id number] Referring Physician Hematology 05/15/24 Logan Pedro MD [address] [place] [address] Urology 06/05/24 [place] [address] [place] [id number] Radiation Oncologist Radiation Oncology 06/15/24
--- OUTSIDE RECORDS SUMMARY | 2025-01-04 16:04 | XMS_ITS | Clinical Summary ---
Author Organization [facility] Address [address] [place] [address] Care Team Providers Care Nuclear Medicine Technician Name Role Phone Jairo Ugalde MD Unavailable [phone] Logan Pedro MD Unavailable [phone] Mayo Haile MD Unavailable [phone] Von Woods MD Primary Care Provider [phone] Allergies No known active allergies Medications acetaminophen [...] 2 (two) times a day 12/01/2024 03/31/20 Active Active Problems Problem Noted Date Diagnosed Date Acute metabolic encephalopathy 11/14/2024 Seizure 11/13/2024 Prostate CA 06/22/2024 Cancer Staging:Clinical stage from 06/22/2024:Stage IIB(cT1c, cN0, cM0, PSA: 9.6, Grade Group: 2) - Signed by Mayo Haile MD on 06/22/2024 Encounters Date Type Department Care Team Description 12/19/2024 9:40 AM HYDRATOR Office Visit [facility] Surgery [address] [place] [address] Timothy Gomez NP Urinary retention (Primary Dx) 11/13/2024 9:22 PM HYDRATOR - 12/01/2024 2:24 PM HYDRATOR Hospital Encounter [address] [id number] Andrae Pop MD PhD Zachary, MD Celia Harman Rajat, MD Valtcheva, Manouela Vesselinova, MD PhD Ines Oswald MD PhD Seizure (HCC) (Primary Dx); Urinary retention Discharge Disposition: Discharge to [facility] 11/02/[address] [facility] Scheduling [address] [place] [address] Srini Lockwood MD Scheduling Appointments from Last 3 Months Surgical History Surgery [...] Comments Blood Pressure 145/76 12/01/2024 8:00 AM HYDRATOR Pulse 77 12/01/2024 8:00 AM HYDRATOR Temperature 36.3 C (97.3 F) 12/01/2024 8:00 AM HYDRATOR Respiratory Rate 16 12/01/2024 8:00 AM HYDRATOR Oxygen Saturation 95% 12/01/2024 8:00 AM HYDRATOR Inhaled Oxygen Concentration - - Weight 81.2 kg (179 lb 0.2 oz) 11/13/2024 9:29 P M HYDRATOR Height 176.5 cm (5' 9.5 ) 11/13/2024 9:29 PM HYDRATOR Body Mass Index 26.06 11/13/2024 9:29 PM HYDRATOR Plan of Treatment Health Maintenance Due Date Last Done Comments Depression Screening 1940 DTaP/Tdap/Td Vaccine (1 - Tdap) 1950 Hepatitis B Screening 1958 Well Visit 65+ 2004 Covid-19 Vaccine (2023-2 5 season) 2024 08/06/2023, 07/09/2022, 01/29/2022, Additional history exists Influenza Vaccine (#1) 2024 , 06/25/2022, 06/13/2021, Additional history exists Fall Risk Assessment 12/01/2025 12/01/2024, 07/12/20 24 Zoster Vaccine Completed 10/04/2018, 06/28/2018 Pneumococcal vaccine 65+ Completed 11/05/2023, 07/25 Procedures Procedure Name Priority Date/Time Associated Diagnosis Comments MEASURE POST VOID RESIDUAL Routine 12/19 9:57 AM HYDRATOR Urinary retention COVID-19 CORONAVIRUS RNA Routine 10:26 AM HYDRATOR CBC WITHOUT DIFFERENTIAL Routine 5:45 AM HYDRATOR EGFR Routine 11/29/2024 5:27 AM HYDRATOR BASIC METABOLIC PANEL Routine 11/29/2024 5:27 AM HYDRATOR EGFR Routine 11/26/2024 9:45 PM HYDRATOR BASIC METABOLIC PANEL Routine 11/26/2024 9:45 PM HYDRATOR CBC WITHOUT DIFFERENTIAL Routine 025 9:45 PM HYDRATOR URINALYSIS, MICROSCOPIC ONLY STAT 11/26/2024 6:10 PM HYDRATOR URINALYSIS AND REFLEX TO MICROSCOPIC AND CULTURE STAT 11/26/2024 6:10 PM HYDRATOR MAGNESIUM Routine 11/25/2024 8:46 PM HYDRATOR EGFR Routine 11/25/2024 8:46 PM HYDRATOR BASIC METABOLIC PANEL Routine 11/25/2024 8:46 PM HYDRATOR CBC WITHOUT DIFFERENTIAL Routine 025 8:46 PM HYDRATOR EGFR STAT 11/25/2024 5:57 AM HYDRATOR DIFFERENTIAL AUTO STAT 11/25/2024 5:57 AM HYDRATOR CBC WITH AUTO DIFFERENTIAL STAT 11/25 5:57 AM HYDRATOR BASIC METABOLIC PANEL STAT 11/25/2024 5:57 AM HYDRATOR EGFR Routine 11/25/2024 2:30 AM HYDRATOR CRITICAL RESULT CALLBACK CHEMISTRY Routine 11/25/2024 2:30 AM HYDRATOR CALCIUM, IONIZED Routine 11/25/2024 2:30 AM HYDRATOR BASIC METABOLIC PANEL Routine 11/25/2024 2:30 AM HYDRATOR EGFR Routine 11/23/2024 11:33 PM HYDRATOR PHOSPHORUS Routine 11/23/2024 11:33 PM HYDRATOR MAGNESIUM Routine 11/23/2024 11:33 PM HYDRATOR BASIC METABOLIC PANEL Routine 11/23/2024 11:33 PM HYDRATOR CBC WITHOUT DIFFERENTIAL Routine 025 11:33 PM HYDRATOR MRI BRAIN W CONTRAST IP Routine 11/23/2024 4:55 AM HYDRATOR EGFR Routine 11/22/2024 9:21 PM HYDRATOR PHOSPHORUS Routine 11/22/2024 9:21 PM HYDRATOR MAGNESIUM Routine 11/22/2024 9:21 PM HYDRATOR BASIC METABOLIC PANEL Routine 11/22/2024 9:21 PM HYDRATOR CBC WITHOUT DIFFERENTIAL Routine 025 9:21 PM HYDRATOR PAOLO-WEATHERS VIRUS VCA ANTIBODY PANEL Routine 11/22/2024 9:21 PM HYDRATOR MRI BRAIN WO CONTRAST IP Routine 11/22/2024 4:33 AM HYDRATOR EGFR Routine 11/21/2024 10:08 PM HYDRATOR PHOSPHORUS Routine 11/21/2024 10:08 PM HYDRATOR MAGNESIUM Routine 11/21/2024 10:08 PM HYDRATOR BASIC METABOLIC PANEL Routine 11/21/2024 10:08 PM HYDRATOR CBC WITHOUT DIFFERENTIAL Routine 025 10:08 PM HYDRATOR XR HIP RIGHT W PELVIS 2 OR 3 VIEWS IP Routine 11/21/2024 12:48 PM HYDRATOR EGFR Routine 11/20/2024 10:11 PM HYDRATOR PHOSPHORUS Routine 11/20/2024 10:11 PM HYDRATOR MAGNESIUM Routine 11/20/2024 10:11 PM HYDRATOR BASIC METABOLIC PANEL Routine 11/20/2024 10:11 PM HYDRATOR CBC WITHOUT DIFFERENTIAL Routine 025 10:[address] CHEST ABDOMEN PELVIS W CONTRAST Pending Discharge 11/20/2024 2:37 PM HYDRATOR EGFR Routine 11/19/2024 11:01 PM HYDRATOR BASIC METABOLIC PANEL Routine 11/19/2024 11:01 PM HYDRATOR CBC WITHOUT DIFFERENTIAL Routine 025 11:01 PM HYDRATOR MYELOPEROXIDASE ANTIBODY Routine 025 4:02 PM HYDRATOR PROTEINASE-3 ANTIBODY Routine 11/19/2024 4:02 PM HYDRATOR ANTI-NEUTROPHILIC CYTOPLASMIC ANTIBODY (ANCA) WITH REFLEX TO MPO AND PR3 ABS Routine 11/19/2024 4:02 PM HYDRATOR SRIDEVI ANTIBODY EVALUATION WITH REFLEX Routine 11/19/2024 4:02 PM HYDRATOR CLAUDIA QUALITATIVE WITH REFLEX TO CLAUDIA QUANTITATIVE Routine 11/19/2024 4:02 PM HYDRATOR CBC WITHOUT DIFFERENTIAL Routine 025 4:02 PM HYDRATOR EGFR Routine 11/18/2024 10:19 PM HYDRATOR BASIC METABOLIC PANEL Routine 11/18/2024 10:19 PM HYDRATOR CBC WITHOUT DIFFERENTIAL Routine 025 10:19 PM HYDRATOR CONTINUOUS VIDEO EEG Routine 11/18/2024 11:48 AM HYDRATOR EGFR Routine 11/16/2024 9:13 PM HYDRATOR MAGNESIUM Routine 11/16/2024 9:13 PM HYDRATOR BASIC METABOLIC PANEL Routine 11/16/2024 9:13 PM HYDRATOR CBC WITHOUT DIFFERENTIAL Routine 025 9:13 PM HYDRATOR CONTINUOUS VIDEO EEG Routine 11/16/2024 9:21 AM HYDRATOR POTASSIUM, WHOLE BLOOD STAT 6:35 AM HYDRATOR CREATINE KINASE (CK), TOTAL STAT 11/16/2024 5:28 AM HYDRATOR EGFR STAT 11/16/2024 5:28 AM HYDRATOR DIFFERENTIAL AUTO STAT 11/16/2024 5:28 AM HYDRATOR PHOSPHORUS STAT 11/16/2024 5:28 AM HYDRATOR MAGNESIUM STAT 11/16/2024 5:28 AM HYDRATOR CBC WITH AUTO DIFFERENTIAL STAT 11/16 5:28 AM HYDRATOR BASIC METABOLIC PANEL STAT 11/16/2024 5:28 AM HYDRATOR EGFR Timed 11/14/2024 8:57 PM HYDRATOR MAGNESIUM Timed 11/14/2024 8:57 PM HYDRATOR CREATINE KINASE (CK), TOTAL Routine 11/14/2024 8:57 PM HYDRATOR PHOSPHORUS Timed 11/14/2024 8:57 PM HYDRATOR COMPREHENSIVE METABOLIC PANEL Timed 11/14/2024 8:57 PM HYDRATOR CBC WITHOUT DIFFERENTIAL Routine 025 8:57 PM HYDRATOR TRANSTHORACIC ECHO (TTE) COMPLETE W DOPPLER/CF W CONTRAST Routine 11/14/2024 1:16 PM HYDRATOR BLOOD CULTURE STAT 11/14/2024 12:17 PM HYDRATOR BLOOD CULTURE STAT 11/14/2024 12:17 PM HYDRATOR MRI BRAIN W WO CONTRAST ED Urgent/IP Urgent 11/14/2024 10:32 AM HYDRATOR LIPID PANEL Timed 11/14/2024 6:27 AM HYDRATOR CREATINE KINASE (CK), TOTAL Timed 11/14/2024 6:27 AM HYDRATOR TROPONIN I HIGH-SENSITIVITY 6-HOUR Timed 11/14/2024 4:13 AM HYDRATOR TROPONIN I HIGH-SENSITIVITY 4-HOUR Timed 11/14/2024 2:24 AM HYDRATOR XR VENTRICULOPERITONEAL SHUNT SERIES (ADULT) ED Urgent/IP Urgent 11/14/2024 2:11 AM HYDRATOR TROPONIN I HIGH-SENSITIVITY 2-HOUR Timed 11/14/2024 12:25 AM HYDRATOR AL DIAGNOSTIC LUMBAR SPINAL PUNCTURE Routine 11/14/2024 12:16 AM HYDRATOR Seizure (HCC) B CHECK SAMPLE STAT 11/13/2024 11:40 PM HYDRATOR CELL COUNT W REFLEX DIFFERENTIAL, CSF STAT 11/13/2024 11:40 PM HYDRATOR CSF PROTEIN STAT 11/13/2024 11:40 PM HYDRATOR GLUCOSE, CSF STAT 11/13/2024 11:40 PM HYDRATOR CELL COUNT W REFLEX DIFFERENTIAL, CSF Routine 11/13/2024 11:40 PM HYDRATOR CYTOMEGALOVIRUS (CMV) PCR QUALITATIVE Routine 11/13/2024 11:40 PM HYDRATOR ENTEROVIRUS PCR Routine 11/13/2024 11:40 PM HYDRATOR HERPES SIMPLEX VIRUS (HSV) PCR Routine 11/13/2024 11:40 PM HYDRATOR VARICELLA ZOSTER VIRUS (VZV) PCR Routine 11/13/2024 11:40 PM HYDRATOR BACTERIAL CULTURE AND GRAM STAIN, CSF STAT 11/13/2024 11:40 PM HYDRATOR POCT GLUCOSE DEVICE Routine 11/13/2024 11:37 PM HYDRATOR XR CHEST 1 VIEW ED Urgent/IP Urgent 11/13/2024 11:32 PM HYDRATOR URINALYSIS, MICROSCOPIC ONLY STAT 11/13/2024 10:56 PM HYDRATOR URINE CULTURE STAT 11/13/2024 10:56 PM HYDRATOR URINALYSIS AND REFLEX TO MICROSCOPIC AND CULTURE STAT 11/13/2024 10:56 PM HYDRATOR LACTATE, WHOLE BLOOD STAT 11/13/2024 10:54 PM HYDRATOR CREATINE KINASE (CK), TOTAL STAT 11/13/2024 10:54 PM HYDRATOR HEMOGLOBIN A1C STAT 11/13/2024 10:12 PM HYDRATOR EGFR STAT 11/13/2024 10:12 PM HYDRATOR TROPONIN I HIGH-SENSITIVITY SERIES (BASELINE, 2HR, 4HR, 6HR) STAT 11/13/2024 10:12 PM HYDRATOR PROTIME-INR STAT 11/13/2024 10:12 PM HYDRATOR APTT STAT 11/13/2024 10:12 PM HYDRATOR TYPE AND SCREEN STAT 11/13/2024 10:12 PM HYDRATOR CBC WITHOUT DIFFERENTIAL STAT 025 10:12 PM HYDRATOR PHOSPHORUS STAT 11/13/2024 10:12 PM HYDRATOR MAGNESIUM STAT 11/13/2024 10:12 PM HYDRATOR COMPREHENSIVE METABOLIC PANEL STAT 11/13/2024 10:12 PM HYDRATOR CYTOLOGY Routine 11/13/2024 10:04 PM HYDRATOR ECG 12-LEAD STAT 11/13/2024 9:58 PM HYDRATOR POCT GLUCOSE DEVICE Routine 11/13/2024 9:27 PM HYDRATOR from Last 3 Months Results * Measure post void residual (12/19/2024 9:57 AM HYDRATOR) Narrative Niki Santiago, LEEANN - 12/19/2024 9:57 AM HYDRATOR Measurement of Post Void Residual urine and/or bladder capacity PVR = 189 ml us Timothy Gomez [facility] [employer] [facility]SING ASSESSMENTS Final Res ult * COVID-19 Coronavirus RNA Nasopharyngeal (12/01/2024 10:26 AM HYDRATOR) COVID-19 RNA Negative Negative [facility] Nasopharyngeal 12/01/2024 10 :26 AM HYDRATOR 12/01/2024 10:52 AM HYDRATOR Narrative [facility] - 12/01/2024 11:29 AM HYDRATOR Is the patient experiencing any symptoms consistent with COVID (eg. Fever, cough, shortness of breath)?->No What is the reason for testing?->Screening for post-acute care placement Interpretive data Testing performed by [facility] ([phone]). This test is performed using the [employer] Xpert Xpress CoV-2 plus assay. This is a real-time RT-PCR test intended for the qualitative detection of nucleic acid from the SARS-CoV-2. This assay has been cleared by the [facility] Food and Drug administration. The performance characteristics have been verified by the [facility]. Results must be considered in the clinical context, and a negative result does not rule out infection. Interpretive data last revised 2024. Interpretive data Testing performed by [facility] ([phone]). This test is performed using the [employer] Xpress CoV-2 plus assay. This is a real-time RT-PCR test intended for the qualitative detection of nucleic acid from the SARS-CoV-2. This assay has been cleared by the [facility] Food and Drug administration. The performance characteristics have been verified by the [facility]. Results must be considered in the clinical context, and a negative result does not rule out infection. Interpretive data last revised 2024. Lynne Dickerson [facility] LAB MICROBIOLOGY - GENERAL O RDERABLES Final Result [facility] [place] [address] [facility] * (ABNORMAL) CBC without differential (11/29/2024 5:45 AM HYDRATOR) WBC 7.5 3.8 - 9.9 K/cumm Hgb 11.2(L) 13.0 - 17.5 g/dL [facility] Hct 33.0(L) 38.9 - 50.3 % [facility] Plt 227 150 - 400 K/cumm [facility] MPV 9.7 9.1 - 12.3 fL [facility] RBC 3.67(L) 4.30 - 5.80 M/cumm [facility] MCV 89.9 81.3 - 96.4 fL [facility] MCH 30.5 27.1 - 33.3 pg [facility] MCHC 33.9 32.3 - 35.7 g/dL [facility] RDW CV 12.5 11.1 - 14.9 % [facility] RDW SD 40.7 35.7 - 48.1 fL [facility] NRBC abs 0.00 0.00 - 0.01 K/cumm [facility] Blood 11/29/2024 5:45 AM HYDRATOR 11/29/2024 6:25 AM HYDRATOR Mark Ahumada [facility] LAB BLOOD ORDERABLES Final Re sult Performing Organization Address City/[facility] Co de Phone Number [facility] [place] [address] * eGFR (11/29/2024 5:27 AM HYDRATOR) Pathologist [facility] [place] eGFR 87 >=60 mL/min/1. 73 m2 Comment: [...] last reviewed 2021. Blood 11/29/2024 5:27 AM HYDRATOR 11/29/2024 6:23 AM HYDRATOR Mark Ahumada [facility] [facility] LAB BLOOD ORDERABLES Final Re sult Performing Organization Address City/[facility]/ZIP Co de Phone Number [facility] Department [place] [address] * (ABNORMAL) Basic metabolic panel (11/29/2024 5:27 AM HYDRATOR) Pathologist [facility] Sodium 140 135 - 145 mmol/L Potassium, pl 3.2(L) 3.3 - 4.9 mmol/L [facility] Chloride 107 97 - 110 mmol/L [facility] CO2 27 22 - 32 mmol/L [facility] Anion gap 6 2 - 15 mmol/L [facility] BUN 25 6 - 25 mg/dL [facility] Creatinine 0.80 0.80 - 1.30 mg/dL [facility] Glucose 91 70 - 199 mg/dL [facility] [...] 2022. Calcium 8.4(L) 8.5 - 10.3 mg/dL [facility] Blood 11/29/2024 5:27 AM HYDRATOR 11/29/2024 6:23 AM HYDRATOR us Mark Ahumada NP LAB BLOOD ORDERABLES Final Re sult [facility] Department [place] [address] * eGFR (11/26/2024 9:45 PM HYDRATOR) Pathologist [facility] eGFR 90 >=60 mL/min/1. 73 m2 Comment: [...] last reviewed 2021. Blood 11/26/2024 9:45 PM HYDRATOR 11/26/2024 10:33 PM HYDRATOR Mark Ahumada NP LAB BLOOD ORDERABLES Final Re sult [facility] Department [place] [address] * (ABNORMAL) CBC without differential (11/26/2024 9:45 PM HYDRATOR) WBC 8.0 3.8 - 9.9 K/cumm Hgb 11.9(L) 13.0 - 17.5 g/dL [facility] Hct 35.2(L) 38.9 - 50.3 % [facility] Plt 223 150 - 400 K/cumm [facility] MPV 9.7 9.1 - 12.3 fL [facility] RBC 3.94(L) 4.30 - 5.80 M/cumm [facility] MCV 89.3 81.3 - 96.4 fL [facility] MCH 30.2 27.1 - 33.3 pg [facility] MCHC 33.8 32.3 - 35.7 g/dL [facility] RDW CV 12.4 11.1 - 14.9 % [facility] RDW SD 40.1 35.7 - 48.1 fL [facility] NRBC abs 0.00 0.00 - 0.01 K/cumm [facility] Blood 11/26/2024 9:45 PM HYDRATOR 11/26/2024 10:28 PM HYDRATOR us Mark E. Ahumada [facility] LAB BLOOD ORDERABLES Final Re sult [facility] Department [place] [address] * (ABNORMAL) Basic metabolic panel (11/26/2024 9:45 PM HYDRATOR) Sodium 144 135 - 145 mmol/L Potassium, pl 4.0 3.3 - 4.9 mmol/L [facility] Chloride 110 97 - 110 mmol/L [facility] CO2 27 22 - 32 mmol/L [facility] Anion gap 7 2 - 15 mmol/L [facility] BUN 20 6 - 25 mg/dL [facility] Creatinine 0.71(L) 0.80 - 1.30 mg/dL [facility] Glucose 109 70 - 199 mg/dL [facility] [...] 2022. Calcium 8.5 8.5 - 10.3 mg/dL [facility] Blood 11/26/2024 9:45 PM HYDRATOR 11/26/2024 10:33 PM HYDRATOR Mark Ahumada [facility] LAB BLOOD ORDERABLES Final Re sult Performing Organization Address [facility]/ZIP Co de Phone Number [facility] Department [place] [address] * (ABNORMAL) Urinalysis reflex to microscopic and culture Urine (11/26/2024 6:10 PM HYDRATOR) Color, ur Straw Yellow Clarity, ur Clear Clear [facility] Specific gravity, ur 1.025 1.003 - 1.030 [facility] pH, urine 6.5 [facility] Comment: Interpretive Data U rine pH is affected by diet, medications, systemic acid-base disturbances, and renal tubular function. pH may affect urinary stone formation. For example, urine pH below 6.0 may help reduce the tendency for calcium phosphate stones and pH greater than 6.0 may reduce the tendency for uric acid stone formation. Source: [facility] Current Interpretive Data was last revised on 2017 Protein, ur ql Trace Negative [facility] Glucose, ur ql Negative Negative [facility] Ketones, ur Negative Negative [facility] Bilirubin, ur Negative Negative [facility] Blood, ur Trace(A) Negative [facility] Urobilinogen, ur <2.0 <2.0 mg/dL [facility] Nitrite, ur Negative Negative [facility] Leukocyte esterase, ur 1+(A) Negative [facility] UA reflex comment Reflex to microscopic UA will be performed. [facility] Urine 11/26/2024 6:10 PM HYDRATOR 11/26/2024 6:20 PM HYDRATOR Ines Oswald MD PhD LAB MICROBIOLOGY - GENERAL ORDERABLES Final Result [facility] Department [place] [address] * (ABNORMAL) Urinalysis, microscopic only (11/26/2024 6:10 PM HYDRATOR) WBC, ur 6-10(A) 0 - 5 /HPF RBC, ur 11-20(A) 0 - 2 /HPF [facility] Epithelial cells, squamous, ur 1-5 0 - 5 /HPF [facility] Mucous, ur Present(A) [facility] Culture Reflex Comment Reflex conditions for urine culture (WBC >10) not met. [facility] Urine 11/26/2024 6:10 PM HYDRATOR 11/26/2024 6:20 PM HYDRATOR Ines Oswald MD PhD LAB URINE ORDERABLES Final Result Performing Organization Address City/[facility] Co de Phone Number [facility] Department [place] [address] * eGFR (11/25/2024 8:46 PM HYDRATOR) Pathologist [facility] eGFR 84 >=60 mL/min/1. 73 m2 Comment: [...] last reviewed 2021. Blood 11/25/2024 8:46 PM HYDRATOR 11/25/2024 9:42 PM HYDRATOR us Mark Ahumada NP LAB BLOOD ORDERABLES Final Re sult Performing Organization Address [facility] Co de Phone Number [facility] Department [place] [address] * (ABNORMAL) CBC without differential (11/25/2024 8:46 PM HYDRATOR) Pathologist [facility] WBC 7.1 3.8 - 9.9 K/cumm Hgb 12.3(L) 13.0 - 17.5 g/dL [facility] Hct 35.5(L) 38.9 - 50.3 % [facility] Plt 242 150 - 400 K/cumm [facility] MPV 9.8 9.1 - 12.3 fL [facility] RBC 4.08(L) 4.30 - 5.80 M/cumm [facility] MCV 87.0 81.3 - 96.4 fL [facility] MCH 30.1 27.1 - 33.3 pg [facility] MCHC 34.6 32.3 - 35.7 g/dL [facility] RDW CV 12.4 11.1 - 14.9 % [facility] RDW SD 39.5 35.7 - 48.1 fL [facility] NRBC abs 0.00 0.00 - 0.01 K/cumm [facility] Blood 11/25/2024 8:46 PM HYDRATOR 11/25/2024 9:44 PM HYDRATOR us Mark Ahumada [facility] LAB BLOOD ORDERABLES Final Re sult Performing Organization Address City/[facility]/ZIP Co de Phone Number [facility] [place] [address] * Magnesium (11/25/2024 8:46 PM HYDRATOR) Pathologist [facility] Magnesium 2.0 1.4 - 2.5 mg/dL Blood 11/25/2024 8:46 PM HYDRATOR 11/25/2024 9:42 PM HYDRATOR us Ines Oswald MD PhD LAB BLOOD ORDERABLES Final Result [facility] [place] [address] * Basic metabolic panel (11/25/2024 8:46 PM HYDRATOR) Sodium 143 135 - 145 mmol/L Potassium, pl 3.6 3.3 - 4.9 mmol/L [facility] Chloride 105 97 - 110 mmol/L [facility] CO2 31 22 - 32 mmol/L [facility] Anion gap 7 2 - 15 mmol/L [facility] BUN 22 6 - 25 mg/dL [facility] Creatinine 0.89 0.80 - 1.30 mg/dL [facility] Glucose 148 70 - 199 mg/dL [facility] [...] 2022. Calcium 8.9 8.5 - 10.3 mg/dL [facility] Blood 11/25/2024 8:46 PM HYDRATOR 11/25/2024 9:42 PM HYDRATOR us Mark Ahumada NP LAB BLOOD ORDERABLES Final Re sult [facility] [place] [address] * eGFR (11/25/2024 5:57 AM HYDRATOR) eGFR 90 >=60 mL/min/1. 73 m2 Comment: [...] last reviewed 2021. Blood 11/25/2024 5:57 AM HYDRATOR 11/25/2024 6:38 AM HYDRATOR Valeriano Marie MD PhD LAB BLOOD ORDERABLES Final Result [facility] [place] [address] * Differential, auto (11/25/2024 5:57 AM HYDRATOR) Neutrophil abs 2.9 1.5 - 6.5 K/cumm Imm gran abs 0.0 0.0 - 0.1 K/cumm [facility] Lymphocyte abs 1.1 0.8 - 3.3 K/cumm [facility] Monocyte abs 0.7 0.2 - 0.8 K/cumm [facility] Eosinophil abs 0.1 0.0 - 0.5 K/cumm [facility] Basophil abs 0.0 0.0 - 0.1 K/cumm [facility] Neutrophil pct 58.9 % [facility] Comment: Interpretive Data Percent cell count reference ranges are not reported, since discordance with absolute values may lead to misinterpretation of CBC data. Current Interpretive Data was last revised on 2018. Imm gran pct 0.2 % [facility] Comment: Interpretive Data Percent cell count reference ranges are not reported, since discordance with absolute values may lead to misinterpretation of CBC data. Current Interpretive Data was last revised on 2018. Lymphocyte pct 23.1 % [facility] Comment: Interpretive Data Percent cell count reference ranges are not reported, since discordance with absolute values may lead to misinterpretation of CBC data. Current Interpretive Data was last revised on 2018. Monocyte pct 14.6 % [facility] Comment: Interpretive Data Percent cell count reference ranges are not reported, since discordance with absolute values may lead to misinterpretation of CBC data. Current Interpretive Data was last revised on 2018. Eosinophil pct 2.6 % [facility] Comment: Interpretive Data Percent cell count reference ranges are not reported, since discordance with absolute values may lead to misinterpretation of CBC data. Current Interpretive Data was last revised on 2018. Basophil pct 0.6 % [facility] Comment: Interpretive Data Percent cell count reference ranges are not reported, since discordance with absolute values may lead to misinterpretation of CBC data. Current Interpretive Data was last revised on 2018. Blood 11/25/2024 5:57 AM HYDRATOR 11/25/2024 6:38 AM HYDRATOR Valeriano Marie MD PhD LAB BLOOD ORDERABLES Final Result [facility] [place] [address] * (ABNORMAL) CBC with auto differential (11/25/2024 5:57 AM HYDRATOR) WBC 4.9 3.8 - 9.9 K/cumm Hgb 12.4(L) 13.0 - 17.5 g/dL [facility] Hct 36.1(L) 38.9 - 50.3 % [facility] Plt 244 150 - 400 K/cumm [facility] MPV 9.8 9.1 - 12.3 fL [facility] RBC 4.12(L) 4.30 - 5.80 M/cumm [facility] MCV 87.6 81.3 - 96.4 fL [facility] MCH 30.1 27.1 - 33.3 pg [facility] MCHC 34.3 32.3 - 35.7 g/dL [facility] RDW CV 12.2 11.1 - 14.9 % [facility] RDW SD 39.3 35.7 - 48.1 fL [facility] NRBC abs 0.00 0.00 - 0.01 K/cumm [facility] Blood 11/25/2024 5:57 AM HYDRATOR 11/25/2024 6:38 AM HYDRATOR Valeriano Marie MD PhD LAB BLOOD ORDERABLES Final Result Performing Organization Address City/[facility]/ZIP Co de Phone Number CERNER [facility] [place] [address] * (ABNORMAL) Basic metabolic panel (11/25/2024 5:57 AM HYDRATOR) Sodium 146(H) 135 - 145 mmol/L Potassium, pl 3.1(L) 3.3 - 4.9 mmol/L [facility] Chloride 106 97 - 110 mmol/L [facility] CO2 30 22 - 32 mmol/L [facility] Anion gap 10 2 - 15 mmol/L [facility] BUN 18 6 - 25 mg/dL [facility] Creatinine 0.72(L) 0.80 - 1.30 mg/dL [facility] [...] 2022. Calcium 8.8 8.5 - 10.3 mg/dL [facility] Blood 11/25/2024 5:57 AM HYDRATOR 11/25/2024 6:38 AM HYDRATOR Valeriano Marie MD PhD LAB BLOOD ORDERABLES Final Result [facility] [place] [address] * eGFR (11/25/2024 2:30 AM HYDRATOR) Pathologist [facility] [place] eGFR See Comment >=60 Comment: Credited: Sample investigated and is suggestive of an improper collection (e.g., IV fluid contamination, improper tube type). Deleted at the Request of MANJINDER FISHER RN on 11/25/2024 04:43:07 HYDRATOR by STEPHANY . Interpretive Data Reference Interval [...] last reviewed 2021. Blood 11/25/2024 2:30 AM HYDRATOR 11/25/2024 3:51 AM HYDRATOR Mark Ahumada [address] [employer]ANDSCAPE ARCHITECT LAB BLOOD ORDERABLES Edited R esult - Final Performing Organization Address City/[facility]/ZIP Co de Phone Number [facility] [place] [address] * Critical Result Callback Chemistry (11/25/2024 2:30 AM HYDRATOR) Date Notified [id number] Time Notified 439 NADEGE DE LEON TestName KRIS DE LEON Called/Read Back MANJINDER [facility] Credentials RN [facility] MA Called By STEPHANY DE LEON Blood 11/25/2024 2:30 AM HYDRATOR 11/25/2024 3:51 AM HYDRATOR Mark Ahumada [address] [employer]SCAPE ARCHITECT LAB BLOOD ORDERABLES Final Re sult [facility] [place] [address] * Calcium, ionized (11/25/2024 2:30 AM HYDRATOR) Calcium, Ionized 4.54 4.50 - 5.10 mg/dL Blood 11/25/2024 2:30 AM HYDRATOR 11/25/2024 3:46 AM HYDRATOR us Valeriano Mraie MD PhD LAB BLOOD ORDERABLES Final Result [facility] [place] [address] * Basic metabolic panel (11/25/2024 2:30 AM HYDRATOR) Pathologist [facility] [place] Sodium See Comment 135 - 145 mmol/L Comment:Credited: Sample inv estigated and is suggestive of an improper collection (e.g., IV fluid contamination, improper tube type). Deleted at the Request of MANJINDER FISHER RN on 11/25/2024 04:43:07 HYDRATOR by EW . Potassium, pl See Comment 3.3 - 4.9 mmol/L [facility] Comment: Repeated and Verified Credited: Sample investigated and is suggestive of an improper collection (e.g., IV fluid contamination, improper tube type). Deleted at the Request of MANJINDER FISHER RN on 11/25/2024 04:43:07 HYDRATOR by EW . Chloride See Comment 97 - 110 mmol/L [facility] Comment:Credited: Sample inv estigated and is suggestive of an improper collection (e.g., IV fluid contamination, improper tube type). Deleted at the Request of MANJINDER FISHER RN on 11/25/2024 04:43:07 HYDRATOR by EW . CO2 See Comment 22 - 32 mmol/L [facility] Comment:Credited: Sample inv estigated and is suggestive of an improper collection (e.g., IV fluid contamination, improper tube type). Deleted at the Request of MANJINDER FISHER RN on 11/25/2024 04:43:07 HYDRATOR by EW . Anion gap See Comment 2 - 15 mmol/L [facility] Comment:Credited: Sample inv estigated and is suggestive of an improper collection (e.g., IV fluid contamination, improper tube type). Deleted at the Request of MANJINDER FISHER RN on 11/25/2024 04:43:07 HYDRATOR by EW . BUN See Comment 6 - 25 mg/dL [facility] Comment:Credited: Sample inv estigated and is suggestive of an improper collection (e.g., IV fluid contamination, improper tube type). Deleted at the Request of MANJINDER FISHER RN on 11/25/2024 04:43:07 HYDRATOR by EW . Creatinine See Comment 0.80 - 1.30 mg/dL [facility] Comment:Credited: Sample inv estigated and is suggestive of an improper collection (e.g., IV fluid contamination, improper tube type). Deleted at the Request of MANJINDER FISHER RN on 11/25/2024 04:43:07 HYDRATOR by EW . Glucose See Comment 70 - 199 mg/dL [facility] Comment: Credited: Sample investigated and is suggestive of an improper collection (e.g., IV fluid contamination, improper tube type). Deleted at the Request of MANJINDER FISHER RN on 11/25/2024 04:43:07 HYDRATOR by EW . Interpretive Data Fasting glucose [...] Calcium See Comment 8.5 - 10.3 mg/dL [facility] Comment: Repeated and Verified Credited: Sample investigated and is suggestive of an improper collection (e.g., IV fluid contamination, improper tube type). Deleted at the Request of MANJINDER FISHER RN on 11/25/2024 04:43:07 HYDRATOR by EW . Blood 11/25/2024 2:30 AM HYDRATOR 11/25/2024 3:40 AM HYDRATOR us Mark Ahumada [address] [employer]SCAPE ARCHITECT LAB BLOOD ORDERABLES Edited R esult - Final Performing Organization Address City/[facility]/ZIP Co de Phone Number [facility] [place] [address] * eGFR (11/23/2024 11:33 PM HYDRATOR) Pathologist [facility] [place] eGFR 85 >=60 mL/min/1. 73 m2 Comment: [...] reviewed 2021. Blood 11/23/2024 11:3 3 PM HYDRATOR 11/24/2024 12:42 AM HYDRATOR Mark Ah[address]ada [address] [employer]SCAPE ARCHITECT LAB BLOOD ORDERABLES Final Re sult Performing Organization Address City/[facility]/ZIP Co de Phone Number [facility] Department [place] [address] * (ABNORMAL) CBC without differential (11/23/2024 11:33 PM HYDRATOR) [facility] WBC 4.8 3.8 - 9.9 K/cumm Hgb 11.8(L) 13.0 - 17.5 g/dL [facility] Hct 34.6(L) 38.9 - 50.3 % [facility] Plt 221 150 - 400 K/cumm [facility] MPV 9.3 9.1 - 12.3 fL [facility] RBC 3.90(L) 4.30 - 5.80 M/cumm [facility] MCV 88.7 81.3 - 96.4 fL [facility] MCH 30.3 27.1 - 33.3 pg [facility] MCHC 34.1 32.3 - 35.7 g/dL [facility] RDW CV 12.3 11.1 - 14.9 % [facility] RDW SD 39.5 35.7 - 48.1 fL [facility] NRBC abs 0.00 0.00 - 0.01 K/cumm [facility] Blood 11/23/2024 11:3 3 PM HYDRATOR 11/24/2024 12:42 AM HYDRATOR Mark Ahumada [address] [employer]SCAPE ARCHITECT LAB BLOOD ORDERABLES Final Re sult Performing Organization Address City/[facility] Co de Phone Number [facility] [place] [address] * Phosphorus (11/23/2024 11:33 PM HYDRATOR) Phosphorus, pl 3.5 2.3 - 4.5 mg/dL Blood 11/23/2024 11:3 3 PM HYDRATOR 11/24/2024 12:42 AM HYDRATOR Valeriano Marie MD PhD LAB BLOOD ORDERABLES Final Result [facility] Department [place] [address] * Magnesium (11/23/2024 11:33 PM HYDRATOR) Magnesium 2.2 1.4 - 2.5 mg/dL Blood 11/23/2024 11:3 3 PM HYDRATOR 11/24/2024 12:42 AM HYDRATOR Valeriano Marie MD PhD LAB BLOOD ORDERABLES Final Result Performing Organization Address [facility]/ZIP Co de Phone Number [facility] [place] [address] * (ABNORMAL) Basic metabolic panel (11/23/2024 11:33 PM HYDRATOR) Sodium 143 135 - 145 mmol/L Potassium, pl 3.6 3.3 - 4.9 mmol/L [facility] Chloride 106 97 - 110 mmol/L [facility] CO2 29 22 - 32 mmol/L [facility] Anion gap 8 2 - 15 mmol/L [facility] BUN 24 6 - 25 mg/dL [facility] Creatinine 0.87 0.80 - 1.30 mg/dL [facility] Glucose 115 70 - 199 mg/dL [facility] [...] 2022. Calcium 8.2(L) 8.5 - 10.3 mg/dL [facility] Blood 11/23/2024 11:3 3 PM HYDRATOR 11/24/2024 12:42 AM HYDRATOR us Mark Ahumada [address] [employer]SCAPE ARCHITECT LAB BLOOD ORDERABLES Final Re sult Performing Organization Address [facility]/ZIP Co de Phone [facility] [place] [address] * MRI Brain W Contrast (11/23/2024 4:55 AM HYDRATOR) Anatomical Region Laterality Modality Head and Neck N/A Magnetic Resonan ce 11/23/2024 7:48 AM HYDRATOR Impressions 11/23/2024 12:13 PM HYDRATOR There is no significant contrast enhancement associated [...] Garrett Gold M.D. Narrative 11/23/2024 12:13 PM HYDRATOR EXAMINATION: Magnetic resonance imaging (MRI) of the [...] it. Electronically signed by: Garrett Gold M.D. Valeriano Marie MD PhD IMG MRI AL OCEDURES Final Result * eGFR (11/22/2024 9:21 PM HYDRATOR) eGFR 90 >=60 mL/min/1. 73 m2 Comment: [...] last reviewed 2021. Blood 11/22/2024 9:21 PM HYDRATOR 11/22/2024 9:48 PM HYDRATOR Mark Ah[address] [employer]SCAPE ARCHITECT LAB BLOOD ORDERABLES Final Re sult Performing Organization Address [facility] Co de Phone Number [facility] [place] [address] * (ABNORMAL) Paolo-Weathers virus (EBV) antibody panel Blood (11/22/2024 9:21 PM HYDRATOR) Pathologist [facility] [place] EBV nuclear Ab Positive(A) Negative Comment:Indicates the presen ce of detectable IgG antibody to EBV Nuclear Antigen. EBV VCA IgG Positive(A) Negative [facility] Comment:Indicates the presen ce of antibody; 90% of the adult population will have been infected with EBV sometime in the past. EBV VCA IgM Negative Negative [facility] Comment:No detectable IgM an tibody to EBV-VCA. A negative result indicates no current infection with EBV. If clinical suspicion of acute EBV infection is present, testing should be repeated after one week. EBV interp Past Infection [facility] Blood 11/22/2024 9:21 PM HYDRATOR 11/22/2024 9:48 PM HYDRATOR us Valeriano toribio MD PhD LAB MICROBIOLOGY - GENERAL ORDERABLES Final Result Performing Organization Address [facility] Co de Phone Number [facility] [place] [address] * (ABNORMAL) CBC without differential (11/22/2024 9:21 PM HYDRATOR) WBC 4.5 3.8 - 9.9 K/cumm Hgb 12.1(L) 13.0 - 17.5 g/dL [facility] Hct 35.5(L) 38.9 - 50.3 % [facility] Plt 209 150 - 400 K/cumm [facility] MPV 9.3 9.1 - 12.3 fL [facility] RBC 3.99(L) 4.30 - 5.80 M/cumm [facility] MCV 89.0 81.3 - 96.4 fL [facility] MCH 30.3 27.1 - 33.3 pg [facility] MCHC 34.1 32.3 - 35.7 g/dL [facility] RDW CV 12.2 11.1 - 14.9 % [facility] RDW SD 40.0 35.7 - 48.1 fL [facility] NRBC abs 0.00 0.00 - 0.01 K/cumm [facility] Blood 11/22/2024 9:21 PM HYDRATOR 11/22/2024 9:48 PM HYDRATOR Mark Ah[address] [employer]SCAPE ARCHITECT LAB BLOOD ORDERABLES Final Re sult [facility] [place] [address] * Phosphorus (11/22/2024 9:21 PM HYDRATOR) Phosphorus, pl 3.2 2.3 - 4.5 mg/dL Blood 11/22/2024 9:21 PM HYDRATOR 11/22/2024 9:48 PM HYDRATOR Valeriano Marie MD PhD LAB BLOOD ORDERABLES Final Result [facility] [place] [address] * Magnesium (11/22/2024 9:21 PM HYDRATOR) Magnesium 1.9 1.4 - 2.5 mg/dL Blood 11/22/2024 9:21 PM HYDRATOR 11/22/2024 9:48 PM HYDRATOR us Valeriano Marie MD PhD LAB BLOOD ORDERABLES Final Result Performing Organization Address [facility]/ZIP Co de Phone Number [facility] [place] [address] * (ABNORMAL) Basic metabolic panel (11/22/2024 9:21 PM HYDRATOR) [facility] Sodium 144 135 - 145 mmol/L Potassium, pl 4.0 3.3 - 4.9 mmol/L [facility] Chloride 109 97 - 110 mmol/L [facility] CO2 25 22 - 32 mmol/L [facility] Anion gap 10 2 - 15 mmol/L [facility] BUN 17 6 - 25 mg/dL [facility] Creatinine 0.72(L) 0.80 - 1.30 mg/dL [facility] Glucose 84 70 - 199 mg/dL [facility] [...] 2022. Calcium 8.5 8.5 - 10.3 mg/dL [facility] Blood 11/22/2024 9:21 PM HYDRATOR 11/22/2024 9:48 PM HYDRATOR us Mark Ahumada [address] [employer]ANDSCAPE ARCHITECT LAB BLOOD ORDERABLES Final Re sult Performing Organization Address [facility]/ZIP Co de Phone Number [facility] [place] [address] * MRI Brain WO Contrast (11/22/2024 4:33 AM HYDRATOR) Anatomical Region Laterality Modality Head and Neck N/A Magnetic Resonan ce 11/22/2024 6:29 AM HYDRATOR Impressions 11/22/2024 6:29 AM HYDRATOR 1. Interval development of focus of mildly [...] Garrett Gold M.D. Narrative 11/22/2024 6:29 AM HYDRATOR EXAMINATION: Magnetic resonance imaging (MRI) of the [...] identified. Electronically signed by: Garrett Gold M.D. us Valeriano Marie MD PhD IMG MRI AL OCEDURES Final Result * eGFR (11/21/2024 10:08 PM HYDRATOR) Pathologist [facility] [place] eGFR 87 >=60 mL/min/1. 73 m2 Comment: [...] reviewed 2021. Blood 11/21/2024 10:0 8 PM HYDRATOR 11/21/2024 10:52 PM HYDRATOR us Mark Ah[address]ada [address] [employer]SCAPE ARCHITECT LAB BLOOD ORDERABLES Final Re sult [facility] [place] [address] * (ABNORMAL) CBC without differential (11/21/2024 10:08 PM HYDRATOR) Pathologist [facility] [place] WBC 5.5 3.8 - 9.9 K/cumm Hgb 12.9(L) 13.0 - 17.5 g/dL [facility] Hct 37.6(L) 38.9 - 50.3 % [facility] Plt 233 150 - 400 K/cumm [facility] MPV 9.4 9.1 - 12.3 fL [facility] RBC 4.23(L) 4.30 - 5.80 M/cumm [facility] MCV 88.9 81.3 - 96.4 fL [facility] MCH 30.5 27.1 - 33.3 pg [facility] MCHC 34.3 32.3 - 35.7 g/dL [facility] RDW CV 12.5 11.1 - 14.9 % [facility] RDW SD 40.9 35.7 - 48.1 fL [facility] NRBC abs 0.00 0.00 - 0.01 K/cumm [facility] Blood 11/21/2024 10:0 8 PM HYDRATOR 11/21/2024 10:53 PM HYDRATOR us Mark Ahumada [address] [employer]SCAPE ARCHITECT LAB BLOOD ORDERABLES Final Re sult Performing Organization Address [facility] Co de Phone Number [facility] [place] [address] * Phosphorus (11/21/2024 10:08 PM HYDRATOR) Phosphorus, pl 2.8 2.3 - 4.5 mg/dL Blood 11/21/2024 10:0 8 PM HYDRATOR 11/21/2024 10:52 PM HYDRATOR us Valeriano Marie MD PhD LAB BLOOD ORDERABLES Final Result Performing Organization Address City/[facility] Co de Phone Number [facility] [place] [address] * Magnesium (11/21/2024 10:08 PM HYDRATOR) Magnesium 2.0 1.4 - 2.5 mg/dL Blood 11/21/2024 10:0 8 PM HYDRATOR 11/21/2024 10:52 PM HYDRATOR Valeriano Marie MD PhD LAB BLOOD ORDERABLES Final Result Performing Organization Address City/[facility] Co de Phone Number [facility] [place] [address] * (ABNORMAL) Basic metabolic panel (11/21/2024 10:08 PM HYDRATOR) Sodium 146(H) 135 - 145 mmol/L Potassium, pl 3.8 3.3 - 4.9 mmol/L [facility] Chloride 110 97 - 110 mmol/L [facility] CO2 26 22 - 32 mmol/L [facility] Anion gap 10 2 - 15 mmol/L [facility] BUN 12 6 - 25 mg/dL [facility] Creatinine 0.78(L) 0.80 - 1.30 mg/dL [facility] Glucose 92 70 - 199 mg/dL [facility] [...] 2022. Calcium 8.5 8.5 - 10.3 mg/dL [facility] Blood 11/21/2024 10:0 8 PM HYDRATOR 11/21/2024 10:52 PM HYDRATOR Mark Ahumada NP LAB BLOOD ORDERABLES Final Re sult [facility] [place] [address] * XR Hip Right 2 or 3 Views W Pelvis (11/21/2024 12:48 PM HYDRATOR) Anatomical Region Laterality Modality Lower Extremities, Hip, Pelvis Right C omputed Radiography 11/21/2024 1:16 PM HYDRATOR Impressions 11/21/2024 1:16 PM HYDRATOR Severe right hip osteoarthritis. Electronically signed by: Senthil Shen M.D. Narrative 11/21/2024 1:16 PM HYDRATOR XR HIP RIGHT 2 OR 3 VIEWS [...] Severe right hip osteoarthritis. Electronically signed by: eSnthil Shen M.D. Valeriano Marie MD PhD IMG XR PRO CEDURES Final Result * eGFR (11/20/2024 10:11 PM HYDRATOR) eGFR >90 >=60 mL/min/1. 73 m2 Comment: [...] reviewed 2021. Blood 11/20/2024 10:1 1 PM HYDRATOR 11/20/2024 10:34 PM HYDRATOR Mark Ah[address] [employer]SCAPE ARCHITECT LAB BLOOD ORDERABLES Final Re sult Performing Organization Address City/[facility] Co de Phone Number [facility] [place] [address] * (ABNORMAL) CBC without differential (11/20/2024 10:11 PM HYDRATOR) [facility] WBC 5.3 3.8 - 9.9 K/cumm Hgb 12.8(L) 13.0 - 17.5 g/dL [facility] Hct 36.8(L) 38.9 - 50.3 % [facility] Plt 216 150 - 400 K/cumm [facility] MPV 9.2 9.1 - 12.3 fL [facility] RBC 4.16(L) 4.30 - 5.80 M/cumm [facility] MCV 88.5 81.3 - 96.4 fL [facility] MCH 30.8 27.1 - 33.3 pg [facility] MCHC 34.8 32.3 - 35.7 g/dL [facility] RDW CV 12.2 11.1 - 14.9 % [facility] RDW SD 39.5 35.7 - 48.1 fL [facility] NRBC abs 0.00 0.00 - 0.01 K/cumm [facility] Blood 11/20/2024 10:1 1 PM HYDRATOR 11/20/2024 10:35 PM HYDRATOR Mark Ah[address]ada [address] [employer]SCAPE ARCHITECT LAB BLOOD ORDERABLES Final Re sult Performing Organization Address City/[facility]/ZIP Co de Phone Number [facility] [place] [address] * Phosphorus (11/20/2024 10:11 PM HYDRATOR) Phosphorus, pl 2.5 2.3 - 4.5 mg/dL Blood 11/20/2024 10:1 1 PM HYDRATOR 11/20/2024 10:34 PM HYDRATOR Valeriano Marie MD PhD LAB BLOOD ORDERABLES Final Result Performing Organization Address City/[facility]/ZIP Co de Phone Number [facility] [place] [address] * Magnesium (11/20/2024 10:11 PM HYDRATOR) [facility] Magnesium 1.9 1.4 - 2.5 mg/dL Blood 11/20/2024 10:1 1 PM HYDRATOR 11/20/2024 10:34 PM HYDRATOR Valeriano Marie MD PhD LAB BLOOD ORDERABLES Final Result Performing Organization Address [facility] de Phone Number [facility] [place] [address] * (ABNORMAL) Basic metabolic panel (11/20/2024 10:11 PM HYDRATOR) [facility] Sodium 142 135 - 145 mmol/L Potassium, pl 3.4 3.3 - 4.9 mmol/L [facility] Chloride 108 97 - 110 mmol/L [facility] CO2 26 22 - 32 mmol/L [facility] Anion gap 8 2 - 15 mmol/L [facility] BUN 12 6 - 25 mg/dL [facility] Creatinine 0.67(L) 0.80 - 1.30 mg/dL [facility] Glucose 108 70 - 199 mg/dL [facility] [...] 2022. Calcium 8.4(L) 8.5 - 10.3 mg/dL [facility] Blood 11/20/2024 10:1 1 PM HYDRATOR 11/20/2024 10:34 PM HYDRATOR us Mark Ahumada NP LAB BLOOD ORDERABLES Final Re sult [facility] [place] [address] * CT Chest Abdomen Pelvis W Contrast (11/20/2024 2:37 PM HYDRATOR) Anatomical Region Laterality Modality Body N/A Computed Tomogra phy 11/20/2024 3:33 PM HYDRATOR Impressions 11/20/2024 5:49 PM HYDRATOR 1. No evidence of metastatic disease in [...] Krishna MD, PHD Narrative 11/20/2024 5:49 PM HYDRATOR EXAMINATION: Computed tomography of the chest, abdomen [...] signed by: Jose Eduardo Krishna MD, PHD [facility] Ryan Marie MD PhD IMG CT PRO CEDURES Final Result * eGFR (11/19/2024 11:01 PM HYDRATOR) eGFR 90 >=60 mL/min/1. 73 m2 Comment: [...] reviewed 2021. Blood 11/19/2024 11:0 1 PM HYDRATOR 11/19/2024 11:40 PM HYDRATOR Mark Ahumada [address] [employer]ANDSCAPE ARCHITECT LAB BLOOD ORDERABLES Final Re sult Performing Organization Address City/[facility]/ZIP Co de Phone Number [facility] [place] [address] * (ABNORMAL) CBC without differential (11/19/2024 11:01 PM HYDRATOR) [facility] WBC 4.9 3.8 - 9.9 K/cumm Hgb 12.2(L) 13.0 - 17.5 g/dL [facility] Hct 36.9(L) 38.9 - 50.3 % [facility] Plt 216 150 - 400 K/cumm [facility] MPV 9.4 9.1 - 12.3 fL [facility] RBC 4.00(L) 4.30 - 5.80 M/cumm [facility] MCV 92.3 81.3 - 96.4 fL [facility] MCH 30.5 27.1 - 33.3 pg [facility] MCHC 33.1 32.3 - 35.7 g/dL [facility] RDW CV 12.6 11.1 - 14.9 % [facility] RDW SD 42.5 35.7 - 48.1 fL [facility] NRBC abs 0.00 0.00 - 0.01 K/cumm [facility] Blood 11/19/2024 11:0 1 PM HYDRATOR 11/19/2024 11:40 PM HYDRATOR Mark Ahumada [address] LANDSCAPE ARCHITECT LAB BLOOD ORDERABLES Final Re sult [facility] [place] [address] * (ABNORMAL) Basic metabolic panel (11/19/2024 11:01 PM HYDRATOR) Pathologist [facility] Sodium 146(H) 135 - 145 mmol/L Potassium, pl 3.3 3.3 - 4.9 mmol/L [facility] Chloride 111(H) 97 - 110 mmol/L [facility] CO2 27 22 - 32 mmol/L [facility] Anion gap 8 2 - 15 mmol/L [facility] BUN 16 6 - 25 mg/dL [facility] Creatinine 0.71(L) 0.80 - 1.30 mg/dL [facility] Glucose 112 70 - 199 mg/dL [facility] [...] 2022. Calcium 8.3(L) 8.5 - 10.3 mg/dL [facility] Blood 11/19/2024 11:0 1 PM HYDRATOR 11/19/2024 11:40 PM HYDRATOR us Mark Ahumada [address] LANDSCAPE ARCHITECT LAB BLOOD ORDERABLES Final Re sult [facility] [place] [address] * CLAUDIA ab ql w/rflx to CLAUDIA qn (11/19/2024 4:02 PM HYDRATOR) CLAUDIA Negative Comment: Interpretive Data Normal range [...] revised on 2020. Blood 11/19/2024 4:02 PM HYDRATOR 11/19/2024 4:18 PM HYDRATOR Valeriano Marie MD PhD LAB BLOOD ORDERABLES Final Result Performing Organization Address City/[facility] Co de Phone Number [facility] [place] [address] * SRIDEVI ab eval w/reflex (11/19/2024 4:02 PM HYDRATOR) SRIDEVI ab Negative Negative Comment: Interpretive Data Positive Screens will be reflexed to specific testing for Antibodies against the following antigens: Angela-1 Ab, APPEALS WRITER Ab, Scl-70 Ab, Pope Ab, SS-A/Ro Ab, and SS- B/La Ab. Further testing for dsDNA, Centromere, or Ribosomal P antibodies is suggested in patient with a positive screen and negative specific antibodies. Current interpretive data was last revised on 2023. Blood 11/19/2024 4:02 PM HYDRATOR 11/19/2024 4:18 PM HYDRATOR Valeriano Marie MD PhD LAB BLOOD ORDERABLES Final Result Performing Organization Address [facility] [place] [address] * PR3 - proteinase 3, Ab (11/19/2024 4:02 PM HYDRATOR) Pathologist [facility] Proteinase 3 ab <0.2 <=0.9 Ab Index Comment: Interpretive Data Negative: <1 Ab Index Positive: > or = 1 Ab Index Current interpretive data was last revised on 2017. Blood 11/19/2024 4:02 PM HYDRATOR 11/19/2024 4:18 PM HYDRATOR Valeriano Marie MD PhD LAB BLOOD ORDERABLES Final Result Performing Organization Address City/[facility]/ZIP Co de Phone Number [facility] [place] [address] * MPO - myeloperoxidase antibody (11/19/2024 4:02 PM HYDRATOR) [facility] Myeloperoxidase ab <0.2 <=0.9 Ab Index Comment: Interpretive Data Negative: <1 Ab Index Positive: > or = 1 Ab Index Current interpretive data was last revised on 2017. Blood 11/19/2024 4:02 PM HYDRATOR 11/19/2024 4:18 PM HYDRATOR Valeriano Marie MD PhD LAB BLOOD ORDERABLES Final Result Performing Organization Address [facility] Co de Phone Number [facility] [place] [address] * (ABNORMAL) Anti-Neutrophilic Cytoplasmic Antibody (ANCA) with Reflex to MPO and PR3 Abs (54:02 PM HYDRATOR) [facility] ANCA Indetermi cathleen(A) Negative Comment:Indeterminate for P- ANCA - Results by antigen specific immunoassay (MPO & PR3) to follow. May indicate ulcerative colitis or Crohn's disease. Blood 11/19/2024 4:02 PM HYDRATOR 11/19/2024 4:18 PM HYDRATOR Valeriano Marie MD PhD LAB BLOOD ORDERABLES Final Result Performing Organization Address City/[facility] de Phone Number [facility] [place] [address] * (ABNORMAL) CBC without differential (11/19/2024 4:02 PM HYDRATOR) [facility] WBC 5.1 3.8 - 9.9 K/cumm Hgb 13.0 13.0 - 17.5 g/dL [facility] Hct 37.9(L) 38.9 - 50.3 % [facility] Plt 216 150 - 400 K/cumm [facility] MPV 9.2 9.1 - 12.3 fL [facility] RBC 4.29(L) 4.30 - 5.80 M/cumm [facility] MCV 88.3 81.3 - 96.4 fL [facility] MCH 30.3 27.1 - 33.3 pg [facility] MCHC 34.3 32.3 - 35.7 g/dL [facility] RDW CV 12.4 11.1 - 14.9 % [facility] RDW SD 40.3 35.7 - 48.1 fL [facility] NRBC abs 0.00 0.00 - 0.01 K/cumm [facility] Blood 11/19/2024 4:02 PM HYDRATOR 11/19/2024 4:19 PM HYDRATOR us Mark Ahumada NP LAB BLOOD ORDERABLES Final Re sult [facility] [place] [address] * eGFR (11/18/2024 10:19 PM HYDRATOR) eGFR 86 >=60 mL/min/1. 73 m2 Comment: [...] reviewed 2021. Blood 11/18/2024 10:1 9 PM HYDRATOR 11/18/2024 11:00 PM HYDRATOR Mark Ahumada [address] [employer]ANDSCAPE ARCHITECT LAB BLOOD ORDERABLES Final Re sult Performing Organization Address City/[facility]/ZIP Co de Phone Number [facility] [place] [address] * (ABNORMAL) CBC without differential (11/18/2024 10:19 PM HYDRATOR) [facility] WBC 6.6 3.8 - 9.9 K/cumm Hgb 13.4 13.0 - 17.5 g/dL [facility] Hct 38.6(L) 38.9 - 50.3 % [facility] Plt 229 150 - 400 K/cumm [facility] MPV 9.4 9.1 - 12.3 fL [facility] RBC 4.38 4.30 - 5.80 M/cumm [facility] MCV 88.1 81.3 - 96.4 fL [facility] MCH 30.6 27.1 - 33.3 pg [facility] MCHC 34.7 32.3 - 35.7 g/dL [facility] RDW CV 12.7 11.1 - 14.9 % [facility] RDW SD 41.3 35.7 - 48.1 fL [facility] NRBC abs 0.00 0.00 - 0.01 K/cumm [facility] Blood 11/18/2024 10:1 9 PM HYDRATOR 11/18/2024 11:00 PM HYDRATOR Mark Ahumada [address] [employer]ANDSCAPE ARCHITECT LAB BLOOD ORDERABLES Final Re sult [facility] [place] [address] * Basic metabolic panel (11/18/2024 10:19 PM HYDRATOR) [facility] Sodium 142 135 - 145 mmol/L Potassium, pl 3.7 3.3 - 4.9 mmol/L [facility] Chloride 105 97 - 110 mmol/L [facility] CO2 26 22 - 32 mmol/L [facility] Anion gap 11 2 - 15 mmol/L [facility] BUN 21 6 - 25 mg/dL [facility] Creatinine 0.83 0.80 - 1.30 mg/dL [facility] Glucose 91 70 - 199 mg/dL [facility] [...] 2022. Calcium 8.8 8.5 - 10.3 mg/dL [facility] Blood 11/18/2024 10:1 9 PM HYDRATOR 11/18/2024 11:00 PM HYDRATOR Mark Ahumada NP LAB BLOOD ORDERABLES Final Re sult [facility] [place] [address] * Continuous Video EEG (11/18/2024 11:48 AM HYDRATOR) Anatomical Region Laterality Modality EEG Narrative 11/19/2024 12:34 PM HYDRATOR Video-EEG Report Patient Name: Jarrell Rubio [facility] Medical Record Number (MRN): [id number] [facility] Record: No Soarian MRN Date of (): [...] digital EEG were recorded continuously with a [employer] formerly [employer] EEG acquisition system. This was a 32 [...] Resul t * eGFR (11/16/2024 9:13 PM HYDRATOR) eGFR 88 >=60 mL/min/1. 73 m2 Comment: [...] last reviewed 2021. Blood 11/16/2024 9:13 PM HYDRATOR 11/16/2024 9:46 PM HYDRATOR us Mark Ahumada NP LAB BLOOD ORDERABLES Final Re sult [facility] [place] [address] * (ABNORMAL) CBC without differential (11/16/2024 9:13 PM HYDRATOR) WBC 8.3 3.8 - 9.9 K/cumm Hgb 13.0 13.0 - 17.5 g/dL [facility] Hct 37.9(L) 38.9 - 50.3 % [facility] Plt 223 150 - 400 K/cumm [facility] MPV 9.1 9.1 - 12.3 fL [facility] RBC 4.33 4.30 - 5.80 M/cumm [facility] MCV 87.5 81.3 - 96.4 fL [facility] MCH 30.0 27.1 - 33.3 pg [facility] MCHC 34.3 32.3 - 35.7 g/dL [facility] RDW CV 12.4 11.1 - 14.9 % [facility] RDW SD 39.7 35.7 - 48.1 fL [facility] NRBC abs 0.00 0.00 - 0.01 K/cumm [facility] Blood 11/16/2024 9:13 PM HYDRATOR 11/16/2024 9:47 PM HYDRATOR Mark Ahumada [address] [employer]SCAPE ARCHITECT LAB BLOOD ORDERABLES Final Re sult Performing Organization Address City/[facility]/ZIP Co de Phone Number [facility] [place] [address] * Magnesium (11/16/2024 9:13 PM HYDRATOR) [facility] Magnesium 2.0 1.4 - 2.5 mg/dL Blood 11/16/2024 9:13 PM HYDRATOR 11/16/2024 9:46 PM HYDRATOR Emma Regalado [address] [employer]ANDSCAPE ARCHITECT LAB BLOOD ORDERABLES Final Result Performing Organization Address [facility] Co de Phone Number [facility] [place] [address] * (ABNORMAL) Basic metabolic panel (11/16/2024 9:13 PM HYDRATOR) [facility] Sodium 138 135 - 145 mmol/L Potassium, pl 3.5 3.3 - 4.9 mmol/L [facility] Chloride 100 97 - 110 mmol/L [facility] CO2 27 22 - 32 mmol/L [facility] Anion gap 11 2 - 15 mmol/L [facility] BUN 12 6 - 25 mg/dL [facility] Creatinine 0.76(L) 0.80 - 1.30 mg/dL [facility] Glucose 89 70 - 199 mg/dL [facility] [...] 2022. Calcium 8.6 8.5 - 10.3 mg/dL [facility] Blood 11/16/2024 9:13 PM HYDRATOR 11/16/2024 9:46 PM HYDRATOR us Mark Ahumada NP LAB BLOOD ORDERABLES Final Re sult [facility] [place] [address] * Continuous Video EEG (11/16/2024 9:21 AM HYDRATOR) Anatomical Region Laterality Modality EEG Narrative 11/16/2024 2:58 PM HYDRATOR Video-EEG Report Patient Name: Jarrell Rubio [facility] Medical Record Number (MRN): [id number] [facility] Record: No Soarian MRN Date of (): [...] digital EEG were recorded continuously with a [employer] formerly [employer] EEG acquisition system. This was a 32 [...] Signing Attending: Bryan Boyer MD Mark Ahumada NP NEUROLOGY ORDERABLES Final Re sult * Potassium, whole blood (11/16/2024 6:35 AM HYDRATOR) Pathologist [facility] Potassium, bld 4.0 3.3 - 4.9 mmol/L Blood 11/16/2024 6:35 AM HYDRATOR 11/16/2024 6:41 AM HYDRATOR Emma Regalado NP LAB BLOOD ORDERABLES Final Result [facility] [place] [address] * eGFR (11/16/2024 5:28 AM HYDRATOR) eGFR 89 >=60 mL/min/1. 73 m2 Comment: [...] last reviewed 2021. Blood 11/16/2024 5:28 AM HYDRATOR 11/16/2024 5:42 AM HYDRATOR us Isrrael Sharma MD LAB BLOOD ORDERABLES Final Result [facility] [place] [address] * (ABNORMAL) Differential, auto (11/16/2024 5:28 AM HYDRATOR) Neutrophil abs 5.9 1.5 - 6.5 K/cumm Imm gran abs 0.0 0.0 - 0.1 K/cumm [facility] Lymphocyte abs 0.7(L) 0.8 - 3.3 K/cumm [facility] Monocyte abs 1.2(H) 0.2 - 0.8 K/cumm [facility] Eosinophil abs 0.1 0.0 - 0.5 K/cumm [facility] Basophil abs 0.0 0.0 - 0.1 K/cumm [facility] Neutrophil pct 74.2 % [facility] [...] revised on 2018. Blood 11/16/2024 5:28 AM HYDRATOR 11/16/2024 5:42 AM HYDRATOR Isrrael Sharma MD LAB BLOOD ORDERABLES Final Result [facility] [place] [address] * (ABNORMAL) CBC with auto differential (11/16/2024 5:28 AM HYDRATOR) WBC 7.9 3.8 - 9.9 K/cumm Hgb [...] [facility] Blood 11/16/2024 5:28 AM HYDRATOR 11/16/2024 5:42 AM HYDRATOR Isrrael Sharma MD LAB BLOOD ORDERABLES Final Result Performing Organization Address [facility] Co de Phone Number [facility] [place] [address] * Phosphorus (11/16/2024 5:28 AM HYDRATOR) Phosphorus, pl 3.1 2.3 - 4.5 mg/dL Blood 11/16/2024 5:28 AM HYDRATOR 11/16/2024 5:42 AM HYDRATOR Isrrael Sharma MD LAB BLOOD ORDERABLES Final Result Performing Organization Address [facility] de Phone Number [facility] [address] * Magnesium (11/16/2024 5:28 AM HYDRATOR) Magnesium 1.7 1.4 - 2.5 mg/dL Blood 11/16/2024 5:28 AM HYDRATOR 11/16/2024 5:42 AM HYDRATOR Isrrael Sharma MD LAB BLOOD ORDERABLES Final Result Performing Organization Address [facility] [place] [address] * (ABNORMAL) Creatine kinase (CK), total (11/16/2024 5:28 AM HYDRATOR) CK 672(H) 40 - 300 Units/L Blood 11/16/2024 5:28 AM HYDRATOR 11/16/2024 5:42 AM HYDRATOR Isrrael Sharma MD LAB BLOOD ORDERABLES Final Result [facility] [place] [address] * (ABNORMAL) Basic metabolic panel (11/16/2024 5:28 AM HYDRATOR) Sodium 140 135 - 145 mmol/L Potassium, [...] [facility] Blood 11/16/2024 5:28 AM HYDRATOR 11/16/2024 5:42 AM HYDRATOR Isrrael Sharma MD LAB BLOOD ORDERABLES Final Result [facility] [place] [address] * eGFR (11/14/2024 8:57 PM HYDRATOR) eGFR 88 >=60 mL/min/1. 73 m2 Comment: [...] last reviewed 2021. Blood 11/14/2024 8:57 PM HYDRATOR 11/14/2024 9:20 PM HYDRATOR Mark Ahumada [address] [employer]SCAPE ARCHITECT LAB BLOOD ORDERABLES Final Re sult [facility] [place] [address] * (ABNORMAL) CBC without differential (11/14/2024 8:57 PM HYDRATOR) WBC 8.1 3.8 - 9.9 K/cumm Hgb [...] [facility] Blood 11/14/2024 8:57 PM HYDRATOR 11/14/2024 9:19 PM HYDRATOR Mark Ahumada [address] [employer]ANDSCAPE ARCHITECT LAB BLOOD ORDERABLES Final Re sult Performing Organization Address [facility] Co de Phone Number [facility] [address] * Phosphorus (11/14/2024 8:57 PM HYDRATOR) Phosphorus, pl 3.1 2.3 - 4.5 mg/dL Blood 11/14/2024 8:57 PM HYDRATOR 11/14/2024 9:12 PM HYDRATOR Mark Ahumada [address] [employer]SC[address] ARCHITECT LAB BLOOD ORDERABLES Final Re sult Performing Organization Address [facility] Co de Phone Number [facility] [address] * Magnesium (11/14/2024 8:57 PM HYDRATOR) Magnesium 2.1 1.4 - 2.5 mg/dL Blood 11/14/2024 8:57 PM HYDRATOR 11/14/2024 9:12 PM HYDRATOR Isrrael Sharma MD LAB BLOOD ORDERABLES Final Result Performing Organization Address [facility] Co de Phone Number [facility] [address] * (ABNORMAL) Creatine kinase (CK), total (11/14/2024 8:57 PM HYDRATOR) CK 817(H) 40 - 300 Units/L Blood 11/14/2024 8:57 PM HYDRATOR 11/14/2024 9:19 PM HYDRATOR us Antolin Yancey NP LAB BLOOD ORDERABLES nal Result [facility] [place] [address] * (ABNORMAL) Comprehensive metabolic panel (11/14/2024 8:57 PM HYDRATOR) Sodium 139 135 - 145 mmol/L Potassium, pl 3.4 3.3 - 4.9 mmol/L [facility] Chloride 105 97 - 110 mmol/L [facility] CO2 27 22 - 32 mmol/L [facility] Anion gap 7 2 - 15 mmol/L [facility] BUN 8 6 - 25 mg/dL [facility] Creatinine 0.76(L) 0.80 - 1.30 mg/dL [facility] Glucose 93 70 - 199 mg/dL [facility] [...] 2022. Calcium 8.1(L) 8.5 - 10.3 mg/dL [facility] Bilirubin, total 1.3(H) 0.1 - 1.2 mg/dL [facility] Protein, pl 5.8(L) 6.5 - 8.5 g/dL [facility] Albumin 3.3(L) 3.5 - 5.0 g/dL [facility] Alk phos 68 40 - 130 Units/L [facility] ALT 24 7 - 55 Units/L [facility] AST 51(H) 10 - 50 Units/L [facility] Blood 11/14/2024 8:57 PM HYDRATOR 11/14/2024 9:12 PM HYDRATOR us Mark Ahumada [address] [employer]APE ARCHITECT LAB BLOOD ORDERABLES Final Re sult [facility] [place] [address] * TRANSTHORACIC ECHO (TTE) COMPLETE W DOPPLER/CF W CONTRAST (11/14/2024 1:16 PM HYDRATOR) LV EF % CONS SCIMAGE Anatomical Region Laterality Modality Ultrasound 11/14/2024 12:1 5 PM HYDRATOR Narrative 11/14/2024 4:47 PM HYDRATOR [facility] [place] [address] Transthoracic Echocardiographic Report Patient Name: JARRELL RUBIO MELVIN : 1940 (84y 4m) Gender: M Study Date: 11/14/2024 12:15:56 PM Ht(Inch): 69 Wt(Lb): 179.01 BSA: 1.99 Transporter Radiology: Clay Mckeon RDCS Location: [id number] Order Provider: ANTOLIN YANCEY BMI: 26.43 BP: 140 / 70 Quality: The study images were of technically good quality. Ref Provider: ANTOLIN YANCEY PROCEDURES: Echocardiographic Report: ([id number], [id number]) Transthoracic complete echo with contrast, 2D, spectral [...] LA Length 4C 3.77 cm PV Accel [place] 9.13 m/s LA Volume 2C 41.8 ml [...] By: Alban Hampton MD 11/14/2024 4:46:36 PM HYDRATOR Electronically Signed By: Alban Hampton MD 11/14/2024 4:46:36 PM HYDRATOR Wall [facility] - Resting Procedure Note Alban Bennett MD - 11/14/2024 [facility] Card[facility] [place] [address] Transthoracic Echocardiographic Report Patient Name: JARRELL RUBIO MELVIN : 1940 (84y 4m) Gender: M Study Date: 11/14/2024 12:15:56 PM Ht(Inch): 69 Wt(Lb): 179.01 BSA: 1.99 Transporter Radiology: Clay Mckeon RDCS Location: [id number] Order Provider:ANTOLIN YANCEY BMI: 26.43 BP: 140 / 70 Quality: The study images were oftechnically good quality. Ref Provider: ANTOLIN YANCEY PROCEDURES: Echocardiographic Report: ([id number], [id number]) Transthoracic complete echo withcontrast, 2D, spectral and [...] [ 62.00 - 150.00 ] MV Decel Nhgu660.46 msec [ 104.00 - 258.00 ] ESV [...] cm/m2 [ 10.00 - 18.00 ] RA Ujueux81.51 ml RA Volume Index12.32 ml/m2 AoR Diam [...] By: Alban Hampton MD 11/14/2024 4:46:36 PM HYDRATOR Electronically Signed By: Alban Hampton MD 11/14/2024 4:46:36 PM HYDRATOR [facility] - Resting us Antolin Yancey NP CV ECHO PROCEDURES Angela l Result * Blood culture Blood (11/14/2024 12:17 PM HYDRATOR) Report Final Report: No growth Blood 11/14/2024 12:1 7 PM HYDRATOR 11/14/2024 12:27 PM HYDRATOR Narrative [facility] - 11/18/2024 4:00 PM HYDRATOR Collection->Peripheral 1. Blood cultures are incubated for [...] performance characteristics have been verified by the [facility]. For questions about this culture, contact the Microbiology Laboratory at [phone]. Interpretive data was last revised on 24. Isrrael Sharma MD LAB MICROBIOLOGY - GENERAL ORDERABLES Final Result Performing Organization Address City/[facility]/ZIP Co de Phone Number [facility] [place] [address] * Blood culture Blood (11/14/2024 12:17 PM HYDRATOR) Report Final Report: No growth Blood 11/14/2024 12:1 7 PM HYDRATOR 11/14/2024 12:27 PM HYDRATOR Narrative [facility] - 11/18/2024 4:00 PM HYDRATOR Collection->Peripheral From second site 1. Blood cultures [...] performance characteristics have been verified by the [facility]. For questions about this culture, contact the Microbiology Laboratory at [phone]. Interpretive data was last revised on 24. Isrrael Sharma MD LAB MICROBIOLOGY - GENERAL ORDERABLES Final Result Performing Organization Address City/[facility]/ZIP Co de Phone Number [facility] [place] [address] * MRI Brain W WO Contrast (11/14/2024 10:32 AM HYDRATOR) Anatomical Region Laterality Modality Head and Neck N/A Magnetic Resonan ce 11/14/2024 10:5 0 AM HYDRATOR Impressions 11/14/2024 11:20 AM HYDRATOR 1. No acute intracranial process. 2. Small [...] Abdon Cespedes M.D. Narrative 11/14/2024 11:20 AM HYDRATOR EXAMINATION: Magnetic resonance imaging (MRI) of the [...] Creatine kinase (CK), total (11/14/2024 6:27 AM HYDRATOR) CK 782(H) 40 - 300 Units/L Blood 11/14/2024 6:27 AM HYDRATOR 11/14/2024 6:48 AM HYDRATOR us Mark Ahumada NP LAB BLOOD ORDERABLES Final Re sult [facility] [place] [address] * (ABNORMAL) Lipid panel (11/14/2024 6:27 AM HYDRATOR) Cholesterol 199 30 - 199 mg/dL Comment: [...] on 2018. Triglycerides 69 <=149 mg/dL [facility] Comment: Interpretive Data Ages < [...] on 2018. HDL 48 >=40 mg/dL [facility] Comment: Interpretive Data Ages < [...] on 2018. LDL, calculated 138(H) <=129 mg/dL [facility] Comment: Interpretive Data Ages < [...] NCEP Expert Panel. Circulation 2004;110:227 3. Ramiro M et al. LEEANN Cardiol. 2020 February 22;5(5):540-548. doi: 10.1001/[email or web address] Current Interpretive Data was last revised on 2024. Non-HDL Cholesterol 151 mg/dL [facility] Comment: Interpretive Data Ages < or = [...] last revised on 2018. Chol/HDL ratio 4 [facility] Blood 11/14/2024 6:27 AM HYDRATOR 11/14/2024 6:48 AM HYDRATOR us Isrrael Sharma MD LAB BLOOD ORDERABLES Final Result [facility] [place] [address] * Troponin I high-sensitivity 6-hour (11/14/2024 4:13 AM HYDRATOR) Trop I hs 25 <=35 ng/L Comment: Interpretive Data For further hscTnI resources including the diagnostic algorithm and an aid in interpretation, copy and paste this link: https://[email or web address].testcatContextool.org/show/hsTrop-1 Current Interpretive Data last revised 2020. Trop I hs delta 7 ng/L [facility] Trop I hs interp Equivocal [facility] Blood 11/14/2024 4:13 AM HYDRATOR 11/14/2024 4:34 AM HYDRATOR Mark Ahumada [address]APE ARCHITECT LAB BLOOD ORDERABLES Final Re sult Performing Organization Address City/[facility]/ZIP Co de Phone Number [facility] [address] * Troponin I high-sensitivity 4-hour (11/14/2024 2:24 AM HYDRATOR) Trop I hs 25 <=35 ng/L Comment: Interpretive Data For further hscTnI resources including the diagnostic algorithm and an aid in interpretation, copy and paste this link: https://[email or web address].testcatContextool.org/show/hsTrop-1 Current Interpretive Data last revised 2020. Trop I hs delta 7 ng/L [facility] Trop I hs interp Equivocal [facility] Blood 11/14/2024 2:24 AM HYDRATOR 11/14/2024 2:38 AM HYDRATOR Mark Ahumada [address] [employer] ARCHITECT LAB BLOOD ORDERABLES Final Re sult [facility] [place] [address] * XR Ventriculoperitoneal Shunt Series (11/14/2024 2:11 AM HYDRATOR) Anatomical Region Laterality Modality Head and Neck N/A Computed Radiogr aphy 11/14/2024 2:24 AM HYDRATOR Impressions 11/14/2024 9:20 AM HYDRATOR Stone catheter in place. No additional retained radiopaque foreign body. Dictated by: Veronique [place] MD The radiology attending physician has personally reviewed this study, and had reviewed and/or edited this written report and agrees with it. Electronically signed by: Augusto Evans M.D, PHD Narrative 11/14/2024 9:20 AM HYDRATOR EXAMINATION: XR VENTRICULOPERITONEAL SHUNT SERIES HISTORY: Rule [...] Electronically signed by: Augusto Evans M.D, PHD us Mark Ahumada [address] LANDSCAPE ARCHITECT IMG XR PROCEDURES Final Resul t * Troponin I high-sensitivity 2-hour (11/14/2024 12:25 AM HYDRATOR) Trop I hs 25 <=35 ng/L Comment: Interpretive Data For further hscTnI resources including the diagnostic algorithm and an aid in interpretation, copy and paste this link: https://bjhlab.testcatalog.org/show/hsTrop-1 Current Interpretive Data last revised 2020. Trop I hs delta 7 ng/L [facility] Trop I hs interp Equivocal [facility] Blood 11/14/2024 12:2 5 AM HYDRATOR 11/14/2024 12:44 AM HYDRATOR us Mark Ahumada [address] [employer]ANDSCAPE ARCHITECT LAB BLOOD ORDERABLES Final Re sult [facility] [place] [address] * AL DIAGNOSTIC LUMBAR SPINAL PUNCTURE (11/14/2024 12:16 AM HYDRATOR) Narrative Andrae Pop MD PhD - 11/14/2024 12:16 AM HYDRATOR Andrae Pop MD PhD 11/14/2024 12:18 AM Lumbar Puncture Date/Time: 11/14/2024 12:16 AM Performed by: Andrae Pop MD PhD Authorized by: Andrae Pop MD PhD [place] Protocol: RN Notified of Procedure: yes Informed consent: Risks, benefits, alternatives discussed and patient/operations support representative/guardian agrees and accepts Patient's stated name/ [...] and matched to patient identification: n/a Responsible democrat for transporting specimen(s) to lab determined: n/a Andrae Pop MD PhD [facility] DE ORDERABLES Final Result * Cytomegalovirus (CMV) PCR qualitative CSF (11/13/2024 11:40 PM HYDRATOR) Pathologist [facility] [place] CMV DNA Not Detected Not Detected [facility] Comment: Interpretive Data: This assay tests for the presence of CMV. This test is laboratory developed and its performance characteristics were determined by the performing laboratory in a manner consistent with CLIA requirements. This test has not been cleared or approved by the U.S. Food and Drug Administration. Current Interpretive Data was last revised on 2020. CSF 11/13/2024 11:4 0 PM HYDRATOR 11/22/2024 2:59 PM HYDRATOR Valeriano toribio MD PhD LAB MICROBIOLOGY - GENERAL ORDERABLES Final Result [facility] [place] [address] [facility] * Varicella Zoster Virus (VZV) PCR CSF (11/13/2024 11:40 PM HYDRATOR) Pathologist [facility] [place] VZV DNA Not Detected Not Detected [facility] Comment: Interpretative Data: Testing performed by [facility] ([phone]). This assay is performed using the [employer] Simplex[employer] VZV Direct assay. This is a qualitative, real-time PCR assay for the detection of Varicella-zoster virus (VZV). This assay has been cleared by the U.S. Food and Drug Administration for performance on cerebrospinal fluid and lesion swabs. The performance characteristics have been verified by the [facility]. Results must be considered in the clinical context, and a negative result does not rule out infection. Interpretive data last revised 2021. CSF 11/13/2024 11:4 0 PM HYDRATOR 11/14/2024 5:00 PM HYDRATOR Isrrael Sharma MD LAB MICROBIOLOGY - GENERAL ORDERABLES Final Result Performing Organization Address City/[facility] Co de Phone Number NADEGE [facility] [place] [address] [facility] * Herpes Simplex Virus (HSV) PCR CSF (11/13/2024 11:40 PM HYDRATOR) [facility] HSV DNA Not Detected Not Detected [facility] Comment: Interpretive Data This assay [...] on 02/21/2019 CSF 11/13/2024 11:4 0 PM HYDRATOR 11/14/2024 5:00 PM HYDRATOR Isrrael Sharma MD LAB MICROBIOLOGY - GENERAL ORDERABLES Final Result Performing Organization Address City/[facility] de Phone Number CERNER [facility] [place] [address] [facility] * Enterovirus PCR CSF (11/13/2024 11:40 PM HYDRATOR) [facility] Enterovirus RNA, CSF Not Detected Not Detected [facility] Comment: Interpretive Data Testing performed by [facility] Infectious Disease Laboratory using the [employer] MDX enterovirus assay. This assay detects RNA from enterovirus using Real Time PCR. This assay is laboratory developed and is not cleared by the [place] Food and Drug Administration. The performance characteristics have been verified by the [facility]. If negative results are obtained in patients less than two years of age with symptoms and laboratory findings consistent with enterovirus, testing for parechovirus may be appropriate. Current Interpretive Data was last revised on 2024. CSF 11/13/2024 11:4 0 PM HYDRATOR 11/22/2024 2:59 PM HYDRATOR Valeriano toribio MD PhD LAB MICROBIOLOGY - GENERAL ORDERABLES Final Result Performing Organization Address City/[facility] Co de Phone Number [facility] [place] [address] BJ * Cell count w/reflex diff, CSF (11/13/2024 11:40 PM HYDRATOR) Tube Number, CSF Tube 1 Color, CSF Colorless Colorless [facility] Clarity, CSF Clear Clear [facility] Xanthochromia , CSF Absent Absent [facility] Nucleated cells, CSF 0 0 - 5 /cumm [facility] RBC, CSF 0 0 - 0 /cumm [facility] CSF 11/13/2024 11:4 0 PM HYDRATOR 11/13/2024 11:52 PM HYDRATOR us Mark Ahumada [address] LANDSCAPE ARCHITECT LAB BODY FLUIDS AND STOOLS OR DERABLES Final Result Performing Organization Address City/[facility] Co de Phone Number [facility] Department [place] [address] * Cell count w/reflex diff, CSF (11/13/2024 11:40 PM HYDRATOR) Tube Number, CSF Tube 4 Color, CSF Colorless Colorless [facility] Clarity, CSF Clear Clear [facility] Xanthochromia , CSF Absent Absent [facility] Nucleated cells, CSF 0 0 - 5 /cumm [facility] RBC, CSF 0 0 - 0 /cumm [facility] CSF 11/13/2024 11:4 0 PM HYDRATOR 11/13/2024 11:52 PM HYDRATOR us Mark Ahumada [address] LANDSCAPE ARCHITECT LAB BODY FLUIDS AND STOOLS OR DERABLES Final Result Performing Organization Address [facility] de Phone Number [facility] [place] [address] * Check Sample (11/13/2024 11:40 PM HYDRATOR) Pathologist [facility] ABO Rh A Positive [facility] HCLL OTHER 11/13/2024 11:4 0 PM HYDRATOR 11/13/2024 11:59 PM HYDRATOR Andrae Pop MD PhD LAB BLOOD ORDER DAR Final Result Performing Organization Address [facility] Phone Number [facility] [place] [address] [facility] * Bacterial culture and gram stain, CSF CSF (11/13/2024 11:40 PM HYDRATOR) [facility] Direct Specimen Exam Stain: Cytospin Gram stain shows: No polymorphonuclear leukocytes seen. No organisms seen. Report Final Report: No growth [facility] CSF 11/13/2024 11:4 0 PM HYDRATOR 11/13/2024 11:54 PM HYDRATOR Narrative [facility] - 11/19/2024 11:51 AM HYDRATOR Testing performed by [facility] ([phone]). us Mark Ahumada [address] LANDSCAPE ARCHITECT LAB MICROBIOLOGY - GENERAL OR DERABLES Final Result Performing Organization Address [facility] de Phone Number [facility] [place] [address] * (ABNORMAL) Protein, total, CSF (11/13/2024 11:40 PM HYDRATOR) [facility] Protein, CSF 60(H) 5 - 45 mg/dL Comment:Reviewed CSF 11/13/2024 11:4 0 PM HYDRATOR 11/13/2024 11:52 PM HYDRATOR Mark Ahumada [address] LANDSCAPE ARCHITECT LAB BODY FLUIDS AND STOOLS OR DERABLES Final Result Performing Organization Address [facility] de Phone Number [facility] [address] * Glucose, CSF (11/13/2024 11:40 PM HYDRATOR) Glucose, CSF 77 mg/dL Comment: Reviewed Reference Interval Information: CSF Glucose should be 60-66% of the most current plasma glucose concentration (milligrams/deciliter) CLIN. CHEM. 41/3, 343-360 (1994), Clinical Utility of Biochemical Analysis of Cerebrospinal Fluid, Noble Ram and Kasi Flores. Current interpretive data was last revised on 2019. CSF 11/13/2024 11:4 0 PM HYDRATOR 11/13/2024 11:52 PM HYDRATOR Mark Ahumada [address] LANDSCAPE ARCHITECT LAB BODY FLUIDS AND STOOLS OR DERABLES Final Result Performing Organization Address [facility] Phone Number [facility] [place] [address] * POCT glucose (11/13/2024 11:37 PM HYDRATOR) Glucose, POC 117 70 - 199 mg/dL Blood 11/13/2024 11:3 7 PM HYDRATOR 11/13/2024 11:37 PM HYDRATOR Andrae Pop MD PhD LAB POCT ORDERA BLES - DEVICE Final Result Performing Organization Address [facility] de Phone Number [facility] [address] * XR chest 1 view (Portable) (11/13/2024 11:32 PM HYDRATOR) Anatomical Region Laterality Modality Body, Chest N/A Digital Radiogra phy 11/14/2024 7:59 AM HYDRATOR Impressions 11/14/2024 7:59 AM HYDRATOR There are no prior chest radiographs for comparison. The patient's markedly rotated. Heart is mildly enlarged no mass or lymphadenopathy no pleural effusions There is no pneumothorax.. There is patchy atelectasis. Electronically signed by: Poonam Barrera M.D. Narrative 11/14/2024 7:59 AM HYDRATOR EXAMINATION: 1 view chest radiograph Procedure Note Poonam Barrera MD - 11/14/2024 EXAMINATION: 1 view chest radiograph IMPRESSION: There are no prior chest radiographs for comparison. The patient's markedly rotated. Heart is mildly enlarged no mass or lymphadenopathy no pleural effusions There is no pneumothorax.. There is patchy atelectasis. Electronically signed by: Poonam Barrera M.D. us Mark Ahumada [address] LANDSCAPE ARCHITECT IMG XR PROCEDURES Final Resul t * (ABNORMAL) Urinalysis reflex to microscopic and culture Urine (11/13/2024 10:56 PM HYDRATOR) Color, ur Straw Yellow Clarity, ur Clear Clear [facility] Specific gravity, ur 1.022 1.003 - 1.030 [facility] pH, urine 8.0 CERNER [facility] Comment: Interpretive Data U rine pH is affected by diet, medications, systemic acid-base disturbances, and renal tubular function. pH may affect urinary stone formation. For example, urine pH below 6.0 may help reduce the tendency for calcium phosphate stones and pH greater than 6.0 may reduce the tendency for uric acid stone formation. Source: [place] Emergency Registry Current Interpretive Data was last revised on 2017 Protein, ur ql 1+(A) Negative [facility] Glucose, ur ql Negative Negative [facility] Ketones, ur Negative Negative [facility] Bilirubin, ur Negative Negative [facility] Blood, ur 2+(A) Negative [facility] Urobilinogen, ur <2.0 <2.0 mg/dL [facility] Nitrite, ur Negative Negative [facility] Leukocyte esterase, ur 3+(A) Negative [facility] UA reflex comment Reflex to microscopic UA will be performed. [facility] Urine 11/13/2024 10:5 6 PM HYDRATOR 11/13/2024 11:10 PM HYDRATOR Mark Ahumada [address] LANDSCAPE ARCHITECT LAB MICROBIOLOGY - GENERAL OR DERABLES Final Result Performing Organization Address [facility] de Phone Number [facility] [place] [address] * (ABNORMAL) Urinalysis, microscopic only (11/13/2024 10:56 PM HYDRATOR) WBC, ur >50(A) 0 - 5 /HPF RBC, ur 11-20(A) 0 - 2 /HPF [facility] Mucous, ur Present(A) [facility] Culture Reflex Comment Reflex to urine culture will be performed. [facility] Urine 11/13/2024 10:5 6 PM HYDRATOR 11/13/2024 11:10 PM HYDRATOR Mark Ahumada NP LAB URINE ORDERABLES Final Re sult Performing Organization Address [facility] de Phone Number [facility] [place] [address] * Urine culture Urine (11/13/2024 10:56 PM HYDRATOR) Report Final Report: No growth Urine 11/13/2024 10:5 6 PM HYDRATOR 11/14/2024 2:50 AM HYDRATOR Narrative [facility] - 11/15/2024 7:04 AM HYDRATOR Urine culture reflexed based upon urinalysis results. Testing performed by [facility] ([phone]) us Mark Ahumada NP LAB MICROBIOLOGY - GENERAL OR DERABLES Final Result Performing Organization Address [facility]/State/ZIP Co de Phone Number [facility] Department [place] [address] * Lactate, whole blood (11/13/2024 10:54 PM HYDRATOR) Pathologist [facility] Lactate, bld 1.3 0.7 - 2.0 mmol/L Blood 11/13/2024 10:5 4 PM HYDRATOR 11/13/2024 11:10 PM HYDRATOR Mark Ahumada [address] LANDSCAPE ARCHITECT LAB BLOOD ORDERABLES Final Re sult Performing Organization Address [facility] Co de Phone Number [facility] [place] [address] * (ABNORMAL) Creatine kinase (CK), total (11/13/2024 10:54 PM HYDRATOR) [facility] CK 596(H) 40 - 300 Units/L Blood 11/13/2024 10:5 4 PM HYDRATOR 11/13/2024 11:21 PM HYDRATOR Mark Ahumada [address] LANDSCAPE ARCHITECT LAB BLOOD ORDERABLES Final Re sult Performing Organization Address City/[facility] Co de Phone Number [facility] [place] [address] * Troponin I high-sensitivity series (baseline, 2hr, 4hr, 6hr) (11/13/2024 10:12 PM HYDRATOR) [facility] Trop I hs 18 <=35 ng/L Comment: Interpretive Data For further hscTnI resources including the diagnostic algorithm and an aid in interpretation, copy and paste this link: [email or web address]://bjhlab.testcatalog.org/show/[email or web address] Current Interpretive Data last revised 2020. Blood 11/13/2024 10:1 2 PM HYDRATOR 11/13/2024 10:22 PM HYDRATOR us Mark Ahumada [address] LANDSCAPE ARCHITECT LAB BLOOD ORDERABLES Final Re sult Performing Organization Address [facility] Co de Phone Number NADEGE [facility] [place] [address] * eGFR (11/13/2024 10:12 PM HYDRATOR) eGFR >90 >=60 mL/min/1. 73 m2 Comment: [...] reviewed 2021. Blood 11/13/2024 10:1 2 PM HYDRATOR 11/13/2024 10:22 PM HYDRATOR Mark Ahumada [address] LANDSCAPE ARCHITECT LAB BLOOD ORDERABLES Final Re sult Performing Organization Address [facility] Co de Phone Number [facility] [place] [address] * (ABNORMAL) aPTT (11/13/2024 10:12 PM HYDRATOR) aPTT 27(L) 28 - 38 sec Comment: Interpretive Data Heparin therapeutic range: 66.0 - 100.0 seconds. Range based on correlation with therapeutic heparin activity range of 0.3 - 0.7 Units/mL. Current interpretive data was last revised on 2023. Blood 11/13/2024 10:1 2 PM HYDRATOR 11/13/2024 10:26 PM HYDRATOR aMrk Ahumada [address] LANDSCAPE ARCHITECT LAB BLOOD ORDERABLES Final Re sult Performing Organization Address [facility] de [place] [address] * Protime-INR (11/13/2024 10:12 PM HYDRATOR) [facility] PT 11.9 9.7 - 13.0 sec INR 1.10 0.90 - 1.20 [facility] Comment: Interpretive data Oral anticoagulant therapeutic ranges: Venous thromboembolism prophylaxis or treatment: 2.0-3.0 CARDIOLOGY Standard range: 2.0-3.0 High-intensity range: 2.5-3.5 Refer to indication-specific guidelines for appropriate target ranges for prosthetic heart valve replacement. Current interpretive data was last revised on 2019. Blood 11/13/2024 10:1 2 PM HYDRATOR 11/13/2024 10:26 PM HYDRATOR Mark Ahumada [address] LANDSCAPE ARCHITECT LAB BLOOD ORDERABLES Final Re sult Performing Organization Address [facility] [place] [address] * (ABNORMAL) CBC without differential (11/13/2024 10:12 PM HYDRATOR) [facility] WBC 11.5(H) 3.8 - 9.9 K/cumm [...] [facility]OSPITAL CENTER Blood 11/13/2024 10:1 2 PM HYDRATOR 11/13/2024 10:22 PM HYDRATOR us Mark Ahumada [address] LANDSCAPE ARCHITECT LAB BLOOD ORDERABLES Final Re sult Performing Organization Address [facility] Co de Phone Number [facility] [address] * Type and screen (11/13/2024 10:12 PM HYDRATOR) Denice, indirect Negative ABO Rh A Positive [facility] Blood 11/13/2024 10:1 2 PM HYDRATOR 11/13/2024 11:05 PM HYDRATOR Narrative [facility] - 11/14/2024 12:02 AM HYDRATOR Has the patient had Daratumumab or Isatuximab in the past 6 months?->Unknown us Mark Ahumada [address] LANDSCAPE ARCHITECT LAB BLOOD BANK TEST ORDERABLE S Final Result Performing Organization Address [facility] Co de Phone Number [facility] [place] [address] * Phosphorus (11/13/2024 10:12 PM HYDRATOR) Phosphorus, pl 2.9 2.3 - 4.5 mg/dL Blood 11/13/2024 10:1 2 PM HYDRATOR 11/13/2024 10:22 PM HYDRATOR us Mark Ahumada [address] LANDSCAPE ARCHITECT LAB BLOOD ORDERABLES Final Re sult Performing Organization Address City/[facility]/ZIP Co de Phone Number [facility] [place] [address] * Magnesium (11/13/2024 10:12 PM HYDRATOR) [facility] Magnesium 1.9 1.4 - 2.5 mg/dL Blood 11/13/2024 10:1 2 PM HYDRATOR 11/13/2024 10:22 PM HYDRATOR Mark Ahumada NP LAB BLOOD ORDERABLES Final Re sult Performing Organization Address [facility] de Phone Number [facility] [place] [address] * Hemoglobin A1c (11/13/2024 10:12 PM HYDRATOR) [facility] Hgb A1C 5.0 4.0 - 5.6 [...] fasting glucose. Blood 11/13/2024 10:1 2 PM HYDRATOR 11/13/2024 10:26 PM HYDRATOR us Isrrael Sharma MD LAB BLOOD ORDERABLES Final Result Performing Organization Address [facility] de Phone Number [facility] [place] [address] * (ABNORMAL) Comprehensive metabolic panel (11/13/2024 10:12 PM HYDRATOR) [facility] Sodium 137 135 - 145 mmol/L Potassium, [...] [facility]PITAL [facility]ENTER Blood 11/13/2024 10:1 2 PM HYDRATOR 11/13/2024 10:22 PM HYDRATOR Mark Ahumada NP LAB BLOOD ORDERABLES Final Re sult [facility] Organization Address City/State/ZIP Co de Phone Number [facility] [place] [address] * Cytology (11/13/2024 10:04 PM HYDRATOR) Fluid (Cerebrospinal Fluid (Cytology)) 11/13/2024 10:04 PM HYDRATOR 11/14/2024 5:40 AM HYDRATOR Narrative PATHOLOGY [facility] - 11/14/2024 8:38 PM HYDRATOR EPIC results best viewed via link to PDF [facility] [place] [address] Note to Patients: This report may contain [...] REPORT FINAL Patient Name: JARRELL RUBIO Gender: M : 1940 (Age: 84) Address: [facility], [address] [place] [address] Hospital #: [id number] Taken:11/13/2024 Received:11/14/2024 Reported: 11/14/2024 Patient Type: [facility] Inpatient Service: Neurology Location: Physician(s): Sarbjit Saldivar DO FINAL DIAGNOSIS A. Cerebrospinal fluid: - Negative for malignancy pamo/11/14/2024 12:29 By this signature, I attest that the above diagnosis is based upon my personal examination of the slides(and/or other material indicated in the diagnosis). Jamal Cardenas DO Report Electronically Reviewed and Signed Out By Jamal Cardenas DO 11/14/2024 20:38:18 Sai Meraz, RUST([facility]), [facility] Gross Description A. Cerebrospinal fluid: [...] Surgical Pathology and Flow Cytometry Departments at [facility] as part of an ongoing quality reviewer program and in compliance with federally mandated [...] Surgical Pathology and Flow Cytometry Departments of [facility]. It has not been cleared or approved by the U. S. Food and Drug Administration. Mark Ahumada NP LAB CYTOLOGY ORDERABLES Final Result PATHOLOGY [facility] 3rd Floor [place], [place] [phone] * ECG 12 lead (11/13/2024 9:58 PM HYDRATOR) Ventricular Rate EKG/Min 112 BPM [facility] Atrial Rate 112 BPM [facility] AL-Interval (MSEC) 144 ms [facility] QRS-Interval (MSEC) 140 ms [facility] QT-Interval (MSEC) 360 ms [facility] QTc 491 ms [facility] P [place] 61 degrees [facility] R [place] -73 degrees [facility] T [place] 37 degrees [facility] Diagnosis Sinus tachycardia with Premature atrial complexes with Aberrant conduction Right bundle branch block Left anterior fascicular block Bifascicular block Abnormal ECG No previous ECGs available Confirmed by Nahid Slaughter MD ([id number]) on 11/15/2024 12:49:38 AM [facility] 11/13/2024 9:58 PM HYDRATOR 11/15/2024 12:49 AM HYDRATOR Mark Ahumada [address] LANDSCAPE ARCHITECT ECG ORDERABLES Final Result [facility] * POCT glucose (11/13/2024 9:27 PM HYDRATOR) Glucose, POC 104 70 - 199 mg/dL Blood 11/13/2024 9:27 PM HYDRATOR 11/13/2024 9:27 PM HYDRATOR us Andrae Pop MD PhD LAB POCT ORDERA BLES - DEVICE Final Result [facility] [place] [address] from Last 3 Months Insurance [employer] MEDICARE A[employer] MEDICARE Advance Directives For more information, please contact: [phone] * Full Code (Latest Code Status on File) Date Activated Date Inactivated Comments 11/13/2024 9:58 PM 12/01/2024 10:02 PM Care Teams Nuclear Medicine Technician Relationship Specialty Start Date End Date Von Woods MD [address] [place] [address] PCP - General Family Medicine 12/12/24 Jairo Ugalde MD [address] [place] [address] Referring Physician Hematology 05/15/24 Logan Pedro MD [address] [address] Urology 06/05/24 Mayo Haile MD [address] [address] Radiation Oncologist Radiation Oncology 06/15/24
--- OUTSIDE RECORDS SUMMARY | 2025-01-04 16:04 | XMS_ITS | Clinical Summary ---
Author Organization [facility] Address [address] [address] Care Team Providers Care Product Support Rep Name Role Phone Sarbjit Saldivar DO Primary Care Provider Allergies No known active allergies Medications tamsulosin (FLOMAX) 0.4 mg capsule Take 0.4 mg by mouth daily. Active naproxen sodium (ALEVE) 220 mg Tablet Take 220 mg by mouth. Active Active Problems No known active problems Encounters Date Type Department Care Team Description 12/30/2024 External Device Data [facility] Provider, Abstract 12/29/2024 External Device Data [facility] Provider, Abstract 12/12/2024 External Device Data [facility] Provider, Abstract 11/15/2024 External Device Data [facility] Provider, Abstract 11/14/2024 External Device Data [facility] Provider, [...] 80 04/20/2024 3:03 PM CDT Temperature 36.7 C (98 F) 04/20/2024 3:03 PM CDT Respiratory Rate 18 [...] VACCINES (1 - Tdap) 1959 PNEUMOCOCCAL VACCINE 50+ YEARS (1 of 1 - PCV) 07/04/19 89 ZOSTER VACCINE (1 of 2) 1989 RSV VACCINE (60+ or ) (1 - 1-dose 75+ series) 2014 INFLUENZA VACCINE (#1) 2024 Insurance [employer] PPO MCR Care Teams Product Support Rep Relationship Specialty Start Date End Date Sarbjit Saldivar DO [address] [facility] [address] [place] [phone] PCP - General Internal Medicine 05/23/24
== END 2025-01-04 19:00 ==
PROVIDERS: Emergency Medicine; Emergency Provider Student in an Organized Health Care Education/Training Program; PCP Nurse Practitioner
DX: R60.0 Localized edema (principal); F03.90 Unspecified dementia, unspecified severity, without behavioral disturbance, psychotic disturbance, mood disturbance, and anxiety; M16.9 Osteoarthritis of hip, unspecified; Z96.653 Presence of artificial knee joint, bilateral; Z92.3 Personal history of irradiation; Z85.46 Personal history of malignant neoplasm of prostate; I45.2 Bifascicular block
CPT/HCPCS: 36415; 80053; 81003; 83880; 85025; 85610; 85730; 93005; 99283

== ENCOUNTER 2025-01-10 07:40 | Emergency (ER) | payer MEDICARE, SELFPAY ==
--- NOTE | ~2025-01-10 | XR_ITS ---
XR chest 2V Ordering provider: Sheela Lea MD History: 84 years Male with . SYNCOPE . Comparison: November 13, 2024 FINDINGS: MEDIASTINUM: The cardiac silhouette is slightly enlarged. Slightly congestive lavell. LUNGS: No effusions or pneumothorax. Minimal infiltrate in the left lung base. OTHER: No free air under the diaphragm. IMPRESSION: Left basilar atelectasis versus pneumonia. Reviewed, dictated and finalized at location A.
--- NOTE | ~2025-01-10 | CT_ITS ---
CT head without contrast Indication: Syncope Technique: Serial scans were obtained through the brain without the administration of contrast. Dose reduction technique was used on this scan by utilizing automated exposure control and iterative recon struction technique. The dose-length product (DLP) was 681.00 mGy-cm. Findings: There is no evidence of intracranial hemorrhage, mass lesion, or acute infarct. The ventri cles and subarachnoid spaces are dilated, consistent with mild atrophy. Low attenuation regions are seen within the periventricular white matter bilaterally, likely representing changes from chronic mi crovascular ischemic disease. There is no evidence of edema, mass effect or midline shift. The visu alized paranasal sinuses and mastoid air cells are clear. Impression: No intracranial hemorrhage, mass, or acute infarct. Atrophy and chronic white matter changes, as above. Reviewed, dictated and finalized at location . Impression: No intracranial hemorrhage, mass, or acute infarct. Atrophy and chronic white matter changes, as above.
[2025-01-10 07:40] VITALS: BP 132/63; PULSE 64; RESP 17; TEMP 36.6; O2SAT 97
--- NOTE | 2025-01-10 07:52 | ECG_ITS ---
Test Date: 2025-01-10 07:42:01 Measurements Intervals Reed Rate: 64 P: 0 FL: 0 QRS: -50 QRSD: 155 T: -82 QT: 476 QTc: 494 Interpretive Statements PROBABLE ATRIAL FIBRILLATION RIGHT BUNDLE BRANCH BLOCK [120+ ms QRS DURATION, UPRIGHT V1, 40+ ms S IN I/aVL/V4/V5/V6] LEFT ANTERIOR FASCICULAR BLOCK [QRS AXIS <= -45, QR IN I, RS IN II] MODERATE T-WAVE ABNORMALITY, CONSIDER INFERIOR ISCHEMIA [-0.1+ mV T-WAVE IN II/aVF] Compared to ECG 01/04/2025 13:51:51 T-wave abnormality now present Possible ischemia now present Sinus rhythm no longer present Electronically Signed On 01-10-2025 12:27:10 CDT by Chandan Echevarria M.D.
[2025-01-10 08:01] VITALS: BP 132/60; PULSE 61; RESP 15; TEMP 36.6; O2SAT 97
[2025-01-10 08:22] LABS: Basophils Percent Auto 0.4 % (0.2-1.2); Eosinophils Absolute Auto 0.1 K/mm3 (0-0.3); Eosinophils Percent Auto 1.9 % (0-4.4); Hematocrit 33.6 % (42.0-52.0); Hemoglobin 10.9 g/dL (14.0-18.0); Immature Granulocyte Absolute 0.02 K/mm3 (0.00-0.031); Immature Granulocyte Percent A 0.4 % (0-0.5); Lymphocytes Percent Auto 20.9 % (18.3-44.2); Mean Corpuscular HGB Conc 32.4 g/dl (32-36); Mean Corpuscular Hemoglobin 30.5 pg (26-34); Mean Corpuscular Volume 94.1 fl (80-100); Mean Platelet Volume 8.8 fl (7.4-10.4); Monocytes Absolute Auto 0.7 K/mm3 (0.1-0.6); Monocytes Percent Auto 13.8 % (2.6-8.5); Neutrophils Percent Auto 62.6 % (45.5-73.1); Platelet Count Result 175 k/mm3 (150-375); Red Blood Count 3.57 M/mm3 (4.6-6.20); Red Cell Distribution Width 13.1 % (11.5-14.5); White Blood Count 4.8 K/mm3 (4.5-10.0)
[2025-01-10 08:30] VITALS: BP 143/64; PULSE 64; RESP 14; O2SAT 99
[2025-01-10 08:34] LABS: Alanine Aminotransferase 25 U/L (6-50); Albumin Level 3.4 g/dL (3.5-5.1); Alkaline Phosphatase 82 U/L (38-126); Anion Gap 5 mmol/L (4-12); Aspartate Amino Transferase 27 U/L (17-59); Bilirubin,Total 0.9 mg/dL (0.2-1.3); Blood Urea Nitrogen 14 mg/dL (9-20); Calcium 8.2 mg/dL (8.4-10.2); Carbon Dioxide 29 mmol/L (22-30); Chloride 104 mmol/L (98-107); Estimated CRCL calculation 55 ml/min; Estimated Glomerular Filt Rate > 60; Glucose 97 mg/dL (65-110); Potassium 3.3 mmol/L (3.4-5.0); Sodium 138 mmol/L (137-145)
--- OUTSIDE RECORDS SUMMARY | 2025-01-10 08:44 | XMS_ITS | Referral Summary ---
Author Organization [facility] Address [address] [place] [address] Care Team Providers Care Production Stage Manager Name Role Phone Jairo Ugalde MD Unavailable [phone] Logan Pedro MD Unavailable [phone] Mayo Haile MD Unavailable [phone] Von Woods MD Primary Care Provider Encounters Date Type Department Care Team Description 12/19/2024 9:40 AM PURLER Office Visit [facility] Surgery [address] [place] [phone] Timothy Gomez, BRIANNA Urinary retention (Primary Dx) 11/13/2024 9:22 PM PURLER - 12/01/2024 2:24 PM PURLER Hospital Encounter [address] [id number] Andrae Pop MD PhD Zachary, MD Celia Harman Rajat, MD Valtcheva, Manouela Vesselinova, MD PhD Ines Oswald MD PhD Seizure (HCC) (Primary Dx); Urinary retention Discharge Disposition: Discharge to [facility] 11/02/2024 [facility] [address] [place] [address] Srini Lockwood MD Scheduling Appointments [...] Comments Blood Pressure 145/76 12/01/2024 8:00 AM PURLER Pulse 77 12/01/2024 8:00 AM PURLER Temperature 36.3 C (97.3 F) 12/01/2024 8:00 AM PURLER Respiratory Rate 16 12/01/2024 8:00 AM PURLER Oxygen Saturation 95% 12/01/2024 8:00 AM PURLER Inhaled Oxygen Concentration - - Weight 81.2 kg (179 lb 0.2 oz) 11/13/2024 9:29 P M PURLER Height 176.5 cm (5' 9.5 ) 11/13/2024 9:29 PM PURLER Body Mass Index 26.06 11/13/2024 9:29 PM PURLER Plan of Treatment Not on file Procedures Procedure Name Priority Date/Time Associated Diagnosis Comments MEASURE POST VOID RESIDUAL Routine 12/19 9:57 AM PURLER Urinary retention COVID-19 CORONAVIRUS RNA Routine 025 10:26 AM PURLER CBC WITHOUT DIFFERENTIAL Routine 025 5:45 AM PURLER EGFR Routine 11/29/2024 5:27 AM PURLER BASIC METABOLIC PANEL Routine 11/29/2024 5:27 AM PURLER EGFR Routine 11/26/2024 9:45 PM PURLER BASIC METABOLIC PANEL Routine 11/26/2024 9:45 PM PURLER CBC WITHOUT DIFFERENTIAL Routine 025 9:45 PM PURLER URINALYSIS, MICROSCOPIC ONLY STAT 11/26/2024 6:10 PM PURLER URINALYSIS AND REFLEX TO MICROSCOPIC AND CULTURE STAT 11/26/2024 6:10 PM PURLER MAGNESIUM Routine 11/25/2024 8:46 PM PURLER EGFR Routine 11/25/2024 8:46 PM PURLER BASIC METABOLIC PANEL Routine 11/25/2024 8:46 PM PURLER CBC WITHOUT DIFFERENTIAL Routine 025 8:46 PM PURLER EGFR STAT 11/25/2024 5:57 AM PURLER DIFFERENTIAL AUTO STAT 11/25/2024 5:57 AM PURLER CBC WITH AUTO DIFFERENTIAL STAT 11/25 5:57 AM PURLER BASIC METABOLIC PANEL STAT 11/25/2024 5:57 AM PURLER EGFR Routine 11/25/2024 2:30 AM PURLER CRITICAL RESULT CALLBACK CHEMISTRY Routine 11/25/2024 2:30 AM PURLER CALCIUM, IONIZED Routine 11/25/2024 2:30 AM PURLER BASIC METABOLIC PANEL Routine 11/25/2024 2:30 AM PURLER EGFR Routine 11/23/2024 11:33 PM PURLER PHOSPHORUS Routine 11/23/2024 11:33 PM PURLER MAGNESIUM Routine 11/23/2024 11:33 PM PURLER BASIC METABOLIC PANEL Routine 11/23/2024 11:33 PM PURLER CBC WITHOUT DIFFERENTIAL Routine 025 11:33 PM PURLER MRI BRAIN W CONTRAST IP Routine 11/23/2024 4:55 AM PURLER EGFR Routine 11/22/2024 9:21 PM PURLER PHOSPHORUS Routine 11/22/2024 9:21 PM PURLER MAGNESIUM Routine 11/22/2024 9:21 PM PURLER BASIC METABOLIC PANEL Routine 11/22/2024 9:21 PM PURLER CBC WITHOUT DIFFERENTIAL Routine 025 9:21 PM PURLER PAOLO-WEATHERS VIRUS VCA ANTIBODY PANEL Routine 11/22/2024 9:21 PM PURLER MRI BRAIN WO CONTRAST IP Routine 11/22/2024 4:33 AM PURLER EGFR Routine 11/21/2024 10:08 PM PURLER PHOSPHORUS Routine 11/21/2024 10:08 PM PURLER MAGNESIUM Routine 11/21/2024 10:08 PM PURLER BASIC METABOLIC PANEL Routine 11/21/2024 10:08 PM PURLER CBC WITHOUT DIFFERENTIAL Routine 025 10:08 PM PURLER XR HIP RIGHT W PELVIS 2 OR 3 VIEWS IP Routine 11/21/2024 12:48 PM PURLER EGFR Routine 11/20/2024 10:11 PM PURLER PHOSPHORUS Routine 11/20/2024 10:11 PM PURLER MAGNESIUM Routine 11/20/2024 10:11 PM PURLER BASIC METABOLIC PANEL Routine 11/20/2024 10:11 PM PURLER CBC WITHOUT DIFFERENTIAL Routine 025 10:[address] CHEST ABDOMEN PELVIS W CONTRAST Pending Discharge 11/20/2024 2:37 PM PURLER EGFR Routine 11/19/2024 11:01 PM PURLER BASIC METABOLIC PANEL Routine 11/19/2024 11:01 PM PURLER CBC WITHOUT DIFFERENTIAL Routine 025 11:01 PM PURLER MYELOPEROXIDASE ANTIBODY Routine 025 4:02 PM PURLER PROTEINASE-3 ANTIBODY Routine 11/19/2024 4:02 PM PURLER ANTI-NEUTROPHILIC CYTOPLASMIC ANTIBODY (ANCA) WITH REFLEX TO MPO AND PR3 ABS Routine 11/19/2024 4:02 PM PURLER SRIDEVI ANTIBODY EVALUATION WITH REFLEX Routine 11/19/2024 4:02 PM PURLER CLAUDIA QUALITATIVE WITH REFLEX TO CLAUDIA QUANTITATIVE Routine 11/19/2024 4:02 PM PURLER CBC WITHOUT DIFFERENTIAL Routine 025 4:02 PM PURLER EGFR Routine 11/18/2024 10:19 PM PURLER BASIC METABOLIC PANEL Routine 11/18/2024 10:19 PM PURLER CBC WITHOUT DIFFERENTIAL Routine 025 10:19 PM PURLER CONTINUOUS VIDEO EEG Routine 11/18/2024 11:48 AM PURLER EGFR Routine 11/16/2024 9:13 PM PURLER MAGNESIUM Routine 11/16/2024 9:13 PM PURLER BASIC METABOLIC PANEL Routine 11/16/2024 9:13 PM PURLER CBC WITHOUT DIFFERENTIAL Routine 025 9:13 PM PURLER CONTINUOUS VIDEO EEG Routine 11/16/2024 9:21 AM PURLER POTASSIUM, WHOLE BLOOD STAT 6:35 AM PURLER CREATINE KINASE (CK), TOTAL STAT 11/16/2024 5:28 AM PURLER EGFR STAT 11/16/2024 5:28 AM PURLER DIFFERENTIAL AUTO STAT 11/16/2024 5:28 AM PURLER PHOSPHORUS STAT 11/16/2024 5:28 AM PURLER MAGNESIUM STAT 11/16/2024 5:28 AM PURLER CBC WITH AUTO DIFFERENTIAL STAT 11/16 5:28 AM PURLER BASIC METABOLIC PANEL STAT 11/16/2024 5:28 AM PURLER EGFR Timed 11/14/2024 8:57 PM PURLER MAGNESIUM Timed 11/14/2024 8:57 PM PURLER CREATINE KINASE (CK), TOTAL Routine 11/14/2024 8:57 PM PURLER PHOSPHORUS Timed 11/14/2024 8:57 PM PURLER COMPREHENSIVE METABOLIC PANEL Timed 11/14/2024 8:57 PM PURLER CBC WITHOUT DIFFERENTIAL Routine 025 8:57 PM PURLER TRANSTHORACIC ECHO (TTE) COMPLETE W DOPPLER/CF W CONTRAST Routine 11/14/2024 1:16 PM PURLER BLOOD CULTURE STAT 11/14/2024 12:17 PM PURLER BLOOD CULTURE STAT 11/14/2024 12:17 PM PURLER MRI BRAIN W WO CONTRAST ED Urgent/IP Urgent 11/14/2024 10:32 AM PURLER LIPID PANEL Timed 11/14/2024 6:27 AM PURLER CREATINE KINASE (CK), TOTAL Timed 11/14/2024 6:27 AM PURLER TROPONIN I HIGH-SENSITIVITY 6-HOUR Timed 11/14/2024 4:13 AM PURLER TROPONIN I HIGH-SENSITIVITY 4-HOUR Timed 11/14/2024 2:24 AM PURLER XR VENTRICULOPERITONEAL SHUNT SERIES (ADULT) ED Urgent/IP Urgent 11/14/2024 2:11 AM PURLER TROPONIN I HIGH-SENSITIVITY 2-HOUR Timed 11/14/2024 12:25 AM PURLER MI DIAGNOSTIC LUMBAR SPINAL PUNCTURE Routine 11/14/2024 12:16 AM PURLER Seizure (HCC) B CHECK SAMPLE STAT 11/13/2024 11:40 PM PURLER CELL COUNT W REFLEX DIFFERENTIAL, CSF STAT 11/13/2024 11:40 PM PURLER CSF PROTEIN STAT 11/13/2024 11:40 PM PURLER GLUCOSE, CSF STAT 11/13/2024 11:40 PM PURLER CELL COUNT W REFLEX DIFFERENTIAL, CSF Routine 11/13/2024 11:40 PM PURLER CYTOMEGALOVIRUS (CMV) PCR QUALITATIVE Routine 11/13/2024 11:40 PM PURLER ENTEROVIRUS PCR Routine 11/13/2024 11:40 PM PURLER HERPES SIMPLEX VIRUS (HSV) PCR Routine 11/13/2024 11:40 PM PURLER VARICELLA ZOSTER VIRUS (VZV) PCR Routine 11/13/2024 11:40 PM PURLER BACTERIAL CULTURE AND GRAM STAIN, CSF STAT 11/13/2024 11:40 PM PURLER POCT GLUCOSE DEVICE Routine 11/13/2024 11:37 PM PURLER XR CHEST 1 VIEW ED Urgent/IP Urgent 11/13/2024 11:32 PM PURLER URINALYSIS, MICROSCOPIC ONLY STAT 11/13/2024 10:56 PM PURLER URINE CULTURE STAT 11/13/2024 10:56 PM PURLER URINALYSIS AND REFLEX TO MICROSCOPIC AND CULTURE STAT 11/13/2024 10:56 PM PURLER LACTATE, WHOLE BLOOD STAT 11/13/2024 10:54 PM PURLER CREATINE KINASE (CK), TOTAL STAT 11/13/2024 10:54 PM PURLER HEMOGLOBIN A1C STAT 11/13/2024 10:12 PM PURLER EGFR STAT 11/13/2024 10:12 PM PURLER TROPONIN I HIGH-SENSITIVITY SERIES (BASELINE, 2HR, 4HR, 6HR) STAT 11/13/2024 10:12 PM PURLER PROTIME-INR STAT 11/13/2024 10:12 PM PURLER APTT STAT 11/13/2024 10:12 PM PURLER TYPE AND SCREEN STAT 11/13/2024 10:12 PM PURLER CBC WITHOUT DIFFERENTIAL STAT 025 10:12 PM PURLER PHOSPHORUS STAT 11/13/2024 10:12 PM PURLER MAGNESIUM STAT 11/13/2024 10:12 PM PURLER COMPREHENSIVE METABOLIC PANEL STAT 11/13/2024 10:12 PM PURLER CYTOLOGY Routine 11/13/2024 10:04 PM PURLER ECG 12-LEAD STAT 11/13/2024 9:58 PM PURLER POCT GLUCOSE DEVICE Routine 11/13/2024 9:27 PM PURLER from Last 3 Months Results * Measure post void residual (12/19/2024 9:57 AM PURLER) Narrative Niki Santiago RMA - 12/19/2024 9:57 AM PURLER Measurement of Post Void Residual urine and/or bladder capacity PVR = 189 ml Timothy Gomez FOREIGN LANGUAGE STENOGRAPHER NURSING ASSESSMENTS Final Res ult * COVID-19 Coronavirus RNA Nasopharyngeal (12/01/2024 10:26 AM PURLER) COVID-19 RNA Negative Negative [facility] Nasopharyngeal 12/01/2024 10 :26 AM PURLER 12/01/2024 10:52 AM PURLER Narrative NADEGE [facility] - 12/01/2024 11:29 AM PURLER Is the patient experiencing any symptoms consistent with COVID (eg. Fever, cough, shortness of breath)?->No What is the reason for testing?->Screening for post-acute care placement Interpretive data Testing performed by [facility] ([phone]). This test is performed using the [employer] Xpert Xpress CoV-2 plus assay. This is a real-time RT-PCR test intended for the qualitative detection of nucleic acid from the SARS-CoV-2. This assay has been cleared by the [place] Food and Drug administration. The performance characteristics have been verified by the [facility]. Results must be considered in the clinical context, and a negative result does not rule out infection. Interpretive data last revised 2024. Interpretive data Testing performed by [facility] ([phone]). This test is performed using the [employer] Xpert Xpress CoV-2 plus assay. This is a real-time RT-PCR test intended for the qualitative detection of nucleic acid from the SARS-CoV-2. This assay has been cleared by the [place] Food and Drug administration. The performance characteristics have been verified by the [facility]. Results must be considered in the clinical context, and a negative result does not rule out infection. Interpretive data last revised 2024. Lynne Dickerson FOREIGN LANGUAGE STENOGRAPHER LAB MICROBIOLOGY - GENERAL O RDERABLES Final Result Performing Organization Address City/[facility]/ZIP Co de Phone Number [facility] Department [place] [address] [facility] * (ABNORMAL) CBC without differential (11/29/2024 5:45 AM PURLER) [facility] WBC 7.5 3.8 - 9.9 K/cumm Hgb 11.2(L) 13.0 - 17.5 g/dL [facility] Hct 33.0(L) 38.9 - 50.3 % [facility] Plt 227 150 - 400 K/cumm [facility] MPV 9.7 9.1 - 12.3 fL [facility] RBC 3.67(L) 4.30 - 5.80 M/cumm [facility] MCV 89.9 81.3 - 96.4 fL [facility] MCH 30.5 27.1 - 33.3 pg [facility] MCHC 33.9 32.3 - 35.7 g/dL [facility] RDW CV 12.5 11.1 - 14.9 % [facility] RDW SD 40.7 35.7 - 48.1 fL [facility] NRBC abs 0.00 0.00 - 0.01 K/cumm [facility] Blood 11/29/2024 5:45 AM PURLER 11/29/2024 6:25 AM PURLER Mark Ahumada FOREIGN LANGUAGE STENOGRAPHER LAB BLOOD ORDERABLES Final Re sult [facility] Department [place] [address] * eGFR (11/29/2024 5:27 AM PURLER) [facility] eGFR 87 >=60 mL/min/1. 73 m2 Comment: [...] last reviewed 2021. Blood 11/29/2024 5:27 AM PURLER 11/29/2024 6:23 AM PURLER us Mark Ahumada NP LAB BLOOD ORDERABLES Final Re sult [facility] Department [place] [address] * (ABNORMAL) Basic metabolic panel (11/29/2024 5:27 AM PURLER) Sodium 140 135 - 145 mmol/L Potassium, pl 3.2(L) 3.3 - 4.9 mmol/L [facility] Chloride 107 97 - 110 mmol/L [facility] CO2 27 22 - 32 mmol/L [facility] Anion gap 6 2 - 15 mmol/L [facility] BUN 25 6 - 25 mg/dL [facility] Creatinine 0.80 0.80 - 1.30 mg/dL [facility] Glucose 91 70 - 199 mg/dL [facility] Comment: Interpretive Data Fasting glucose >/= 126 [...] 2022. Calcium 8.4(L) 8.5 - 10.3 mg/dL [facility] Blood 11/29/2024 5:27 AM PURLER 11/29/2024 6:23 AM PURLER Mark Ahumada FOREIGN LANGUAGE STENOGRAPHER LAB BLOOD ORDERABLES Final Re sult Performing Organization Address [facility] de Phone Number [facility] Department [place] [address] * eGFR (11/26/2024 9:45 PM PURLER) eGFR 90 >=60 mL/min/1. 73 m2 Comment: [...] last reviewed 2021. Blood 11/26/2024 9:45 PM PURLER 11/26/2024 10:33 PM PURLER Mark Ahumada FOREIGN LANGUAGE STENOGRAPHER LAB BLOOD ORDERABLES Final Re sult Performing Organization Address [facility] de Phone Number [facility] Department [place] [address] * (ABNORMAL) CBC without differential (11/26/2024 9:45 PM PURLER) [facility] WBC 8.0 3.8 - 9.9 K/cumm Hgb 11.9(L) 13.0 - 17.5 g/dL [facility] Hct 35.2(L) 38.9 - 50.3 % [facility] Plt 223 150 - 400 K/cumm [facility] MPV 9.7 9.1 - 12.3 fL [facility] RBC 3.94(L) 4.30 - 5.80 M/cumm [facility] MCV 89.3 81.3 - 96.4 fL [facility] MCH 30.2 27.1 - 33.3 pg [facility] MCHC 33.8 32.3 - 35.7 g/dL [facility] RDW CV 12.4 11.1 - 14.9 % [facility] RDW SD 40.1 35.7 - 48.1 fL [facility] NRBC abs 0.00 0.00 - 0.01 K/cumm [facility] Blood 11/26/2024 9:45 PM PURLER 11/26/2024 10:28 PM PURLER Mark Ahumada NP LAB BLOOD ORDERABLES Final Re sult [facility] Department [place] [address] * (ABNORMAL) Basic metabolic panel (11/26/2024 9:45 PM PURLER) [facility] Sodium 144 135 - 145 mmol/L Potassium, pl 4.0 3.3 - 4.9 mmol/L [facility] Chloride 110 97 - 110 mmol/L [facility] CO2 27 22 - 32 mmol/L [facility] Anion gap 7 2 - 15 mmol/L [facility] BUN 20 6 - 25 mg/dL [facility] Creatinine 0.71(L) 0.80 - 1.30 mg/dL [facility] Glucose 109 70 - 199 mg/dL [facility] Comment: Interpretive Data Fasting glucose >/= 126 [...] 2022. Calcium 8.5 8.5 - 10.3 mg/dL [facility] Blood 11/26/2024 9:45 PM PURLER 11/26/2024 10:33 PM PURLER us Mark Ahumada NP LAB BLOOD ORDERABLES Final Re sult [facility] [place] [address] * (ABNORMAL) Urinalysis reflex to microscopic and culture Urine (11/26/2024 6:10 PM PURLER) Color, ur Straw Yellow Clarity, ur Clear Clear [facility] Specific gravity, ur 1.025 1.003 - 1.030 [facility] pH, urine 6.5 [facility] Comment: Interpretive Data U rine pH is affected by diet, medications, systemic acid-base disturbances, and renal tubular function. pH may affect urinary stone formation. For example, urine pH below 6.0 may help reduce the tendency for calcium phosphate stones and pH greater than 6.0 may reduce the tendency for uric acid stone formation. Source: [facility] [employer] Current Interpretive Data was last revised on 2017 Protein, ur ql Trace Negative [facility] Glucose, ur ql Negative Negative [facility] Ketones, ur Negative Negative [facility] Bilirubin, ur Negative Negative [facility] Blood, ur Trace(A) Negative [facility] Urobilinogen, ur <2.0 <2.0 mg/dL [facility] Nitrite, ur Negative Negative [facility] Leukocyte esterase, ur 1+(A) Negative [facility] UA reflex comment Reflex to microscopic UA will be performed. [facility] Urine 11/26/2024 6:10 PM PURLER 11/26/2024 6:20 PM PURLER Ines Oswald MD PhD LAB MICROBIOLOGY - GENERAL ORDERABLES Final Result Performing Organization Address [facility] de Phone Number [facility] [place] [address] * (ABNORMAL) Urinalysis, microscopic only (11/26/2024 6:10 PM PURLER) WBC, ur 6-10(A) 0 - 5 /HPF RBC, ur 11-20(A) 0 - 2 /HPF [facility] Epithelial cells, squamous, ur 1-5 0 - 5 /HPF [facility] Mucous, ur Present(A) [facility] Culture Reflex Comment Reflex conditions for urine culture (WBC >10) not met. [facility] Urine 11/26/2024 6:10 PM PURLER 11/26/2024 6:20 PM PURLER Ines Oswald MD PhD LAB URINE ORDERABLES Final Result Performing Organization Address [facility] de Phone Number [facility] [place] [address] * eGFR (11/25/2024 8:46 PM PURLER) eGFR 84 >=60 mL/min/1. 73 m2 Comment: [...] last reviewed 2021. Blood 11/25/2024 8:46 PM PURLER 11/25/2024 9:42 PM PURLER Mark Ahumada FOREIGN LANGUAGE STENOGRAPHER LAB BLOOD ORDERABLES Final Re sult Performing Organization Address City/[facility]/ZIP Co de Phone Number [facility] Department [place] [address] * (ABNORMAL) CBC without differential (11/25/2024 8:46 PM PURLER) WBC 7.1 3.8 - 9.9 K/cumm Hgb 12.3(L) 13.0 - 17.5 g/dL [facility] Hct 35.5(L) 38.9 - 50.3 % [facility] Plt 242 150 - 400 K/cumm [facility] MPV 9.8 9.1 - 12.3 fL [facility] RBC 4.08(L) 4.30 - 5.80 M/cumm [facility] MCV 87.0 81.3 - 96.4 fL [facility] MCH 30.1 27.1 - 33.3 pg [facility] MCHC 34.6 32.3 - 35.7 g/dL [facility] RDW CV 12.4 11.1 - 14.9 % [facility] RDW SD 39.5 35.7 - 48.1 fL [facility] NRBC abs 0.00 0.00 - 0.01 K/cumm [facility] Blood 11/25/2024 8:46 PM PURLER 11/25/2024 9:44 PM PURLER Mark Ahumada FOREIGN LANGUAGE STENOGRAPHER LAB BLOOD ORDERABLES Final Re sult Performing Organization Address City/[facility]/ZIP Co de Phone Number [facility] [place] [address] * Magnesium (11/25/2024 8:46 PM PURLER) Magnesium 2.0 1.4 - 2.5 mg/dL Blood 11/25/2024 8:46 PM PURLER 11/25/2024 9:42 PM PURLER us Ines Owsald MD PhD LAB BLOOD ORDERABLES Final Result [facility] [place] [address] * Basic metabolic panel (11/25/2024 8:46 PM PURLER) Pathologist [facility] Sodium 143 135 - 145 mmol/L Potassium, pl 3.6 3.3 - 4.9 mmol/L [facility] Chloride 105 97 - 110 mmol/L [facility] CO2 31 22 - 32 mmol/L [facility] Anion gap 7 2 - 15 mmol/L [facility] BUN 22 6 - 25 mg/dL [facility] Creatinine 0.89 0.80 - 1.30 mg/dL [facility] Glucose 148 70 - 199 mg/dL [facility] Comment: Interpretive Data Fasting glucose >/= 126 [...] 2022. Calcium 8.9 8.5 - 10.3 mg/dL [facility] Blood 11/25/2024 8:46 PM PURLER 11/25/2024 9:42 PM PURLER us Mark Ahumada FOREIGN LANGUAGE STENOGRAPHER LAB BLOOD ORDERABLES Final Re sult Performing Organization Address City/[facility]/ZIP Co de Phone Number [facility] [place] [address] * eGFR (11/25/2024 5:57 AM PURLER) eGFR 90 >=60 mL/min/1. 73 m2 Comment: [...] last reviewed 2021. Blood 11/25/2024 5:57 AM PURLER 11/25/2024 6:38 AM PURLER us Valeriano Marie MD PhD LAB BLOOD ORDERABLES Final Result Performing Organization Address [facility]/ZIP Co de Phone Number [facility] [place] [address] * Differential, auto (11/25/2024 5:57 AM PURLER) Neutrophil abs 2.9 1.5 - 6.5 K/cumm Imm gran abs 0.0 0.0 - 0.1 K/cumm [facility] Lymphocyte abs 1.1 0.8 - 3.3 K/cumm [facility] Monocyte abs 0.7 0.2 - 0.8 K/cumm [facility] Eosinophil abs 0.1 0.0 - 0.5 K/cumm [facility] Basophil abs 0.0 0.0 - 0.1 K/cumm [facility] Neutrophil pct 58.9 % [facility] Comment: Interpretive Data Percent cell count reference ranges are not reported, since discordance with absolute values may lead to misinterpretation of CBC data. Current Interpretive Data was last revised on 2018. Imm gran pct 0.2 % [facility] Comment: Interpretive Data Percent cell count reference ranges are not reported, since discordance with absolute values may lead to misinterpretation of CBC data. Current Interpretive Data was last revised on 2018. Lymphocyte pct 23.1 % [facility] Comment: Interpretive Data Percent cell count reference ranges are not reported, since discordance with absolute values may lead to misinterpretation of CBC data. Current Interpretive Data was last revised on 2018. Monocyte pct 14.6 % [facility] Comment: Interpretive Data Percent cell count reference ranges are not reported, since discordance with absolute values may lead to misinterpretation of CBC data. Current Interpretive Data was last revised on 2018. Eosinophil pct 2.6 % [facility] Comment: Interpretive Data Percent cell count reference ranges are not reported, since discordance with absolute values may lead to misinterpretation of CBC data. Current Interpretive Data was last revised on 2018. Basophil pct 0.6 % [facility] Comment: Interpretive Data Percent cell count reference ranges are not reported, since discordance with absolute values may lead to misinterpretation of CBC data. Current Interpretive Data was last revised on 2018. Blood 11/25/2024 5:57 AM PURLER 11/25/2024 6:38 AM PURLER us Valeriano Marie MD PhD LAB BLOOD ORDERABLES Final Result [facility] Department [place] [address] * (ABNORMAL) CBC with auto differential (11/25/2024 5:57 AM PURLER) WBC 4.9 3.8 - 9.9 K/cumm Hgb 12.4(L) 13.0 - 17.5 g/dL [facility] Hct 36.1(L) 38.9 - 50.3 % [facility] Plt 244 150 - 400 K/cumm [facility] MPV 9.8 9.1 - 12.3 fL [facility] RBC 4.12(L) 4.30 - 5.80 M/cumm [facility] MCV 87.6 81.3 - 96.4 fL [facility] MCH 30.1 27.1 - 33.3 pg [facility] MCHC 34.3 32.3 - 35.7 g/dL [facility] RDW CV 12.2 11.1 - 14.9 % [facility] RDW SD 39.3 35.7 - 48.1 fL [facility] NRBC abs 0.00 0.00 - 0.01 K/cumm [facility] Blood 11/25/2024 5:57 AM PURLER 11/25/2024 6:38 AM PURLER us Valeriano Marie MD PhD LAB BLOOD ORDERABLES Final Result [facility] Department [place] [address] * (ABNORMAL) Basic metabolic panel (11/25/2024 5:57 AM PURLER) Sodium 146(H) 135 - 145 mmol/L Potassium, pl 3.1(L) 3.3 - 4.9 mmol/L [facility] Chloride 106 97 - 110 mmol/L [facility] CO2 30 22 - 32 mmol/L [facility] Anion gap 10 2 - 15 mmol/L [facility] BUN 18 6 - 25 mg/dL [facility] Creatinine 0.72(L) 0.80 - 1.30 mg/dL [facility] Glucose 104 70 - 199 mg/dL [facility] Comment: Interpretive Data Fasting glucose >/= 126 [...] Calcium 8.8 8.5 - 10.3 mg/dL [facility] Blood 11/25/2024 5:57 AM PURLER 11/25/2024 6:38 AM PURLER us Valeriano Marie MD PhD LAB BLOOD ORDERABLES Final Result [facility] [place] [address] * eGFR (11/25/2024 2:30 AM PURLER) eGFR See Comment >=60 Comment: Credited: Sample investigated and is suggestive of an improper collection (e.g., IV fluid contamination, improper tube type). Deleted at the Request of MANJINDER FISHER RN on 11/25/2024 04:43:07 PURLER by STEPHANY . Interpretive Data Reference Interval [...] last reviewed 2021. Blood 11/25/2024 2:30 AM PURLER 11/25/2024 3:51 AM PURLER Mark Ahumada [employer]EIGN LANGUAGE STENOGRAPHER LAB BLOOD ORDERABLES Edited R esult - Final Performing Organization Address [facility]/State/ZIP Co de Phone Number [facility] [place] [address] * Critical Result Callback Chemistry (11/25/2024 2:30 AM PURLER) Date Notified [id number] Time Notified 439 [facility] TestName KRIS DE LEON Called/Read Back MANJINDER DE LEON Credentials RN [facility] Called By STEPHANY DE LEON Blood 11/25/2024 2:30 AM PURLER 11/25/2024 3:51 AM PURLER Mark Ahumada FOREIGN LANGUAGE STENOGRAPHER LAB BLOOD ORDERABLES Final Re sult Performing Organization Address [facility] Co de Phone Number [facility] [place] [address] * Calcium, ionized (11/25/2024 2:30 AM PURLER) Calcium, Ionized 4.54 4.50 - 5.10 mg/dL Blood 11/25/2024 2:30 AM PURLER 11/25/2024 3:46 AM PURLER Valeriano Marie MD PhD LAB BLOOD ORDERABLES Final Result Performing Organization Address [facility] Co de Phone Number [facility] [place] [address] * Basic metabolic panel (11/25/2024 2:30 AM PURLER) Sodium See Comment 135 - 145 mmol/L Comment:Credited: Sample inv estigated and is suggestive of an improper collection (e.g., IV fluid contamination, improper tube type). Deleted at the Request of MANJINDER FISHER RN on 11/25/2024 04:43:07 PURLER by EW . Potassium, pl See Comment 3.3 - 4.9 mmol/L [facility] Comment: Repeated and Verified Credited: Sample investigated and is suggestive of an improper collection (e.g., IV fluid contamination, improper tube type). Deleted at the Request of MANJINDER FISHER RN on 11/25/2024 04:43:07 PURLER by EW . Chloride See Comment 97 - 110 mmol/L [facility] Comment:Credited: Sample inv estigated and is suggestive of an improper collection (e.g., IV fluid contamination, improper tube type). Deleted at the Request of MANJINDER FISHER RN on 11/25/2024 04:43:07 PURLER by EW . CO2 See Comment 22 - 32 mmol/L [facility] Comment:Credited: Sample inv estigated and is suggestive of an improper collection (e.g., IV fluid contamination, improper tube type). Deleted at the Request of MANJINDER FISHER RN on 11/25/2024 04:43:07 PURLER by EW . Anion gap See Comment 2 - 15 mmol/L [facility] Comment:Credited: Sample inv estigated and is suggestive of an improper collection (e.g., IV fluid contamination, improper tube type). Deleted at the Request of MANJINDER FISHER RN on 11/25/2024 04:43:07 PURLER by EW . BUN See Comment 6 - 25 mg/dL [facility] Comment:Credited: Sample inv estigated and is suggestive of an improper collection (e.g., IV fluid contamination, improper tube type). Deleted at the Request of MANJINDER FISHER RN on 11/25/2024 04:43:07 PURLER by EW . Creatinine See Comment 0.80 - 1.30 mg/dL [facility] Comment:Credited: Sample inv estigated and is suggestive of an improper collection (e.g., IV fluid contamination, improper tube type). Deleted at the Request of MANJINDER FISHER RN on 11/25/2024 04:43:07 PURLER by EW . Glucose See Comment 70 - 199 mg/dL [facility] Comment: Credited: Sample investigated and is suggestive of an improper collection (e.g., IV fluid contamination, improper tube type). Deleted at the Request of MANJINDER FISHER RN on 11/25/2024 04:43:07 PURLER by EW . Interpretive Data Fasting glucose [...] of MANJINDER FISHER RN on 11/25/2024 04:43:07 PURLER by STEPHANY . Blood 11/25/2024 2:30 AM PURLER 11/25/2024 3:40 AM PURLER us Mark Ahumada NP LAB BLOOD ORDERABLES Edited R esult - Final [facility] [place] [address] * eGFR (11/23/2024 11:33 PM PURLER) eGFR 85 >=60 mL/min/1. 73 m2 Comment: [...] reviewed 2021. Blood 11/23/2024 11:3 3 PM PURLER 11/24/2024 12:42 AM PURLER Mark Ahumada FOREIGN LANGUAGE STENOGRAPHER LAB BLOOD ORDERABLES Final Re sult Performing Organization Address City/State/[facility] Co de Phone Number [facility] [place] [address] * (ABNORMAL) CBC without differential (11/23/2024 11:33 PM PURLER) WBC 4.8 3.8 - 9.9 K/cumm Hgb 11.8(L) 13.0 - 17.5 g/dL [facility] Hct 34.6(L) 38.9 - 50.3 % [facility] Plt 221 150 - 400 K/cumm [facility] MPV 9.3 9.1 - 12.3 fL [facility] RBC 3.90(L) 4.30 - 5.80 M/cumm [facility] MCV 88.7 81.3 - 96.4 fL [facility] MCH 30.3 27.1 - 33.3 pg [facility] MCHC 34.1 32.3 - 35.7 g/dL [facility] RDW CV 12.3 11.1 - 14.9 % [facility] RDW SD 39.5 35.7 - 48.1 fL [facility] NRBC abs 0.00 0.00 - 0.01 K/cumm [facility] Blood 11/23/2024 11:3 3 PM PURLER 11/24/2024 12:42 AM PURLER Mark Ahumada FOREIGN LANGUAGE STENOGRAPHER LAB BLOOD ORDERABLES Final Re sult Performing Organization Address City/[facility] Co de Phone Number [facility] Department [place] [address] * Phosphorus (11/23/2024 11:33 PM PURLER) [facility] Phosphorus, pl 3.5 2.3 - 4.5 mg/dL Blood 11/23/2024 11:3 3 PM PURLER 11/24/2024 12:42 AM PURLER Valeriano Marie MD PhD LAB BLOOD ORDERABLES Final Result Performing Organization Address [facility] Co de Phone Number [facility] Department [place] [address] * Magnesium (11/23/2024 11:33 PM PURLER) [facility] Magnesium 2.2 1.4 - 2.5 mg/dL Blood 11/23/2024 11:3 3 PM PURLER 11/24/2024 12:42 AM PURLER Valeriano Marie MD PhD LAB BLOOD ORDERABLES Final Result Performing Organization Address [facility] Co de Phone Number [facility] [place] [address] * (ABNORMAL) Basic metabolic panel (11/23/2024 11:33 PM PURLER) [facility] Sodium 143 135 - 145 mmol/L Potassium, pl 3.6 3.3 - 4.9 mmol/L [facility] Chloride 106 97 - 110 mmol/L [facility] CO2 29 22 - 32 mmol/L [facility] Anion gap 8 2 - 15 mmol/L [facility] BUN 24 6 - 25 mg/dL [facility] Creatinine 0.87 0.80 - 1.30 mg/dL [facility] Glucose 115 70 - 199 mg/dL [facility] Comment: Interpretive Data Fasting glucose >/= 126 [...] 2022. Calcium 8.2(L) 8.5 - 10.3 mg/dL [facility] Blood 11/23/2024 11:3 3 PM PURLER 11/24/2024 12:42 AM PURLER us Mark Ahumada NP LAB BLOOD ORDERABLES Final Re sult [facility] [place] [address] * MRI Brain W Contrast (11/23/2024 4:55 AM PURLER) Anatomical Region Laterality Modality Head and Neck N/A Magnetic Resonan ce 11/23/2024 7:48 AM PURLER Impressions 11/23/2024 12:13 PM PURLER There is no significant contrast enhancement associated [...] Garrett Gold M.D. Narrative 11/23/2024 12:13 PM PURLER EXAMINATION: Magnetic resonance imaging (MRI) of the [...] us Valeriano Marie MD PhD IMG MRI MI OCEDURES Final Result * eGFR (11/22/2024 9:21 PM PURLER) eGFR 90 >=60 mL/min/1. 73 m2 Comment: [...] last reviewed 2021. Blood 11/22/2024 9:21 PM PURLER 11/22/2024 9:48 PM PURLER us Mark Ahumada [employer]ANGUAGE STENOGRAPHER LAB BLOOD ORDERABLES Final Re sult [facility] Department [place] [address] * (ABNORMAL) Paolo-Weathers virus (EBV) antibody panel Blood (11/22/2024 9:21 PM PURLER) Pathologist [facility] EBV nuclear Ab Positive(A) Negative Comment:Indicates the presen ce of detectable IgG antibody to EBV Nuclear Antigen. EBV VCA IgG Positive(A) Negative [facility] Comment:Indicates the presen ce of antibody; 90% of the adult population will have been infected with EBV sometime in the past. EBV VCA IgM Negative Negative [facility] Comment:No detectable IgM an tibody to EBV-VCA. A negative result indicates no current infection with EBV. If clinical suspicion of acute EBV infection is present, testing should be repeated after one week. EBV interp Past Infection [facility] Blood 11/22/2024 9:21 PM PURLER 11/22/2024 9:48 PM PURLER Valeriano toribio MD PhD LAB MICROBIOLOGY - GENERAL ORDERABLES Final Result [facility] [place] [address] * (ABNORMAL) CBC without differential (11/22/2024 9:21 PM PURLER) [facility] WBC 4.5 3.8 - 9.9 K/cumm Hgb 12.1(L) 13.0 - 17.5 g/dL [facility] Hct 35.5(L) 38.9 - 50.3 % [facility] Plt 209 150 - 400 K/cumm [facility] MPV 9.3 9.1 - 12.3 fL [facility] RBC 3.99(L) 4.30 - 5.80 M/cumm [facility] MCV 89.0 81.3 - 96.4 fL [facility] MCH 30.3 27.1 - 33.3 pg [facility] MCHC 34.1 32.3 - 35.7 g/dL [facility] RDW CV 12.2 11.1 - 14.9 % [facility] RDW SD 40.0 35.7 - 48.1 fL [facility] NRBC abs 0.00 0.00 - 0.01 K/cumm [facility] Blood 11/22/2024 9:21 PM PURLER 11/22/2024 9:48 PM PURLER us Mark Ahumada FOREIGN LANGUAGE STENOGRAPHER LAB BLOOD ORDERABLES Final Re sult Performing Organization Address [facility] Co de Phone Number [facility] [place] [address] * Phosphorus (11/22/2024 9:21 PM PURLER) [facility] Phosphorus, pl 3.2 2.3 - 4.5 mg/dL Blood 11/22/2024 9:21 PM PURLER 11/22/2024 9:48 PM PURLER us Valeriano Marie MD PhD LAB BLOOD ORDERABLES Final Result Performing Organization Address [facility] de Phone Number [facility] Department [place] [address] * Magnesium (11/22/2024 9:21 PM PURLER) [facility] Magnesium 1.9 1.4 - 2.5 mg/dL Blood 11/22/2024 9:21 PM PURLER 11/22/2024 9:48 PM PURLER Valeriano Marie MD PhD LAB BLOOD ORDERABLES Final Result Performing Organization Address [facility] [place] [address] * (ABNORMAL) Basic metabolic panel (11/22/2024 9:21 PM PURLER) [facility] Sodium 144 135 - 145 mmol/L Potassium, pl 4.0 3.3 - 4.9 mmol/L [facility] Chloride 109 97 - 110 mmol/L [facility] CO2 25 22 - 32 mmol/L [facility] Anion gap 10 2 - 15 mmol/L [facility] BUN 17 6 - 25 mg/dL [facility] Creatinine 0.72(L) 0.80 - 1.30 mg/dL [facility] Glucose 84 70 - 199 mg/dL [facility] Comment: Interpretive Data Fasting glucose >/= 126 [...] 2022. Calcium 8.5 8.5 - 10.3 mg/dL [facility] Blood 11/22/2024 9:21 PM PURLER 11/22/2024 9:48 PM PURLER Mark Ahumada NP LAB BLOOD ORDERABLES Final Re sult [facility] [place] [address] * MRI Brain WO Contrast (11/22/2024 4:33 AM PURLER) Anatomical Region Laterality Modality Head and Neck N/A Magnetic Resonan ce 11/22/2024 6:29 AM PURLER Impressions 11/22/2024 6:29 AM PURLER 1. Interval development of focus of mildly [...] Garrett Gold M.D. Narrative 11/22/2024 6:29 AM PURLER EXAMINATION: Magnetic resonance imaging (MRI) of the [...] M.D. Valeriano Marie MD PhD IMG MRI MI OCEDURES Final Result * eGFR (11/21/2024 10:08 PM PURLER) eGFR 87 >=60 mL/min/1. 73 m2 Comment: [...] reviewed 2021. Blood 11/21/2024 10:0 8 PM PURLER 11/21/2024 10:52 PM PURLER Mark Ahumada [employer] LANGUAGE STENOGRAPHER LAB BLOOD ORDERABLES Final Re sult [facility] Department [place] [address] * (ABNORMAL) CBC without differential (11/21/2024 10:08 PM PURLER) WBC 5.5 3.8 - 9.9 K/cumm Hgb 12.9(L) 13.0 - 17.5 g/dL [facility] Hct 37.6(L) 38.9 - 50.3 % [facility] Plt 233 150 - 400 K/cumm [facility] MPV 9.4 9.1 - 12.3 fL [facility] RBC 4.23(L) 4.30 - 5.80 M/cumm [facility] MCV 88.9 81.3 - 96.4 fL [facility] MCH 30.5 27.1 - 33.3 pg [facility] MCHC 34.3 32.3 - 35.7 g/dL [facility] RDW CV 12.5 11.1 - 14.9 % [facility] RDW SD 40.9 35.7 - 48.1 fL [facility] NRBC abs 0.00 0.00 - 0.01 K/cumm [facility] Blood 11/21/2024 10:0 8 PM PURLER 11/21/2024 10:53 PM PURLER Mark Ahumada FORE[employer] LANGUAGE STENOGRAPHER LAB BLOOD ORDERABLES Final Re sult Performing Organization Address City/[facility]/ZIP Co de Phone Number [facility] [place] [address] * Phosphorus (11/21/2024 10:08 PM PURLER) Pathologist [facility] Phosphorus, pl 2.8 2.3 - 4.5 mg/dL Blood 11/21/2024 10:0 8 PM PURLER 11/21/2024 10:52 PM PURLER Valeriano Marie MD PhD LAB BLOOD ORDERABLES Final Result Performing Organization Address City/[facility]/ZIP Co de Phone Number [facility] [place] [address] * Magnesium (11/21/2024 10:08 PM PURLER) [facility] Magnesium 2.0 1.4 - 2.5 mg/dL Blood 11/21/2024 10:0 8 PM PURLER 11/21/2024 10:52 PM PURLER Valeriano Marie MD PhD LAB BLOOD ORDERABLES Final Result Performing Organization Address City/[facility] [place] [address] * (ABNORMAL) Basic metabolic panel (11/21/2024 10:08 PM PURLER) [facility] Sodium 146(H) 135 - 145 mmol/L Potassium, pl 3.8 3.3 - 4.9 mmol/L [facility] Chloride 110 97 - 110 mmol/L [facility] CO2 26 22 - 32 mmol/L [facility] Anion gap 10 2 - 15 mmol/L [facility] BUN 12 6 - 25 mg/dL [facility] Creatinine 0.78(L) 0.80 - 1.30 mg/dL [facility] Glucose 92 70 - 199 mg/dL [facility] Comment: Interpretive Data Fasting glucose >/= 126 [...] Calcium 8.5 8.5 - 10.3 mg/dL [facility] Blood 11/21/2024 10:0 8 PM PURLER 11/21/2024 10:52 PM PURLER us Mark Ahumada NP LAB BLOOD ORDERABLES Final Re sult [facility] [place] [address] * XR Hip Right 2 or 3 Views W Pelvis (11/21/2024 12:48 PM PURLER) Anatomical Region Laterality Modality Lower Extremities, Hip, Pelvis Right C omputed Radiography 11/21/2024 1:16 PM PURLER Impressions 11/21/2024 1:16 PM PURLER Severe right hip osteoarthritis. Electronically signed by: Senthil Shne M.D. Narrative 11/21/2024 1:16 PM PURLER XR HIP RIGHT 2 OR 3 VIEWS [...] Final Result * eGFR (11/20/2024 10:11 PM PURLER) Pathologist [facility] eGFR >90 >=60 mL/min/1. 73 m2 Comment: [...] reviewed 2021. Blood 11/20/2024 10:1 1 PM PURLER 11/20/2024 10:34 PM PURLER Mark Ahumada NP LAB BLOOD ORDERABLES Final Re sult [facility] [place] [address] * (ABNORMAL) CBC without differential (11/20/2024 10:11 PM PURLER) Pathologist [facility] WBC 5.3 3.8 - 9.9 K/cumm Hgb 12.8(L) 13.0 - 17.5 g/dL [facility] Hct 36.8(L) 38.9 - 50.3 % [facility] Plt 216 150 - 400 K/cumm [facility] MPV 9.2 9.1 - 12.3 fL [facility] RBC 4.16(L) 4.30 - 5.80 M/cumm [facility] MCV 88.5 81.3 - 96.4 fL [facility] MCH 30.8 27.1 - 33.3 pg [facility] MCHC 34.8 32.3 - 35.7 g/dL [facility] RDW CV 12.2 11.1 - 14.9 % [facility] RDW SD 39.5 35.7 - 48.1 fL [facility] NRBC abs 0.00 0.00 - 0.01 K/cumm [facility] Blood 11/20/2024 10:1 1 PM PURLER 11/20/2024 10:35 PM PURLER Mark Ahumada FORE[employer] LANGUAGE STENOGRAPHER LAB BLOOD ORDERABLES Final Re sult Performing Organization Address City/[facility]/ZIP Co de Phone Number [facility] Department [place] [address] * Phosphorus (11/20/2024 10:11 PM PURLER) Phosphorus, pl 2.5 2.3 - 4.5 mg/dL Blood 11/20/2024 10:1 1 PM PURLER 11/20/2024 10:34 PM PURLER Valeriano Marie MD PhD LAB BLOOD ORDERABLES Final Result [facility] Department [place] [address] * Magnesium (11/20/2024 10:11 PM PURLER) Magnesium 1.9 1.4 - 2.5 mg/dL Blood 11/20/2024 10:1 1 PM PURLER 11/20/2024 10:34 PM PURLER Valeriano Marie MD PhD LAB BLOOD ORDERABLES Final Result Performing Organization Address [facility]/ZIP Co de Phone Number [facility] Department [place] [address] * (ABNORMAL) Basic metabolic panel (11/20/2024 10:11 PM PURLER) Sodium 142 135 - 145 mmol/L Potassium, pl 3.4 3.3 - 4.9 mmol/L [facility] Chloride 108 97 - 110 mmol/L [facility] CO2 26 22 - 32 mmol/L [facility] Anion gap 8 2 - 15 mmol/L [facility] BUN 12 6 - 25 mg/dL [facility] Creatinine 0.67(L) 0.80 - 1.30 mg/dL [facility] Glucose 108 70 - 199 mg/dL [facility] Comment: Interpretive Data Fasting glucose >/= 126 [...] 2022. Calcium 8.4(L) 8.5 - 10.3 mg/dL [facility] Blood 11/20/2024 10:1 1 PM PURLER 11/20/2024 10:34 PM PURLER Mark Ahumada FORE[employer] LANGUAGE STENOGRAPHER LAB BLOOD ORDERABLES Final Re sult Performing Organization Address [facility]/ZIP Co de Phone Number [facility] [place] [address] * CT Chest Abdomen Pelvis W Contrast (11/20/2024 2:37 PM PURLER) Anatomical Region Laterality Modality Body N/A Computed Tomogra phy 11/20/2024 3:33 PM PURLER Impressions 11/20/2024 5:49 PM PURLER 1. No evidence of metastatic disease in [...] Krishna MD, PHD Narrative 11/20/2024 5:49 PM PURLER EXAMINATION: Computed tomography of the chest, abdomen [...] Final Result * eGFR (11/19/2024 11:01 PM PURLER) [facility] eGFR 90 >=60 mL/min/1. 73 m2 Comment: [...] reviewed 2021. Blood 11/19/2024 11:0 1 PM PURLER 11/19/2024 11:40 PM PURLER us Mark Ahumada NP LAB BLOOD ORDERABLES Final Re sult [facility] Department of Laboratories [place], [place] [id number] * (ABNORMAL) CBC without differential (11/19/2024 11:01 PM PURLER) [facility] WBC 4.9 3.8 - 9.9 K/cumm Hgb 12.2(L) 13.0 - 17.5 g/dL [facility] Hct 36.9(L) 38.9 - 50.3 % [facility] Plt 216 150 - 400 K/cumm [facility] MPV 9.4 9.1 - 12.3 fL [facility] RBC 4.00(L) 4.30 - 5.80 M/cumm [facility] MCV 92.3 81.3 - 96.4 fL [facility] MCH 30.5 27.1 - 33.3 pg [facility] MCHC 33.1 32.3 - 35.7 g/dL [facility] RDW CV 12.6 11.1 - 14.9 % [facility] RDW SD 42.5 35.7 - 48.1 fL [facility] NRBC abs 0.00 0.00 - 0.01 K/cumm [facility] Blood 11/19/2024 11:0 1 PM PURLER 11/19/2024 11:40 PM PURLER us Mark Ahumada NP LAB BLOOD ORDERABLES Final Re sult [facility] [place] [address] * (ABNORMAL) Basic metabolic panel (11/19/2024 11:01 PM PURLER) Sodium 146(H) 135 - 145 mmol/L Potassium, pl 3.3 3.3 - 4.9 mmol/L [facility] Chloride 111(H) 97 - 110 mmol/L [facility] CO2 27 22 - 32 mmol/L [facility] Anion gap 8 2 - 15 mmol/L [facility] BUN 16 6 - 25 mg/dL [facility] Creatinine 0.71(L) 0.80 - 1.30 mg/dL [facility] Glucose 112 70 - 199 mg/dL [facility] Comment: Interpretive Data Fasting glucose >/= 126 [...] 2022. Calcium 8.3(L) 8.5 - 10.3 mg/dL [facility] Blood 11/19/2024 11:0 1 PM PURLER 11/19/2024 11:40 PM PURLER Mark Ahumada FORE[employer] LANGUAGE STENOGRAPHER LAB BLOOD ORDERABLES Final Re sult Performing Organization Address [facility] Co de Phone Number [facility] [place] [address] * CLAUDIA ab ql w/rflx to CLAUDIA qn (11/19/2024 4:02 PM PURLER) CLAUDIA Negative Comment: Interpretive Data Normal range [...] revised on 2020. Blood 11/19/2024 4:02 PM PURLER 11/19/2024 4:18 PM PURLER Valeriano Marie MD PhD LAB BLOOD ORDERABLES Final Result Performing Organization Address [facility] Co de Phone Number [facility] [place] [employer] [place] [address] * SRIDEVI ab eval w/reflex (11/19/2024 4:02 PM PURLER) SRIDEVI ab Negative Negative Comment: Interpretive Data Positive Screens will be reflexed to specific testing for Antibodies against the following antigens: Angela-1 Ab, STUDENT [employer] Ab, Scl-70 Ab, Pope Ab, SS-A/Ro Ab, and SS- B/La Ab. Further testing for dsDNA, Centromere, or Ribosomal P antibodies is suggested in patient with a positive screen and negative specific antibodies. Current interpretive data was last revised on 2023. Blood 11/19/2024 4:02 PM PURLER 11/19/2024 4:18 PM PURLER Valeriano Marie MD PhD LAB BLOOD ORDERABLES Final Result Performing Organization Address [facility] Co de Phone Number [facility] [place] [address] * PR3 - proteinase 3, Ab (11/19/2024 4:02 PM PURLER) Proteinase 3 ab <0.2 <=0.9 Ab Index Comment: Interpretive Data Negative: <1 Ab Index Positive: > or = 1 Ab Index Current interpretive data was last revised on 2017. Blood 11/19/2024 4:02 PM PURLER 11/19/2024 4:18 PM PURLER Valeriano Marie MD PhD LAB BLOOD ORDERABLES Final Result Performing Organization Address [facility] [place] [address] * MPO - myeloperoxidase antibody (11/19/2024 4:02 PM PURLER) Myeloperoxidase ab <0.2 <=0.9 Ab Index Comment: Interpretive Data Negative: <1 Ab Index Positive: > or = 1 Ab Index Current interpretive data was last revised on 2017. Blood 11/19/2024 4:02 PM PURLER 11/19/2024 4:18 PM PURLER Valeriano Marie MD PhD LAB BLOOD ORDERABLES Final Result Performing Organization Address City/[facility] Co de Phone Number [facility] [place] [address] * (ABNORMAL) Anti-Neutrophilic Cytoplasmic Antibody (ANCA) with Reflex to MPO and PR3 Abs (54:02 PM PURLER) [facility] ANCA Indetermi cathleen(A) Negative Comment:Indeterminate for P- ANCA - Results by antigen specific immunoassay (MPO & PR3) to follow. May indicate ulcerative colitis or Crohn's disease. Blood 11/19/2024 4:02 PM PURLER 11/19/2024 4:18 PM PURLER Valeriano Marie MD PhD LAB BLOOD ORDERABLES Final Result [facility] [place] [address] * (ABNORMAL) CBC without differential (11/19/2024 4:02 PM PURLER) [facility] WBC 5.1 3.8 - 9.9 K/cumm Hgb 13.0 13.0 - 17.5 g/dL [facility] Hct 37.9(L) 38.9 - 50.3 % [facility] Plt 216 150 - 400 K/cumm [facility] MPV 9.2 9.1 - 12.3 fL [facility] RBC 4.29(L) 4.30 - 5.80 M/cumm [facility] MCV 88.3 81.3 - 96.4 fL [facility] MCH 30.3 27.1 - 33.3 pg [facility] MCHC 34.3 32.3 - 35.7 g/dL [facility] RDW CV 12.4 11.1 - 14.9 % [facility] RDW SD 40.3 35.7 - 48.1 fL [facility] NRBC abs 0.00 0.00 - 0.01 K/cumm [facility] Blood 11/19/2024 4:02 PM PURLER 11/19/2024 4:19 PM PURLER Mark Ahumada FOREIGN LANGUAGE STENOGRAPHER LAB BLOOD ORDERABLES Final Re sult [facility] [place] [address] * eGFR (11/18/2024 10:19 PM PURLER) Pathologist [facility] eGFR 86 >=60 mL/min/1. 73 m2 Comment: [...] reviewed 2021. Blood 11/18/2024 10:1 9 PM PURLER 11/18/2024 11:00 PM PURLER Mark Ahumada NP LAB BLOOD ORDERABLES Final Re sult [facility] [place] [address] * (ABNORMAL) CBC without differential (11/18/2024 10:19 PM PURLER) Pathologist [facility] WBC 6.6 3.8 - 9.9 K/cumm Hgb 13.4 13.0 - 17.5 g/dL [facility] Hct 38.6(L) 38.9 - 50.3 % [facility] Plt 229 150 - 400 K/cumm [facility] MPV 9.4 9.1 - 12.3 fL [facility] RBC 4.38 4.30 - 5.80 M/cumm [facility] MCV 88.1 81.3 - 96.4 fL [facility] MCH 30.6 27.1 - 33.3 pg [facility] MCHC 34.7 32.3 - 35.7 g/dL [facility] RDW CV 12.7 11.1 - 14.9 % [facility] RDW SD 41.3 35.7 - 48.1 fL [facility] NRBC abs 0.00 0.00 - 0.01 K/cumm [facility] Blood 11/18/2024 10:1 9 PM PURLER 11/18/2024 11:00 PM PURLER us Mark Ahumada FOREIGN LANGUAGE STENOGRAPHER LAB BLOOD ORDERABLES Final Re sult [facility] [place] [address] * Basic metabolic panel (11/18/2024 10:19 PM PURLER) Sodium 142 135 - 145 mmol/L Potassium, pl 3.7 3.3 - 4.9 mmol/L [facility] Chloride 105 97 - 110 mmol/L [facility] CO2 26 22 - 32 mmol/L [facility] Anion gap 11 2 - 15 mmol/L [facility] BUN 21 6 - 25 mg/dL [facility] Creatinine 0.83 0.80 - 1.30 mg/dL [facility] Glucose 91 70 - 199 mg/dL [facility] Comment: Interpretive Data Fasting glucose >/= 126 [...] 2022. Calcium 8.8 8.5 - 10.3 mg/dL [facility] Blood 11/18/2024 10:1 9 PM PURLER 11/18/2024 11:00 PM PURLER us Mark Ahumada NP LAB BLOOD ORDERABLES Final Re sult [facility] [place] [address] * Continuous Video EEG (11/18/2024 11:48 AM PURLER) Anatomical Region Laterality Modality EEG Narrative 11/19/2024 12:34 PM PURLER Video-EEG Report Patient Name: Jarrell Rubio [facility] Medical Record Number (MRN): [id number] [facility] Record: No Soarian MRN Date [...] digital EEG were recorded continuously with a Mesitis EEG acquisition system. This was a 31 [...] Resul t * eGFR (11/16/2024 9:13 PM PURLER) eGFR 88 >=60 mL/min/1. 73 m2 Comment: [...] last reviewed 2021. Blood 11/16/2024 9:13 PM PURLER 11/16/2024 9:46 PM PURLER Mark Ahumada NP LAB BLOOD ORDERABLES Final Re sult [facility] [place] [address] * (ABNORMAL) CBC without differential (11/16/2024 9:13 PM PURLER) WBC 8.3 3.8 - 9.9 K/cumm Hgb 13.0 13.0 - 17.5 g/dL [facility] Hct 37.9(L) 38.9 - 50.3 % [facility] Plt 223 150 - 400 K/cumm [facility] MPV 9.1 9.1 - 12.3 fL [facility] RBC 4.33 4.30 - 5.80 M/cumm [facility] MCV 87.5 81.3 - 96.4 fL [facility] MCH 30.0 27.1 - 33.3 pg [facility] MCHC 34.3 32.3 - 35.7 g/dL [facility] RDW CV 12.4 11.1 - 14.9 % [facility] RDW SD 39.7 35.7 - 48.1 fL [facility] NRBC abs 0.00 0.00 - 0.01 K/cumm [facility] Blood 11/16/2024 9:13 PM PURLER 11/16/2024 9:47 PM PURLER Mark Ahumada FOREIGN LANGUAGE STENOGRAPHER LAB BLOOD ORDERABLES Final Re sult [facility] [place] [address] * Magnesium (11/16/2024 9:13 PM PURLER) [facility] Magnesium 2.0 1.4 - 2.5 mg/dL Blood 11/16/2024 9:13 PM PURLER 11/16/2024 9:46 PM PURLER Emma Regalado FOREIGN LANGUAGE STENOGRAPHER LAB BLOOD ORDERABLES Final Result Performing Organization Address [facility] Co de Phone Number [facility] [place] [address] * (ABNORMAL) Basic metabolic panel (11/16/2024 9:13 PM PURLER) [facility] Sodium 138 135 - 145 mmol/L Potassium, pl 3.5 3.3 - 4.9 mmol/L [facility] Chloride 100 97 - 110 mmol/L [facility] CO2 27 22 - 32 mmol/L [facility] Anion gap 11 2 - 15 mmol/L [facility] BUN 12 6 - 25 mg/dL [facility] Creatinine 0.76(L) 0.80 - 1.30 mg/dL [facility] Glucose 89 70 - 199 mg/dL [facility] Comment: Interpretive Data Fasting glucose >/= 126 [...] 2022. Calcium 8.6 8.5 - 10.3 mg/dL [facility] Blood 11/16/2024 9:13 PM PURLER 11/16/2024 9:46 PM PURLER us Mark Ahumada NP LAB BLOOD ORDERABLES Final Re sult [facility] [place] [address] * Continuous Video EEG (11/16/2024 9:21 AM PURLER) Anatomical Region Laterality Modality EEG Narrative 11/16/2024 2:58 PM PURLER Video-EEG Report Patient Name: Jarrell Rubio [facility] Medical Record Number (MRN): [id number] [facility] Record: No Soarian MRN Date [...] digital EEG were recorded continuously with a Mesitis EEG acquisition system. This was a 31 [...] Signing Attending: Bryan Boyer MD Mark Ahumada FOREIGN LANGUAGE STENOGRAPHER NEUROLOGY ORDERABLES Final Re sult * Potassium, whole blood (11/16/2024 6:35 AM PURLER) Potassium, bld 4.0 3.3 - 4.9 mmol/L Blood 11/16/2024 6:35 AM PURLER 11/16/2024 6:41 AM PURLER Emma Regalado NP LAB BLOOD ORDERABLES Final Result Performing Organization Address [facility] Co de Phone Number [facility] [place] [address] * eGFR (11/16/2024 5:28 AM PURLER) eGFR 89 >=60 mL/min/1. 73 m2 Comment: [...] last reviewed 2021. Blood 11/16/2024 5:28 AM PURLER 11/16/2024 5:42 AM PURLER us Isrrael Sharma MD LAB BLOOD ORDERABLES Final Result Performing Organization Address [facility] Co de Phone Number [facility] [place] [address] * (ABNORMAL) Differential, auto (11/16/2024 5:28 AM PURLER) Neutrophil abs 5.9 1.5 - 6.5 K/cumm Imm gran abs 0.0 0.0 - 0.1 K/cumm [facility] Lymphocyte abs 0.7(L) 0.8 - 3.3 K/cumm [facility] Monocyte abs 1.2(H) 0.2 - 0.8 K/cumm [facility] Eosinophil abs 0.1 0.0 - 0.5 K/cumm [facility] Basophil abs 0.0 0.0 - 0.1 K/cumm [facility] Neutrophil pct 74.2 % [facility] Comment: Interpretive Data Percent cell count reference ranges are not reported, since discordance with absolute values may lead to misinterpretation of CBC data. Current Interpretive Data was last revised on 2018. Imm gran pct 0.4 % [facility] Comment: Interpretive Data Percent cell count reference ranges are not reported, since discordance with absolute values may lead to misinterpretation of CBC data. Current Interpretive Data was last revised on 2018. Lymphocyte pct 9.0 % [facility] Comment: Interpretive Data Percent cell count reference ranges are not reported, since discordance with absolute values may lead to misinterpretation of CBC data. Current Interpretive Data was last revised on 2018. Monocyte pct 14.8 % [facility] Comment: Interpretive Data Percent cell count reference ranges are not reported, since discordance with absolute values may lead to misinterpretation of CBC data. Current Interpretive Data was last revised on 2018. Eosinophil pct 1.3 % [facility] Comment: Interpretive Data Percent cell count reference ranges are not reported, since discordance with absolute values may lead to misinterpretation of CBC data. Current Interpretive Data was last revised on 2018. Basophil pct 0.3 % [facility] Comment: Interpretive Data Percent cell count reference ranges are not reported, since discordance with absolute values may lead to misinterpretation of CBC data. Current Interpretive Data was last revised on 2018. Blood 11/16/2024 5:28 AM PURLER 11/16/2024 5:42 AM PURLER Isrrael Sharma MD LAB BLOOD ORDERABLES Final Result Performing Organization Address City/[facility]/ZIP Co de Phone Number [facility] [place] [address] * (ABNORMAL) CBC with auto differential (11/16/2024 5:28 AM PURLER) Pathologist [facility] WBC 7.9 3.8 - 9.9 K/cumm Hgb 11.6(L) 13.0 - 17.5 g/dL [facility] Hct 33.2(L) 38.9 - 50.3 % [facility] Plt 178 150 - 400 K/cumm [facility] MPV 9.3 9.1 - 12.3 fL [facility] RBC 3.79(L) 4.30 - 5.80 M/cumm [facility] MCV 87.6 81.3 - 96.4 fL [facility] MCH 30.6 27.1 - 33.3 pg [facility] MCHC 34.9 32.3 - 35.7 g/dL [facility] RDW CV 12.5 11.1 - 14.9 % [facility] RDW SD 40.2 35.7 - 48.1 fL [facility] NRBC abs 0.00 0.00 - 0.01 K/cumm [facility] Blood 11/16/2024 5:28 AM PURLER 11/16/2024 5:42 AM PURLER Isrrael Sharma MD LAB BLOOD ORDERABLES Final Result [facility] [place] [address] * Phosphorus (11/16/2024 5:28 AM PURLER) Pathologist [facility] Phosphorus, pl 3.1 2.3 - 4.5 mg/dL Blood 11/16/2024 5:28 AM PURLER 11/16/2024 5:42 AM PURLER Isrrael Sharma MD LAB BLOOD ORDERABLES Final Result Performing Organization Address [facility] Co de Phone Number [facility] [place] [address] * Magnesium (11/16/2024 5:28 AM PURLER) [facility] Magnesium 1.7 1.4 - 2.5 mg/dL Blood 11/16/2024 5:28 AM PURLER 11/16/2024 5:42 AM PURLER Isrrael Sharma MD LAB BLOOD ORDERABLES Final Result Performing Organization Address [facility] Co de Phone Number [facility] [place] [address] * (ABNORMAL) Creatine kinase (CK), total (11/16/2024 5:28 AM PURLER) [facility] CK 672(H) 40 - 300 Units/L Blood 11/16/2024 5:28 AM PURLER 11/16/2024 5:42 AM PURLER Isrrael Sharma MD LAB BLOOD ORDERABLES Final Result Performing Organization Address [facility] Co de Phone Number [facility] [place] [address] * (ABNORMAL) Basic metabolic panel (11/16/2024 5:28 AM PURLER) [facility] Sodium 140 135 - 145 mmol/L Potassium, pl 5.7(H) 3.3 - 4.9 mmol/L [facility] Chloride 107 97 - 110 mmol/L [facility] CO2 25 22 - 32 mmol/L [facility] Anion gap 8 2 - 15 mmol/L [facility] BUN 12 6 - 25 mg/dL [facility] Creatinine 0.73(L) 0.80 - 1.30 mg/dL [facility] Glucose 87 70 - 199 mg/dL [facility] Comment: Interpretive Data Fasting glucose >/= 126 [...] Calcium 7.9(L) 8.5 - 10.3 mg/dL [facility] Blood 11/16/2024 5:28 AM PURLER 11/16/2024 5:42 AM PURLER us Isrrael Sharma MD LAB BLOOD ORDERABLES Final Result [facility] [place] [address] * eGFR (11/14/2024 8:57 PM PURLER) eGFR 88 >=60 mL/min/1. 73 m2 Comment: [...] last reviewed 2021. Blood 11/14/2024 8:57 PM PURLER 11/14/2024 9:20 PM PURLER Mark Ahumada FOREIGN LANGUAGE STENOGRAPHER LAB BLOOD ORDERABLES Final Re sult Performing Organization Address City/[facility]/ZIP Co de Phone Number [facility] [place] [address] * (ABNORMAL) CBC without differential (11/14/2024 8:57 PM PURLER) [facility] WBC 8.1 3.8 - 9.9 K/cumm Hgb 11.0(L) 13.0 - 17.5 g/dL [facility] Hct 31.8(L) 38.9 - 50.3 % [facility] Plt 198 150 - 400 K/cumm [facility] MPV 9.1 9.1 - 12.3 fL [facility] RBC 3.63(L) 4.30 - 5.80 M/cumm [facility] MCV 87.6 81.3 - 96.4 fL [facility] MCH 30.3 27.1 - 33.3 pg [facility] MCHC 34.6 32.3 - 35.7 g/dL [facility] RDW CV 12.6 11.1 - 14.9 % [facility] RDW SD 40.9 35.7 - 48.1 fL [facility] NRBC abs 0.00 0.00 - 0.01 K/cumm [facility] Blood 11/14/2024 8:57 PM PURLER 11/14/2024 9:19 PM PURLER Mark Ahumada FOREIGN LANGUAGE STENOGRAPHER LAB BLOOD ORDERABLES Final Re sult [facility] [place] [address] * Phosphorus (11/14/2024 8:57 PM PURLER) Pathologist [facility] Phosphorus, pl 3.1 2.3 - 4.5 mg/dL Blood 11/14/2024 8:57 PM PURLER 11/14/2024 9:12 PM PURLER us Mark Ahumada FOREIGN LANGUAGE STENOGRAPHER LAB BLOOD ORDERABLES Final Re sult Performing Organization Address [facility] Co de Phone Number [facility] [place] [address] * Magnesium (11/14/2024 8:57 PM PURLER) Pathologist [facility] Magnesium 2.1 1.4 - 2.5 mg/dL Blood 11/14/2024 8:57 PM PURLER 11/14/2024 9:12 PM PURLER us Isrrael Sharma MD LAB BLOOD ORDERABLES Final Result Performing Organization Address [facility] de Phone Number [facility] [place] [address] * (ABNORMAL) Creatine kinase (CK), total (11/14/2024 8:57 PM PURLER) [facility] CK 817(H) 40 - 300 Units/L Blood 11/14/2024 8:57 PM PURLER 11/14/2024 9:19 PM PURLER Antolin Yancey FOREIGN LANGUAGE STENOGRAPHER LAB BLOOD ORDERABLES Fi nal Result Performing Organization Address [facility] Co de Phone Number [facility] [place] [address] * (ABNORMAL) Comprehensive metabolic panel (11/14/2024 8:57 PM PURLER) Pathologist [facility] Sodium 139 135 - 145 mmol/L Potassium, pl 3.4 3.3 - 4.9 mmol/L [facility] Chloride 105 97 - 110 mmol/L [facility] CO2 27 22 - 32 mmol/L [facility] Anion gap 7 2 - 15 mmol/L [facility] BUN 8 6 - 25 mg/dL [facility] Creatinine 0.76(L) 0.80 - 1.30 mg/dL [facility] Glucose 93 70 - 199 mg/dL [facility] Comment: Interpretive Data Fasting glucose >/= 126 [...] 2022. Calcium 8.1(L) 8.5 - 10.3 mg/dL [facility] Bilirubin, total 1.3(H) 0.1 - 1.2 mg/dL [facility] Protein, pl 5.8(L) 6.5 - 8.5 g/dL [facility] Albumin 3.3(L) 3.5 - 5.0 g/dL [facility] Alk phos 68 40 - 130 Units/L [facility] ALT 24 7 - 55 Units/L [facility] AST 51(H) 10 - 50 Units/L [facility] Blood 11/14/2024 8:57 PM PURLER 11/14/2024 9:12 PM PURLER us Mrak Ahumada FOREIGN LANGUAGE STENOGRAPHER LAB BLOOD ORDERABLES Final Re sult [facility] [place] [address] * TRANSTHORACIC ECHO (TTE) COMPLETE W DOPPLER/CF W CONTRAST (11/14/2024 1:16 PM PURLER) LV EF % CONS SCIMAGE Anatomical Region Laterality Modality Ultrasound 11/14/2024 12:1 5 PM PURLER Narrative 11/14/2024 4:47 PM PURLER [facility] [place] [address] Transthoracic Echocardiographic Report Patient Name: JARRELL RUBIO MELVIN : 1940 (84y 4m) Gender: M Study Date: 11/14/2024 12:15:56 PM Ht(Inch): 69 Wt(Lb): 179.01 BSA: 1.99 Supervisor Patching: Clay Mckeon RDCS Location: [id number] Order Provider: ANTOLIN YANCEY BMI: 26.43 BP: 140 / 70 Quality: The study images were of technically good quality. Ref Provider: ANTOLIN YANCEY PROCEDURES: Echocardiographic Report: ([id number]) Transthoracic complete echo with contrast, 2D, spectral [...] LA Length 4C 3.77 cm PV Accel [place] 9.13 m/s LA Volume 2C 41.8 ml [...] By: Alban Hampton MD 11/14/2024 4:46:36 PM PURLER Electronically Signed By: Alban Hampton MD 11/14/2024 4:46:36 PM PURLER [facility] [employer] [facility] - Resting Procedure Note Alban Bennett MD - 11/14/2024 [facility] [place] [address] Transthoracic Echocardiographic Report Patient Name: JARRELL RUBIO MELVIN : 1940 (84y 4m) Gender: M Study Date: 11/14/2024 12:15:56 PM Ht(Inch): 69 Wt(Lb): 179.01 BSA: 1.99 Supervisor Patching: Clay Mckeon RDCS Location: [id number] Order Provider:ANTOLIN YANCEY BMI: 26.43 BP: 140 / 70 Quality: The study images were oftechnically good quality. Ref Provider: ANTOLIN YANCEY PROCEDURES: Echocardiographic Report: ([id number], [id number]) Transthoracic complete echo withcontrast, 2D, spectral and [...] [ 62.00 - 150.00 ] MV Decel Qfxy723.46 msec [ 104.00 - 258.00 ] ESV [...] cm/m2 [ 10.00 - 18.00 ] RA Qvbwqo53.51 ml RA Volume Index12.32 ml/m2 AoR Diam [...] By: Alban Hampton MD 11/14/2024 4:46:36 PM PURLER Electronically Signed By: Alban Hampton MD 11/14/2024 4:46:36 PM PURLER [facility] [employer] [facility] - Resting us Antolin Yancey NP CV ECHO PROCEDURES Angela l Result * Blood culture Blood (11/14/2024 12:17 PM PURLER) Report Final Report: No growth Blood 11/14/2024 12:1 7 PM PURLER 11/14/2024 12:27 PM PURLER Narrative [facility] - 11/18/2024 4:00 PM PURLER Collection->Peripheral 1. Blood cultures are incubated for [...] performance characteristics have been verified by the [facility]. For questions about this culture, contact the Microbiology Laboratory at [phone]. Interpretive data was last revised on 24. us Isrrael Sharma MD LAB MICROBIOLOGY - GENERAL ORDERABLES Final Result [facility] [place] [address] * Blood culture Blood (11/14/2024 12:17 PM PURLER) Report Final Report: No growth Blood 11/14/2024 12:1 7 PM PURLER 11/14/2024 12:27 PM PURLER Narrative [facility] 11/18/2024 4:00 PM PURLER Collection->Peripheral From second site 1. Blood cultures [...] performance characteristics have been verified by the [facility]. For questions about this culture, contact the Microbiology Laboratory at [phone]. Interpretive data was last revised on 24. Isrrael Sharma MD LAB MICROBIOLOGY - GENERAL ORDERABLES Final Result [facility] [place] [address] * MRI Brain W WO Contrast (11/14/2024 10:32 AM PURLER) Anatomical Region Laterality Modality Head and Neck N/A Magnetic Resonan ce 11/14/2024 10:5 0 AM PURLER Impressions 11/14/2024 11:20 AM PURLER 1. No acute intracranial process. 2. Small [...] signed by: Ayaz Joseph 11/14/2024 11:20 AM PURLER EXAMINATION: Magnetic resonance imaging (MRI) of the [...] signed by: Abdon Cespedes M.D. Mark Ahumada FOREIGN LANGUAGE STENOGRAPHER IMG MRI PROCEDURES Final Resu lt * (ABNORMAL) Creatine kinase (CK), total (11/14/2024 6:27 AM PURLER) CK 782(H) 40 - 300 Units/L Blood 11/14/2024 6:27 AM PURLER 11/14/2024 6:48 AM PURLER Mark Ahumada FOREIGN LANGUAGE STENOGRAPHER LAB BLOOD ORDERABLES Final Re sult [facility] [place] [address] * (ABNORMAL) Lipid panel (11/14/2024 6:27 AM PURLER) Cholesterol 199 30 - 199 mg/dL Comment: [...] on 2018. HDL 48 >=40 mg/dL [facility] Comment: Interpretive Data Ages < or [...] on 2018. LDL, calculated 138(H) <=129 mg/dL [facility] Comment: Interpretive Data Ages < or [...] revised on 2024. Non-HDL Cholesterol 151 mg/dL [facility] Comment: Interpretive Data Ages < or [...] last revised on 2018. Chol/HDL ratio 4 [facility] Blood 11/14/2024 6:27 AM PURLER 11/14/2024 6:48 AM PURLER us Isrrael Sharma MD LAB BLOOD ORDERABLES Final Result Performing Organization Address [facility]/ZIP Co de Phone Number [facility] [place] [address] * Troponin I high-sensitivity 6-hour (11/14/2024 4:13 AM PURLER) Trop I hs 25 <=35 ng/L Comment: Interpretive Data For further [facility] resources including the diagnostic algorithm and an aid in interpretation, copy and paste this link: [email or web address]/[email or web address] Current Interpretive Data last revised 2020. Trop I hs delta 7 ng/L [facility] Trop I hs interp Equivocal [facility] Blood 11/14/2024 4:13 AM PURLER 11/14/2024 4:34 AM PURLER us Mark Ahumada NP LAB BLOOD ORDERABLES Final Re sult Performing Organization Address City/[facility]/ZIP Co de Phone Number [facility] [place] [address] * Troponin I high-sensitivity 4-hour (11/14/2024 2:24 AM PURLER) Trop I hs 25 <=35 ng/L Comment: Interpretive Data For further hscTnI resources including the diagnostic algorithm and an aid in interpretation, copy and paste this link: [email or web address]/show/[email or web address] Current Interpretive Data last revised 2020. Trop I hs delta 7 ng/L [facility] Trop I hs interp Equivocal [facility] Blood 11/14/2024 2:24 AM PURLER 11/14/2024 2:38 AM PURLER us Mark Ahumada FOREIGN LANGUAGE STENOGRAPHER LAB BLOOD ORDERABLES Final Re sult [facility] [place] [address] * XR Ventriculoperitoneal Shunt Series (11/14/2024 2:11 AM PURLER) Anatomical Region Laterality Modality Head and Neck N/A Computed Radiogr aphy 11/14/2024 2:24 AM PURLER Impressions 11/14/2024 9:20 AM PURLER Stone catheter in place. No additional retained radiopaque foreign body. Dictated by: Veronique Duke MD The radiology attending physician has personally reviewed this study, and had reviewed and/or edited this written report and agrees with it. Electronically signed by: Augusto Evans M.D, PHD Narrative 11/14/2024 9:20 AM PURLER EXAMINATION: XR VENTRICULOPERITONEAL SHUNT SERIES HISTORY: Rule [...] by: Augusto Evans M.D, PHD Mark Ahumada FOREIGN LANGUAGE STENOGRAPHER IMG XR PROCEDURES Final Resul t * Troponin I high-sensitivity 2-hour (11/14/2024 12:25 AM PURLER) Trop I hs 25 <=35 ng/L Comment: Interpretive Data For further hscTnI resources including the diagnostic algorithm and an aid in interpretation, copy and paste this link: https://bjhlab.testcatalog.org/show/hsTrop-[email or web address] Current Interpretive Data last revised 2020. Trop I hs delta 7 ng/L [facility] Trop I hs interp Equivocal [facility] Blood 11/14/2024 12:2 5 AM PURLER 11/14/2024 12:44 AM PURLER Mark Ahumada FOREIGN LANGUAGE STENOGRAPHER LAB BLOOD ORDERABLES Final Re sult [facility] [place] [address] * [place] DIAGNOSTIC LUMBAR SPINAL PUNCTURE (11/14/2024 12:16 AM PURLER) Narrative Andrae Pop MD PhD - 11/14/2024 12:16 AM PURLER Andrae Pop MD PhD 11/14/2024 12:18 AM Lumbar Puncture Date/Time: 11/14/2024 12:16 AM Performed by: Andrae Pop MD PhD Authorized by: Andrae Pop MD PhD [place] Protocol: RN Notified of Procedure: yes Informed consent: Risks, benefits, alternatives discussed and patient/insurance service representative/guardian agrees and accepts Patient's stated name/ [...] and matched to patient identification: n/a Responsible republican for transporting specimen(s) to lab determined: n/a Andrae Pop MD PhD IN CLINIC/BEDSI DE ORDERABLES Final Result * Cytomegalovirus (CMV) PCR qualitative CSF (11/13/2024 11:40 PM PURLER) Pathologist [facility] CMV DNA Not Detected Not Detected [facility] Comment: Interpretive Data: This assay tests for the presence of CMV. This test is laboratory developed and its performance characteristics were determined by the performing laboratory in a manner consistent with CLIA requirements. This test has not been cleared or approved by the U.S. Food and Drug Administration. Current Interpretive Data was last revised on 2020. CSF 11/13/2024 11:4 0 PM PURLER 11/22/2024 2:59 PM PURLER Valeriano toribio MD PhD LAB MICROBIOLOGY - GENERAL ORDERABLES Final Result Performing Organization Address [facility] Co de Phone Number [facility] [place] [address] [facility] * Varicella Zoster Virus (VZV) PCR CSF (11/13/2024 11:40 PM PURLER) Pathologist [facility] VZV DNA Not Detected Not Detected [facility] Comment: Interpretative Data: Testing performed by [facility] ([phone]). This assay is performed using the [employer] Simplex[employer] VZV Direct assay. This is a qualitative, real-time PCR assay for the detection of Varicella-zoster virus (VZV). This assay has been cleared by the U.S. Food and Drug Administration for performance on cerebrospinal fluid and lesion swabs. The performance characteristics have been verified by the [facility]. Results must be considered in the clinical context, and a negative result does not rule out infection. Interpretive data last revised 2021. CSF 11/13/2024 11:4 0 PM PURLER 11/14/2024 5:00 PM PURLER us Isrrael Sharma MD LAB MICROBIOLOGY - GENERAL ORDERABLES Final Result Performing Organization Address City/[facility] Co de Phone Number [facility] [place] [address] [facility] * Herpes Simplex Virus (HSV) PCR CSF (11/13/2024 11:40 PM PURLER) [facility] HSV DNA Not Detected Not Detected [facility] Comment: Interpretive Data This assay is performed [...] on 02/21/2019 CSF 11/13/2024 11:4 0 PM PURLER 11/14/2024 5:00 PM PURLER Isrrael Sharma MD LAB MICROBIOLOGY - GENERAL ORDERABLES Final Result Performing Organization Address City/[facility] Co de Phone Number [facility] [place] [address] [facility] * Enterovirus PCR CSF (11/13/2024 11:40 PM PURLER) Pathologist [facility] Enterovirus RNA, CSF Not Detected Not Detected [facility] Comment: Interpretive Data Testing performed by [facility] Molecular Infectious Disease Laboratory using the [employer] L[employer]ison MDX enterovirus assay. This assay detects RNA from enterovirus using Real Time PCR. This assay is laboratory developed and is not cleared by the [place] Food and Drug Administration. The performance characteristics have been verified by the [facility] Infectious Disease Laboratory. If negative results are obtained in patients less than two years of age with symptoms and laboratory findings consistent with enterovirus, testing for parechovirus may be appropriate. Current Interpretive Data was last revised on 2024. CSF 11/13/2024 11:4 0 PM PURLER 11/22/2024 2:59 PM PURLER Valeriano toribio MD PhD LAB MICROBIOLOGY - GENERAL ORDERABLES Final Result Performing Organization Address City/[facility] Co de Phone Number [facility] Department [place] [address] [facility] * Cell count w/reflex diff, CSF (11/13/2024 11:40 PM PURLER) Tube Number, CSF Tube 1 Color, CSF Colorless Colorless [facility] Clarity, CSF Clear Clear [facility] Xanthochromia , CSF Absent Absent [facility] Nucleated cells, CSF 0 0 - 5 /cumm [facility] RBC, CSF 0 0 - 0 /cumm [facility] CSF 11/13/2024 11:4 0 PM PURLER 11/13/2024 11:52 PM PURLER us Mark Ahumada FOREIGN LANGUAGE STENOGRAPHER LAB BODY FLUIDS AND STOOLS OR DERABLES Final Result Performing Organization Address City/[facility]/ZIP Co de Phone Number [facility] Department [place] [address] * Cell count w/reflex diff, CSF (11/13/2024 11:40 PM PURLER) Tube Number, CSF Tube 4 Color, CSF Colorless Colorless [facility] Clarity, CSF Clear Clear [facility] Xanthochromia , CSF Absent Absent [facility] Nucleated cells, CSF 0 0 - 5 /cumm [facility] RBC, CSF 0 0 - 0 /cumm [facility] CSF 11/13/2024 11:4 0 PM PURLER 11/13/2024 11:52 PM PURLER Mark Ahumada FOREIGN LANGUAGE STENOGRAPHER LAB BODY FLUIDS AND STOOLS OR DERABLES Final Result [facility] Department [place] [address] * Check Sample (11/13/2024 11:40 PM PURLER) ABO Rh A Positive [facility] OTHER 11/13/2024 11:4 0 PM PURLER 11/13/2024 11:59 PM PURLER us Andrae Pop MD PhD LAB BLOOD ORDER DAR Final Result Performing Organization Address [facility] de Phone Number [facility] [place] [address] [facility] * Bacterial culture and gram stain, CSF CSF (11/13/2024 11:40 PM PURLER) [facility] Direct Specimen Exam Stain: Cytospin Gram stain shows: No polymorphonuclear leukocytes seen. No organisms seen. Report Final Report: No growth [facility] CSF 11/13/2024 11:4 0 PM PURLER 11/13/2024 11:54 PM PURLER Narrative [facility] - 11/19/2024 11:51 AM PURLER Testing performed by [facility] ([phone]). Mark Ahumada FOREIGN LANGUAGE STENOGRAPHER LAB MICROBIOLOGY - GENERAL OR DERABLES Final Result Performing Organization Address [facility] de Phone Number [facility] Department [place] [address] * (ABNORMAL) Protein, total, CSF (11/13/2024 11:40 PM PURLER) [facility] Protein, CSF 60(H) 5 - 45 mg/dL Comment:Reviewed CSF 11/13/2024 11:4 0 PM PURLER 11/13/2024 11:52 PM PURLER Mark Ahumada FOREIGN LANGUAGE STENOGRAPHER LAB BODY FLUIDS AND STOOLS OR DERABLES Final Result Performing Organization Address [facility] de Phone Number [facility] [place] [address] * Glucose, CSF (11/13/2024 11:40 PM PURLER) [facility] Glucose, CSF 77 mg/dL Comment: Reviewed Reference Interval Information: CSF Glucose should be 60-66% of the most current plasma glucose concentration (milligrams/deciliter) CLIN. CHEM. 41/3, 343-360 (1994), Clinical Utility of Biochemical Analysis of Cerebrospinal Fluid, Noble Ram and Kasi Flores. Current interpretive data was last revised on 2019. CSF 11/13/2024 11:4 0 PM PURLER 11/13/2024 11:52 PM PURLER us Mark Ahumada FOREIGN LANGUAGE STENOGRAPHER LAB BODY FLUIDS AND STOOLS OR DERABLES Final Result Performing Organization Address [facility] Co de Phone Number [facility] Department [place] [address] * POCT glucose (11/13/2024 11:37 PM PURLER) Glucose, POC 117 70 - 199 mg/dL Blood 11/13/2024 11:3 7 PM PURLER 11/13/2024 11:37 PM PURLER Andrae Pop MD PhD LAB POCT ORDERA BLES - DEVICE Final Result Performing Organization Address [facility] de Phone Number [facility] Department [place] [address] * XR chest 1 view (Portable) (11/13/2024 11:32 PM PURLER) Anatomical Region Laterality Modality Body, Chest N/A Digital Radiogra phy 11/14/2024 7:59 AM PURLER Impressions 11/14/2024 7:59 AM PURLER There are no prior chest radiographs for comparison. The patient's markedly rotated. Heart is mildly enlarged no mass or lymphadenopathy no pleural effusions There is no pneumothorax.. There is patchy atelectasis. Electronically signed by: Poonam Barrera M.D. Narrative 11/14/2024 7:59 AM PURLER EXAMINATION: 1 view chest radiograph Procedure Note Poonam Barrera MD - 11/14/2024 EXAMINATION: 1 view chest radiograph IMPRESSION: There are no prior chest radiographs for comparison. The patient's markedly rotated. Heart is mildly enlarged no mass or lymphadenopathy no pleural effusions There is no pneumothorax.. There is patchy atelectasis. Electronically signed by: Poonam Barrera M.D. Mark Ahumada FOREIGN LANGUAGE STENOGRAPHER IMG XR PROCEDURES Final Resul t * (ABNORMAL) Urinalysis reflex to microscopic and culture Urine (11/13/2024 10:56 PM PURLER) Color, ur Straw Yellow Clarity, ur Clear Clear [facility] Specific gravity, ur 1.022 1.003 - 1.030 [facility] pH, urine 8.0 [facility] Comment: Interpretive Data U rine pH is affected by diet, medications, systemic acid-base disturbances, and renal tubular function. pH may affect urinary stone formation. For example, urine pH below 6.0 may help reduce the tendency for calcium phosphate stones and pH greater than 6.0 may reduce the tendency for uric acid stone formation. Source: [facility] [employer] Current Interpretive Data was last revised on 2017 Protein, ur ql 1+(A) Negative [facility] Glucose, ur ql Negative Negative [facility] Ketones, ur Negative Negative [facility] Bilirubin, ur Negative Negative [facility] Blood, ur 2+(A) Negative [facility] Urobilinogen, ur <2.0 <2.0 mg/dL [facility] Nitrite, ur Negative Negative [facility] Leukocyte esterase, ur 3+(A) Negative [facility] UA reflex comment Reflex to microscopic UA will be performed. [facility] Urine 11/13/2024 10:5 6 PM PURLER 11/13/2024 11:10 PM PURLER Mark Ahumada NP LAB MICROBIOLOGY - GENERAL OR DERABLES Final Result [facility] [place] [address] * (ABNORMAL) Urinalysis, microscopic only (11/13/2024 10:56 PM PURLER) WBC, ur >50(A) 0 - 5 /HPF RBC, ur 11-20(A) 0 - 2 /HPF [facility] Mucous, ur Present(A) [facility] Culture Reflex Comment Reflex to urine culture will be performed. [facility] Urine 11/13/2024 10:5 6 PM PURLER 11/13/2024 11:10 PM PURLER Mark Ahumada FOREIGN LANGUAGE STENOGRAPHER LAB URINE ORDERABLES Final Re sult Performing Organization Address [facility] Co de Phone Number [facility] [place] [address] * Urine culture Urine (11/13/2024 10:56 PM PURLER) Report Final Report: No growth Urine 11/13/2024 10:5 6 PM PURLER 11/14/2024 2:50 AM PURLER Narrative [facility] - 11/15/2024 7:04 AM PURLER Urine culture reflexed based upon urinalysis results. Testing performed by [facility] ([phone]) us Mark Ahumada NP LAB MICROBIOLOGY - GENERAL OR DERABLES Final Result Performing Organization Address [facility] de Phone Number [facility] Department [place] [address] * Lactate, whole blood (11/13/2024 10:54 PM PURLER) Lactate, bld 1.3 0.7 - 2.0 mmol/L Blood 11/13/2024 10:5 4 PM PURLER 11/13/2024 11:10 PM PURLER us Mark Ahumada FOREIGN LANGUAGE STENOGRAPHER LAB BLOOD ORDERABLES Final Re sult Performing Organization Address [facility] Co de Phone Number [facility] [place] [address] * (ABNORMAL) Creatine kinase (CK), total (11/13/2024 10:54 PM PURLER) [facility] CK 596(H) 40 - 300 Units/L Blood 11/13/2024 10:5 4 PM PURLER 11/13/2024 11:21 PM PURLER Mark Ahumada FOREIGN LANGUAGE STENOGRAPHER LAB BLOOD ORDERABLES Final Re sult Performing Organization Address City/[facility]/ZIP Co de Phone Number [facility] [place] [address] * Troponin I high-sensitivity series (baseline, 2hr, 4hr, 6hr) (11/13/2024 10:12 PM PURLER) [facility] Trop I hs 18 <=35 ng/L Comment: Interpretive Data For further hscTnI resources including the diagnostic algorithm and an aid in interpretation, copy and paste this link: https://bjhlab.testcatalog.org/show/[email or web address] Current Interpretive Data last revised 2020. Blood 11/13/2024 10:1 2 PM PURLER 11/13/2024 10:22 PM PURLER Mark Ahumada FOREIGN LANGUAGE STENOGRAPHER LAB BLOOD ORDERABLES Final Re sult Performing Organization Address [facility] Co de Phone Number [facility] [place] [address] * eGFR (11/13/2024 10:12 PM PURLER) [facility] eGFR >90 >=60 mL/min/1. 73 m2 Comment: [...] reviewed 2021. Blood 11/13/2024 10:1 2 PM PURLER 11/13/2024 10:22 PM PURLER us Mark Ahumada FOREIGN LANGUAGE STENOGRAPHER LAB BLOOD ORDERABLES Final Re sult Performing Organization Address [facility] de Phone Number [facility] [place] [address] * (ABNORMAL) aPTT (11/13/2024 10:12 PM PURLER) aPTT 27(L) 28 - 38 sec Comment: Interpretive Data Heparin therapeutic range: 66.0 - 100.0 seconds. Range based on correlation with therapeutic heparin activity range of 0.3 - 0.7 Units/mL. Current interpretive data was last revised on 2023. Blood 11/13/2024 10:1 2 PM PURLER 11/13/2024 10:26 PM PURLER Mark Ahumada FOREIGN LANGUAGE STENOGRAPHER LAB BLOOD ORDERABLES Final Re sult Performing Organization Address [facility] de Phone Number [facility] [place] [address] * Protime-INR (11/13/2024 10:12 PM PURLER) PT 11.9 9.7 - 13.0 sec INR 1.10 0.90 - 1.20 [facility] Comment: Interpretive data Oral anticoagulant therapeutic ranges: Venous thromboembolism prophylaxis or treatment: 2.0-3.0 CARDIOLOGY Standard range: 2.0-3.0 High-intensity range: 2.5-3.5 Refer to indication-specific guidelines for appropriate target ranges for prosthetic heart valve replacement. Current interpretive data was last revised on 2019. Blood 11/13/2024 10:1 2 PM PURLER 11/13/2024 10:26 PM PURLER Mark Ahumada FOREIGN LANGUAGE STENOGRAPHER LAB BLOOD ORDERABLES Final Re sult Performing Organization Address City/[facility]/ZIP Co de Phone Number [facility] [place] [address] * (ABNORMAL) CBC without differential (11/13/2024 10:12 PM PURLER) Pathologist [facility] WBC 11.5(H) 3.8 - 9.9 K/cumm Hgb 12.6(L) 13.0 - 17.5 g/dL [facility] Hct 36.5(L) 38.9 - 50.3 % [facility] Plt 226 150 - 400 K/cumm [facility] MPV 9.2 9.1 - 12.3 fL [facility] RBC 4.14(L) 4.30 - 5.80 M/cumm [facility] MCV 88.2 81.3 - 96.4 fL [facility] MCH 30.4 27.1 - 33.3 pg [facility] MCHC 34.5 32.3 - 35.7 g/dL [facility] RDW CV 12.7 11.1 - 14.9 % [facility] RDW SD 41.6 35.7 - 48.1 fL [facility] NRBC abs 0.00 0.00 - 0.01 K/cumm [facility] Blood 11/13/2024 10:1 2 PM PURLER 11/13/2024 10:22 PM PURLER Mark Ahumada FOREIGN LANGUAGE STENOGRAPHER LAB BLOOD ORDERABLES Final Re sult Performing Organization Address City/[facility]/ZIP Co de Phone Number [facility] [place] [address] * Type and screen (11/13/2024 10:12 PM PURLER) Pathologist [facility] Denice, indirect Negative ABO Rh A Positive [facility] Blood 11/13/2024 10:1 2 PM PURLER 11/13/2024 11:05 PM PURLER Narrative [facility] - 11/14/2024 12:02 AM PURLER Has the patient had Daratumumab or Isatuximab in the past 6 months?->Unknown Mark Ahumada FOREIGN LANGUAGE STENOGRAPHER LAB BLOOD BANK TEST ORDERABLE S Final Result Performing Organization Address [facility] Co de Phone Number [facility] [place] [address] * Phosphorus (11/13/2024 10:12 PM PURLER) Pathologist [facility] Phosphorus, pl 2.9 2.3 - 4.5 mg/dL Blood 11/13/2024 10:1 2 PM PURLER 11/13/2024 10:22 PM PURLER Mark Ahumada FOREIGN LANGUAGE STENOGRAPHER LAB BLOOD ORDERABLES Final Re sult Performing Organization Address [facility] de Phone Number [facility] [place] [address] * Magnesium (11/13/2024 10:12 PM PURLER) Pathologist [facility] Magnesium 1.9 1.4 - 2.5 mg/dL Blood 11/13/2024 10:1 2 PM PURLER 11/13/2024 10:22 PM PURLER Mark Ahumada FOREIGN LANGUAGE STENOGRAPHER LAB BLOOD ORDERABLES Final Re sult Performing Organization Address [facility] Co de Phone Number [facility] [place] [address] * Hemoglobin A1c (11/13/2024 10:12 PM PURLER) Pathologist [facility] Hgb A1C 5.0 4.0 - 5.6 % Estimated Average Glucose 97 mg/dL [facility] Comment: The ADA recommends reporting an estimated Average Glucose (eAG) with all Hemoglobin A1c results using the equation derived from a study of 507 normal and diabetic adults. Minority populations were underrepresented and children were not included. (Diabetes Care 2020; 43(S1): S66-S76). The eAG is not equivalent to a fasting glucose. Blood 11/13/2024 10:1 2 PM PURLER 11/13/2024 10:26 PM PURLER us Isrrael Sharma MD LAB BLOOD ORDERABLES Final Result [facility] [place] [address] * (ABNORMAL) Comprehensive metabolic panel (11/13/2024 10:12 PM PURLER) Sodium 137 135 - 145 mmol/L Potassium, pl 3.4 3.3 - 4.9 mmol/L [facility] Chloride 102 97 - 110 mmol/L [facility] CO2 27 22 - 32 mmol/L [facility] Anion gap 8 2 - 15 mmol/L [facility] BUN 8 6 - 25 mg/dL [facility] Creatinine 0.67(L) 0.80 - 1.30 mg/dL [facility] Glucose 104 70 - 199 mg/dL [facility] Comment: Interpretive Data Fasting glucose >/= 126 [...] 2022. Calcium 8.0(L) 8.5 - 10.3 mg/dL [facility] Bilirubin, total 0.9 0.1 - 1.2 mg/dL [facility] Protein, pl 6.5 6.5 - 8.5 g/dL [facility] Albumin 3.7 3.5 - 5.0 g/dL [facility] Alk phos 73 40 - 130 Units/L [facility] ALT 27 7 - 55 Units/L [facility] AST 38 10 - 50 Units/L [facility] Blood 11/13/2024 10:1 2 PM PURLER 11/13/2024 10:22 PM PURLER us Mark Ahumada FOREIGN LANGUAGE STENOGRAPHER LAB BLOOD ORDERABLES Final Re sult [facility] [place] [address] * Cytology (11/13/2024 10:04 PM PURLER) Fluid (Cerebrospinal Fluid (Cytology)) 11/13/2024 10:04 PM PURLER 11/14/2024 5:40 AM PURLER Narrative PATHOLOGY [facility] - 11/14/2024 8:38 PM PURLER EPIC results best viewed via link to PDF [facility] [place] [address] Note to Patients: This report may contain [...] [facility], [address] [place] [address] Hospital #: [id number] Taken:11/13/2024 Received:11/14/2024 Reported: 11/14/2024 Patient Type: [facility] Inpatient Service: Neurology Location: Physician(s): Sarbjit Saldivar DO FINAL DIAGNOSIS A. Cerebrospinal fluid: - Negative for malignancy pamo/11/14/2024 12:29 By this signature, I attest that the above diagnosis is based upon my personal examination of the slides(and/or other material indicated in the diagnosis). Jamal Cardenas DO Report Electronically Reviewed and Signed Out By Jamal Cardenas DO 11/14/2024 20:38:18 Sai Meraz, [facility](ASCP), [facility] Gross Description A. Cerebrospinal fluid: 7.5 ml [...] Surgical Pathology and Flow Cytometry Departments at [facility] as part of an ongoing quality process lead program and in compliance with federally mandated [...] Surgical Pathology and Flow Cytometry Departments of [facility]. It has not been cleared or approved by the U. S. Food and Drug Administration. Mark Ahumada NP LAB CYTOLOGY ORDERABLES Final Result PATHOLOGY [facility] 3rd Floor [place], [place] [phone] * ECG 12 lead (11/13/2024 9:58 PM PURLER) Ventricular Rate EKG/Min 112 BPM [facility] Atrial Rate 112 BPM [facility] MI-Interval (MSEC) 144 ms [facility] QRS-Interval (MSEC) 140 ms [facility] QT-Interval (MSEC) 360 ms [facility] QTc 491 ms [facility] P [place] 61 degrees [facility] R [place] -73 degrees [facility] T [place] 37 degrees [facility] Diagnosis Sinus tachycardia with Premature atrial complexes with Aberrant conduction Right bundle branch block Left anterior fascicular block Bifascicular block Abnormal ECG No previous ECGs available Confirmed by Nahid Slaughter MD ([id number]) on 11/15/2024 12:49:38 AM [facility] 11/13/2024 9:58 PM PURLER 11/15/2024 12:49 AM PURLER Mark Ahumada FOREIGN LANGUAGE STENOGRAPHER ECG ORDERABLES Final Result [facility] * POCT glucose (11/13/2024 9:27 PM PURLER) Glucose, POC 104 70 - 199 mg/dL Blood 11/13/2024 9:27 PM PURLER 11/13/2024 9:27 PM PURLER Andrae Pop MD PhD LAB POCT ORDERA BLES - DEVICE Final Result [facility] Department [place] [address] from Last 3 Months Insurance [employer] MEDICARE [facility] MEDICARE Advance Directives For more information, please contact: [phone] * Full Code (Latest Code Status on File) Date Activated Date Inactivated Comments 11/13/2024 9:58 PM 12/01/2024 10:02 PM Care Teams Production Stage Manager Relationship Specialty Start Date End Date Von Woods MD [address] [facility] [place] [address] PCP - General Family Medicine 12/12/24 Jairo Ugalde MD [address] [facility] [address] [place] [id number] Referring Physician Hematology 05/15/24 Logan Pedro MD [address] [place] [address] Urology 06/05/24 [place] [address] [place] [id number] Radiation Oncologist Radiation Oncology 06/15/24
--- OUTSIDE RECORDS SUMMARY | 2025-01-10 08:44 | XMS_ITS ---
Author Organization [facility] Address [address] [place] [address] Care Team Providers Care Paint Sprayer Sandblaster Name Role Phone Jairo Ugalde MD Unavailable [phone] Logan Pedro MD Unavailable [phone] Mayo Haile MD Unavailable [phone] Von Woods MD Primary Care Provider Active Problems Problem Noted Date Diagnosed Date Acute metabolic encephalopathy 11/14/2024 Seizure 11/13/2024 Prostate CA 06/22/2024 Cancer Staging:Clinical stage from 06/22/2024:Stage IIB(cT1c, cN0, cM0, PSA: 9.6, Grade Group: 2) - Signed by Maoy Haile MD on 06/22/2024 Current Treatment and [...]
--- OUTSIDE RECORDS SUMMARY | 2025-01-10 08:45 | XMS_ITS | Clinical Summary ---
Author Organization [facility] ospital Address [address] [place] [address] Care Team Providers Care Numerical Control Tool Programmer Name Role Phone Jairo Ugalde MD Unavailable [phone] Logan Pedro MD Unavailable [phone] Mayo Haile MD Unavailable [phone] Von Woods MD Primary Care Provider [phone] Allergies No known active allergies Medications acetaminophen [...] Department Care Team Description 12/19/2024 9:40 AM PROGRAM ASSOCIATE Office Visit [facility] Surgery [address] [place] [address] Timothy Gomez NP Urinary retention (Primary Dx) 11/13/2024 9:22 PM PROGRAM ASSOCIATE - 12/01/2024 2:24 PM PROGRAM ASSOCIATE Hospital Encounter [address] [id number] Andrae Pop MD PhD Zachary, MD Celia Harman Rajat, MD Valtcheva, Manouela Vesselinova, MD PhD Ines Oswald MD PhD Seizure (HCC) (Primary Dx); Urinary retention Discharge Disposition: Discharge to [facility] 11/02/2024 Telephone [facility] Scheduling [address] [place] [address] Srini Lockwood MD Scheduling Appointments [...] Comments Blood Pressure 145/76 12/01/2024 8:00 AM PROGRAM ASSOCIATE Pulse 77 12/01/2024 8:00 AM PROGRAM ASSOCIATE Temperature 36.3 C (97.3 F) 12/01/2024 8:00 AM PROGRAM ASSOCIATE Respiratory Rate 16 12/01/2024 8:00 AM PROGRAM ASSOCIATE Oxygen Saturation 95% 12/01/2024 8:00 AM PROGRAM ASSOCIATE Inhaled Oxygen Concentration - - Weight 81.2 kg (179 lb 0.2 oz) 11/13/2024 9:29 P M PROGRAM ASSOCIATE Height 176.5 cm (5' 9.5 ) 11/13/2024 9:29 PM PROGRAM ASSOCIATE Body Mass Index 26.06 11/13/2024 9:29 PM PROGRAM ASSOCIATE Plan of Treatment Health Maintenance Due Date [...] POST VOID RESIDUAL Routine 12/19 9:57 AM PROGRAM ASSOCIATE Urinary retention COVID-19 CORONAVIRUS RNA Routine 10:26 AM PROGRAM ASSOCIATE CBC WITHOUT DIFFERENTIAL Routine 5:45 AM PROGRAM ASSOCIATE EGFR Routine 11/29/2024 5:27 AM PROGRAM ASSOCIATE BASIC METABOLIC PANEL Routine 11/29/2024 5:27 AM PROGRAM ASSOCIATE EGFR Routine 11/26/2024 9:45 PM PROGRAM ASSOCIATE BASIC METABOLIC PANEL Routine 11/26/2024 9:45 PM PROGRAM ASSOCIATE CBC WITHOUT DIFFERENTIAL Routine 025 9:45 PM PROGRAM ASSOCIATE URINALYSIS, MICROSCOPIC ONLY STAT 11/26/2024 6:10 PM PROGRAM ASSOCIATE URINALYSIS AND REFLEX TO MICROSCOPIC AND CULTURE STAT 11/26/2024 6:10 PM PROGRAM ASSOCIATE MAGNESIUM Routine 11/25/2024 8:46 PM PROGRAM ASSOCIATE EGFR Routine 11/25/2024 8:46 PM PROGRAM ASSOCIATE BASIC METABOLIC PANEL Routine 11/25/2024 8:46 PM PROGRAM ASSOCIATE CBC WITHOUT DIFFERENTIAL Routine 025 8:46 PM PROGRAM ASSOCIATE EGFR STAT 11/25/2024 5:57 AM PROGRAM ASSOCIATE DIFFERENTIAL AUTO STAT 11/25/2024 5:57 AM PROGRAM ASSOCIATE CBC WITH AUTO DIFFERENTIAL STAT 11/25 5:57 AM PROGRAM ASSOCIATE BASIC METABOLIC PANEL STAT 11/25/2024 5:57 AM PROGRAM ASSOCIATE EGFR Routine 11/25/2024 2:30 AM PROGRAM ASSOCIATE CRITICAL RESULT CALLBACK CHEMISTRY Routine 11/25/2024 2:30 AM PROGRAM ASSOCIATE CALCIUM, IONIZED Routine 11/25/2024 2:30 AM PROGRAM ASSOCIATE BASIC METABOLIC PANEL Routine 11/25/2024 2:30 AM PROGRAM ASSOCIATE EGFR Routine 11/23/2024 11:33 PM PROGRAM ASSOCIATE PHOSPHORUS Routine 11/23/2024 11:33 PM PROGRAM ASSOCIATE MAGNESIUM Routine 11/23/2024 11:33 PM PROGRAM ASSOCIATE BASIC METABOLIC PANEL Routine 11/23/2024 11:33 PM PROGRAM ASSOCIATE CBC WITHOUT DIFFERENTIAL Routine 025 11:33 PM PROGRAM ASSOCIATE MRI BRAIN W CONTRAST IP Routine 11/23/2024 4:55 AM PROGRAM ASSOCIATE EGFR Routine 11/22/2024 9:21 PM PROGRAM ASSOCIATE PHOSPHORUS Routine 11/22/2024 9:21 PM PROGRAM ASSOCIATE MAGNESIUM Routine 11/22/2024 9:21 PM PROGRAM ASSOCIATE BASIC METABOLIC PANEL Routine 11/22/2024 9:21 PM PROGRAM ASSOCIATE CBC WITHOUT DIFFERENTIAL Routine 025 9:21 PM PROGRAM ASSOCIATE PAOLO-WEATHERS VIRUS VCA ANTIBODY PANEL Routine 11/22/2024 9:21 PM PROGRAM ASSOCIATE MRI BRAIN WO CONTRAST IP Routine 11/22/2024 4:33 AM PROGRAM ASSOCIATE EGFR Routine 11/21/2024 10:08 PM PROGRAM ASSOCIATE PHOSPHORUS Routine 11/21/2024 10:08 PM PROGRAM ASSOCIATE MAGNESIUM Routine 11/21/2024 10:08 PM PROGRAM ASSOCIATE BASIC METABOLIC PANEL Routine 11/21/2024 10:08 PM PROGRAM ASSOCIATE CBC WITHOUT DIFFERENTIAL Routine 025 10:08 PM PROGRAM ASSOCIATE XR HIP RIGHT W PELVIS 2 OR 3 VIEWS IP Routine 11/21/2024 12:48 PM PROGRAM ASSOCIATE EGFR Routine 11/20/2024 10:11 PM PROGRAM ASSOCIATE PHOSPHORUS Routine 11/20/2024 10:11 PM PROGRAM ASSOCIATE MAGNESIUM Routine 11/20/2024 10:11 PM PROGRAM ASSOCIATE BASIC METABOLIC PANEL Routine 11/20/2024 10:11 PM PROGRAM ASSOCIATE CBC WITHOUT DIFFERENTIAL Routine 025 10:[address] CHEST ABDOMEN PELVIS W CONTRAST Pending Discharge 11/20/2024 2:37 PM PROGRAM ASSOCIATE EGFR Routine 11/19/2024 11:01 PM PROGRAM ASSOCIATE BASIC METABOLIC PANEL Routine 11/19/2024 11:01 PM PROGRAM ASSOCIATE CBC WITHOUT DIFFERENTIAL Routine 025 11:01 PM PROGRAM ASSOCIATE MYELOPEROXIDASE ANTIBODY Routine 025 4:02 PM PROGRAM ASSOCIATE PROTEINASE-3 ANTIBODY Routine 11/19/2024 4:02 PM PROGRAM ASSOCIATE ANTI-NEUTROPHILIC CYTOPLASMIC ANTIBODY (ANCA) WITH REFLEX TO MPO AND PR3 ABS Routine 11/19/2024 4:02 PM PROGRAM ASSOCIATE SRIDEVI ANTIBODY EVALUATION WITH REFLEX Routine 11/19/2024 4:02 PM PROGRAM ASSOCIATE CLAUDIA QUALITATIVE WITH REFLEX TO CLAUDIA QUANTITATIVE Routine 11/19/2024 4:02 PM PROGRAM ASSOCIATE CBC WITHOUT DIFFERENTIAL Routine 025 4:02 PM PROGRAM ASSOCIATE EGFR Routine 11/18/2024 10:19 PM PROGRAM ASSOCIATE BASIC METABOLIC PANEL Routine 11/18/2024 10:19 PM PROGRAM ASSOCIATE CBC WITHOUT DIFFERENTIAL Routine 025 10:19 PM PROGRAM ASSOCIATE CONTINUOUS VIDEO EEG Routine 11/18/2024 11:48 AM PROGRAM ASSOCIATE EGFR Routine 11/16/2024 9:13 PM PROGRAM ASSOCIATE MAGNESIUM Routine 11/16/2024 9:13 PM PROGRAM ASSOCIATE BASIC METABOLIC PANEL Routine 11/16/2024 9:13 PM PROGRAM ASSOCIATE CBC WITHOUT DIFFERENTIAL Routine 025 9:13 PM PROGRAM ASSOCIATE CONTINUOUS VIDEO EEG Routine 11/16/2024 9:21 AM PROGRAM ASSOCIATE POTASSIUM, WHOLE BLOOD STAT 6:35 AM PROGRAM ASSOCIATE CREATINE KINASE (CK), TOTAL STAT 11/16/2024 5:28 AM PROGRAM ASSOCIATE EGFR STAT 11/16/2024 5:28 AM PROGRAM ASSOCIATE DIFFERENTIAL AUTO STAT 11/16/2024 5:28 AM PROGRAM ASSOCIATE PHOSPHORUS STAT 11/16/2024 5:28 AM PROGRAM ASSOCIATE MAGNESIUM STAT 11/16/2024 5:28 AM PROGRAM ASSOCIATE CBC WITH AUTO DIFFERENTIAL STAT 11/16 5:28 AM PROGRAM ASSOCIATE BASIC METABOLIC PANEL STAT 11/16/2024 5:28 AM PROGRAM ASSOCIATE EGFR Timed 11/14/2024 8:57 PM PROGRAM ASSOCIATE MAGNESIUM Timed 11/14/2024 8:57 PM PROGRAM ASSOCIATE CREATINE KINASE (CK), TOTAL Routine 11/14/2024 8:57 PM PROGRAM ASSOCIATE PHOSPHORUS Timed 11/14/2024 8:57 PM PROGRAM ASSOCIATE COMPREHENSIVE METABOLIC PANEL Timed 11/14/2024 8:57 PM PROGRAM ASSOCIATE CBC WITHOUT DIFFERENTIAL Routine 025 8:57 PM PROGRAM ASSOCIATE TRANSTHORACIC ECHO (TTE) COMPLETE W DOPPLER/CF W CONTRAST Routine 11/14/2024 1:16 PM PROGRAM ASSOCIATE BLOOD CULTURE STAT 11/14/2024 12:17 PM PROGRAM ASSOCIATE BLOOD CULTURE STAT 11/14/2024 12:17 PM PROGRAM ASSOCIATE MRI BRAIN W WO CONTRAST ED Urgent/IP Urgent 11/14/2024 10:32 AM PROGRAM ASSOCIATE LIPID PANEL Timed 11/14/2024 6:27 AM PROGRAM ASSOCIATE CREATINE KINASE (CK), TOTAL Timed 11/14/2024 6:27 AM PROGRAM ASSOCIATE TROPONIN I HIGH-SENSITIVITY 6-HOUR Timed 11/14/2024 4:13 AM PROGRAM ASSOCIATE TROPONIN I HIGH-SENSITIVITY 4-HOUR Timed 11/14/2024 2:24 AM PROGRAM ASSOCIATE XR VENTRICULOPERITONEAL SHUNT SERIES (ADULT) ED Urgent/IP Urgent 11/14/2024 2:11 AM PROGRAM ASSOCIATE TROPONIN I HIGH-SENSITIVITY 2-HOUR Timed 11/14/2024 12:25 AM PROGRAM ASSOCIATE VT DIAGNOSTIC LUMBAR SPINAL PUNCTURE Routine 11/14/2024 12:16 AM PROGRAM ASSOCIATE Seizure (HCC) B CHECK SAMPLE STAT 11/13/2024 11:40 PM PROGRAM ASSOCIATE CELL COUNT W REFLEX DIFFERENTIAL, CSF STAT 11/13/2024 11:40 PM PROGRAM ASSOCIATE CSF PROTEIN STAT 11/13/2024 11:40 PM PROGRAM ASSOCIATE GLUCOSE, CSF STAT 11/13/2024 11:40 PM PROGRAM ASSOCIATE CELL COUNT W REFLEX DIFFERENTIAL, CSF Routine 11/13/2024 11:40 PM PROGRAM ASSOCIATE CYTOMEGALOVIRUS (CMV) PCR QUALITATIVE Routine 11/13/2024 11:40 PM PROGRAM ASSOCIATE ENTEROVIRUS PCR Routine 11/13/2024 11:40 PM PROGRAM ASSOCIATE HERPES SIMPLEX VIRUS (HSV) PCR Routine 11/13/2024 11:40 PM PROGRAM ASSOCIATE VARICELLA ZOSTER VIRUS (VZV) PCR Routine 11/13/2024 11:40 PM PROGRAM ASSOCIATE BACTERIAL CULTURE AND GRAM STAIN, CSF STAT 11/13/2024 11:40 PM PROGRAM ASSOCIATE POCT GLUCOSE DEVICE Routine 11/13/2024 11:37 PM PROGRAM ASSOCIATE XR CHEST 1 VIEW ED Urgent/IP Urgent 11/13/2024 11:32 PM PROGRAM ASSOCIATE URINALYSIS, MICROSCOPIC ONLY STAT 11/13/2024 10:56 PM PROGRAM ASSOCIATE URINE CULTURE STAT 11/13/2024 10:56 PM PROGRAM ASSOCIATE URINALYSIS AND REFLEX TO MICROSCOPIC AND CULTURE STAT 11/13/2024 10:56 PM PROGRAM ASSOCIATE LACTATE, WHOLE BLOOD STAT 11/13/2024 10:54 PM PROGRAM ASSOCIATE CREATINE KINASE (CK), TOTAL STAT 11/13/2024 10:54 PM PROGRAM ASSOCIATE HEMOGLOBIN A1C STAT 11/13/2024 10:12 PM PROGRAM ASSOCIATE EGFR STAT 11/13/2024 10:12 PM PROGRAM ASSOCIATE TROPONIN I HIGH-SENSITIVITY SERIES (BASELINE, 2HR, 4HR, 6HR) STAT 11/13/2024 10:12 PM PROGRAM ASSOCIATE PROTIME-INR STAT 11/13/2024 10:12 PM PROGRAM ASSOCIATE APTT STAT 11/13/2024 10:12 PM PROGRAM ASSOCIATE TYPE AND SCREEN STAT 11/13/2024 10:12 PM PROGRAM ASSOCIATE CBC WITHOUT DIFFERENTIAL STAT 025 10:12 PM PROGRAM ASSOCIATE PHOSPHORUS STAT 11/13/2024 10:12 PM PROGRAM ASSOCIATE MAGNESIUM STAT 11/13/2024 10:12 PM PROGRAM ASSOCIATE COMPREHENSIVE METABOLIC PANEL STAT 11/13/2024 10:12 PM PROGRAM ASSOCIATE CYTOLOGY Routine 11/13/2024 10:04 PM PROGRAM ASSOCIATE ECG 12-LEAD STAT 11/13/2024 9:58 PM PROGRAM ASSOCIATE POCT GLUCOSE DEVICE Routine 11/13/2024 9:27 PM PROGRAM ASSOCIATE from Last 3 Months Results * Measure post void residual (12/19/2024 9:57 AM PROGRAM ASSOCIATE) Narrative Niki Santiago, LEEANN - 12/19/2024 9:57 AM PROGRAM ASSOCIATE Measurement of Post Void Residual urine and/or bladder capacity PVR = 189 ml us Timothy Gomez RN UROLOGY NURSING ASSESSMENTS Final Res ult * COVID-19 Coronavirus RNA Nasopharyngeal (12/01/2024 10:26 AM PROGRAM ASSOCIATE) COVID-19 RNA Negative Negative [facility] Nasopharyngeal 12/01/2024 10 :26 AM PROGRAM ASSOCIATE 12/01/2024 10:52 AM PROGRAM ASSOCIATE Narrative [facility] - 12/01/2024 11:29 AM PROGRAM ASSOCIATE Is the patient experiencing any symptoms consistent with COVID (eg. Fever, cough, shortness of breath)?->No What is the reason for testing?->Screening for post-acute care placement Interpretive data Testing performed by [facility] ([phone]). This test is performed using the [employer] 360 Xpert Xpress CoV-2 plus assay. This is a real-time RT-PCR test intended for the qualitative detection of nucleic acid from the SARS-CoV-2. This assay has been cleared by the [facility] Food and Drug administration. The performance characteristics have been verified by the [facility]. Results must be considered in the clinical context, and a negative result does not rule out infection. Interpretive data last revised 2024. Interpretive data Testing performed by [facility] ([phone]). This test is performed using the [employer] Xpress CoV-2 plus assay. This is a real-time RT-PCR test intended for the qualitative detection of nucleic acid from the SARS-CoV-2. This assay has been cleared by the [facility] Food and Drug administration. The performance characteristics have been verified by the [facility]. Results must be considered in the clinical context, and a negative result does not rule out infection. Interpretive data last revised 2024. Lynne Dickerson RN UROLOGY LAB MICROBIOLOGY - GENERAL O RDERABLES Final Result [facility] [address] [facility] [place] [address] [facility] * (ABNORMAL) CBC without differential (11/29/2024 5:45 AM PROGRAM ASSOCIATE) WBC 7.5 3.8 - 9.9 K/cumm Hgb 11.2(L) 13.0 - 17.5 g/dL [facility] Hct 33.0(L) 38.9 - 50.3 % [facility] Plt 227 150 - 400 K/cumm [facility] MPV 9.7 9.1 - 12.3 fL [facility] RBC 3.67(L) 4.30 - 5.80 M/cumm [facility] MCV 89.9 81.3 - 96.4 fL [facility] MCH 30.5 27.1 - 33.3 pg [facility] MCHC 33.9 32.3 - 35.7 g/dL [facility] RDW CV 12.5 11.1 - 14.9 % [facility] RDW SD 40.7 35.7 - 48.1 fL [facility] NRBC abs 0.00 0.00 - 0.01 K/cumm [facility] Blood 11/29/2024 5:45 AM PROGRAM ASSOCIATE 11/29/2024 6:25 AM PROGRAM ASSOCIATE Mark Ahumada RN UROLOGY LAB BLOOD ORDERABLES Final Re sult Performing Organization Address City/[facility] Co de Phone Number [facility] [place] [address] * eGFR (11/29/2024 5:27 AM PROGRAM ASSOCIATE) Pathologist [facility] eGFR 87 >=60 mL/min/1. 73 m2 Comment: [...] last reviewed 2021. Blood 11/29/2024 5:27 AM PROGRAM ASSOCIATE 11/29/2024 6:23 AM PROGRAM ASSOCIATE Mark Ahumada RN UROLOGY LAB BLOOD ORDERABLES Final Re sult Performing Organization Address City/[facility]/ZIP Co de Phone Number [facility] [place] [address] * (ABNORMAL) Basic metabolic panel (11/29/2024 5:27 AM PROGRAM ASSOCIATE) Pathologist [facility] Sodium 140 135 - 145 mmol/L Potassium, pl 3.2(L) 3.3 - 4.9 mmol/L [facility] Chloride 107 97 - 110 mmol/L [facility] CO2 27 22 - 32 mmol/L [facility] Anion gap 6 2 - 15 mmol/L [facility] BUN 25 6 - 25 mg/dL [facility] Creatinine 0.80 0.80 - 1.30 mg/dL [facility] Glucose 91 70 - 199 mg/dL [facility] Comment: Interpretive Data Fasting glucose [...] 2022. Calcium 8.4(L) 8.5 - 10.3 mg/dL [facility] Blood 11/29/2024 5:27 AM PROGRAM ASSOCIATE 11/29/2024 6:23 AM PROGRAM ASSOCIATE us Mark Ahumada NP LAB BLOOD ORDERABLES Final Re sult [facility] [address] [facility] [place] [address] * eGFR (11/26/2024 9:45 PM PROGRAM ASSOCIATE) Pathologist [facility] eGFR 90 >=60 mL/min/1. 73 m2 Comment: [...] last reviewed 2021. Blood 11/26/2024 9:45 PM PROGRAM ASSOCIATE 11/26/2024 10:33 PM PROGRAM ASSOCIATE Mark Ahumada NP LAB BLOOD ORDERABLES Final Re sult [facility] [place] [address] * (ABNORMAL) CBC without differential (11/26/2024 9:45 PM PROGRAM ASSOCIATE) WBC 8.0 3.8 - 9.9 K/cumm Hgb 11.9(L) 13.0 - 17.5 g/dL [facility] Hct 35.2(L) 38.9 - 50.3 % [facility] Plt 223 150 - 400 K/cumm [facility] MPV 9.7 9.1 - 12.3 fL [facility] RBC 3.94(L) 4.30 - 5.80 M/cumm [facility] MCV 89.3 81.3 - 96.4 fL [facility] MCH 30.2 27.1 - 33.3 pg [facility] MCHC 33.8 32.3 - 35.7 g/dL [facility] RDW CV 12.4 11.1 - 14.9 % [facility] RDW SD 40.1 35.7 - 48.1 fL [facility] NRBC abs 0.00 0.00 - 0.01 K/cumm [facility] Blood 11/26/2024 9:45 PM PROGRAM ASSOCIATE 11/26/2024 10:28 PM PROGRAM ASSOCIATE us Mark E. Ahumada RN UROLOGY LAB BLOOD ORDERABLES Final Re sult [facility] [place] [address] * (ABNORMAL) Basic metabolic panel (11/26/2024 9:45 PM PROGRAM ASSOCIATE) Sodium 144 135 - 145 mmol/L Potassium, pl 4.0 3.3 - 4.9 mmol/L [facility] Chloride 110 97 - 110 mmol/L [facility] CO2 27 22 - 32 mmol/L [facility] Anion gap 7 2 - 15 mmol/L [facility] BUN 20 6 - 25 mg/dL [facility] Creatinine 0.71(L) 0.80 - 1.30 mg/dL [facility] Glucose 109 70 - 199 mg/dL [facility] Comment: Interpretive Data Fasting glucose [...] 2022. Calcium 8.5 8.5 - 10.3 mg/dL [facility] Blood 11/26/2024 9:45 PM PROGRAM ASSOCIATE 11/26/2024 10:33 PM PROGRAM ASSOCIATE Mark Ahumada RN UROLOGY LAB BLOOD ORDERABLES Final Re sult Performing Organization Address [facility]/ZIP Co de Phone Number [facility] [place] [address] * (ABNORMAL) Urinalysis reflex to microscopic and culture Urine (11/26/2024 6:10 PM PROGRAM ASSOCIATE) Color, ur Straw Yellow Clarity, ur Clear Clear [facility] Specific gravity, ur 1.025 1.003 - 1.030 [facility] pH, urine 6.5 [facility] Comment: Interpretive Data U rine pH is affected by diet, medications, systemic acid-base disturbances, and renal tubular function. pH may affect urinary stone formation. For example, urine pH below 6.0 may help reduce the tendency for calcium phosphate stones and pH greater than 6.0 may reduce the tendency for uric acid stone formation. Source: [facility] Interpretive Data was last revised on 2017 Protein, ur ql Trace Negative [facility] Glucose, ur ql Negative Negative [facility] Ketones, ur Negative Negative [facility] Bilirubin, ur Negative Negative [facility] Blood, ur Trace(A) Negative [facility] Urobilinogen, ur <2.0 <2.0 mg/dL [facility] Nitrite, ur Negative Negative [facility] Leukocyte esterase, ur 1+(A) Negative [facility] UA reflex comment Reflex to microscopic UA will be performed. [facility] Urine 11/26/2024 6:10 PM PROGRAM ASSOCIATE 11/26/2024 6:20 PM PROGRAM ASSOCIATE Ines Oswald MD PhD LAB MICROBIOLOGY - GENERAL ORDERABLES Final Result [facility] [place] [address] * (ABNORMAL) Urinalysis, microscopic only (11/26/2024 6:10 PM PROGRAM ASSOCIATE) WBC, ur 6-10(A) 0 - 5 /HPF RBC, ur 11-20(A) 0 - 2 /HPF [facility] Epithelial cells, squamous, ur 1-5 0 - 5 /HPF [facility] Mucous, ur Present(A) [facility] Culture Reflex Comment Reflex conditions for urine culture (WBC >10) not met. [facility] Urine 11/26/2024 6:10 PM PROGRAM ASSOCIATE 11/26/2024 6:20 PM PROGRAM ASSOCIATE Ines Oswald MD PhD LAB URINE ORDERABLES Final Result Performing Organization Address City/[facility] Co de Phone Number [facility] [place] [address] * eGFR (11/25/2024 8:46 PM PROGRAM ASSOCIATE) Pathologist [facility] eGFR 84 >=60 mL/min/1. 73 m2 Comment: [...] last reviewed 2021. Blood 11/25/2024 8:46 PM PROGRAM ASSOCIATE 11/25/2024 9:42 PM PROGRAM ASSOCIATE us Mark Ahumada NP LAB BLOOD ORDERABLES Final Re sult Performing Organization Address [facility] Co de Phone Number [facility] Department [place] [address] * (ABNORMAL) CBC without differential (11/25/2024 8:46 PM PROGRAM ASSOCIATE) Pathologist [facility] WBC 7.1 3.8 - 9.9 K/cumm Hgb 12.3(L) 13.0 - 17.5 g/dL [facility] Hct 35.5(L) 38.9 - 50.3 % [facility] Plt 242 150 - 400 K/cumm [facility] MPV 9.8 9.1 - 12.3 fL [facility] RBC 4.08(L) 4.30 - 5.80 M/cumm [facility] MCV 87.0 81.3 - 96.4 fL [facility] MCH 30.1 27.1 - 33.3 pg [facility] MCHC 34.6 32.3 - 35.7 g/dL [facility] RDW CV 12.4 11.1 - 14.9 % [facility] RDW SD 39.5 35.7 - 48.1 fL [facility] NRBC abs 0.00 0.00 - 0.01 K/cumm [facility] Blood 11/25/2024 8:46 PM PROGRAM ASSOCIATE 11/25/2024 9:44 PM PROGRAM ASSOCIATE us Mark Ahumada RN UROLOGY LAB BLOOD ORDERABLES Final Re sult Performing Organization Address City/[facility]/ZIP Co de Phone Number [facility] [place] [address] * Magnesium (11/25/2024 8:46 PM PROGRAM ASSOCIATE) Pathologist [facility] Magnesium 2.0 1.4 - 2.5 mg/dL Blood 11/25/2024 8:46 PM PROGRAM ASSOCIATE 11/25/2024 9:42 PM PROGRAM ASSOCIATE us Ines Oswald MD PhD LAB BLOOD ORDERABLES Final Result [facility] [place] [address] * Basic metabolic panel (11/25/2024 8:46 PM PROGRAM ASSOCIATE) Sodium 143 135 - 145 mmol/L Potassium, pl 3.6 3.3 - 4.9 mmol/L [facility] Chloride 105 97 - 110 mmol/L [facility] CO2 31 22 - 32 mmol/L [facility] Anion gap 7 2 - 15 mmol/L [facility] BUN 22 6 - 25 mg/dL [facility] Creatinine 0.89 0.80 - 1.30 mg/dL [facility] Glucose 148 70 - 199 mg/dL [facility] Comment: Interpretive Data Fasting glucose [...] 2022. Calcium 8.9 8.5 - 10.3 mg/dL [facility] Blood 11/25/2024 8:46 PM PROGRAM ASSOCIATE 11/25/2024 9:42 PM PROGRAM ASSOCIATE us Mark Ahumada NP LAB BLOOD ORDERABLES Final Re sult [facility] [place] [address] * eGFR (11/25/2024 5:57 AM PROGRAM ASSOCIATE) eGFR 90 >=60 mL/min/1. 73 m2 Comment: [...] last reviewed 2021. Blood 11/25/2024 5:57 AM PROGRAM ASSOCIATE 11/25/2024 6:38 AM PROGRAM ASSOCIATE Valeriano Marie MD PhD LAB BLOOD ORDERABLES Final Result [facility] [place] [address] * Differential, auto (11/25/2024 5:57 AM PROGRAM ASSOCIATE) Neutrophil abs 2.9 1.5 - 6.5 K/cumm Imm gran abs 0.0 0.0 - 0.1 K/cumm [facility] Lymphocyte abs 1.1 0.8 - 3.3 K/cumm [facility] Monocyte abs 0.7 0.2 - 0.8 K/cumm [facility] Eosinophil abs 0.1 0.0 - 0.5 K/cumm [facility] Basophil abs 0.0 0.0 - 0.1 K/cumm [facility] Neutrophil pct 58.9 % [facility] Comment: Interpretive Data Percent cell count reference ranges are not reported, since discordance with absolute values may lead to misinterpretation of CBC data. Current Interpretive Data was last revised on 2018. Imm gran pct 0.2 % [facility] Comment: Interpretive Data Percent cell count reference ranges are not reported, since discordance with absolute values may lead to misinterpretation of CBC data. Current Interpretive Data was last revised on 2018. Lymphocyte pct 23.1 % [facility] Comment: Interpretive Data Percent cell count reference ranges are not reported, since discordance with absolute values may lead to misinterpretation of CBC data. Current Interpretive Data was last revised on 2018. Monocyte pct 14.6 % [facility] Comment: Interpretive Data Percent cell count reference ranges are not reported, since discordance with absolute values may lead to misinterpretation of CBC data. Current Interpretive Data was last revised on 2018. Eosinophil pct 2.6 % [facility] Comment: Interpretive Data Percent cell count reference ranges are not reported, since discordance with absolute values may lead to misinterpretation of CBC data. Current Interpretive Data was last revised on 2018. Basophil pct 0.6 % [facility] Comment: Interpretive Data Percent cell count reference ranges are not reported, since discordance with absolute values may lead to misinterpretation of CBC data. Current Interpretive Data was last revised on 2018. Blood 11/25/2024 5:57 AM PROGRAM ASSOCIATE 11/25/2024 6:38 AM PROGRAM ASSOCIATE Valeriano Marie MD PhD LAB BLOOD ORDERABLES Final Result [facility] [place] [address] * (ABNORMAL) CBC with auto differential (11/25/2024 5:57 AM PROGRAM ASSOCIATE) WBC 4.9 3.8 - 9.9 K/cumm Hgb 12.4(L) 13.0 - 17.5 g/dL [facility] Hct 36.1(L) 38.9 - 50.3 % [facility] Plt 244 150 - 400 K/cumm [facility] MPV 9.8 9.1 - 12.3 fL [facility] RBC 4.12(L) 4.30 - 5.80 M/cumm [facility] MCV 87.6 81.3 - 96.4 fL [facility] MCH 30.1 27.1 - 33.3 pg [facility] MCHC 34.3 32.3 - 35.7 g/dL [facility] RDW CV 12.2 11.1 - 14.9 % [facility] RDW SD 39.3 35.7 - 48.1 fL [facility] NRBC abs 0.00 0.00 - 0.01 K/cumm [facility] Blood 11/25/2024 5:57 AM PROGRAM ASSOCIATE 11/25/2024 6:38 AM PROGRAM ASSOCIATE Valeriano Marie MD PhD LAB BLOOD ORDERABLES Final Result Performing Organization Address City/[facility]/ZIP Co de Phone Number [facility] [place] [address] * (ABNORMAL) Basic metabolic panel (11/25/2024 5:57 AM PROGRAM ASSOCIATE) Sodium 146(H) 135 - 145 mmol/L Potassium, pl 3.1(L) 3.3 - 4.9 mmol/L [facility] Chloride 106 97 - 110 mmol/L [facility] CO2 30 22 - 32 mmol/L [facility] Anion gap 10 2 - 15 mmol/L [facility] BUN 18 6 - 25 mg/dL [facility] Creatinine 0.72(L) 0.80 - 1.30 mg/dL [facility] Glucose 104 70 - 199 mg/dL [facility] Comment: Interpretive Data Fasting glucose [...] 2022. Calcium 8.8 8.5 - 10.3 mg/dL [facility] Blood 11/25/2024 5:57 AM PROGRAM ASSOCIATE 11/25/2024 6:38 AM PROGRAM ASSOCIATE Valeriano Marie MD PhD LAB BLOOD ORDERABLES Final Result [facility] [place] [address] * eGFR (11/25/2024 2:30 AM PROGRAM ASSOCIATE) Pathologist [facility] eGFR See Comment >=60 Comment: Credited: Sample investigated and is suggestive of an improper collection (e.g., IV fluid contamination, improper tube type). Deleted at the Request of MANJINDER FISHER RN on 11/25/2024 04:43:07 PROGRAM ASSOCIATE by STEPHANY . Interpretive Data Reference Interval [...] last reviewed 2021. Blood 11/25/2024 2:30 AM PROGRAM ASSOCIATE 11/25/2024 3:51 AM PROGRAM ASSOCIATE Mark Ahumada RN UROLOGY LAB BLOOD ORDERABLES Edited R esult - Final Performing Organization Address City/[facility]/ZIP Co de Phone Number [facility] [place] [address] * Critical Result Callback Chemistry (11/25/2024 2:30 AM PROGRAM ASSOCIATE) Date Notified [id number] Time Notified [address] NADEGE DE LEON TestName KRIS DE LEON Called/Read Back MANJINDER [facility] Credentials RN NADEGE MA Called By STEPHANY DE LEON Blood 11/25/2024 2:30 AM PROGRAM ASSOCIATE 11/25/2024 3:51 AM PROGRAM ASSOCIATE Mark Ahumada RN UROLOGY LAB BLOOD ORDERABLES Final Re sult [facility] [place] [address] * Calcium, ionized (11/25/2024 2:30 AM PROGRAM ASSOCIATE) Calcium, Ionized 4.54 4.50 - 5.10 mg/dL Blood 11/25/2024 2:30 AM PROGRAM ASSOCIATE 11/25/2024 3:46 AM PROGRAM ASSOCIATE us Valeriano Marie MD PhD LAB BLOOD ORDERABLES Final Result [facility] [place] [address] * Basic metabolic panel (11/25/2024 2:30 AM PROGRAM ASSOCIATE) Pathologist [facility] Sodium See Comment 135 - 145 mmol/L Comment:Credited: Sample inv estigated and is suggestive of an improper collection (e.g., IV fluid contamination, improper tube type). Deleted at the Request of MANJINDER FISHER RN on 11/25/2024 04:43:07 PROGRAM ASSOCIATE by EW . Potassium, pl See Comment 3.3 - 4.9 mmol/L [facility] Comment: Repeated and Verified Credited: Sample investigated and is suggestive of an improper collection (e.g., IV fluid contamination, improper tube type). Deleted at the Request of MANJINDER FISHER RN on 11/25/2024 04:43:07 PROGRAM ASSOCIATE by EW . Chloride See Comment 97 - 110 mmol/L [facility] Comment:Credited: Sample inv estigated and is suggestive of an improper collection (e.g., IV fluid contamination, improper tube type). Deleted at the Request of MANJINDER FISHER RN on 11/25/2024 04:43:07 PROGRAM ASSOCIATE by EW . CO2 See Comment 22 - 32 mmol/L [facility] Comment:Credited: Sample inv estigated and is suggestive of an improper collection (e.g., IV fluid contamination, improper tube type). Deleted at the Request of MANJINDER FISHER RN on 11/25/2024 04:43:07 PROGRAM ASSOCIATE by EW . Anion gap See Comment 2 - 15 mmol/L [facility] Comment:Credited: Sample inv estigated and is suggestive of an improper collection (e.g., IV fluid contamination, improper tube type). Deleted at the Request of MANJINDER FISHER RN on 11/25/2024 04:43:07 PROGRAM ASSOCIATE by EW . BUN See Comment 6 - 25 mg/dL [facility] Comment:Credited: Sample inv estigated and is suggestive of an improper collection (e.g., IV fluid contamination, improper tube type). Deleted at the Request of MANJINDER FISHER RN on 11/25/2024 04:43:07 PROGRAM ASSOCIATE by EW . Creatinine See Comment 0.80 - 1.30 mg/dL [facility] Comment:Credited: Sample inv estigated and is suggestive of an improper collection (e.g., IV fluid contamination, improper tube type). Deleted at the Request of MANJINDER FISHER RN on 11/25/2024 04:43:07 PROGRAM ASSOCIATE by EW . Glucose See Comment 70 - 199 mg/dL [facility] Comment: Credited: Sample investigated and is suggestive of an improper collection (e.g., IV fluid contamination, improper tube type). Deleted at the Request of MANJINDER FISHER RN on 11/25/2024 04:43:07 PROGRAM ASSOCIATE by EW . Interpretive Data Fasting glucose [...] Calcium See Comment 8.5 - 10.3 mg/dL [facility] Comment: Repeated and Verified Credited: Sample investigated and is suggestive of an improper collection (e.g., IV fluid contamination, improper tube type). Deleted at the Request of MANJINDER FISHER RN on 11/25/2024 04:43:07 PROGRAM ASSOCIATE by EW . Blood 11/25/2024 2:30 AM PROGRAM ASSOCIATE 11/25/2024 3:40 AM PROGRAM ASSOCIATE us Mark Ahumada RN UROLOGY LAB BLOOD ORDERABLES Edited R esult - Final Performing Organization Address City/[facility]/ZIP Co de Phone Number [facility] [place] [address] * eGFR (11/23/2024 11:33 PM PROGRAM ASSOCIATE) Pathologist [facility] eGFR 85 >=60 mL/min/1. 73 m2 Comment: [...] reviewed 2021. Blood 11/23/2024 11:3 3 PM PROGRAM ASSOCIATE 11/24/2024 12:42 AM PROGRAM ASSOCIATE Mark Ahumada RN UROLOGY LAB BLOOD ORDERABLES Final Re sult Performing Organization Address City/[facility]/ZIP Co de Phone Number [facility] [place] [address] * (ABNORMAL) CBC without differential (11/23/2024 11:33 PM PROGRAM ASSOCIATE) [facility] WBC 4.8 3.8 - 9.9 K/cumm Hgb 11.8(L) 13.0 - 17.5 g/dL [facility] Hct 34.6(L) 38.9 - 50.3 % [facility] Plt 221 150 - 400 K/cumm [facility] MPV 9.3 9.1 - 12.3 fL [facility] RBC 3.90(L) 4.30 - 5.80 M/cumm [facility] MCV 88.7 81.3 - 96.4 fL [facility] MCH 30.3 27.1 - 33.3 pg [facility] MCHC 34.1 32.3 - 35.7 g/dL [facility] RDW CV 12.3 11.1 - 14.9 % [facility] RDW SD 39.5 35.7 - 48.1 fL [facility] NRBC abs 0.00 0.00 - 0.01 K/cumm [facility] Blood 11/23/2024 11:3 3 PM PROGRAM ASSOCIATE 11/24/2024 12:42 AM PROGRAM ASSOCIATE Mark Ahumada RN UROLOGY LAB BLOOD ORDERABLES Final Re sult Performing Organization Address City/[facility] Co de Phone Number [facility] [place] [address] * Phosphorus (11/23/2024 11:33 PM PROGRAM ASSOCIATE) Phosphorus, pl 3.5 2.3 - 4.5 mg/dL Blood 11/23/2024 11:3 3 PM PROGRAM ASSOCIATE 11/24/2024 12:42 AM PROGRAM ASSOCIATE Valeriano Marie MD PhD LAB BLOOD ORDERABLES Final Result [facility] [place] [address] * Magnesium (11/23/2024 11:33 PM PROGRAM ASSOCIATE) Magnesium 2.2 1.4 - 2.5 mg/dL Blood 11/23/2024 11:3 3 PM PROGRAM ASSOCIATE 11/24/2024 12:42 AM PROGRAM ASSOCIATE Valeriano Marie MD PhD LAB BLOOD ORDERABLES Final Result Performing Organization Address [facility]/ZIP Co de Phone Number [facility] [place] [address] * (ABNORMAL) Basic metabolic panel (11/23/2024 11:33 PM PROGRAM ASSOCIATE) Sodium 143 135 - 145 mmol/L Potassium, pl 3.6 3.3 - 4.9 mmol/L [facility] Chloride 106 97 - 110 mmol/L [facility] CO2 29 22 - 32 mmol/L [facility] Anion gap 8 2 - 15 mmol/L [facility] BUN 24 6 - 25 mg/dL [facility] Creatinine 0.87 0.80 - 1.30 mg/dL [facility] Glucose 115 70 - 199 mg/dL [facility] Comment: Interpretive Data Fasting glucose [...] 2022. Calcium 8.2(L) 8.5 - 10.3 mg/dL [facility] Blood 11/23/2024 11:3 3 PM PROGRAM ASSOCIATE 11/24/2024 12:42 AM PROGRAM ASSOCIATE us Mark Ahumada RN UROLOGY LAB BLOOD ORDERABLES Final Re sult Performing Organization Address [facility]/ZIP Co de Phone Number [facility] [place] [address] * MRI Brain W Contrast (11/23/2024 4:55 AM PROGRAM ASSOCIATE) Anatomical Region Laterality Modality Head and Neck N/A Magnetic Resonan ce 11/23/2024 7:48 AM PROGRAM ASSOCIATE Impressions 11/23/2024 12:13 PM PROGRAM ASSOCIATE There is no significant contrast enhancement associated [...] Garrett Gold M.D. Narrative 11/23/2024 12:13 PM PROGRAM ASSOCIATE EXAMINATION: Magnetic resonance imaging (MRI) of the [...] M.D. Valeriano Marie MD PhD IMG MRI VT OCEDURES Final Result * eGFR (11/22/2024 9:21 PM PROGRAM ASSOCIATE) eGFR 90 >=60 mL/min/1. 73 m2 Comment: [...] last reviewed 2021. Blood 11/22/2024 9:21 PM PROGRAM ASSOCIATE 11/22/2024 9:48 PM PROGRAM ASSOCIATE Mark Ahumada RN UROLOGY LAB BLOOD ORDERABLES Final Re sult Performing Organization Address [facility] Co de Phone Number [facility] [place] [address] * (ABNORMAL) Paolo-Weathers virus (EBV) antibody panel Blood (11/22/2024 9:21 PM PROGRAM ASSOCIATE) Pathologist [facility] EBV nuclear Ab Positive(A) Negative Comment:Indicates the presen ce of detectable IgG antibody to EBV Nuclear Antigen. EBV VCA IgG Positive(A) Negative [facility] Comment:Indicates the presen ce of antibody; 90% of the adult population will have been infected with EBV sometime in the past. EBV VCA IgM Negative Negative [facility] Comment:No detectable IgM an tibody to EBV-VCA. A negative result indicates no current infection with EBV. If clinical suspicion of acute EBV infection is present, testing should be repeated after one week. EBV interp Past Infection [facility] Blood 11/22/2024 9:21 PM PROGRAM ASSOCIATE 11/22/2024 9:48 PM PROGRAM ASSOCIATE us Valeriano toribio MD PhD LAB MICROBIOLOGY - GENERAL ORDERABLES Final Result Performing Organization Address [facility] Co de Phone Number [facility] [place] [address] * (ABNORMAL) CBC without differential (11/22/2024 9:21 PM PROGRAM ASSOCIATE) WBC 4.5 3.8 - 9.9 K/cumm Hgb 12.1(L) 13.0 - 17.5 g/dL [facility] Hct 35.5(L) 38.9 - 50.3 % [facility] Plt 209 150 - 400 K/cumm [facility] MPV 9.3 9.1 - 12.3 fL [facility] RBC 3.99(L) 4.30 - 5.80 M/cumm [facility] MCV 89.0 81.3 - 96.4 fL [facility] MCH 30.3 27.1 - 33.3 pg [facility] MCHC 34.1 32.3 - 35.7 g/dL [facility] RDW CV 12.2 11.1 - 14.9 % [facility] RDW SD 40.0 35.7 - 48.1 fL [facility] NRBC abs 0.00 0.00 - 0.01 K/cumm [facility] Blood 11/22/2024 9:21 PM PROGRAM ASSOCIATE 11/22/2024 9:48 PM PROGRAM ASSOCIATE Mark Ahumada RN UROLOGY LAB BLOOD ORDERABLES Final Re sult [facility] [place] [address] * Phosphorus (11/22/2024 9:21 PM PROGRAM ASSOCIATE) Phosphorus, pl 3.2 2.3 - 4.5 mg/dL Blood 11/22/2024 9:21 PM PROGRAM ASSOCIATE 11/22/2024 9:48 PM PROGRAM ASSOCIATE Valeriano Marie MD PhD LAB BLOOD ORDERABLES Final Result [facility] [place] [address] * Magnesium (11/22/2024 9:21 PM PROGRAM ASSOCIATE) Magnesium 1.9 1.4 - 2.5 mg/dL Blood 11/22/2024 9:21 PM PROGRAM ASSOCIATE 11/22/2024 9:48 PM PROGRAM ASSOCIATE us Valeriano Marie MD PhD LAB BLOOD ORDERABLES Final Result Performing Organization Address [facility]/ZIP Co de Phone Number [facility] [place] [address] * (ABNORMAL) Basic metabolic panel (11/22/2024 9:21 PM PROGRAM ASSOCIATE) [facility] Sodium 144 135 - 145 mmol/L Potassium, pl 4.0 3.3 - 4.9 mmol/L [facility] Chloride 109 97 - 110 mmol/L [facility] CO2 25 22 - 32 mmol/L [facility] Anion gap 10 2 - 15 mmol/L [facility] BUN 17 6 - 25 mg/dL [facility] Creatinine 0.72(L) 0.80 - 1.30 mg/dL [facility] Glucose 84 70 - 199 mg/dL [facility] Comment: Interpretive Data Fasting glucose [...] 2022. Calcium 8.5 8.5 - 10.3 mg/dL [facility] Blood 11/22/2024 9:21 PM PROGRAM ASSOCIATE 11/22/2024 9:48 PM PROGRAM ASSOCIATE us Mark Ahumada RN UROLOGY LAB BLOOD ORDERABLES Final Re sult Performing Organization Address [facility]/ZIP Co de Phone Number [facility] [place] [address] * MRI Brain WO Contrast (11/22/2024 4:33 AM PROGRAM ASSOCIATE) Anatomical Region Laterality Modality Head and Neck N/A Magnetic Resonan ce 11/22/2024 6:29 AM PROGRAM ASSOCIATE Impressions 11/22/2024 6:29 AM PROGRAM ASSOCIATE 1. Interval development of focus of mildly [...] Garrett Gold M.D. Narrative 11/22/2024 6:29 AM PROGRAM ASSOCIATE EXAMINATION: Magnetic resonance imaging (MRI) of the [...] us Valeriano Marie MD PhD IMG MRI VT OCEDURES Final Result * eGFR (11/21/2024 10:08 PM PROGRAM ASSOCIATE) Pathologist [facility] eGFR 87 >=60 mL/min/1. 73 m2 Comment: [...] reviewed 2021. Blood 11/21/2024 10:0 8 PM PROGRAM ASSOCIATE 11/21/2024 10:52 PM PROGRAM ASSOCIATE us Mark Ahumada RN UROLOGY LAB BLOOD ORDERABLES Final Re sult [facility] [place] [address] * (ABNORMAL) CBC without differential (11/21/2024 10:08 PM PROGRAM ASSOCIATE) Pathologist [facility] WBC 5.5 3.8 - 9.9 K/cumm Hgb 12.9(L) 13.0 - 17.5 g/dL [facility] Hct 37.6(L) 38.9 - 50.3 % [facility] Plt 233 150 - 400 K/cumm [facility] MPV 9.4 9.1 - 12.3 fL [facility] RBC 4.23(L) 4.30 - 5.80 M/cumm [facility] MCV 88.9 81.3 - 96.4 fL [facility] MCH 30.5 27.1 - 33.3 pg [facility] MCHC 34.3 32.3 - 35.7 g/dL [facility] RDW CV 12.5 11.1 - 14.9 % [facility] RDW SD 40.9 35.7 - 48.1 fL [facility] NRBC abs 0.00 0.00 - 0.01 K/cumm [facility] Blood 11/21/2024 10:0 8 PM PROGRAM ASSOCIATE 11/21/2024 10:53 PM PROGRAM ASSOCIATE us Mark Ahumada RN UROLOGY LAB BLOOD ORDERABLES Final Re sult Performing Organization Address [facility] Co de Phone Number [facility] [place] [address] * Phosphorus (11/21/2024 10:08 PM PROGRAM ASSOCIATE) Phosphorus, pl 2.8 2.3 - 4.5 mg/dL Blood 11/21/2024 10:0 8 PM PROGRAM ASSOCIATE 11/21/2024 10:52 PM PROGRAM ASSOCIATE us Valeriano Marie MD PhD LAB BLOOD ORDERABLES Final Result Performing Organization Address City/[facility] Co de Phone Number [facility] [place] [address] * Magnesium (11/21/2024 10:08 PM PROGRAM ASSOCIATE) Magnesium 2.0 1.4 - 2.5 mg/dL Blood 11/21/2024 10:0 8 PM PROGRAM ASSOCIATE 11/21/2024 10:52 PM PROGRAM ASSOCIATE Valeriano Marie MD PhD LAB BLOOD ORDERABLES Final Result Performing Organization Address City/[facility] Co de Phone Number [facility] [place] [address] * (ABNORMAL) Basic metabolic panel (11/21/2024 10:08 PM PROGRAM ASSOCIATE) Sodium 146(H) 135 - 145 mmol/L Potassium, pl 3.8 3.3 - 4.9 mmol/L [facility] Chloride 110 97 - 110 mmol/L [facility] CO2 26 22 - 32 mmol/L [facility] Anion gap 10 2 - 15 mmol/L [facility] BUN 12 6 - 25 mg/dL [facility] Creatinine 0.78(L) 0.80 - 1.30 mg/dL [facility] Glucose 92 70 - 199 mg/dL [facility] Comment: Interpretive Data Fasting glucose [...] 2022. Calcium 8.5 8.5 - 10.3 mg/dL [facility] Blood 11/21/2024 10:0 8 PM PROGRAM ASSOCIATE 11/21/2024 10:52 PM PROGRAM ASSOCIATE Mark Ahumada NP LAB BLOOD ORDERABLES Final Re sult [facility] [place] [address] * XR Hip Right 2 or 3 Views W Pelvis (11/21/2024 12:48 PM PROGRAM ASSOCIATE) Anatomical Region Laterality Modality Lower Extremities, Hip, Pelvis Right C omputed Radiography 11/21/2024 1:16 PM PROGRAM ASSOCIATE Impressions 11/21/2024 1:16 PM PROGRAM ASSOCIATE Severe right hip osteoarthritis. Electronically signed by: Senthil Shen M.D. Narrative 11/21/2024 1:16 PM PROGRAM ASSOCIATE XR HIP RIGHT 2 OR 3 VIEWS [...] Final Result * eGFR (11/20/2024 10:11 PM PROGRAM ASSOCIATE) eGFR >90 >=60 mL/min/1. 73 m2 Comment: [...] reviewed 2021. Blood 11/20/2024 10:1 1 PM PROGRAM ASSOCIATE 11/20/2024 10:34 PM PROGRAM ASSOCIATE Mark Ahumada RN UROLOGY LAB BLOOD ORDERABLES Final Re sult Performing Organization Address City/[facility] Co de Phone Number [facility] [place] [address] * (ABNORMAL) CBC without differential (11/20/2024 10:11 PM PROGRAM ASSOCIATE) [facility] WBC 5.3 3.8 - 9.9 K/cumm Hgb 12.8(L) 13.0 - 17.5 g/dL [facility] Hct 36.8(L) 38.9 - 50.3 % [facility] Plt 216 150 - 400 K/cumm [facility] MPV 9.2 9.1 - 12.3 fL [facility] RBC 4.16(L) 4.30 - 5.80 M/cumm [facility] MCV 88.5 81.3 - 96.4 fL [facility] MCH 30.8 27.1 - 33.3 pg [facility] MCHC 34.8 32.3 - 35.7 g/dL [facility] RDW CV 12.2 11.1 - 14.9 % [facility] RDW SD 39.5 35.7 - 48.1 fL [facility] NRBC abs 0.00 0.00 - 0.01 K/cumm [facility] Blood 11/20/2024 10:1 1 PM PROGRAM ASSOCIATE 11/20/2024 10:35 PM PROGRAM ASSOCIATE Mark Ahumada RN UROLOGY LAB BLOOD ORDERABLES Final Re sult Performing Organization Address City/[facility]/ZIP Co de Phone Number [facility] [place] [address] * Phosphorus (11/20/2024 10:11 PM PROGRAM ASSOCIATE) Phosphorus, pl 2.5 2.3 - 4.5 mg/dL Blood 11/20/2024 10:1 1 PM PROGRAM ASSOCIATE 11/20/2024 10:34 PM PROGRAM ASSOCIATE Valeriano Marie MD PhD LAB BLOOD ORDERABLES Final Result Performing Organization Address City/[facility]/ZIP Co de Phone Number [facility] [place] [address] * Magnesium (11/20/2024 10:11 PM PROGRAM ASSOCIATE) [facility] Magnesium 1.9 1.4 - 2.5 mg/dL Blood 11/20/2024 10:1 1 PM PROGRAM ASSOCIATE 11/20/2024 10:34 PM PROGRAM ASSOCIATE Valeriano Marie MD PhD LAB BLOOD ORDERABLES Final Result Performing Organization Address [facility] de Phone Number [facility] [place] [address] * (ABNORMAL) Basic metabolic panel (11/20/2024 10:11 PM PROGRAM ASSOCIATE) [facility] Sodium 142 135 - 145 mmol/L Potassium, pl 3.4 3.3 - 4.9 mmol/L [facility] Chloride 108 97 - 110 mmol/L [facility] CO2 26 22 - 32 mmol/L [facility] Anion gap 8 2 - 15 mmol/L [facility] BUN 12 6 - 25 mg/dL [facility] Creatinine 0.67(L) 0.80 - 1.30 mg/dL [facility] Glucose 108 70 - 199 mg/dL [facility] Comment: Interpretive Data Fasting glucose [...] Calcium 8.4(L) 8.5 - 10.3 mg/dL [facility] Blood 11/20/2024 10:1 1 PM PROGRAM ASSOCIATE 11/20/2024 10:34 PM PROGRAM ASSOCIATE us Mark Ahumada NP LAB BLOOD ORDERABLES Final Re sult [facility] [place] [address] * CT Chest Abdomen Pelvis W Contrast (11/20/2024 2:37 PM PROGRAM ASSOCIATE) Anatomical Region Laterality Modality Body N/A Computed Tomogra phy 11/20/2024 3:33 PM PROGRAM ASSOCIATE Impressions 11/20/2024 5:49 PM PROGRAM ASSOCIATE 1. No evidence of metastatic disease in [...] Krishna MD, PHD Narrative 11/20/2024 5:49 PM PROGRAM ASSOCIATE EXAMINATION: Computed tomography of the chest, abdomen [...] signed by: Jose Eduardo Krishna MD, PHD [facility] [address] Ryan Marie MD PhD IMG CT PRO CEDURES Final Result * eGFR (11/19/2024 11:01 PM PROGRAM ASSOCIATE) eGFR 90 >=60 mL/min/1. 73 m2 Comment: [...] reviewed 2021. Blood 11/19/2024 11:0 1 PM PROGRAM ASSOCIATE 11/19/2024 11:40 PM PROGRAM ASSOCIATE Mark Ahumada RN UROLOGY LAB BLOOD ORDERABLES Final Re sult Performing Organization Address City/[facility]/ZIP Co de Phone Number [facility] [place] [address] * (ABNORMAL) CBC without differential (11/19/2024 11:01 PM PROGRAM ASSOCIATE) [facility] WBC 4.9 3.8 - 9.9 K/cumm Hgb 12.2(L) 13.0 - 17.5 g/dL [facility] Hct 36.9(L) 38.9 - 50.3 % [facility] Plt 216 150 - 400 K/cumm [facility] MPV 9.4 9.1 - 12.3 fL [facility] RBC 4.00(L) 4.30 - 5.80 M/cumm [facility] MCV 92.3 81.3 - 96.4 fL [facility] MCH 30.5 27.1 - 33.3 pg [facility] MCHC 33.1 32.3 - 35.7 g/dL [facility] RDW CV 12.6 11.1 - 14.9 % [facility] RDW SD 42.5 35.7 - 48.1 fL [facility] NRBC abs 0.00 0.00 - 0.01 K/cumm [facility] Blood 11/19/2024 11:0 1 PM PROGRAM ASSOCIATE 11/19/2024 11:40 PM PROGRAM ASSOCIATE Mark Ahumada RN UROLOGY LAB BLOOD ORDERABLES Final Re sult [facility] [place] [address] * (ABNORMAL) Basic metabolic panel (11/19/2024 11:01 PM PROGRAM ASSOCIATE) Pathologist [facility] Sodium 146(H) 135 - 145 mmol/L Potassium, pl 3.3 3.3 - 4.9 mmol/L [facility] Chloride 111(H) 97 - 110 mmol/L [facility] CO2 27 22 - 32 mmol/L [facility] Anion gap 8 2 - 15 mmol/L [facility] BUN 16 6 - 25 mg/dL [facility] Creatinine 0.71(L) 0.80 - 1.30 mg/dL [facility] Glucose 112 70 - 199 mg/dL [facility] Comment: Interpretive Data Fasting glucose [...] 2022. Calcium 8.3(L) 8.5 - 10.3 mg/dL [facility] Blood 11/19/2024 11:0 1 PM PROGRAM ASSOCIATE 11/19/2024 11:40 PM PROGRAM ASSOCIATE us Mark Ahumada RN UROLOGY LAB BLOOD ORDERABLES Final Re sult [facility] [place] [address] * CLAUDIA ab ql w/rflx to CLAUDIA qn (11/19/2024 4:02 PM PROGRAM ASSOCIATE) CLAUDIA Negative Comment: Interpretive Data Normal range [...] revised on 2020. Blood 11/19/2024 4:02 PM PROGRAM ASSOCIATE 11/19/2024 4:18 PM PROGRAM ASSOCIATE Valeriano Marie MD PhD LAB BLOOD ORDERABLES Final Result Performing Organization Address City/[facility] Co de Phone Number [facility] [place] [address] * SRIDEVI ab eval w/reflex (11/19/2024 4:02 PM PROGRAM ASSOCIATE) SRIDEVI ab Negative Negative Comment: Interpretive Data Positive Screens will be reflexed to specific testing for Antibodies against the following antigens: Angela-1 Ab, PPAP COORDINATOR Ab, Scl-70 Ab, Pope Ab, SS-A/Ro Ab, and SS- B/La Ab. Further testing for dsDNA, Centromere, or Ribosomal P antibodies is suggested in patient with a positive screen and negative specific antibodies. Current interpretive data was last revised on 2023. Blood 11/19/2024 4:02 PM PROGRAM ASSOCIATE 11/19/2024 4:18 PM PROGRAM ASSOCIATE Valeriano Marie MD PhD LAB BLOOD ORDERABLES Final Result Performing Organization Address [facility] [place] [address] * PR3 - proteinase 3, Ab (11/19/2024 4:02 PM PROGRAM ASSOCIATE) Pathologist [facility] Proteinase 3 ab <0.2 <=0.9 Ab Index Comment: Interpretive Data Negative: <1 Ab Index Positive: > or = 1 Ab Index Current interpretive data was last revised on 2017. Blood 11/19/2024 4:02 PM PROGRAM ASSOCIATE 11/19/2024 4:18 PM PROGRAM ASSOCIATE Valeriano Marie MD PhD LAB BLOOD ORDERABLES Final Result Performing Organization Address City/[facility]/ZIP Co de Phone Number [facility] [place] [place] [address] * MPO - myeloperoxidase antibody (11/19/2024 4:02 PM PROGRAM ASSOCIATE) [facility] Myeloperoxidase ab <0.2 <=0.9 Ab Index Comment: Interpretive Data Negative: <1 Ab Index Positive: > or = 1 Ab Index Current interpretive data was last revised on 2017. Blood 11/19/2024 4:02 PM PROGRAM ASSOCIATE 11/19/2024 4:18 PM PROGRAM ASSOCIATE Valeriano Marie MD PhD LAB BLOOD ORDERABLES Final Result Performing Organization Address [facility] Co de Phone Number [facility] [place] [address] * (ABNORMAL) Anti-Neutrophilic Cytoplasmic Antibody (ANCA) with Reflex to MPO and PR3 Abs (54:02 PM PROGRAM ASSOCIATE) [facility] ANCA Indetermi cathleen(A) Negative Comment:Indeterminate for P- ANCA - Results by antigen specific immunoassay (MPO & PR3) to follow. May indicate ulcerative colitis or Crohn's disease. Blood 11/19/2024 4:02 PM PROGRAM ASSOCIATE 11/19/2024 4:18 PM PROGRAM ASSOCIATE Valeriano Marie MD PhD LAB BLOOD ORDERABLES Final Result Performing Organization Address City/[facility] de Phone Number [facility] [place] [address] * (ABNORMAL) CBC without differential (11/19/2024 4:02 PM PROGRAM ASSOCIATE) [facility] WBC 5.1 3.8 - 9.9 K/cumm Hgb 13.0 13.0 - 17.5 g/dL [facility] Hct 37.9(L) 38.9 - 50.3 % [facility] Plt 216 150 - 400 K/cumm [facility] MPV 9.2 9.1 - 12.3 fL [facility] RBC 4.29(L) 4.30 - 5.80 M/cumm [facility] MCV 88.3 81.3 - 96.4 fL [facility] MCH 30.3 27.1 - 33.3 pg [facility] MCHC 34.3 32.3 - 35.7 g/dL [facility] RDW CV 12.4 11.1 - 14.9 % [facility] RDW SD 40.3 35.7 - 48.1 fL [facility] NRBC abs 0.00 0.00 - 0.01 K/cumm [facility] Blood 11/19/2024 4:02 PM PROGRAM ASSOCIATE 11/19/2024 4:19 PM PROGRAM ASSOCIATE us Mark Ahumada NP LAB BLOOD ORDERABLES Final Re sult [facility] [place] [address] * eGFR (11/18/2024 10:19 PM PROGRAM ASSOCIATE) eGFR 86 >=60 mL/min/1. 73 m2 Comment: [...] reviewed 2021. Blood 11/18/2024 10:1 9 PM PROGRAM ASSOCIATE 11/18/2024 11:00 PM PROGRAM ASSOCIATE Mark Ahumada RN UROLOGY LAB BLOOD ORDERABLES Final Re sult Performing Organization Address City/[facility]/ZIP Co de Phone Number [facility] [place] [address] * (ABNORMAL) CBC without differential (11/18/2024 10:19 PM PROGRAM ASSOCIATE) [facility] WBC 6.6 3.8 - 9.9 K/cumm Hgb 13.4 13.0 - 17.5 g/dL [facility] Hct 38.6(L) 38.9 - 50.3 % [facility] Plt 229 150 - 400 K/cumm [facility] MPV 9.4 9.1 - 12.3 fL [facility] RBC 4.38 4.30 - 5.80 M/cumm [facility] MCV 88.1 81.3 - 96.4 fL [facility] MCH 30.6 27.1 - 33.3 pg [facility] MCHC 34.7 32.3 - 35.7 g/dL [facility] RDW CV 12.7 11.1 - 14.9 % [facility] RDW SD 41.3 35.7 - 48.1 fL [facility] NRBC abs 0.00 0.00 - 0.01 K/cumm [facility] Blood 11/18/2024 10:1 9 PM PROGRAM ASSOCIATE 11/18/2024 11:00 PM PROGRAM ASSOCIATE Mark Ahumada RN UROLOGY LAB BLOOD ORDERABLES Final Re sult [facility] [place] [address] * Basic metabolic panel (11/18/2024 10:19 PM PROGRAM ASSOCIATE) [facility] Sodium 142 135 - 145 mmol/L Potassium, pl 3.7 3.3 - 4.9 mmol/L [facility] Chloride 105 97 - 110 mmol/L [facility] CO2 26 22 - 32 mmol/L [facility] Anion gap 11 2 - 15 mmol/L [facility] BUN 21 6 - 25 mg/dL [facility] Creatinine 0.83 0.80 - 1.30 mg/dL [facility] Glucose 91 70 - 199 mg/dL [facility] Comment: Interpretive Data Fasting glucose [...] 2022. Calcium 8.8 8.5 - 10.3 mg/dL [facility] Blood 11/18/2024 10:1 9 PM PROGRAM ASSOCIATE 11/18/2024 11:00 PM PROGRAM ASSOCIATE Mark Ahumada NP LAB BLOOD ORDERABLES Final Re sult [facility] [place] [address] * Continuous Video EEG (11/18/2024 11:48 AM PROGRAM ASSOCIATE) Anatomical Region Laterality Modality EEG Narrative 11/19/2024 12:34 PM PROGRAM ASSOCIATE Video-EEG Report Patient Name: Jarrell Rubio [facility] Medical Record Number (MRN): [id number] [facility] Record: No Soarian MRN Date of [...] digital EEG were recorded continuously with a JF[employer] EEG acquisition system. This was a 32 [...] Resul t * eGFR (11/16/2024 9:13 PM PROGRAM ASSOCIATE) eGFR 88 >=60 mL/min/1. 73 m2 Comment: [...] last reviewed 2021. Blood 11/16/2024 9:13 PM PROGRAM ASSOCIATE 11/16/2024 9:46 PM PROGRAM ASSOCIATE us Mark Ahumada NP LAB BLOOD ORDERABLES Final Re sult [facility] [place] [address] * (ABNORMAL) CBC without differential (11/16/2024 9:13 PM PROGRAM ASSOCIATE) WBC 8.3 3.8 - 9.9 K/cumm Hgb 13.0 13.0 - 17.5 g/dL [facility] Hct 37.9(L) 38.9 - 50.3 % [facility] Plt 223 150 - 400 K/cumm [facility] MPV 9.1 9.1 - 12.3 fL [facility] RBC 4.33 4.30 - 5.80 M/cumm [facility] MCV 87.5 81.3 - 96.4 fL [facility] MCH 30.0 27.1 - 33.3 pg [facility] MCHC 34.3 32.3 - 35.7 g/dL [facility] RDW CV 12.4 11.1 - 14.9 % [facility] RDW SD 39.7 35.7 - 48.1 fL [facility] NRBC abs 0.00 0.00 - 0.01 K/cumm [facility] Blood 11/16/2024 9:13 PM PROGRAM ASSOCIATE 11/16/2024 9:47 PM PROGRAM ASSOCIATE Mark Ahumada RN UROLOGY LAB BLOOD ORDERABLES Final Re sult Performing Organization Address City/[facility]/ZIP Co de Phone Number [facility] [place] [address] * Magnesium (11/16/2024 9:13 PM PROGRAM ASSOCIATE) [facility] Magnesium 2.0 1.4 - 2.5 mg/dL Blood 11/16/2024 9:13 PM PROGRAM ASSOCIATE 11/16/2024 9:46 PM PROGRAM ASSOCIATE Emma Regalado RN UROLOGY LAB BLOOD ORDERABLES Final Result Performing Organization Address [facility] Co de Phone Number [facility] [place] [address] * (ABNORMAL) Basic metabolic panel (11/16/2024 9:13 PM PROGRAM ASSOCIATE) [facility] Sodium 138 135 - 145 mmol/L Potassium, pl 3.5 3.3 - 4.9 mmol/L [facility] Chloride 100 97 - 110 mmol/L [facility] CO2 27 22 - 32 mmol/L [facility] Anion gap 11 2 - 15 mmol/L [facility] BUN 12 6 - 25 mg/dL [facility] Creatinine 0.76(L) 0.80 - 1.30 mg/dL [facility] Glucose 89 70 - 199 mg/dL [facility] Comment: Interpretive Data Fasting glucose [...] 2022. Calcium 8.6 8.5 - 10.3 mg/dL [facility] Blood 11/16/2024 9:13 PM PROGRAM ASSOCIATE 11/16/2024 9:46 PM PROGRAM ASSOCIATE us Mark Ahumada NP LAB BLOOD ORDERABLES Final Re sult [facility] [place] [address] * Continuous Video EEG (11/16/2024 9:21 AM PROGRAM ASSOCIATE) Anatomical Region Laterality Modality EEG Narrative 11/16/2024 2:58 PM PROGRAM ASSOCIATE Video-EEG Report Patient Name: Jarrell Rubio [facility] Medical Record Number (MRN): [id number] [facility] Record: No Soarian MRN Date of [...] digital EEG were recorded continuously with a JF[employer] EEG acquisition system. This was a 32 [...] * Potassium, whole blood (11/16/2024 6:35 AM PROGRAM ASSOCIATE) Pathologist [facility] Potassium, bld 4.0 3.3 - 4.9 mmol/L Blood 11/16/2024 6:35 AM PROGRAM ASSOCIATE 11/16/2024 6:41 AM PROGRAM ASSOCIATE Emma Regalado NP LAB BLOOD ORDERABLES Final Result [facility] [place] [address] * eGFR (11/16/2024 5:28 AM PROGRAM ASSOCIATE) eGFR 89 >=60 mL/min/1. 73 m2 Comment: [...] last reviewed 2021. Blood 11/16/2024 5:28 AM PROGRAM ASSOCIATE 11/16/2024 5:42 AM PROGRAM ASSOCIATE us Isrrael Sharma MD LAB BLOOD ORDERABLES Final Result [facility] [place] [address] * (ABNORMAL) Differential, auto (11/16/2024 5:28 AM PROGRAM ASSOCIATE) Neutrophil abs 5.9 1.5 - 6.5 K/cumm Imm gran abs 0.0 0.0 - 0.1 K/cumm [facility] Lymphocyte abs 0.7(L) 0.8 - 3.3 K/cumm [facility] Monocyte abs 1.2(H) 0.2 - 0.8 K/cumm [facility] Eosinophil abs 0.1 0.0 - 0.5 K/cumm [facility] Basophil abs 0.0 0.0 - 0.1 K/cumm [facility] Neutrophil pct 74.2 % [facility] Comment: Interpretive Data Percent cell count reference ranges are not reported, since discordance with absolute values may lead to misinterpretation of CBC data. Current Interpretive Data was last revised on 2018. Imm gran pct 0.4 % [facility] Comment: Interpretive Data Percent cell count reference ranges are not reported, since discordance with absolute values may lead to misinterpretation of CBC data. Current Interpretive Data was last revised on 2018. Lymphocyte pct 9.0 % [facility] Comment: Interpretive Data Percent cell count reference ranges are not reported, since discordance with absolute values may lead to misinterpretation of CBC data. Current Interpretive Data was last revised on 2018. Monocyte pct 14.8 % [facility] Comment: Interpretive Data Percent cell count reference ranges are not reported, since discordance with absolute values may lead to misinterpretation of CBC data. Current Interpretive Data was last revised on 2018. Eosinophil pct 1.3 % [facility] Comment: Interpretive Data Percent cell count reference ranges are not reported, since discordance with absolute values may lead to misinterpretation of CBC data. Current Interpretive Data was last revised on 2018. Basophil pct 0.3 % [facility] Comment: Interpretive Data Percent cell count reference ranges are not reported, since discordance with absolute values may lead to misinterpretation of CBC data. Current Interpretive Data was last revised on 2018. Blood 11/16/2024 5:28 AM PROGRAM ASSOCIATE 11/16/2024 5:42 AM PROGRAM ASSOCIATE Isrrael Sharma MD LAB BLOOD ORDERABLES Final Result [facility] [place] [address] * (ABNORMAL) CBC with auto differential (11/16/2024 5:28 AM PROGRAM ASSOCIATE) WBC 7.9 3.8 - 9.9 K/cumm Hgb 11.6(L) 13.0 - 17.5 g/dL [facility] Hct 33.2(L) 38.9 - 50.3 % [facility] Plt 178 150 - 400 K/cumm [facility] MPV 9.3 9.1 - 12.3 fL [facility] RBC 3.79(L) 4.30 - 5.80 M/cumm [facility] MCV 87.6 81.3 - 96.4 fL [facility] MCH 30.6 27.1 - 33.3 pg [facility] MCHC 34.9 32.3 - 35.7 g/dL [facility] RDW CV 12.5 11.1 - 14.9 % [facility] RDW SD 40.2 35.7 - 48.1 fL [facility] NRBC abs 0.00 0.00 - 0.01 K/cumm [facility] Blood 11/16/2024 5:28 AM PROGRAM ASSOCIATE 11/16/2024 5:42 AM PROGRAM ASSOCIATE Isrrael Sharma MD LAB BLOOD ORDERABLES Final Result Performing Organization Address [facility] Co de Phone Number [facility] [place] [address] * Phosphorus (11/16/2024 5:28 AM PROGRAM ASSOCIATE) Phosphorus, pl 3.1 2.3 - 4.5 mg/dL Blood 11/16/2024 5:28 AM PROGRAM ASSOCIATE 11/16/2024 5:42 AM PROGRAM ASSOCIATE Isrrael Sharma MD LAB BLOOD ORDERABLES Final Result Performing Organization Address [facility] de Phone Number [facility] [place] [address] * Magnesium (11/16/2024 5:28 AM PROGRAM ASSOCIATE) Magnesium 1.7 1.4 - 2.5 mg/dL Blood 11/16/2024 5:28 AM PROGRAM ASSOCIATE 11/16/2024 5:42 AM PROGRAM ASSOCIATE Isrrael Sharma MD LAB BLOOD ORDERABLES Final Result Performing Organization Address [facility] [place] [address] * (ABNORMAL) Creatine kinase (CK), total (11/16/2024 5:28 AM PROGRAM ASSOCIATE) CK 672(H) 40 - 300 Units/L Blood 11/16/2024 5:28 AM PROGRAM ASSOCIATE 11/16/2024 5:42 AM PROGRAM ASSOCIATE Isrrael Sharma MD LAB BLOOD ORDERABLES Final Result [facility] [place] [address] * (ABNORMAL) Basic metabolic panel (11/16/2024 5:28 AM PROGRAM ASSOCIATE) Sodium 140 135 - 145 mmol/L Potassium, pl 5.7(H) 3.3 - 4.9 mmol/L [facility] Chloride 107 97 - 110 mmol/L [facility] CO2 25 22 - 32 mmol/L [facility] Anion gap 8 2 - 15 mmol/L [facility] BUN 12 6 - 25 mg/dL [facility] Creatinine 0.73(L) 0.80 - 1.30 mg/dL [facility] Glucose 87 70 - 199 mg/dL [facility] Comment: Interpretive Data Fasting glucose [...] 2022. Calcium 7.9(L) 8.5 - 10.3 mg/dL [facility] Blood 11/16/2024 5:28 AM PROGRAM ASSOCIATE 11/16/2024 5:42 AM PROGRAM ASSOCIATE Isrrael Sharma MD LAB BLOOD ORDERABLES Final Result [facility] [place] [address] * eGFR (11/14/2024 8:57 PM PROGRAM ASSOCIATE) eGFR 88 >=60 mL/min/1. 73 m2 Comment: [...] last reviewed 2021. Blood 11/14/2024 8:57 PM PROGRAM ASSOCIATE 11/14/2024 9:20 PM PROGRAM ASSOCIATE Mark Ahumada RN UROLOGY LAB BLOOD ORDERABLES Final Re sult [facility] [place] [address] * (ABNORMAL) CBC without differential (11/14/2024 8:57 PM PROGRAM ASSOCIATE) WBC 8.1 3.8 - 9.9 K/cumm Hgb 11.0(L) 13.0 - 17.5 g/dL [facility] Hct 31.8(L) 38.9 - 50.3 % [facility] Plt 198 150 - 400 K/cumm [facility] MPV 9.1 9.1 - 12.3 fL [facility] RBC 3.63(L) 4.30 - 5.80 M/cumm [facility] MCV 87.6 81.3 - 96.4 fL [facility] MCH 30.3 27.1 - 33.3 pg [facility] MCHC 34.6 32.3 - 35.7 g/dL [facility] RDW CV 12.6 11.1 - 14.9 % [facility] RDW SD 40.9 35.7 - 48.1 fL [facility] NRBC abs 0.00 0.00 - 0.01 K/cumm [facility] Blood 11/14/2024 8:57 PM PROGRAM ASSOCIATE 11/14/2024 9:19 PM PROGRAM ASSOCIATE Mark Ahumada RN UROLOGY LAB BLOOD ORDERABLES Final Re sult Performing Organization Address [facility] Co de Phone Number [facility] [place] [address] * Phosphorus (11/14/2024 8:57 PM PROGRAM ASSOCIATE) Phosphorus, pl 3.1 2.3 - 4.5 mg/dL Blood 11/14/2024 8:57 PM PROGRAM ASSOCIATE 11/14/2024 9:12 PM PROGRAM ASSOCIATE Mark Ahumada RN UROLOGY LAB BLOOD ORDERABLES Final Re sult Performing Organization Address [facility] Co de Phone Number [facility] [place] [address] * Magnesium (11/14/2024 8:57 PM PROGRAM ASSOCIATE) Magnesium 2.1 1.4 - 2.5 mg/dL Blood 11/14/2024 8:57 PM PROGRAM ASSOCIATE 11/14/2024 9:12 PM PROGRAM ASSOCIATE Isrrael Sharma MD LAB BLOOD ORDERABLES Final Result Performing Organization Address [facility] Co de Phone Number [facility] [place] [address] * (ABNORMAL) Creatine kinase (CK), total (11/14/2024 8:57 PM PROGRAM ASSOCIATE) CK 817(H) 40 - 300 Units/L Blood 11/14/2024 8:57 PM PROGRAM ASSOCIATE 11/14/2024 9:19 PM PROGRAM ASSOCIATE us Antolin Yancey NP LAB BLOOD ORDERABLES nal Result [facility] [place] [address] * (ABNORMAL) Comprehensive metabolic panel (11/14/2024 8:57 PM PROGRAM ASSOCIATE) Sodium 139 135 - 145 mmol/L Potassium, pl 3.4 3.3 - 4.9 mmol/L [facility] Chloride 105 97 - 110 mmol/L [facility] CO2 27 22 - 32 mmol/L [facility] Anion gap 7 2 - 15 mmol/L [facility] BUN 8 6 - 25 mg/dL [facility] Creatinine 0.76(L) 0.80 - 1.30 mg/dL [facility] Glucose 93 70 - 199 mg/dL [facility] Comment: Interpretive Data Fasting glucose [...] 2022. Calcium 8.1(L) 8.5 - 10.3 mg/dL [facility] Bilirubin, total 1.3(H) 0.1 - 1.2 mg/dL [facility] Protein, pl 5.8(L) 6.5 - 8.5 g/dL [facility] Albumin 3.3(L) 3.5 - 5.0 g/dL [facility] Alk phos 68 40 - 130 Units/L [facility] ALT 24 7 - 55 Units/L [facility] AST 51(H) 10 - 50 Units/L [facility] Blood 11/14/2024 8:57 PM PROGRAM ASSOCIATE 11/14/2024 9:12 PM PROGRAM ASSOCIATE us Mark Ahumada RN UROLOGY LAB BLOOD ORDERABLES Final Re sult [facility] [place] [address] * TRANSTHORACIC ECHO (TTE) COMPLETE W DOPPLER/CF W CONTRAST (11/14/2024 1:16 PM PROGRAM ASSOCIATE) LV EF % CONS SCIMAGE Anatomical Region Laterality Modality Ultrasound 11/14/2024 12:1 5 PM PROGRAM ASSOCIATE Narrative 11/14/2024 4:47 PM PROGRAM ASSOCIATE [facility] [place] [address] Transthoracic Echocardiographic Report Patient Name: JARRELL RUBIO MELVIN : 1940 (84y 4m) Gender: M Study Date: 11/14/2024 12:15:56 PM Ht(Inch): 69 Wt(Lb): 179.01 BSA: 1.99 Spinner [employer]crete Pipe: Clay Mckeon RDCS Location: [id number] Order Provider: ANTOLIN YANCEY BMI: 26.43 BP: 140 / 70 Quality: The study images were of technically good quality. Ref Provider: ANTOLIN YANCEY PROCEDURES: Echocardiographic Report: ([id number], [id number]) Transthoracic complete echo with contrast, 2D, spectral [...] LA Length 4C 3.77 cm PV Accel Metcalfe 9.13 m/s LA Volume 2C 41.8 ml [...] By: Alban Hampton MD 11/14/2024 4:46:36 PM PROGRAM ASSOCIATE Electronically Signed By: Alban Hampton MD 11/14/2024 4:46:36 PM PROGRAM ASSOCIATE Wall Motion Analysis - Resting Procedure Note Alban Bennett MD - 11/14/2024 [facility] [place] [address] Transthoracic Echocardiographic Report Patient Name: JARRELL RUBIO MELVIN : 1940 (84y 4m) Gender: M Study Date: 11/14/2024 12:15:56 PM Ht(Inch): 69 Wt(Lb): 179.01 BSA: 1.99 [employer] Pipe: Clay Mckeon RDCS Location: [id number] Order Provider:ANTOLIN YANCEY BMI: 26.43 BP: 140 / 70 Quality: The study images were oftechnically good quality. Ref Provider: ANTOLIN YANCEY PROCEDURES: Echocardiographic Report: ([id number], [id number]) Transthoracic complete echo withcontrast, 2D, spectral and [...] [ 62.00 - 150.00 ] MV Decel Yxut019.46 msec [ 104.00 - 258.00 ] ESV [...] cm/m2 [ 10.00 - 18.00 ] RA Vpslyi22.51 ml RA Volume Index12.32 ml/m2 AoR Diam [...] By: Alban Hampton MD 11/14/2024 4:46:36 PM PROGRAM ASSOCIATE Electronically Signed By: Alban Hampton MD 11/14/2024 4:46:36 PM PROGRAM ASSOCIATE Wall [facility] - Resting us Antolin Yancey NP CV ECHO PROCEDURES Angela l Result * Blood culture Blood (11/14/2024 12:17 PM PROGRAM ASSOCIATE) Report Final Report: No growth Blood 11/14/2024 12:1 7 PM PROGRAM ASSOCIATE 11/14/2024 12:27 PM PROGRAM ASSOCIATE Narrative CERNER [facility] - 11/18/2024 4:00 PM PROGRAM ASSOCIATE Collection->Peripheral 1. Blood cultures are incubated for [...] performance characteristics have been verified by the [facility]. For questions about this culture, contact the Microbiology Laboratory at [phone]. Interpretive data was last revised on 24. Isrrael Sharma MD LAB MICROBIOLOGY - GENERAL ORDERABLES Final Result Performing Organization Address City/[facility]/ZIP Co de Phone Number NADEGE [facility] [place] [address] * Blood culture Blood (11/14/2024 12:17 PM PROGRAM ASSOCIATE) Report Final Report: No growth Blood 11/14/2024 12:1 7 PM PROGRAM ASSOCIATE 11/14/2024 12:27 PM PROGRAM ASSOCIATE Narrative NADEGE [place] - 11/18/2024 4:00 PM PROGRAM ASSOCIATE Collection->Peripheral From second site 1. Blood cultures [...] performance characteristics have been verified by the [facility]. For questions about this culture, contact the Microbiology Laboratory at [phone]. Interpretive data was last revised on 24. Isrrael Sharma MD LAB MICROBIOLOGY - GENERAL ORDERABLES Final Result Performing Organization Address City/[facility]/ZIP Co de Phone Number NADEGE [facility] Department [place] [address] * MRI Brain W WO Contrast (11/14/2024 10:32 AM PROGRAM ASSOCIATE) Anatomical Region Laterality Modality Head and Neck N/A Magnetic Resonan ce 11/14/2024 10:5 0 AM PROGRAM ASSOCIATE Impressions 11/14/2024 11:20 AM PROGRAM ASSOCIATE 1. No acute intracranial process. 2. Small [...] Abdon Cespedes M.D. Narrative 11/14/2024 11:20 AM PROGRAM ASSOCIATE EXAMINATION: Magnetic resonance imaging (MRI) of the [...] Creatine kinase (CK), total (11/14/2024 6:27 AM PROGRAM ASSOCIATE) CK 782(H) 40 - 300 Units/L Blood 11/14/2024 6:27 AM PROGRAM ASSOCIATE 11/14/2024 6:48 AM PROGRAM ASSOCIATE us Mark Ahumada NP LAB BLOOD ORDERABLES Final Re sult [facility] [place] [address] * (ABNORMAL) Lipid panel (11/14/2024 6:27 AM PROGRAM ASSOCIATE) Cholesterol 199 30 - 199 mg/dL Comment: [...] on 2018. Triglycerides 69 <=149 mg/dL NADEGE [facility] Comment: Interpretive Data Ages < or [...] on 2018. HDL 48 >=40 mg/dL NADEGE [facility] Comment: Interpretive Data Ages < or [...] 2018. LDL, calculated 138(H) <=129 mg/dL NADEGE [facility] Comment: Interpretive Data Ages < or [...] last revised on 2018. [facility] 4 [facility] Blood 11/14/2024 6:27 AM PROGRAM ASSOCIATE 11/14/2024 6:48 AM PROGRAM ASSOCIATE us Isrrael Sharma MD LAB BLOOD ORDERABLES Final Result NADEGE [place] [facility] [place] [address] * Troponin I high-sensitivity 6-hour (11/14/2024 4:13 AM PROGRAM ASSOCIATE) Trop I hs 25 <=35 ng/L Comment: Interpretive Data For further hscTnI resources including the diagnostic algorithm and an aid in interpretation, copy and paste this link: https://[employer] Current[employer] Corporationhlab.testcatluma-id.org/show/hsTrop-1 Current Interpretive Data last revised 2020. Trop I hs delta 7 ng/L [facility] Trop I hs interp Equivocal [facility] Blood 11/14/2024 4:13 AM PROGRAM ASSOCIATE 11/14/2024 4:34 AM PROGRAM ASSOCIATE Mark Ahumada RN UROLOGY LAB BLOOD ORDERABLES Final Re sult Performing Organization Address City/[facility]/ZIP Co de Phone Number [facility] [place] [address] * Troponin I high-sensitivity 4-hour (11/14/2024 2:24 AM PROGRAM ASSOCIATE) Trop I hs 25 <=35 ng/L Comment: Interpretive Data For further hscTnI resources including the diagnostic algorithm and an aid in interpretation, copy and paste this link: https://[employer] Current[employer] Corporationhlab.testcatluma-id.org/show/hsTrop-1 Current Interpretive Data last revised 2020. Trop I hs delta 7 ng/L [facility] Trop I hs interp Equivocal [facility] Blood 11/14/2024 2:24 AM PROGRAM ASSOCIATE 11/14/2024 2:38 AM PROGRAM ASSOCIATE Mark Ahumada RN UROLOGY LAB BLOOD ORDERABLES Final Re sult [facility] [place] [address] * XR Ventriculoperitoneal Shunt Series (11/14/2024 2:11 AM PROGRAM ASSOCIATE) Anatomical Region Laterality Modality Head and Neck N/A Computed Radiogr aphy 11/14/2024 2:24 AM PROGRAM ASSOCIATE Impressions 11/14/2024 9:20 AM PROGRAM ASSOCIATE Stone catheter in place. No additional retained radiopaque foreign body. Dictated by: Veronique Duke MD The radiology attending physician has personally reviewed this study, and had reviewed and/or edited this written report and agrees with it. Electronically signed by: Augusto Evans M.D, PHD Narrative 11/14/2024 9:20 AM PROGRAM ASSOCIATE EXAMINATION: XR VENTRICULOPERITONEAL SHUNT SERIES HISTORY: Rule [...] Augusto Evans M.D, PHD us Mark Ahumada RN UROLOGY IMG XR PROCEDURES Final Resul t * Troponin I high-sensitivity 2-hour (11/14/2024 12:25 AM PROGRAM ASSOCIATE) Trop I hs 25 <=35 ng/L Comment: Interpretive Data For further hscTnI resources including the diagnostic algorithm and an aid in interpretation, copy and paste this link: https://bjhlab.testcatalog.org/show/hsTrop-1 Current Interpretive Data last revised 2020. Trop I hs delta 7 ng/L [facility] Trop I hs interp Equivocal [facility] Blood 11/14/2024 12:2 5 AM PROGRAM ASSOCIATE 11/14/2024 12:44 AM PROGRAM ASSOCIATE us Mark Ahumada RN UROLOGY LAB BLOOD ORDERABLES Final Re sult 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 DE ORDERABLES Final Result * Cytomegalovirus (CMV) PCR qualitative CSF (11/13/2024 11:40 PM PROGRAM ASSOCIATE) Pathologist [facility] CMV DNA Not Detected Not Detected [facility] Comment: Interpretive Data: This assay tests for the presence of CMV. This test is laboratory developed and its performance characteristics were determined by the performing laboratory in a manner consistent with CLIA requirements. This test has not been cleared or approved by the U.S. Food and Drug Administration. Current Interpretive Data was last revised on 2020. CSF 11/13/2024 11:4 0 PM PROGRAM ASSOCIATE 11/22/2024 2:59 PM PROGRAM ASSOCIATE Valeriano toribio MD PhD LAB MICROBIOLOGY - GENERAL ORDERABLES Final Result [facility] [place] [address] [facility] * Varicella Zoster Virus (VZV) PCR CSF (11/13/2024 11:40 PM PROGRAM ASSOCIATE) Pathologist [facility] VZV DNA Not Detected Not Detected [facility] Comment: Interpretative Data: Testing performed by [facility] ([phone]). This assay is performed using the AmplimmuneSoRe5ult Molecular Simplexa VZV Direct assay. This is a qualitative, real-time PCR assay for the detection of Varicella-zoster virus (VZV). This assay has been cleared by the U.S. Food and Drug Administration for performance on cerebrospinal fluid and lesion swabs. The performance characteristics have been verified by the [facility]. Results must be considered in the clinical context, and a negative result does not rule out infection. Interpretive data last revised 2021. CSF 11/13/2024 11:4 0 PM PROGRAM ASSOCIATE 11/14/2024 5:00 PM PROGRAM ASSOCIATE Isrrael Sharma MD LAB MICROBIOLOGY - GENERAL ORDERABLES Final Result Performing Organization Address City/[facility] Co de Phone Number NADEGE [facility] [place] [address] [facility] * Herpes Simplex Virus (HSV) PCR CSF (11/13/2024 11:40 PM PROGRAM ASSOCIATE) [facility] HSV DNA Not Detected Not Detected [facility] Comment: Interpretive Data This assay is [...] on 02/21/2019 CSF 11/13/2024 11:4 0 PM PROGRAM ASSOCIATE 11/14/2024 5:00 PM PROGRAM ASSOCIATE Isrrael Sharma MD LAB MICROBIOLOGY - GENERAL ORDERABLES Final Result Performing Organization Address City/[facility] de Phone Number CERNER [facility] [place] [address] [facility] * Enterovirus PCR CSF (11/13/2024 11:40 PM PROGRAM ASSOCIATE) [facility] Enterovirus RNA, CSF Not Detected Not Detected [facility] Comment: Interpretive Data Testing performed by [facility] Molecular Infectious Disease Laboratory using the [employer] Liaison MDX enterovirus assay. This assay detects RNA from enterovirus using Real Time PCR. This assay is laboratory developed and is not cleared by the [place] Food and Drug Administration. The performance characteristics have been verified by the [facility] Infectious Disease [facility]. If negative results are obtained in patients less than two years of age with symptoms and laboratory findings consistent with enterovirus, testing for parechovirus may be appropriate. Current Interpretive Data was last revised on 2024. CSF 11/13/2024 11:4 0 PM PROGRAM ASSOCIATE 11/22/2024 2:59 PM PROGRAM ASSOCIATE Valeriano toribio MD PhD LAB MICROBIOLOGY - GENERAL ORDERABLES Final Result Performing Organization Address City/[facility] Co de Phone Number [facility] [place] [address] BJ * Cell count w/reflex diff, CSF (11/13/2024 11:40 PM PROGRAM ASSOCIATE) Tube Number, CSF Tube 1 Color, CSF Colorless Colorless [facility] Clarity, CSF Clear Clear [facility] Xanthochromia , CSF Absent Absent [facility] Nucleated cells, CSF 0 0 - 5 /cumm [facility] RBC, CSF 0 0 - 0 /cumm [facility] CSF 11/13/2024 11:4 0 PM PROGRAM ASSOCIATE 11/13/2024 11:52 PM PROGRAM ASSOCIATE us Mark Ahumada RN UROLOGY LAB BODY FLUIDS AND STOOLS OR DERABLES Final Result Performing Organization Address City/[facility] Co de Phone Number [facility] [place] [address] * Cell count w/reflex diff, CSF (11/13/2024 11:40 PM PROGRAM ASSOCIATE) Tube Number, CSF Tube 4 Color, CSF Colorless Colorless [facility] Clarity, CSF Clear Clear [facility] Xanthochromia , CSF Absent Absent [facility] Nucleated cells, CSF 0 0 - 5 /cumm [facility] RBC, CSF 0 0 - 0 /cumm [facility] CSF 11/13/2024 11:4 0 PM PROGRAM ASSOCIATE 11/13/2024 11:52 PM PROGRAM ASSOCIATE us Mark Ahumada RN UROLOGY LAB BODY FLUIDS AND STOOLS OR DERABLES Final Result Performing Organization Address [facility] de Phone Number [facility] [place] [address] * Check Sample (11/13/2024 11:40 PM PROGRAM ASSOCIATE) Pathologist [facility] ABO Rh A Positive [facility] HCLL OTHER 11/13/2024 11:4 0 PM PROGRAM ASSOCIATE 11/13/2024 11:59 PM PROGRAM ASSOCIATE Andrae Pop MD PhD LAB BLOOD ORDER DAR Final Result Performing Organization Address [facility] Phone Number [facility] [place] [address] [facility] * Bacterial culture and gram stain, CSF CSF (11/13/2024 11:40 PM PROGRAM ASSOCIATE) [facility] Direct Specimen Exam Stain: Cytospin Gram stain shows: No polymorphonuclear leukocytes seen. No organisms seen. Report Final Report: No growth [facility] CSF 11/13/2024 11:4 0 PM PROGRAM ASSOCIATE 11/13/2024 11:54 PM PROGRAM ASSOCIATE Narrative [facility] - 11/19/2024 11:51 AM PROGRAM ASSOCIATE Testing performed by [facility] ([phone]). us Mark Ahumada RN UROLOGY LAB MICROBIOLOGY - GENERAL OR DERABLES Final Result Performing Organization Address [facility] de Phone Number [facility] [place] [address] * (ABNORMAL) Protein, total, CSF (11/13/2024 11:40 PM PROGRAM ASSOCIATE) [facility] Protein, CSF 60(H) 5 - 45 mg/dL Comment:Reviewed CSF 11/13/2024 11:4 0 PM PROGRAM ASSOCIATE 11/13/2024 11:52 PM PROGRAM ASSOCIATE Mark Ahumada RN UROLOGY LAB BODY FLUIDS AND STOOLS OR DERABLES Final Result Performing Organization Address [facility] de Phone Number [facility] [place] [place] [address] * Glucose, CSF (11/13/2024 11:40 PM PROGRAM ASSOCIATE) Glucose, CSF 77 mg/dL Comment: Reviewed Reference Interval Information: CSF Glucose should be 60-66% of the most current plasma glucose concentration (milligrams/deciliter) CLIN. CHEM. 41/3, 343-360 (1994), Clinical Utility of Biochemical Analysis of Cerebrospinal Fluid, Noble Ram and Kasi Flores. Current interpretive data was last revised on 2019. CSF 11/13/2024 11:4 0 PM PROGRAM ASSOCIATE 11/13/2024 11:52 PM PROGRAM ASSOCIATE Mark Ahumada RN UROLOGY LAB BODY FLUIDS AND STOOLS OR DERABLES Final Result Performing Organization Address [facility] Phone Number [facility] [place] [place] [address] * POCT glucose (11/13/2024 11:37 PM PROGRAM ASSOCIATE) Glucose, POC 117 70 - 199 mg/dL Blood 11/13/2024 11:3 7 PM PROGRAM ASSOCIATE 11/13/2024 11:37 PM PROGRAM ASSOCIATE Andrae Pop MD PhD LAB POCT ORDERA BLES - DEVICE Final Result Performing Organization Address [facility] de Phone Number [facility] [place] [place] [address] * XR chest 1 view (Portable) (11/13/2024 11:32 PM PROGRAM ASSOCIATE) Anatomical Region Laterality Modality Body, Chest N/A Digital Radiogra phy 11/14/2024 7:59 AM PROGRAM ASSOCIATE Impressions 11/14/2024 7:59 AM PROGRAM ASSOCIATE There are no prior chest radiographs for comparison. The patient's markedly rotated. Heart is mildly enlarged no mass or lymphadenopathy no pleural effusions There is no pneumothorax.. There is patchy atelectasis. Electronically signed by: Poonam Barrera M.D. Narrative 11/14/2024 7:59 AM PROGRAM ASSOCIATE EXAMINATION: 1 view chest radiograph Procedure Note Poonam Barrera MD - 11/14/2024 EXAMINATION: 1 view chest radiograph IMPRESSION: There are no prior chest radiographs for comparison. The patient's markedly rotated. Heart is mildly enlarged no mass or lymphadenopathy no pleural effusions There is no pneumothorax.. There is patchy atelectasis. Electronically signed by: Poonam Barrera M.D. us Mark Ahumada RN UROLOGY IMG XR PROCEDURES Final Resul t * (ABNORMAL) Urinalysis reflex to microscopic and culture Urine (11/13/2024 10:56 PM PROGRAM ASSOCIATE) Color, ur Straw Yellow Clarity, ur Clear Clear [facility] Specific gravity, ur 1.022 1.003 - 1.030 [facility] pH, urine 8.0 CERNER [facility] Comment: Interpretive Data U rine pH is affected by diet, medications, systemic acid-base disturbances, and renal tubular function. pH may affect urinary stone formation. For example, urine pH below 6.0 may help reduce the tendency for calcium phosphate stones and pH greater than 6.0 may reduce the tendency for uric acid stone formation. Source: Talk[employer] Current Interpretive Data was last revised on 2017 Protein, ur ql 1+(A) Negative [facility] Glucose, ur ql Negative Negative [facility] Ketones, ur Negative Negative [facility] Bilirubin, ur Negative Negative [facility] Blood, ur 2+(A) Negative [facility] Urobilinogen, ur <2.0 <2.0 mg/dL [facility] Nitrite, ur Negative Negative [facility] Leukocyte esterase, ur 3+(A) Negative [facility] UA reflex comment Reflex to microscopic UA will be performed. [facility] Urine 11/13/2024 10:5 6 PM PROGRAM ASSOCIATE 11/13/2024 11:10 PM PROGRAM ASSOCIATE Mark Ahumada RN UROLOGY LAB MICROBIOLOGY - GENERAL OR DERABLES Final Result Performing Organization Address [facility] de Phone Number [facility] [place] [address] * (ABNORMAL) Urinalysis, microscopic only (11/13/2024 10:56 PM PROGRAM ASSOCIATE) WBC, ur >50(A) 0 - 5 /HPF RBC, ur 11-20(A) 0 - 2 /HPF [facility] Mucous, ur Present(A) [facility] Culture Reflex Comment Reflex to urine culture will be performed. [facility] Urine 11/13/2024 10:5 6 PM PROGRAM ASSOCIATE 11/13/2024 11:10 PM PROGRAM ASSOCIATE Mark Ahumada NP LAB URINE ORDERABLES Final Re sult Performing Organization Address [facility] de Phone Number [facility] [place] [address] * Urine culture Urine (11/13/2024 10:56 PM PROGRAM ASSOCIATE) Report Final Report: No growth Urine 11/13/2024 10:5 6 PM PROGRAM ASSOCIATE 11/14/2024 2:50 AM PROGRAM ASSOCIATE Narrative [facility] - 11/15/2024 7:04 AM PROGRAM ASSOCIATE Urine culture reflexed based upon urinalysis results. Testing performed by [facility] ([phone]) us Mark Ahumada NP LAB MICROBIOLOGY - GENERAL OR DERABLES Final Result Performing Organization Address [facility]/State/ZIP Co de Phone Number [facility] [place] [address] * Lactate, whole blood (11/13/2024 10:54 PM PROGRAM ASSOCIATE) Pathologist [facility] Lactate, bld 1.3 0.7 - 2.0 mmol/L Blood 11/13/2024 10:5 4 PM PROGRAM ASSOCIATE 11/13/2024 11:10 PM PROGRAM ASSOCIATE Mark Ahumada RN UROLOGY LAB BLOOD ORDERABLES Final Re sult Performing Organization Address [facility] Co de Phone Number [facility] [place] [address] * (ABNORMAL) Creatine kinase (CK), total (11/13/2024 10:54 PM PROGRAM ASSOCIATE) [facility] CK 596(H) 40 - 300 Units/L Blood 11/13/2024 10:5 4 PM PROGRAM ASSOCIATE 11/13/2024 11:21 PM PROGRAM ASSOCIATE Mark Ahumada RN UROLOGY LAB BLOOD ORDERABLES Final Re sult Performing Organization Address City/[facility] Co de Phone Number [facility] [place] [address] * Troponin I high-sensitivity series (baseline, 2hr, 4hr, 6hr) (11/13/2024 10:12 PM PROGRAM ASSOCIATE) [facility] Trop I hs 18 <=35 ng/L Comment: Interpretive Data For further hscTnI resources including the diagnostic algorithm and an aid in interpretation, copy and paste this link: https://bjhlab.testcatalog.org/show/hsTrop-1 Current Interpretive Data last revised 2020. Blood 11/13/2024 10:1 2 PM PROGRAM ASSOCIATE 11/13/2024 10:22 PM PROGRAM ASSOCIATE us Mark Ahumada RN UROLOGY LAB BLOOD ORDERABLES Final Re sult Performing Organization Address [facility] Co de Phone Number NADEGE [facility] [place] [address] * eGFR (11/13/2024 10:12 PM PROGRAM ASSOCIATE) eGFR >90 >=60 mL/min/1. 73 m2 Comment: [...] reviewed 2021. Blood 11/13/2024 10:1 2 PM PROGRAM ASSOCIATE 11/13/2024 10:22 PM PROGRAM ASSOCIATE Mark Ahumada RN UROLOGY LAB BLOOD ORDERABLES Final Re sult Performing Organization Address [facility] Co de Phone Number [facility] [place] [address] * (ABNORMAL) aPTT (11/13/2024 10:12 PM PROGRAM ASSOCIATE) aPTT 27(L) 28 - 38 sec Comment: Interpretive Data Heparin therapeutic range: 66.0 - 100.0 seconds. Range based on correlation with therapeutic heparin activity range of 0.3 - 0.7 Units/mL. Current interpretive data was last revised on 2023. Blood 11/13/2024 10:1 2 PM PROGRAM ASSOCIATE 11/13/2024 10:26 PM PROGRAM ASSOCIATE Mark Ahumada RN UROLOGY LAB BLOOD ORDERABLES Final Re sult Performing Organization Address [facility] de Phone Number [facility] [place] [address] * Protime-INR (11/13/2024 10:12 PM PROGRAM ASSOCIATE) [facility] PT 11.9 9.7 - 13.0 sec INR 1.10 0.90 - 1.20 [facility] Comment: Interpretive data Oral anticoagulant therapeutic ranges: Venous thromboembolism prophylaxis or treatment: 2.0-3.0 CARDIOLOGY Standard range: 2.0-3.0 High-intensity range: 2.5-3.5 Refer to indication-specific guidelines for appropriate target ranges for prosthetic heart valve replacement. Current interpretive data was last revised on 2019. Blood 11/13/2024 10:1 2 PM PROGRAM ASSOCIATE 11/13/2024 10:26 PM PROGRAM ASSOCIATE Mark Ahumada RN UROLOGY LAB BLOOD ORDERABLES Final Re sult Performing Organization Address [facility] [place] [address] * (ABNORMAL) CBC without differential (11/13/2024 10:12 PM PROGRAM ASSOCIATE) [facility] WBC 11.5(H) 3.8 - 9.9 K/cumm Hgb 12.6(L) 13.0 - 17.5 g/dL [facility] Hct 36.5(L) 38.9 - 50.3 % [facility] Plt 226 150 - 400 K/cumm [facility] MPV 9.2 9.1 - 12.3 fL [facility] RBC 4.14(L) 4.30 - 5.80 M/cumm [facility] [facility] MCV 88.2 81.3 - 96.4 fL [facility] MCH 30.4 27.1 - 33.3 pg [facility] MCHC 34.5 32.3 - 35.7 g/dL [facility] RDW CV 12.7 11.1 - 14.9 % [facility] RDW SD 41.6 35.7 - 48.1 fL [facility] NRBC abs 0.00 0.00 - 0.01 K/cumm [facility] Blood 11/13/2024 10:1 2 PM PROGRAM ASSOCIATE 11/13/2024 10:22 PM PROGRAM ASSOCIATE us Mark Ahumada RN UROLOGY LAB BLOOD ORDERABLES Final Re sult Performing Organization Address [facility] Co de Phone Number [facility] [place] [address] * Type and screen (11/13/2024 10:12 PM PROGRAM ASSOCIATE) Denice, indirect Negative ABO Rh A Positive [facility] Blood 11/13/2024 10:1 2 PM PROGRAM ASSOCIATE 11/13/2024 11:05 PM PROGRAM ASSOCIATE Narrative [facility] - 11/14/2024 12:02 AM PROGRAM ASSOCIATE Has the patient had Daratumumab or Isatuximab in the past 6 months?->Unknown us Mark Ahumada RN UROLOGY LAB BLOOD BANK TEST ORDERABLE S Final Result Performing Organization Address [facility] Co de Phone Number [facility] [place] [address] * Phosphorus (11/13/2024 10:12 PM PROGRAM ASSOCIATE) Phosphorus, pl 2.9 2.3 - 4.5 mg/dL Blood 11/13/2024 10:1 2 PM PROGRAM ASSOCIATE 11/13/2024 10:22 PM PROGRAM ASSOCIATE us Mark Ahumada RN UROLOGY LAB BLOOD ORDERABLES Final Re sult Performing Organization Address City/[facility]/ZIP Co de Phone Number [facility] [place] [address] * Magnesium (11/13/2024 10:12 PM PROGRAM ASSOCIATE) [facility] Magnesium 1.9 1.4 - 2.5 mg/dL Blood 11/13/2024 10:1 2 PM PROGRAM ASSOCIATE 11/13/2024 10:22 PM PROGRAM ASSOCIATE Mark Ahumada NP LAB BLOOD ORDERABLES Final Re sult Performing Organization Address [facility] de Phone Number [facility] [place] [address] * Hemoglobin A1c (11/13/2024 10:12 PM PROGRAM ASSOCIATE) [facility] Hgb A1C 5.0 4.0 - 5.6 % Estimated Average Glucose 97 mg/dL [facility] Comment: The ADA recommends reporting an estimated Average Glucose (eAG) with all Hemoglobin A1c results using the equation derived from a study of 507 normal and diabetic adults. Minority populations were underrepresented and children were not included. (Diabetes Care 2020; 43(S1): S66-S76). The eAG is not equivalent to a fasting glucose. Blood 11/13/2024 10:1 2 PM PROGRAM ASSOCIATE 11/13/2024 10:26 PM PROGRAM ASSOCIATE us Isrrael Sharma MD LAB BLOOD ORDERABLES Final Result Performing Organization Address [facility] de Phone Number [facility] [place] [address] * (ABNORMAL) Comprehensive metabolic panel (11/13/2024 10:12 PM PROGRAM ASSOCIATE) [facility] Sodium 137 135 - 145 mmol/L Potassium, pl 3.4 3.3 - 4.9 mmol/L [facility] Chloride 102 97 - 110 mmol/L [facility] CO2 27 22 - 32 mmol/L [facility] Anion gap 8 2 - 15 mmol/L [facility] BUN 8 6 - 25 mg/dL [facility] Creatinine 0.67(L) 0.80 - 1.30 mg/dL [facility] Glucose 104 70 - 199 mg/dL [facility] Comment: Interpretive Data Fasting glucose [...] 2022. Calcium 8.0(L) 8.5 - 10.3 mg/dL [facility] Bilirubin, total 0.9 0.1 - 1.2 mg/dL [facility] Protein, pl 6.5 6.5 - 8.5 g/dL [facility] Albumin 3.7 3.5 - 5.0 g/dL [facility] Alk phos 73 40 - 130 Units/L [facility] ALT 27 7 - 55 Units/L [facility] AST 38 10 - 50 Units/L [facility] Blood 11/13/2024 10:1 2 PM PROGRAM ASSOCIATE 11/13/2024 10:22 PM PROGRAM ASSOCIATE Mark Ahumada NP LAB BLOOD ORDERABLES Final Re sult [facility] Organization Address City/State/ZIP Co de Phone Number [facility] [place] [address] * Cytology (11/13/2024 10:04 PM PROGRAM ASSOCIATE) Fluid (Cerebrospinal Fluid (Cytology)) 11/13/2024 10:04 PM PROGRAM ASSOCIATE 11/14/2024 5:40 AM PROGRAM ASSOCIATE Narrative PATHOLOGY [facility] - 11/14/2024 8:38 PM PROGRAM ASSOCIATE EPIC results best viewed via link to PDF [facility] [place] [address] Note to Patients: This report may contain [...] Gender: M : 1940 (Age: 84) Address: [facility], [address] [place] [address] Hospital #: [id number] Taken:11/13/2024 Received:11/14/2024 Reported: 11/14/2024 Patient Type: [facility] Inpatient Service: Neurology Location: Physician(s): Sarbjit Saldivar DO FINAL DIAGNOSIS A. Cerebrospinal fluid: - Negative for malignancy pamo/11/14/2024 12:29 By this signature, I attest that the above diagnosis is based upon my personal examination of the slides(and/or other material indicated in the diagnosis). Jamal Cardenas DO Report Electronically Reviewed and Signed Out By Jamal Cardenas DO 11/14/2024 20:38:18 Sai Meraz, [facility] Gross Description A. Cerebrospinal fluid: 7.5 [...] Surgical Pathology and Flow Cytometry Departments at [facility] as part of an ongoing manager quality systems program and in compliance with federally mandated [...] Surgical Pathology and Flow Cytometry Departments of [facility]. It has not been cleared or approved by the U. S. Food and Drug Administration. Mark Ahumada NP LAB CYTOLOGY ORDERABLES Final Result PATHOLOGY [facility] 3rd Floor [place], [place] [phone] * ECG 12 lead (11/13/2024 9:58 PM PROGRAM ASSOCIATE) Ventricular Rate EKG/Min 112 BPM [facility] Atrial Rate 112 BPM [facility] VT-Interval (MSEC) 144 ms [facility] QRS-Interval (MSEC) 140 ms [facility] QT-Interval (MSEC) 360 ms [facility] QTc 491 ms [facility] P Midway 61 degrees [facility] R Midway -73 degrees [facility] T Midway 37 degrees [facility] Diagnosis Sinus tachycardia with Premature atrial complexes with Aberrant conduction Right bundle branch block Left anterior fascicular block Bifascicular block Abnormal ECG No previous ECGs available Confirmed by Nahid Slaughter MD ([id number]) on 11/15/2024 12:49:38 AM [facility] 11/13/2024 9:58 PM PROGRAM ASSOCIATE 11/15/2024 12:49 AM PROGRAM ASSOCIATE Mark Ahumada RN UROLOGY ECG ORDERABLES Final Result [facility] * POCT glucose (11/13/2024 9:27 PM PROGRAM ASSOCIATE) Glucose, POC 104 70 - 199 mg/dL Blood 11/13/2024 9:27 PM PROGRAM ASSOCIATE 11/13/2024 9:27 PM PROGRAM ASSOCIATE us Andrae Pop MD PhD LAB POCT ORDERA BLES - DEVICE Final Result [facility] [place] [address] from Last 3 Months Insurance AETNA MEDICARE AETNA MEDICARE Advance Directives For more information, please contact: [phone] * Full Code (Latest Code Status on File) Date Activated Date Inactivated Comments 11/13/2024 9:58 PM 12/01/2024 10:02 PM Care Teams Numerical Control Tool Programmer Relationship Specialty Start Date End Date Von Woods MD [address] [place] [address] PCP - General Family Medicine 12/12/24 Jairo Ugalde MD [address] [place] [address] Referring Physician Hematology 05/15/24 Logan Pedro MD [address] [address] Urology 06/05/24 Mayo Haile MD [address] [address] Radiation Oncologist Radiation Oncology 06/15/24
--- OUTSIDE RECORDS SUMMARY | 2025-01-10 08:45 | XMS_ITS | Clinical Summary ---
Author Organization [facility] Address [address] [place] [address] Care Team Providers Care Jig Builder Helper Name Role Phone Sarbjit Saldivar DO Primary [...] 2024 Insurance AETNA PPO MCR Care Teams Jig Builder Helper Relationship Specialty Start Date End Date Sarbjit Saldivar DO [address] [facility] [address] [place] [phone] PCP - General Internal Medicine 05/23/24
--- NOTE | 2025-01-10 08:48 | ED_ITS ---
HPI - Syncope General Chief Complaint: Syncope Stated Complaint: syncope Time Seen by Provider: 01/10/25 07:48 Source: patient and RN notes reviewed Mode of arrival: EMS Limitations: other (Hard of hearing, no longterm documentation with patient for diagnoses/PMH; baseline orientation unclear) History of Present Illness HPI narrative: EMS had been told syncopal episode at breakfast. A&O x3. No complaints. Denies losing consciousness or falling. Doesn't want to be here. There is questionable report of patient having a seizure disorder but not on any seizure medications per review of list. No longterm documentation provided for PMH or meds. POC blood glucose 119. Patient reports he is tired. Remembers what he had for breakfast - scrambled eggs and toast. Hard of hearing. Deneis shortness of breath, headache, chest pain, abdominal pain, extremity pain. he has no complaints. Denies fever or cough. 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 Right hip pain Frequent urination Arthritis Surgical History Surgical History History of bilateral knee replacement Family History Family History Mother Hypertension Family history of cardiomyopathy, Onset Age: 86 Patient's mother is Father Family history of congenital heart disease, Onset Age: 80 Unknown Hypertension Depression Diabetes mellitus Cerebrovascular accident Arthritis Social History Social History (Updated 01/10/25 @ 10:18 by Sheela Lea MD) Social History: Caffeine-coffee Full Code per facility documentation but no POLST Smoking status: Never smoker Alcohol intake: former Substance use: never Substance use type: does not use Lack of Transportation: No Lack of Food: Never True Current Housing: I Have Housing Concerned About Future Housing: No Difficulty Paying Gas/Electric Bills: No Difficulty Paying for Meds: No Currently Unemployed: No Education: Master's Degree or Higher Difficulty w/ Childcare or Family Care: Decline to Answer Additional living arrangements comments: [facility] since 08/26/2023 Occupation/Education: retired 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 HEAD: Normocephalic, atraumatic. EYES: Non injected, non icteric ENT: Nares clear, no rhinorrhea or epistaxis. Very hard of hearing but can hear if spoken to at extremely close range and at loud volume, slowly. NECK: Supple. No TTP of cervical vertebral processes, no bony stepoffs. CHEST: Speaking in full sentences. No respiratory distress. Lungs CTAB. HEART: Regular rate and rhythm. . ABDOMEN: Soft, nondistended. No tenderness to palpation. NO rigidity guarding. EXTREMITIES: Normal range of motion. No lower extremity edema. All extremities palpated and nontender with no bony abnormality. SKIN: Warm, dry, no rash. NEURO: No focal deficits. Alert and oriented. Answering questions. PSYCH: Normal mood and affect. Course Vital Signs Vital signs: Vital Signs Temperature 97.8 F 01/10/25 07:40 Pulse Rate 64 01/10/25 07:40 Respiratory Rate 17 01/10/25 07:40 Blood Pressure 132/63 01/10/25 07:40 Pulse Oximetry 97 01/10/25 07:40 Oxygen Delivery Room Air 01/10/25 07:40 Temperature 97.8 F 01/10/25 08:01 Pulse Rate 78 01/10/25 11:30 Respiratory Rate 16 01/10/25 11:30 Blood Pressure 141/72 H 01/10/25 11:30 Pulse Oximetry 99 01/10/25 11:30 Oxygen Delivery Room Air 01/10/25 08:01 MDM - Syncope MDM Narrative Medical decision making narrative: Patient to the ED from local facility after report of a syncopal episode at breakfast. Patient adamently denies this. States he was tired this morning but remembers everything including that he had scrambled eggs and toast. No further report able to be obtained about what was witnessed. Not sent with longterm documentation to review PMH or meds. Questionable report of possible seizure history. Prior meds are reviewed with no antiepileptics. In the emergency department they are afebrile with vital signs within normal limits. Normocytic anemia. Calcium corrects to normal, 8.7, in the setting of albumin. Mild hypokalemia, will replete. Magnesium lab ordered. Although remains unclear if patient had a true syncopal episode, even if so. [place] Syncope Rule: Congestive heart failure history: 0 Hematocrit <30%: 0 EKG abnormal (changed or any non-sinus rhythm): 0 SOB symptoms: 0 SBP <90mmHg at triage: 0 Chest x-ray read as atelectasis versus pneumonia on the left. Although patient is without a white count and denies any cough and he is afebrile. Out of an abundance of precaution and the possibility that he has had these episodes before this may represent a partial degree of pneumonia versus aspiration pneumonia (although left side not favored given that circumstance), reasonable to give a short course of antibiotics. First dose in the ED and rest of course prescribed. STable for discharge back to facility. Lab Data Attestation: I reviewed the patient's lab results. 01/10/25 08:17 01/10/25 08:17 Labs: Lab Results 01/10/25 Range/Units 08:17 WBC 4.8 (4.5-10.0) K/mm3 RBC 3.57 L (4.6-6.20) M/mm3 Hgb 10.9 L (14.0-18.0) g/dL Hct 33.6 L (42.0-52.0) % MCV 94.1 (80-100) fl MCH 30.5 (26-34) pg MCHC 32.4 (32-36) g/dl RDW 13.1 (11.5-14.5) % Plt Count 175 (150-375) k/mm3 MPV 8.8 (7.4-10.4) fl Immature Gran % (Auto) 0.4 (0-0.5) % Neut % (Auto) 62.6 (45.5-73.1) % Lymph % (Auto) 20.9 (18.3-44.2) % Crook % (Auto) 13.8 H (2.6-8.5) % Eos % (Auto) 1.9 (0-4.4) % Baso % (Auto) 0.4 (0.2-1.2) % Lymph # (Auto) 1.00 (0.9-3.2) K/mm3 Crook # (Auto) 0.7 H (0.1-0.6) K/mm3 Eos # (Auto) 0.1 (0-0.3) K/mm3 Baso # (Auto) 0.0 (0.0-0.1) K/mm3 Abs Immat Gran (auto) 0.02 (0.00-0.031) K/mm3 Absolute Neuts (auto) 3.0 (1.3-6.7) K/mm3 Absolute Nucleated RBC 0.000 (0.0-0.012) K/mm3 Nucleated RBC % 0.0 (0.0-0.2) % Sodium 138 (137-145) mmol/L Potassium 3.3 L (3.4-5.0) mmol/L Chloride 104 (98-107) mmol/L Carbon Dioxide 29 (22-30) mmol/L Anion Gap 5 (4-12) mmol/L BUN 14 (9-20) mg/dL Creatinine 0.89 (0.7-1.3) mg/dL Estim Creat Clear Calc 55 ml/min Estimated GFR > 60 (59 - ) Glucose 97 (65-110) mg/dL Calcium 8.2 L (8.4-10.2) mg/dL Magnesium 1.9 (1.6-2.3) mg/dL Total Bilirubin 0.9 (0.2-1.3) mg/dL AST 27 (17-59) U/L ALT 25 (6-50) U/L Alkaline Phosphatase 82 (38-126) U/L Troponin I < 0.012 (0.000-0.034) ng/mL Total Protein 6.0 L (6.3-8.2) g/dL Albumin 3.4 L (3.5-5.1) g/dL Imaging Data Attestation: I personally reviewed and interpreted this imaging study as follows: My impression: Mild haziness on the left, possibly due to rotation. Radiologist's impression: Impressions Chest X-Ray 01/10/25 08:42 IMPRESSION: Left basilar atelectasis versus pneumonia. Head CT 01/10/25 10:48 Impression: No intracranial hemorrhage, mass, or acute infarct. Atrophy and chronic white matter changes, as above. ECG Data EKG #1: Attestation: I personally reviewed and interpreted this ECG as follows: ECG completion date: 01/10/25 ECG completion time: 07:42 Prior ECG tracings: available for review (EKG 01/04/2025 sinus rhythm) Interpretation: Pre populated algorithm suggests atrial fibrillation. Although there is some R to R variation thus it is irregular there do appear to be P-waves that preceded QRS complexes particularly the in the inferior leads however significant baseline artifact limits full interpretation. Will repeat. EKG #2: Attestation: I personally reviewed and interpreted this ECG as follows: ECG completion date: 01/10/25 ECG completion time: 10:20 Interpretation: Normal sinus rhythm at a rate of 77 beats per minute. UT interval 170. QRS 150. QT/QTC 444/476. Left axis deviation (QRS is positive with dominant R wave in Lead I; QRS is negative with dominant S wave in leads II, III, and aVF). RBBB given QRS greater [id number]; RSR' M-shaped pattern in V1-V3; wide, slurred S wave in lateral leads (I, aVL, V5-6). T-wave inversion in 3 but normal/flat in contiguous inferior leads 2 and AVF. T-wave inversion in V3 though I suspect due to lead placement. Discharge Plan Discharge Clinical Impression: Normocytic anemia, Abnormal chest xray Patient Disposition: NH Halfway/Asst Living Condition: Stable Instructions: Antibiotic Form, Anemia (ED), Pneumonia (ED), Atelectasis (ED) Additional Instructions: The details and circumstances of the events happened this morning remain unclear. If he did have an episode of syncope he has otherwise been deemed low risk. Patient has otherwise been stable. His anemia has been appreciated before without any marked change today. There was question of atelectasis verses pneumonia on his chest x-ray. Although he denies any shortness of breath and has not been coughing and is without a fever or elevated white blood cell count, out of an abundance of precaution will give short course of antibiotic. He received 1st dose in the emergency department with rest the course prescribed; start this 01/11/25. Follow-up with primary care physician/facility medical microbiologist. Return to the emergency department with any new or worsening symptoms. Patient Language: Slovak Prescriptions: New azithromycin 250 mg tablet 250 mg PO DAILY 4 Days Qty: 4 0RF Rx Instructions: start on day 2 of therapy No Action tamsulosin [Flomax] 0.4 mg capsule 0.4 mg PO QHS Qty: 90 1RF lacosamide 100 mg tablet 100 mg PO Q12H Qty: 60 0RF Follow-up/Referrals: Vicenta Rowland, [employer]BLER [Primary Care Provider] - Sarbjit Saldivar DO [Physician] - (listed on facility documentation) Stand Alone Forms: Detention Discharge Time of Disposition: 11:16
--- NOTE | 2025-01-10 10:13 | ECG_ITS ---
Test Date: 2025-01-10 10:20:29 Measurements Intervals [place] Rate: 77 P: 20 OR: 170 QRS: -61 QRSD: 150 T: -11 QT: 444 QTc: 505 Interpretive Statements SINUS RHYTHM LEFT AXIS DEVIATION [QRS AXIS < -30] RIGHT BUNDLE BRANCH BLOCK [120+ ms QRS DURATION, UPRIGHT V1, 40+ ms S IN I/aVL/V4/V5/V6] ABNORMAL ECG Electronically Signed On 01-10-2025 12:52:58 CDT by Chandan Echevarria M.D.
[2025-01-10 10:45] LABS: Magnesium 1.9 mg/dL (1.6-2.3)
[2025-01-10] MEDS: POTASSIUM BICARBONATE 25 MEQ TABEF PO (10:55)
[2025-01-10 10:58] LABS: Troponin I < 0.012 ng/mL (0.000-0.034)
[2025-01-10] MEDS: AZITHROMYCIN 250 MG TABLET 500 MG PO (11:25)
[2025-01-10 11:30] VITALS: BP 141/72; PULSE 78; RESP 16; O2SAT 99
== END 2025-01-10 15:39 ==
PROVIDERS: Emergency Provider Student in an Organized Health Care Education/Training Program; PCP Nurse Practitioner
DX: D64.9 Anemia, unspecified (principal); R91.8 Other nonspecific abnormal finding of lung field; R94.31 Abnormal electrocardiogram [ECG] [EKG]; M19.90 Unspecified osteoarthritis, unspecified site
CPT/HCPCS: 36415; 70450; 71046; 80053; 83735; 84484; 85025; 93005; 99284; A9270

== ENCOUNTER 2025-04-16 08:58 | Outpatient (CLI) | payer MEDICARE, SELFPAY ==
--- NOTE | ~2025-04-16 | US_ITS ---
US venous doppler LE RT - 04/16/2025 9:48 CDT History: 84 years old Male with right lower extremity pain and swelling. Real-time sonographic images of the right lower extremity venous system were obtained. Color Doppler sonography and spectral waveform analysis were performed. No prior studies for comparison. The right sapheno-femoral junctions are patent. The right common femoral, superficial femoral, popl iteal and posterior tibial veins are compressible and without evidence of echogenic thrombus. The so leus and lesser saphenous veins are not visualized. Impression: No evidence of deep venous thrombosis Reviewed, dictated and finalized at location A. Impression: No evidence of deep venous thrombosis
== END 2025-04-16 08:59 | disposition home or self-care (01) ==
PROVIDERS: PCP Nurse Practitioner; Visit Provider Nurse Practitioner
DX: M79.89 Other specified soft tissue disorders (principal)
CPT/HCPCS: 93971

== ENCOUNTER 2025-09-20 19:35 | Emergency (ER) | payer MEDICARE, SELFPAY ==
[2025-09-20] VITALS (15 sets, daily range): BP systolic 115–140; BP diastolic 50–67; PULSE 69–86; RESP 11–20; TEMP 36.6; O2SAT 90–99
--- NOTE | ~2025-09-20 | XR_ITS ---
Examination: XR hip RT 2V w AP pelvis Clinical History: hip pain Comparison: 06/25/2023 Technique: 2 views right hip with AP pelvis Findings/impression: 1. No acute fracture or dislocation. 2. Worsening severe now end-stage degenerative changes right hip joint with loss of joint space and femoral head remodeling. Reviewed, dictated and finalized at location R. F KNOWLEDGE OFFICER
--- NOTE | ~2025-09-20 | XR_ITS ---
Examination: XR chest 1V portable Clinical History: AMS, hypotensive? Comparison: 01/10/2025 Technique: PA and Lateral Findings: Cardiomediastinal silhouette normal size and configuration. Mild bibasilar atelectasis and/or scarring. Mild chronic interstitial markings left lung. No acute bony abnormality. IMPRESSION: 1. No acute cardiopulmonary findings. Reviewed, dictated and finalized at location R. NG CUTTER
[2025-09-20 20:21] LABS: Hematocrit 35.6 % (42.0-52.0); Hemoglobin 11.8 g/dL (14.0-18.0); Immature Granulocyte Percent A 0.4 % (0-0.5); Lymphocytes Absolute Auto 1.29 K/mm3 (0.9-3.2); Mean Corpuscular HGB Conc 33.1 g/dl (32-36); Mean Corpuscular Hemoglobin 30.7 pg (26-34); Mean Corpuscular Volume 92.7 fl (80-100); Nucleated Red Blood Cells Absolute Auto 0.000 K/mm3 (0.0-0.012); Nucleated Red Blood Cells Perc 0.0 % (0.0-0.2); Platelet Count Result 191 k/mm3 (150-375); Red Blood Count 3.84 M/mm3 (4.6-6.20); White Blood Count 7.7 K/mm3 (4.5-10.0)
[2025-09-20 20:33] LABS: Alanine Aminotransferase 36 U/L (6-50); Albumin Level 3.8 g/dL (3.5-5.1); Alkaline Phosphatase 74 U/L (38-126); Anion Gap 6 mmol/L (4-12); Aspartate Amino Transferase 37 U/L (17-59); Bilirubin,Total 0.9 mg/dL (0.2-1.3); Blood Urea Nitrogen 16 mg/dL (9-20); Calcium 8.4 mg/dL (8.4-10.2); Carbon Dioxide 27 mmol/L (22-30); Chloride 100 mmol/L (98-107); Estimated CRCL calculation 52 ml/min; Estimated Glomerular Filt Rate > 60; Glucose 110 mg/dL (65-110); Potassium 4.2 mmol/L (3.4-5.0); Sodium 133 mmol/L (137-145); Total Protein 6.4 g/dL (6.3-8.2)
--- NOTE | 2025-09-20 20:44 | ECG_ITS ---
Test Date: 2025-09-20 21:31:42 Measurements Intervals [place] Rate: 73 P: 128 VA: 190 QRS: 233 QRSD: 157 T: 212 QT: 451 QTc: 500 Interpretive Statements SINUS RHYTHM WITH SINUS ARRHYTHMIA ARM LEADS REVERSED [INVERTED P AND QRS IN I] RIGHT BUNDLE BRANCH BLOCK ABNORMAL ECG Compared to ECG 01/10/2025 10:20:29 ARM LEAD REVERSAL IS PRESENT Electronically Signed On 09-21-2025 13:13:07 BLISTER RUST ERADICATOR by Pop Cadet M.D.
--- NOTE | 2025-09-20 21:07 | ED.RECABL ---
HPI - Recheck/Abnormal Lab/Rx General Chief Complaint: Recheck/Abnormal Lab/Rx <Maria E Adame MD - Last Filed: 09/21/25 12:10> Stated Complaint: LOW B/P S/P FALL THIS AM, AMS <Maria E Adame MD - Last Filed: 09/21/25 12:10> Time Seen by Provider: 09/20/25 19:43 <Maria E Adame MD - Last Filed: 09/21/25 12:10> History of Present Illness HPI narrative: [facility] with reported AMS and low BP. To me he denies any complaints; no fevers, chest pain, abdominal pain, nausea/vomiting, dysuria, shortness of breath, headache, lightheadedness <Maria E Adame MD - Last Filed: 09/21/25 12:10> Related Data Home Medications: Home Medications ?Medication ?Instructions ?Recorded ?Confirmed ?Last Taken ?Type atorvastatin 40 mg tablet (Lipitor) 40 mg PO QHS 03/16/25 03/29/25 Unknown History finasteride 5 mg tablet 5 mg PO DAILY 03/16/25 03/29/25 Unknown History quetiapine 25 mg tablet (Seroquel) 12.5 mg PO QHS 03/16/25 03/29/25 Unknown History tamsulosin 0.4 mg capsule (Flomax) 0.8 mg PO QHS 03/16/25 03/29/25 Unknown History <Maria E Adame MD - Last Filed: 09/21/25 12:10> Allergies/Adverse Reactions: Allergies Allergy/AdvReac Type Severity Reaction Status Date / Time No Known Allergies Allergy Verified 03/29/25 08:50 <Maria E Adame MD - Last Filed: 09/21/25 12:10> Review of Systems Review of Systems: per HPI <Maria E Adame MD - Last Filed: 09/21/25 12:10> PMFSH Past Medical History Medical History: Medical History (Updated 09/20/25 @ 23:26 by Clement Valdez MD) Hip pain Convulsions Degenerative joint disease (DJD) of hip Right hip pain Frequent urination Arthritis <Maria E Adame MD - Last Filed: 09/21/25 12:10> Surgical History Surgical History: Surgical History History of bilateral knee replacement <Maria E Adame MD - Last Filed: 09/21/25 12:10> Family History Family History: Family History Mother Hypertension Family history of cardiomyopathy, Onset Age: 86 Patient's mother is Father Family history of congenital heart disease, Onset Age: 80 Unknown Hypertension Depression Diabetes mellitus Cerebrovascular accident Arthritis <Maria E Adame MD - Last Filed: 09/21/25 12:10> Social History Social History: Social History Social History: Caffeine-coffee Full Code per facility documentation but no POLST Smoking status: Never smoker Alcohol intake: former Substance use: never Substance use type: does not use Lack of Transportation: No Lack of Food: Never True Current Housing: I Have Housing Concerned About Future Housing: No Difficulty Paying Gas/Electric Bills: No Difficulty Paying for Meds: No Currently Unemployed: No Education: Master's Degree or Higher Difficulty w/ Childcare or Family Care: Decline to Answer Additional living arrangements comments: [facility] since 08/26/2023 Occupation/Education: retired 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 EYES: EOMI, conjunctiva normal ENT: Hearing grossly intact LUNGS: Nonlabored breathing. HEART: [Regular rate and rhythm] ABD: [Soft], [nontender to palpation] EXT: No obvious bony deformity, moving all extremities, slight bruise to the right hip SKIN: [No rashes or lesions.] NEURO: [Alert. No gross focal sensory or strength deficits.] PSYCH: Grumpy affect <Maria E Adame MD - Last Filed: 09/21/25 12:10> Course Vital Signs Vital signs: Vital Signs Temperature 97.9 F 09/20/25 19:43 Pulse Rate 72 09/20/25 19:43 Respiratory Rate 20 09/20/25 19:43 Blood Pressure 117/50 L 09/20/25 19:43 Pulse Oximetry 97 09/20/25 19:43 Oxygen Delivery Room Air 09/20/25 19:43 Temperature 97.9 F 09/20/25 19:43 Pulse Rate 85 09/21/25 01:30 Respiratory Rate 18 09/21/25 01:30 Blood Pressure 115/56 L 09/20/25 22:01 Pulse Oximetry 98 09/20/25 23:00 Oxygen Delivery Room Air 09/20/25 19:43 <Maria E Adame MD - Last Filed: 09/21/25 12:10> Vital Signs Temperature 97.9 F 09/20/25 19:43 Pulse Rate 72 09/20/25 19:43 Respiratory Rate 20 09/20/25 19:43 Blood Pressure 117/50 L 09/20/25 19:43 Pulse Oximetry 97 09/20/25 19:43 Oxygen Delivery Room Air 09/20/25 19:43 Temperature 97.9 F 09/20/25 19:43 Pulse Rate 85 09/21/25 01:30 Respiratory Rate 18 09/21/25 01:30 Blood Pressure 115/56 L 09/20/25 22:01 Pulse Oximetry 98 09/20/25 23:00 Oxygen Delivery Room Air 09/20/25 19:43 <Clement Valdez MD - Last Filed: 09/21/25 05:01> MDM - Recheck/Abnormal Lab/Rx MDM Narrative Medical decision making narrative: 85M presents after having a fall this [facility], potentially injuring his right leg, did not hit his head, he was having blood pressures checked hourly, 1 of them was low so he was sent to the emergency room. He is denying any complaints to me. He denies pain anywhere to anywhere on his body. No fevers or chills, shortness of breath, chest pain, headache, extremity pain, abdominal pain, nausea vomiting. He has a cap on his head and is trying to take a nap, though he does grudgingly answer my questions. I did obtain a workup here thus blood pressure has not been too low, and will give him some fluids. Chest x-ray does show possible streaky opacities in the right lower lobe, I will tentatively treat him for pneumonia. EKG - 12-Lead: Performed at 2131. Interpreted by me. [Sinus rhythm]. Rate 73. CO-interval [normal]. QRS duration [normal]. QTc 477. [No ST segment elevation or depression]. [T-wave normal]. Impression: No EKG evidence of acute ischemia or dysrhythmia. Given report that patient was complaining of right leg pain, though he was not complaining of it to me here, he does have a slight bruise to his right hip so I will obtain a hip x-ray. Plan for discharge with antibiotics and follow-up to PCP <Maria E Adame MD - Last Filed: 09/21/25 12:10> 85M presents after having a fall this morning at his [facility]it[facility], potentially injuring his right leg, did not hit his head, he was having blood pressures checked hourly, 1 of them was low so he was sent to the emergency room. He is denying any complaints to me. He denies pain anywhere to anywhere on his body. No fevers or chills, shortness of breath, chest pain, headache, extremity pain, abdominal pain, nausea vomiting. He has a cap on his head and is trying to take a nap, though he does grudgingly answer my questions. I did obtain a workup here thus blood pressure has not been too low, and will give him some fluids. Chest x-ray does show possible streaky opacities in the right lower lobe, I will tentatively treat him for pneumonia. EKG - 12-Lead: Performed at 2131. Interpreted by me. [Sinus rhythm]. Rate 73. CO-interval [normal]. QRS duration [normal]. QTc 477. [No ST segment elevation or depression]. [T-wave normal]. Impression: No EKG evidence of acute ischemia or dysrhythmia. Given report that patient was complaining of right leg pain, though he was not complaining of it to me here, he does have a slight bruise to his right hip so I will obtain a hip x-ray. Plan for discharge with antibiotics and follow-up to PCP. Patient signed out pending x-ray and discharge. X-ray shows no evidence of any fracture dislocation and chronic hip deformity with severe osteoarthritis likely source of pain. Patient is hemodynamically stable and asymptomatic. Previous provider has prescribed him antibiotics and he is appropriate for discharge and outpatient follow-up, ambulance back to his facility arranged. <Clement Valdez MD - Last Filed: 09/21/25 05:01> Medical Records Attestation: I reviewed the patient's medical records. <Clement Valdez MD - Last Filed: 09/21/25 05:01> Lab Data Attestation: I reviewed the patient's lab results. <Clement Valdez MD - Last Filed: 09/21/25 05:01> Result diagrams: 09/20/25 20:14 09/20/25 20:14 <Maria E Adame MD - Last Filed: 09/21/25 12:10> Labs: Lab Results 09/20/25 09/20/25 Range/Units 20:14 21:06 WBC 7.7 (4.5-10.0) K/mm3 RBC 3.84 L (4.6-6.20) M/mm3 Hgb 11.8 L (14.0-18.0) g/dL Hct 35.6 L (42.0-52.0) % MCV 92.7 (80-100) fl MCH 30.7 (26-34) pg MCHC 33.1 (32-36) g/dl RDW 13.3 (11.5-14.5) % Plt Count 191 (150-375) k/mm3 MPV 8.6 (7.4-10.4) fl Immature Gran % (Auto) 0.4 (0-0.5) % Neut % (Auto) 70.8 (45.5-73.1) % Lymph % (Auto) 16.8 L (18.3-44.2) % Scre[place] % (Auto) 11.2 H (2.6-8.5) % Eos % (Auto) 0.5 (0-4.4) % Baso % (Auto) 0.3 (0.2-1.2) % Lymph # (Auto) 1.29 (0.9-3.2) K/mm3 Screven # (Auto) 0.9 H (0.1-0.6) K/mm3 Eos # (Auto) 0.0 (0-0.3) K/mm3 Baso # (Auto) 0.0 (0.0-0.1) K/mm3 Abs Immat Gran (auto) 0.03 (0.00-0.031) K/mm3 Absolute Neuts (auto) 5.4 (1.3-6.7) K/mm3 Absolute Nucleated RBC 0.000 (0.0-0.012) K/mm3 Nucleated RBC % 0.0 (0.0-0.2) % Sodium 133 L (137-145) mmol/L Potassium 4.2 (3.4-5.0) mmol/L Chloride 100 (98-107) mmol/L Carbon Dioxide 27 (22-30) mmol/L Anion Gap 6 (4-12) mmol/L BUN 16 (9-20) mg/dL Creatinine 0.89 (0.7-1.3) mg/dL Estim Creat Clear Calc 52 ml/min Estimated GFR > 60 (59 - ) Glucose 110 (65-110) mg/dL Lactic Acid 1.3 (0.7-2.0) mmol/L Calcium 8.4 (8.4-10.2) mg/dL Total Bilirubin 0.9 (0.2-1.3) mg/dL AST 37 (17-59) U/L ALT 36 (6-50) U/L Alkaline Phosphatase 74 (38-126) U/L Total Protein 6.4 (6.3-8.2) g/dL Albumin 3.8 (3.5-5.1) g/dL Urine Color Yellow (Yellow) Urine Appearance Clear (Clear) Urine pH 7.5 (5.0-9.0) Ur Specific Eros 1.009 (1.001-1.035) Urine Protein Negative (Negative) mg/dL Urine Glucose (UA) Negative (Negative) mg/dL Urine Ketones Negative (Negative) mg/dL Ur Blood (Man) Negative (Negative) Urine Nitrate Negative (Negative) Urine Bilirubin Negative (Negative) Urine Urobilinogen 0.2 (<2.0) mg/dL Leukocyte Esterase Rfl Negative (Negative) AIDAN/UL <Maria E Adame, MD - Last Filed: 09/21/25 12:10> Lab Results 09/20/25 09/20/25 Range/Units 20:14 21:06 WBC 7.7 (4.5-10.0) K/mm3 RBC 3.84 L (4.6-6.20) M/mm3 Hgb 11.8 L (14.0-18.0) g/dL Hct 35.6 L (42.0-52.0) % MCV 92.7 (80-100) fl MCH 30.7 (26-34) pg MCHC 33.1 (32-36) g/dl RDW 13.3 (11.5-14.5) % Plt Count 191 (150-375) k/mm3 MPV 8.6 (7.4-10.4) fl Immature Gran % (Auto) 0.4 (0-0.5) % Neut % (Auto) 70.8 (45.5-73.1) % Lymph % (Auto) 16.8 L (18.3-44.2) % Screven % (Auto) 11.2 H (2.6-8.5) % Eos % (Auto) 0.5 (0-4.4) % Baso % (Auto) 0.3 (0.2-1.2) % Lymph # (Auto) 1.29 (0.9-3.2) K/mm3 Screven # (Auto) 0.9 H (0.1-0.6) K/mm3 Eos # (Auto) 0.0 (0-0.3) K/mm3 Baso # (Auto) 0.0 (0.0-0.1) K/mm3 Abs Immat Gran (auto) 0.03 (0.00-0.031) K/mm3 Absolute Neuts (auto) 5.4 (1.3-6.7) K/mm3 Absolute Nucleated RBC 0.000 (0.0-0.012) K/mm3 Nucleated RBC % 0.0 (0.0-0.2) % Sodium 133 L (137-145) mmol/L Potassium 4.2 (3.4-5.0) mmol/L Chloride 100 (98-107) mmol/L Carbon Dioxide 27 (22-30) mmol/L Anion Gap 6 (4-12) mmol/L BUN 16 (9-20) mg/dL Creatinine 0.89 (0.7-1.3) mg/dL Estim Creat Clear Calc 52 ml/min Estimated GFR > 60 (59 - ) Glucose 110 (65-110) mg/dL Lactic Acid 1.3 (0.7-2.0) mmol/L Calcium 8.4 (8.4-10.2) mg/dL Total Bilirubin 0.9 (0.2-1.3) mg/dL AST 37 (17-59) U/L ALT 36 (6-50) U/L Alkaline Phosphatase 74 (38-126) U/L Total Protein 6.4 (6.3-8.2) g/dL Albumin 3.8 (3.5-5.1) g/dL Urine Color Yellow (Yellow) Urine Appearance Clear (Clear) Urine pH 7.5 (5.0-9.0) Ur Specific Eros 1.009 (1.001-1.035) Urine Protein Negative (Negative) mg/dL Urine Glucose (UA) Negative (Negative) mg/dL Urine Ketones Negative (Negative) mg/dL Ur Blood (Man) Negative (Negative) Urine Nitrate Negative (Negative) Urine Bilirubin Negative (Negative) Urine Urobilinogen 0.2 (<2.0) mg/dL Leukocyte Esterase Rfl Negative (Negative) AIDAN/UL <Clement Valdez MD - Last Filed: 09/21/25 05:01> Imaging Data Attestation: I personally reviewed and interpreted this imaging study as follows: <Clement Valdez MD - Last Filed: 09/21/25 05:01> My impression: Chronic hip deformity, no acute fracture dislocation. Severe osteoarthritis <Clement Valdez MD - Last Filed: 09/21/25 05:01> Discharge Plan Discharge Clinical Impression: Pneumonia Degenerative joint disease (DJD) of hip Qualifiers: Osteoarthritis type: primary Laterality: right Qualified Code(s): M16.11 - Unilateral primary osteoarthritis, right hip <Maria E Adame MD - Last Filed: 09/21/25 12:10> Patient Disposition: Home <Maria E Adame MD - Last Filed: 09/21/25 12:10> Condition: Stable <Maria E Adame MD - Last Filed: 09/21/25 12:10> Instructions: Antibiotic Form, Fall Prevention for Older Adults (ED) <Maria E Adame MD - Last Filed: 09/21/25 12:10> Additional Instructions: Please follow up with your doctor; take the antibiotics as prescribed, you can always return for any further issues. <Maria E Adame MD - Last Filed: 09/21/25 12:10> Patient Language: French <Maria E Adame MD - Last Filed: 09/21/25 12:10> Prescriptions: New doxycycline hyclate 100 mg capsule 100 mg PO Q12H 5 Days Qty: 10 0RF amoxicillin-pot clavulanate 875-125 mg tablet 1 tablet PO Q12H Qty: 10 0RF No Action quetiapine [Seroquel] 25 mg tablet 12.5 mg PO QHS finasteride 5 mg tablet 5 mg PO DAILY atorvastatin [Lipitor] 40 mg tablet 40 mg PO QHS tamsulosin [Flomax] 0.4 mg capsule 0.8 mg PO QHS lacosamide 100 mg tablet 100 mg PO Q12H Qty: 60 0RF acetaminophen 650 mg tablet extended release 650 mg PO TID Qty: 270 2RF loperamide [Imodium A-D] 2 mg capsule 2 mg PO Q6H PRN (Reason: loose stool) Qty: 20 0RF <Maria E Adame MD - Last Filed: 09/21/25 12:10> Follow-up/Referrals: Sarbjit Saldivar DO [Primary Care Provider, Internal Medicine] <Maria E Adame MD - Last Filed: 09/21/25 12:10> Time of Disposition: 23:26 <Maria E Adame MD - Last Filed: 09/21/25 12:10> 23:26 <Clement Valdez MD - Last Filed: 09/21/25 05:01>
[2025-09-20 21:12] LABS: Add Urine Microscopic? NO; Appearance Urine Clear (Clear); Glucose Urine UA Negative (Negative); Leukocyte Esterase Ur Negative LEU/UL (Negative); Nitrate Urine Negative (Negative); Specific Grav Ur 1.009 (1.001-1.035)
[2025-09-20] MEDS: cefTRIAXone 1 GM in SODIUM CHLORIDE 0.9% IV 50 ML 100 ML IVPB (21:41)
[2025-09-20] MEDS: SODIUM CHLORIDE 0.9% IV 1,000 ML 999 ML IV CONT (21:41)
[2025-09-21] VITALS (7 sets, daily range): PULSE 70–104; RESP 14–20
== END 2025-09-21 01:38 ==
PROVIDERS: Emergency Provider Emergency Medicine; PCP Internal Medicine
DX: J18.9 Pneumonia, unspecified organism (principal); M16.11 Unilateral primary osteoarthritis, right hip; Z96.653 Presence of artificial knee joint, bilateral; I45.10 Unspecified right bundle-branch block
CPT/HCPCS: 36415; 71045; 73502; 80053; 81003; 83605; 85025; 93005; 96365; 99284; J0696; J7030

== ENCOUNTER 2025-10-09 11:17 | Emergency (ER) | payer MEDICARE, SELFPAY ==
--- NOTE | ~2025-10-09 | CT_ITS ---
EXAMINATION: CT brain wo con DATE: 10/09/2025 12:54 INDICATION: Unwitnessed fall TECHNIQUE: Computed tomography (CT) of the head was performed without intravenous contrast. Sagittal and coronal reconstructions were performed. The mA was adjusted according to patient size. Iterative reconstruction technique was employed. The dose-length product was 1210.67 mGy-cm. COMPARISON: head CT dated 01/10/2025 FINDINGS: No fracture. No acute intracranial hemorrhage, acute infarction or abnormal extra axial fluid collection. There is mild scattered white matter hypoattenuation consistent with chronic small vessel ischemic disease. Symmetric prominence of the sulci and ventricles consistent with mild age-appropriate d iffuse cerebral volume loss. No mass/mass effect. Mild mucoperiosteal thickening the bilateral ethmoid and right maxillary sinuses. The orbits and mastoid air cells are normal. IMPRESSION: 1. No fracture or acute intracranial process. 2. Stable appearance of age-related changes in the brain including mild diffuse volume loss and mild scattered white matter hypoattenuation consistent with chronic small vessel ischemic disease. Reviewed, dictated and finalized at location A. CTURAL STEEL FITTER IMPRESSION: 1. No fracture or acute intracranial process. 2. Stable appearance of age-related changes in the brain including mild diffuse volume loss and mild scattered white matter hypoattenuation consistent with ch ronic small vessel ischemic disease.
--- NOTE | ~2025-10-09 | XR_ITS ---
EXAMINATION: XR chest 2V DATE: 10/09/2025 15:36 INDICATION: Fall TECHNIQUE: frontal and lateral views of the chest were obtained. COMPARISON: Chest radiograph dated 09/20/2025 FINDINGS: Persistent mild opacities at the posterior lung bases, left greater right which could and favor atelectasis/scarring over pneumonia. No pulmonary edema, pleural effusion or pneumothorax. The cardiomediastinal silhouette is normal. Mild thoracic and upper lumbar spondylosis. IMPRESSION: 1. Persistent mild bibasilar opacities and favor atelectasis/scarring over pneumonia. Reviewed, dictated and finalized at location A. LATHER IMPRESSION: 1. Persistent mild bibasilar opacities and favor atelectasis/scarring over pneu monia.
--- NOTE | ~2025-10-09 | XR_ITS ---
EXAM/PROCEDURE: [id number] HISTORY: fall COMPARISON: None available. TECHNIQUE: Right knee FINDINGS: Osteopenic, possibly erosive changes in the medial tibial plateau. No displaced fracture or dislocation. Diffuse degenerative and osteoarthritic appearing changes at the bones. Vascular calcification in the soft tissues may represent peripheral artery disease. No large suprapatellar effusion. IMPRESSION: Abnormal appearance of the medial tibial plateau with no displaced fracture lucency. If occult fracture is suspected, consider CT examination for optimal sensitivity. Reviewed, dictated and finalized at location A. LE PATTERNMAKER IMPRESSION: Abnormal appearance of the medial tibial plateau with no displaced fracture teofilo ency. If occult fracture is suspected, consider CT examination for optimal sens itivity.
--- NOTE | ~2025-10-09 | CT_ITS ---
EXAMINATION: CT cervical spine wo con DATE: 10/09/2025 12:58 INDICATION: Unwitnessed fall TECHNIQUE: Computed tomography (CT) of the cervical spine was performed without intravenous contrast. Automated exposure control and iterative reconstruction technique were employed. The dose-length product was 437.06 mGy-cm. COMPARISON: CT dated 11/13/2024 FINDINGS: Alignment is normal. Moderate osteoarthritis at the atlantoaxial articulation. Vertebral body heights are normal. No fracture. Severe disc height loss at C5- C6. Mild disc height loss at C6-C7. There are disc bulges at C5-C6 and C6-C7 resulting in minimal central canal stenosis at the former and mild central canal stenosis at the latter. Severe uncovertebral osteoarthritis on the left at C6-C7 with mild to moderate uncovertebral osteoarthritis throughout the mediastinum to the cervical spine. Severe facet osteoarthritis on the left at C3-C4 with moderate osteoarthritis at majority the remaining bilateral cervical and visualized upper thoracic facet joints. There is mild multilevel cervical neural foraminal stenosis or prominent on the left than the right. Small amount of atherosclerotic calcific lesion along the bilateral carotid bulbs. Cervical soft tissues are otherwise unremarkable. Visualized apices of lungs are clear. IMPRESSION: 1. Cervical spondylosis severe at C5-6 and otherwise mild. No acute osseous abnormality. Reviewed, dictated and finalized at location A. R EQUIPMENT MECHANICS INSTRUCTOR IMPRESSION: 1. Cervical spondylosis severe at C5-6 and otherwise mild. No acute osseous abn ormality.
--- NOTE | ~2025-10-09 | XR_ITS ---
EXAM/PROCEDURE: XR pelvis 1-2V HISTORY: fall COMPARISON: None available. TECHNIQUE: AP pelvis FINDINGS: Severe degenerative changes in the right hip with obliteration of the joint space, and mild lateral subluxation. The femoral head is flattened. No displaced fracture seen. The bones appear diffusely osteopenic. Mild degenerative changes in the left hip and lumbar spine. IMPRESSION: Severe osteoarthritic appearing degenerative changes in the right hip with flattening or femoral head collapse. Reviewed, dictated and finalized at location A. E TESTER IMPRESSION: Severe osteoarthritic appearing degenerative changes in the right hip with flat tening or femoral head collapse.
[2025-10-09 11:33] VITALS: BP 146/54; PULSE 59; RESP 16; TEMP 36.9; O2SAT 100
--- OUTSIDE RECORDS SUMMARY | 2025-10-09 13:39 | XMS_ITS ---
Author Organization [facility] Address [address] [place] [address] Care Team Providers Care Blade Bender Furnace Tender Name Role Phone Jairo Ugalde MD Unavailable [phone] Logan Pedro MD Unavailable [phone] Mayo Haile MD Unavailable [phone] Von Woods MD Primary Care Provider Active Problems Problem Noted Date Diagnosed Date Acute metabolic encephalopathy 11/14/2024 Seizure 11/13/2024 Prostate CA 06/22/2024 Cancer Staging:Clinical stage from 06/22/2024:Stage IIB(cT1c, cN0, cM0, PSA: 9.6, Grade Group: 2) - Signed by Mayo Haile MD on 06/22/2024 Current Treatment and Therapy Plans Eligard Injection - 45 mg every 24 weeks* Plan Start Date:09/07/2024 Plan Provider:Mayo Haile MD Linked Problems Prostate CA Treatment Medications leuprolide acetate (6 month) (ELIGARD) Past Treatment and Therapy Plans No past plan information found. Lifetime Dose Tracking * Chemical Lifetime Dose Automatic Entry Manual Entr y DLP 1,219 mGycm 1,219 mGycm 0 mGycm
--- OUTSIDE RECORDS SUMMARY | 2025-10-09 13:39 | XMS_ITS | Clinical Summary ---
[facility] Address [address] [place] [address] Care Team Providers Care Groundskeeper Porter Name Role Phone Sarbjit Saldivar DO Primary Care Provider Allergies No known active allergies Medications tamsulosin (FLOMAX) 0.4 mg capsule Take 0.4 mg by mouth daily. Active naproxen sodium (ALEVE) 220 mg Tablet Take 220 mg by mouth. Active Active Problems No known active problems Family History Medical History Relation Name Comments [...] 3:03 PM CDT Height 175.3 cm (5' 9) 04/20/2024 3:03 PM CDT Body Mass Index 25.7 04/20/2024 3:03 PM CDT Plan of Treatment Health Maintenance Due Date Last Done Comments DTAP/TDAP/TD VACCINES (1 - Tdap) 1959 PNEUMOCOCCAL VACCINE 50+ YEARS (1 of 1 - PCV) 07/04/19 89 ZOSTER VACCINE (1 of 2) 1989 RSV VACCINE (60+ or ) (1 - 1-dose 75+ series) 2014 INFLUENZA VACCINE (#1) 2025 Insurance [employer] PPO MCR Care Teams Groundskeeper Porter Relationship Specialty Start Date End Date Sarbjit Saldivar DO [address] [facility] [address] [place] [id number] PCP - General Internal Medicine 05/23/24
--- OUTSIDE RECORDS SUMMARY | 2025-10-09 13:39 | XMS_ITS | Clinical Summary ---
Author Organization [facility] Address [address] [place] [address] Care Team Providers Care Building Construction Foreman Name Role Phone Jairo Ugalde MD Unavailable [phone] Logan Pedro MD Unavailable [phone] Mayo Haile MD Unavailable [phone] Von Woods MD Primary Care Provider [phone] Allergies No known active allergies Medications acetaminophen (TYLENOL) 325 mg tablet Take 2 tablets (650 mg total) by mouth every 6 (six) hours as needed for pain Active collagen, hydrolysate, bovine, (collagen, hydr, bovine,, bulk,) 100 % powder Active tamsulosin (FLOMAX) 0.4 mg extended release capsule Take 2 capsules (0.8 mg total) by mouth daily 5 Active atorvastatin (LIPITOR) 40 mg tablet Take 1 tablet (40 mg total) by mouth daily 5 026 Active finasteride (PROSCAR) 5 mg tablet Take 1 tablet (5 mg total) by mouth nightly 5 026 Active QUEtiapine (SEROquel) 25 mg tablet Take 1 tablet (25 mg total) by mouth nightly 5 Active lacosamide (VIMPAT) 100 mg tabletIndicati ons:Seizure (HCC) Take 1 tablet (100 mg total) by mouth 2 (two) times a day 60 tablet 5 5 026 Active lacosamide (VIMPAT) 100 mg tabletIndicati ons:Seizure (HCC) Take 1 tablet (100 mg total) by mouth 2 (two) times a day 60 tablet 11 5 025 Discontinued Active Problems Problem Noted Date Diagnosed Date Acute metabolic encephalopathy 11/14/2024 Seizure 11/13/2024 Prostate CA 06/22/2024 Cancer Staging:Clinical stage from 06/22/2024:Stage IIB(cT1c, cN0, cM0, PSA: 9.6, Grade Group: 2) - Signed by Mayo Haile MD on 06/22/2024 Surgical History Surgery Date Site/Laterality Comments REPLACEMENT TOTAL KNEE BILATERAL PROSTATE BIOPSY Medical History Medical History Date Comments Prostate cancer (HCC) Social History Tobacco Use Types Packs/Day Years Used Date Smoking Tobacco: Never Passive Smoke Exposure: Never Smokeless Tobacco: Never AUDIT-C Answer Date Recorded Q1: How often [...] Sign Reading Time Taken Comments Blood Pressure 151/74 02/28/2025 12:35 PM CDT Pulse 80 02/28/2025 12:35 PM CDT Temperature 36.3 C (97.3 F) 12/01/2024 8:00 AM HAND GLUER AND SLICER Respiratory Rate 16 12/01/2024 8:00 AM HAND GLUER AND SLICER Oxygen Saturation 95% 12/01/2024 8:00 AM HAND GLUER AND SLICER Inhaled Oxygen Concentration - - Weight 74.1 kg (163 lb 6.4 oz) 02/28/2025 12:35 PM CDT Height 176.5 cm (5' 9.5) 02/28/2025 12:35 PM CD T Body Mass Index 23.78 02/28/2025 12:35 PM CDT Plan of Treatment Health Maintenance Due Date Last Done Comments Depression Screening 1940 DTaP/Tdap/Td Vaccine (1 - Tdap) 1950 Hepatitis B Screening 1957 Well Visit 65+ 2004 Covid-19 Vaccine (7 - 2024-2 6 season) 2025 08/06/2023, 07/09/2022, 01/29/2022, Additional history exists Influenza Vaccine (#1) 2025 , 06/25/2022, 06/13/2021, Additional history exists Fall Risk Assessment 12/01/2025 12/01/2024, 07/12/20 Zoster Vaccine Completed 10/04/2018, 06/28/2018 Pneumococcal vaccine 65+ Completed 11/05/2023, 07/25 Insurance T MEDICARE [employer] MEDICARE Advance Directives For more information, please contact: [phone] * Full Code (Latest Code Status on File) Date Activated Date Inactivated Comments 11/13/2024 9:58 PM 12/01/2024 10:02 PM Care Teams Building Construction Foreman Relationship Specialty Start Date End Date Von Woods MD [address] [place], [place] [id number] PCP - General Family Medicine 12/12/24 Jairo Ugalde MD [address] [place] [address] Referring Physician Hematology 05/15/24 Logan Pedro MD [address] [address] Urology 06/05/24 Mayo Haiel MD [address] [address] Radiation Oncologist Radiation Oncology 06/15/24
--- NOTE | 2025-10-09 14:56 | ED_ITS ---
HPI - Fall General Chief Complaint: Fall <Vicenta Staton PA-C - Last Filed: 10/09/25 17:15> Stated Complaint: fall <Vicenta Staton PA-C - Last Filed: 10/09/25 17:15> Time Seen by Provider: 10/09/25 14:57 <Vicenta Staton PA-C - Last Filed: 10/09/25 17:15> Focused HPI: This is a 85 year old male that presents to the ER after a fall yesterday. Reports he was trying to go to the bathroom. Hit his head on the wall. No other reported injuries. Facility believe he is more confused than usual. GENERAL: Elderly, well-nourished, and in no acute distress. HEAD: Normocephalic, atraumatic. CHEST: Clear to auscultation. ?No respiratory distress. HEART: Regular rate and rhythm.? NEURO: ?Alert and oriented x1. Patient screened in triage and initial orders placed.? ?Additional care and disposition to be based upon?diagnostic testing and treatment. <Vicenta Staton PA-C - Last Filed: 10/09/25 17:15> History of Present Illness HPI Narrative: agree with HPI <Maria E Adame MD - Last Filed: 10/09/25 17:09> Related Data Home Medications: Home Medications ?Medication ?Instructions ?Recorded ?Confirmed ?Last Taken ?Type atorvastatin 40 mg tablet (Lipitor) 40 mg PO QHS 03/1603/29/25 Unknown History quetiapine 25 mg tablet (Seroquel) 12.5 mg PO QHS 02/2303/29/25 Unknown History tamsulosin 0.4 mg capsule (Flomax) 0.8 mg PO QHS 03/1603/29/25 Unknown History <Vicenta Staton PA-C - Last Filed: 10/09/25 17:15> Allergies/Adverse Reactions: Allergies Allergy/AdvReac Type Severity Reaction Status Date / Time No Known Allergies Allergy Verified 03/29/25 08:50 <Vicenta Staton PA-C - Last Filed: 10/09/25 17:15> Review of Systems 2 Review of Systems: All systems reviewed & are unremarkable except as noted in HPI and below <Maria E Adame MD - Last Filed: 10/09/25 17:09> [facility] Past Medical History Medical History: Medical History (Updated 10/09/25 @ 16:43 by Maria E Adame MD) Hip pain Convulsions Degenerative joint disease (DJD) of hip Right hip pain Frequent urination Arthritis <Vicenta Staton PA-C - Last Filed: 10/09/25 17:15> Surgical History Surgical History: Surgical History History of bilateral knee replacement <Vicenta Staton PA-C - Last Filed: 10/09/25 17:15> Family History Family History: Family History Mother Hypertension Family history of cardiomyopathy, Onset Age: 86 Patient's mother is Father Family history of congenital heart disease, Onset Age: 80 Unknown Hypertension Depression Diabetes mellitus Cerebrovascular accident Arthritis <Vicenta Staton PA-C - Last Filed: 10/09/25 17:15> Social History Social History: Social History Social History: Caffeine-coffee Full Code per facility documentation but no POLST Smoking status: Never smoker Alcohol intake: former Substance use: never Substance use type: does not use Lack of Transportation: No Lack of Food: Never True Current Housing: I Have Housing Concerned About Future Housing: No Difficulty Paying Gas/Electric Bills: No Difficulty Paying for Meds: No Currently Unemployed: No Education: Master's Degree or Higher Difficulty w/ Childcare or Family Care: Decline to Answer Additional living arrangements comments: [facility] since 08/26/2023 Occupation/Education: retired 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 HEAD: Normal with no signs of head trauma. EYES: EOMI, conjunctiva normal ENT: Hearing grossly intact LUNGS: Nonlabored breathing. HEART: Regular rate and rhythm ABD: Soft, nontender to palpation EXT: Tenderness and cracking of joints on movement of right hip SKIN: No rashes or lesions. NEURO: Alert. No gross focal sensory or strength deficits. PSYCH: Normal affect <Maria E Adame MD - Last Filed: 10/09/25 17:09> Course Vital Signs Vital signs: Vital Signs Temperature 98.4 F 10/09/25 11:33 Pulse Rate 59 L 10/09/25 11:33 Respiratory Rate 16 10/09/25 11:33 Blood Pressure 146/54 H 10/09/25 11:33 Pulse Oximetry 100 10/09/25 11:33 Temperature 98.4 F 10/09/25 11:33 Pulse Rate 63 10/09/25 15:58 Respiratory Rate 16 10/09/25 15:58 Blood Pressure 161/72 H 10/09/25 15:58 Pulse Oximetry 100 10/09/25 15:58 Oxygen Delivery Room Air 10/09/25 15:58 <Vicenta Staton PA-C - Last Filed: 10/09/25 17:15> Vital Signs Temperature 98.4 F 10/09/25 11:33 Pulse Rate 59 L 10/09/25 11:33 Respiratory Rate 16 10/09/25 11:33 Blood Pressure 146/54 H 10/09/25 11:33 Pulse Oximetry 100 10/09/25 11:33 Temperature 98.4 F 10/09/25 11:33 Pulse Rate 63 10/09/25 15:58 Respiratory Rate 16 10/09/25 15:58 Blood Pressure 161/72 H 10/09/25 15:58 Pulse Oximetry 100 10/09/25 15:58 Oxygen Delivery Room Air 10/09/25 15:58 <Maria E Adame MD - Last Filed: 10/09/25 17:09> [facility] Narrative Medical decision making narrative: Patient presents here after having a fall, he did tell me that he had, denies any other complaints. Says that he has some pain to his right hip and knee but that is normal for him. I did see him actually recently, I do feel his exam today is pretty similar to when he was last here, same amount of confusion/dementia. He does smell of urine, UTI possible on urinalysis so he will be started on antibiotics. CT head, C-spine, knee, pelvis, chest x-rays without obvious acute abnormality, does show significant severe arthritis. I do feel he is stable for discharge with follow-up to PCP <Maria E Adame MD - Last Filed: 10/09/25 17:09> Differential Diagnosis Differential Diagnosis: Intracranial hemorrhage, fracture, UTI <Maria E Adame MD - Last Filed: 10/09/25 17:09> Lab Data Result diagrams: 10/09/25 15:15 10/09/25 15:15 <Vicenta Staton PA-C - Last Filed: 10/09/25 17:15> Labs: Lab Results 10/09/25 10/09/25 Range/Units 15:15 16:20 WBC 5.5 (4.5-10.0) K/mm3 RBC 4.29 L (4.6-6.20) M/mm3 Hgb 13.2 L (14.0-18.0) g/dL Hct 39.8 L (42.0-52.0) % MCV 92.8 (80-100) fl MCH 30.8 (26-34) pg MCHC 33.2 (32-36) g/dl RDW 13.2 (11.5-14.5) % Plt Count 189 (150-375) k/mm3 MPV 8.7 (7.4-10.4) fl Immature Gran % (Auto) 0.2 (0-0.5) % Neut % (Auto) 65.2 (45.5-73.1) % Lymph % (Auto) 23.7 (18.3-44.2) % [place] % (Auto) 9.5 H (2.6-8.5) % Eos % (Auto) 0.9 (0-4.4) % Baso % (Auto) 0.5 (0.2-1.2) % Lymph # (Auto) 1.30 (0.9-3.2) K/mm3 [place] # (Auto) 0.5 (0.1-0.6) K/mm3 Eos # (Auto) 0.1 (0-0.3) K/mm3 Baso # (Auto) 0.0 (0.0-0.1) K/mm3 Abs Immat Gran (auto) 0.01 (0.00-0.031) K/mm3 Absolute Neuts (auto) 3.6 (1.3-6.7) K/mm3 Absolute Nucleated RBC 0.000 (0.0-0.012) K/mm3 Nucleated RBC % 0.0 (0.0-0.2) % Sodium 133 L (137-145) mmol/L Potassium 4.6 (3.4-5.0) mmol/L Chloride 98 (98-107) mmol/L Carbon Dioxide 28 (22-30) mmol/L Anion Gap 7 (4-12) mmol/L BUN 15 (9-20) mg/dL Creatinine 0.69 L (0.7-1.3) mg/dL Estim Creat Clear Calc Not Reportable Estimated GFR > 60 (59 - ) Glucose 98 (65-110) mg/dL Calcium 8.9 (8.4-10.2) mg/dL Total Bilirubin 1.2 (0.2-1.3) mg/dL AST 39 (17-59) U/L ALT 38 (6-50) U/L Alkaline Phosphatase 103 (38-126) U/L Total Protein 7.8 (6.3-8.2) g/dL Albumin 4.5 (3.5-5.1) g/dL Urine Color Yellow (Yellow) Urine Appearance Clear (Clear) Urine pH 7.0 (5.0-9.0) Ur Specific Vivian 1.021 (1.001-1.035) Urine Protein Trace (Negative) mg/dL Urine Glucose (UA) Negative (Negative) mg/dL Urine Ketones Trace H (Negative) mg/dL Ur Blood (Man) Negative (Negative) Urine Nitrate Negative (Negative) Urine Bilirubin Negative (Negative) Urine Urobilinogen 1.0 (<2.0) mg/dL Add Ur Microanalysis Reviewed Leukocyte Esterase Rfl 1+ H (Negative) AIDAN/UL Urine RBC 6-10 H (0-2) /hpf Urine WBC 6-10 H (0-3) /hpf Ur Squamous Epith Cells None seen (Few) /hpf Urine Bacteria 4+ H /hpf Urine Casts 0-2 <RACHAEL Marin-Margot - Last Filed: 10/09/25 17:15> Lab Results 10/09/25 10/09/25 Range/Units 15:15 16:20 WBC 5.5 (4.5-10.0) K/mm3 RBC 4.29 L (4.6-6.20) M/mm3 Hgb 13.2 L (14.0-18.0) g/dL Hct 39.8 L (42.0-52.0) % MCV 92.8 (80-100) fl MCH 30.8 (26-34) pg MCHC 33.2 (32-36) g/dl RDW 13.2 (11.5-14.5) % Plt Count 189 (150-375) k/mm3 MPV 8.7 (7.4-10.4) fl Immature Gran % (Auto) 0.2 (0-0.5) % Neut % (Auto) 65.2 (45.5-73.1) % Lymph % (Auto) 23.7 (18.3-44.2) % [place] % (Auto) 9.5 H (2.6-8.5) % Eos % (Auto) 0.9 (0-4.4) % Baso % (Auto) 0.5 (0.2-1.2) % Lymph # (Auto) 1.30 (0.9-3.2) K/mm3 [place] # (Auto) 0.5 (0.1-0.6) K/mm3 Eos # (Auto) 0.1 (0-0.3) K/mm3 Baso # (Auto) 0.0 (0.0-0.1) K/mm3 Abs Immat Gran (auto) 0.01 (0.00-0.031) K/mm3 Absolute Neuts (auto) 3.6 (1.3-6.7) K/mm3 Absolute Nucleated RBC 0.000 (0.0-0.012) K/mm3 Nucleated RBC % 0.0 (0.0-0.2) % Sodium 133 L (137-145) mmol/L Potassium 4.6 (3.4-5.0) mmol/L Chloride 98 (98-107) mmol/L Carbon Dioxide 28 (22-30) mmol/L Anion Gap 7 (4-12) mmol/L BUN 15 (9-20) mg/dL Creatinine 0.69 L (0.7-1.3) mg/dL Estim Creat Clear Calc Not Reportable Estimated GFR > 60 (59 - ) Glucose 98 (65-110) mg/dL Calcium 8.9 (8.4-10.2) mg/dL Total Bilirubin 1.2 (0.2-1.3) mg/dL AST 39 (17-59) U/L ALT 38 (6-50) U/L Alkaline Phosphatase 103 (38-126) U/L Total Protein 7.8 (6.3-8.2) g/dL Albumin 4.5 (3.5-5.1) g/dL Urine Color Yellow (Yellow) Urine Appearance Clear (Clear) Urine pH 7.0 (5.0-9.0) Ur Specific Vivian 1.021 (1.001-1.035) Urine Protein Trace (Negative) mg/dL Urine Glucose (UA) Negative (Negative) mg/dL Urine Ketones Trace H (Negative) mg/dL Ur Blood (Man) Negative (Negative) Urine Nitrate Negative (Negative) Urine Bilirubin Negative (Negative) Urine Urobilinogen 1.0 (<2.0) mg/dL Add Ur Microanalysis Reviewed Leukocyte Esterase Rfl 1+ H (Negative) AIDAN/UL Urine RBC 6-10 H (0-2) /hpf Urine WBC 6-10 H (0-3) /hpf Ur Squamous Epith Cells None seen (Few) /hpf Urine Bacteria 4+ H /hpf Urine Casts 0-2 <Maria E Adame MD - Last Filed: 10/09/25 17:09> Imaging Data Radiologist's impression: ITS Impressions Head CT 10/09/25 12:59 IMPRESSION: 1. No fracture or acute intracranial process. 2. Stable appearance of age-related changes in the brain including mild diffuse volume loss and mild scattered white matter hypoattenuation consistent with chronic small vessel ischemic disease. Cervical Spine CT 10/09/25 13:19 IMPRESSION: 1. Cervical spondylosis severe at C5-6 and otherwise mild. No acute osseous abnormality. Pelvis X-Ray 10/09/25 15:38 IMPRESSION: Severe osteoarthritic appearing degenerative changes in the right hip with flattening or femoral head collapse. Chest X-Ray 10/09/25 15:39 IMPRESSION: 1. Persistent mild bibasilar opacities and favor atelectasis/scarring over pneumonia. Knee X-Ray 10/09/25 15:39 IMPRESSION: Abnormal appearance of the medial tibial plateau with no displaced fracture lucency. If occult fracture is suspected, consider CT examination for optimal sensitivity. <Vicenta Staton PA-C - Last Filed: 10/09/25 17:15> ITS Impressions Head CT 10/09/25 12:59 IMPRESSION: 1. No fracture or acute intracranial process. 2. Stable appearance of age-related changes in the brain including mild diffuse volume loss and mild scattered white matter hypoattenuation consistent with chronic small vessel ischemic disease. Cervical Spine CT 10/09/25 13:19 IMPRESSION: 1. Cervical spondylosis severe at C5-6 and otherwise mild. No acute osseous abnormality. Pelvis X-Ray 10/09/25 15:38 IMPRESSION: Severe osteoarthritic appearing degenerative changes in the right hip with flattening or femoral head collapse. Chest X-Ray 10/09/25 15:39 IMPRESSION: 1. Persistent mild bibasilar opacities and favor atelectasis/scarring over pneumonia. Knee X-Ray 10/09/25 15:39 IMPRESSION: Abnormal appearance of the medial tibial plateau with no displaced fracture lucency. If occult fracture is suspected, consider CT examination for optimal sensitivity. <Maria E Adame MD - Last Filed: 10/09/25 17:09> Critical Care Time Critical Care Time Critical Care Time: No <Vicenta Staton PA-C - Last Filed: 10/09/25 17:15> Discharge Plan Discharge Clinical Impression: Acute UTI Degenerative joint disease (DJD) of hip Qualifiers: Osteoarthritis type: primary Laterality: right Qualified Code(s): M16.11 - Unilateral primary osteoarthritis, right hip Fall Qualifiers: Encounter type: initial encounter Qualified Code(s): W19.XXXA - Unspecified fall, initial encounter <Vicenta Staton PA-C - Last Filed: 10/09/25 17:15> Patient Disposition: [facility] <Vicenta Staton PA-C - Last Filed: 10/09/25 17:15> Condition: Stable <Vicenta Staton PA-C - Last Filed: 10/09/25 17:15> Instructions: Antibiotic Form, Urinary Tract Infection in Men (ED) <Vicenta Staton PA-C - Last Filed: 10/09/25 17:15> Additional Instructions: Please follow up with your doctor; take antibiotics as prescribed. You can always return for any further issues. <Vicenta Staton PA-C - Last Filed: 10/09/25 17:15> Patient Language: Moldovan <Vicenta Staton PA-C - Last Filed: 10/09/25 17:15> Prescriptions: New nitrofurantoin monohyd/m-cryst [Macrobid] 100 mg capsule 100 mg PO Q12H 7 Days Qty: 14 0RF Rx Instructions: must administer with a meal/food No Action quetiapine [Seroquel] 25 mg tablet 12.5 mg PO QHS atorvastatin [Lipitor] 40 mg tablet 40 mg PO QHS tamsulosin [Flomax] 0.4 mg capsule 0.8 mg PO QHS doxycycline hyclate 100 mg capsule 100 mg PO Q12H 5 Days Qty: 10 0RF amoxicillin-pot clavulanate 875-125 mg tablet 1 tablet PO Q12H Qty: 10 0RF lacosamide 100 mg tablet 100 mg PO Q12H Qty: 60 0RF acetaminophen 650 mg tablet extended release 650 mg PO TID Qty: 270 2RF loperamide [Imodium A-D] 2 mg capsule 2 mg PO Q6H PRN (Reason: loose stool) Qty: 20 0RF finasteride 5 mg tablet 5 mg PO DAILY Qty: 90 0RF <Vicenta Staton PA-C - Last Filed: 10/09/25 17:15> Follow-up/Referrals: Sarbjit Saldivar DO [Primary Care Provider, Internal Medicine] <Vicenta Staton PA-C - Last Filed: 10/09/25 17:15>
[2025-10-09 14:57] VITALS: BP 173/77; PULSE 69; RESP 20; O2SAT 100
[2025-10-09 15:23] LABS: Hematocrit 39.8 % (42.0-52.0); Hemoglobin 13.2 g/dL (14.0-18.0); Immature Granulocyte Percent A 0.2 % (0-0.5); Lymphocytes Absolute Auto 1.30 K/mm3 (0.9-3.2); Mean Corpuscular HGB Conc 33.2 g/dl (32-36); Mean Corpuscular Hemoglobin 30.8 pg (26-34); Mean Corpuscular Volume 92.8 fl (80-100); Nucleated Red Blood Cells Absolute Auto 0.000 K/mm3 (0.0-0.012); Nucleated Red Blood Cells Perc 0.0 % (0.0-0.2); Platelet Count Result 189 k/mm3 (150-375); Red Blood Count 4.29 M/mm3 (4.6-6.20); White Blood Count 5.5 K/mm3 (4.5-10.0)
[2025-10-09 15:43] LABS: Alanine Aminotransferase 38 U/L (6-50); Albumin Level 4.5 g/dL (3.5-5.1); Alkaline Phosphatase 103 U/L (38-126); Anion Gap 7 mmol/L (4-12); Aspartate Amino Transferase 39 U/L (17-59); Bilirubin,Total 1.2 mg/dL (0.2-1.3); Blood Urea Nitrogen 15 mg/dL (9-20); Calcium 8.9 mg/dL (8.4-10.2); Carbon Dioxide 28 mmol/L (22-30); Chloride 98 mmol/L (98-107); Estimated Glomerular Filt Rate > 60; Glucose 98 mg/dL (65-110); Potassium 4.6 mmol/L (3.4-5.0); Sodium 133 mmol/L (137-145); Total Protein 7.8 g/dL (6.3-8.2)
[2025-10-09 15:58] VITALS: BP 161/72; PULSE 63; RESP 16; O2SAT 100
[2025-10-09 16:31] VITALS: BP 157/73; PULSE 64; RESP 12; O2SAT 97
[2025-10-09 16:37] LABS: Add Urine Microscopic? YES; Appearance Urine Clear (Clear); Glucose Urine UA Negative (Negative); Leukocyte Esterase Ur 1+ LEU/UL (Negative); Need Manual Microscopic Reviewed; Nitrate Urine Negative (Negative); Non Pathogenic Casts 0-2; Specific Grav Ur 1.021 (1.001-1.035)
[2025-10-09] MEDS: NITROFURANTOIN MONOHYD MACROCR 100 MG CAP PO (17:31)
--- NOTE | 2025-10-09 17:42 | PC.NURSE ---
attempted to call report to Amanda but no nurse is at the facility at this time
[2025-10-09 18:09] VITALS: BP 147/86; PULSE 89; RESP 16; O2SAT 99
--- OUTSIDE RECORDS SUMMARY | 2025-10-09 18:10 | XMS_ITS | Clinical Summary ---
[facility] Address [address] [place] [address] Care Team Providers Care Amusement Park Ride Mechanic Name Role Phone Sarbjit Saldivar DO Primary [...] 2025 Insurance [employer] PPO MCR Care Teams Amusement Park Ride Mechanic Relationship Specialty Start Date End Date Sarbjit Saldivar DO [address] [facility] [address] [place] [id number] PCP - General Internal Medicine 05/23/24
--- OUTSIDE RECORDS SUMMARY | 2025-10-09 18:10 | XMS_ITS ---
Author Organization [facility] Address [address] [place] [address] Care Team Providers Care Lab Support Service Tech Name Role Phone Jairo Ugalde MD Unavailable [phone] Logan Pedro MD Unavailable [phone] Mayo Haile MD Unavailable [phone] Von Woods MD Primary Care Provider [phone] Active Problems Problem Noted Date Diagnosed Date [...]
--- OUTSIDE RECORDS SUMMARY | 2025-10-09 18:10 | XMS_ITS | Clinical Summary ---
Author Organization [facility] Address [address] [place] [address] Care Team Providers Care Chief Compressor Station Engineer Name Role Phone Jairo Ugalde MD Unavailable [phone] Logan Pedro MD Unavailable [phone] Mayo Haile MD Unavailable [phone] Von Woods MD Primary Care Provider [phone] Allergies No known active allergies Medications acetaminophen [...] 36.3 C (97.3 F) 12/01/2024 8:00 AM MILK DRIVER Respiratory Rate 16 12/01/2024 8:00 AM MILK DRIVER Oxygen Saturation 95% 12/01/2024 8:00 AM MILK DRIVER Inhaled Oxygen Concentration - - Weight 74.1 [...] Advance Directives For more information, please contact: [phone] * Full Code (Latest Code Status on File) Date Activated Date Inactivated Comments 11/13/2024 9:58 PM 12/01/2024 10:02 PM Care Teams Chief Compressor Station Engineer Relationship Specialty Start Date End Date Von Woods MD [address] [place], [place] [id number] PCP - General Family Medicine 12/12/24 Jairo Ugalde MD [address] [place] [address] Referring Physician Hematology 05/15/24 Logan Pedro MD [address] [address] Urology 06/05/24 Mayo Haile MD [address] [address] Radiation Oncologist Radiation Oncology 06/15/24
== END 2025-10-09 18:12 ==
PROVIDERS: Physician Assistant; Emergency Provider Emergency Medicine; PCP Internal Medicine
DX: S09.90XA Unspecified injury of head, initial encounter (principal); N39.0 Urinary tract infection, site not specified; M16.11 Unilateral primary osteoarthritis, right hip; Z96.653 Presence of artificial knee joint, bilateral; M47.812 Spondylosis without myelopathy or radiculopathy, cervical region; W19.XXXA Unspecified fall, initial encounter
CPT/HCPCS: 36415; 70450; 71046; 72125; 72170; 73560; 80053; 81001; 85025; 87086; 87147; 87186; 99284; A9270

== ENCOUNTER 2025-10-13 14:56 | Emergency (ER) | payer MEDICARE, SELFPAY ==
--- NOTE | ~2025-10-13 | CT_ITS ---
EXAMINATION: CT brain wo con DATE: 10/13/2025 18:01 INDICATION: Trauma. TECHNIQUE: Computed tomography (CT) of the head was performed without intravenous contrast. The mA was adjusted according to patient size. Iterative reconstruction technique was employed. The dose-length product was 681.00 mGy-cm. COMPARISON: CT head dated 10/09/2025. FINDINGS: No acute intracranial bleed. Stable chronic small vessel ischemic change. Stable mild symmetric cerebral and cerebellar atrophy. No acute cranial fractures. IMPRESSION: 1. No acute findings noted in the limited noncontrast CT head. Chronic changes similar to prior study. Reviewed, dictated and finalized at location T. DENTIAL REMODELING SUBCONTRACTOR
[2025-10-13 15:03] VITALS: BP 144/61; PULSE 67; RESP 18; TEMP 36.4; O2SAT 99
[2025-10-13 17:31] VITALS: BP 164/75; PULSE 80; RESP 14; O2SAT 99
--- NOTE | 2025-10-13 17:31 | PC.NURSE ---
Dr. Rice at bedside assessing pt.
--- OUTSIDE RECORDS SUMMARY | 2025-10-13 17:46 | XMS_ITS | Clinical Summary ---
[facility] Address [address] [place] [address] Care Team Providers Care Training Coordinator Name Role Phone Sarbjit Saldivar DO Primary [...] 2025 Insurance [employer] PPO MCR Care Teams Training Coordinator Relationship Specialty Start Date End Date Sarbjit Saldivar DO [address] [facility] [address] [place] [id number] PCP - General Internal Medicine 05/23/24
--- OUTSIDE RECORDS SUMMARY | 2025-10-13 17:46 | XMS_ITS | Clinical Summary ---
Author Organization [facility] Address [address] [place] [address] Care Team Providers Care Glove Machine Operator Name Role Phone Jairo Ugalde MD Unavailable [phone] Logan Pedro MD Unavailable [phone] Mayo Haile MD Unavailable [phone] Von Woods MD Primary Care Provider [phone] Allergies No known active allergies Medications acetaminophen [...] nightly 12/01/2024 Active lacosamide (VIMPAT) 100 mg tabletIndicatio ns:Seizure (HCC) Take 1 tablet (100 mg total) by mouth 2 (two) times a day 60 tablet 5 09/12/2025 09/12/20 26 Active Active Problems Problem Noted Date Diagnosed [...] 36.3 C (97.3 F) 12/01/2024 8:00 AM SAND TECHNOLOGIST Respiratory Rate 16 12/01/2024 8:00 AM SAND TECHNOLOGIST Oxygen Saturation 95% 12/01/2024 8:00 AM SAND TECHNOLOGIST Inhaled Oxygen Concentration - - Weight 74.1 kg (163 lb 6.4 oz) 02/28/2025 12:35 PM CDT Height 176.5 cm (5' 9.5) 02/28/2025 12:35 PM CD T Body Mass Index 23.78 02/28/2025 12:35 PM CDT Plan of Treatment Health Maintenance Due Date Last Done Comments Depression Screening 1940 DTaP/Tdap/Td Vaccine (1 - Tdap) 1950 Hepatitis B Screening 1958 Well Visit 65+ 2004 Covid-19 Vaccine (2024-2 6 season) 2025 08/06/2023, 07/09/2022, 01/29/2022, Additional history exists Influenza Vaccine (#1) 2025 , 06/25/2022, 06/13/2021, Additional history exists Fall Risk Assessment 12/01/2025 12/01/2024, 07/12/20 24 Zoster Vaccine Completed 10/04/2018, 06/28/2018 Pneumococcal vaccine 65+ Completed 11/05/2023, 07/25 Insurance [facility] MEDICARE AET MEDICARE Advance Directives For more information, please contact: [phone] * Full Code (Latest Code Status on File) Date Activated Date Inactivated Comments 11/13/2024 9:58 PM 12/01/2024 10:02 PM Care Teams Glove Machine Operator Relationship Specialty Start Date End Date Von Woods MD [address] [place], [place] [id number] PCP - General Family Medicine 12/12/24 Jairo Ugalde MD [address] [place] [address] Referring Physician Hematology 05/15/24 Logan Pedro MD [id number] [id number] Urology 06/05/24 Mayo Haile MD [facility] [id number] Radiation Oncologist Radiation Oncology 06/15/24
--- NOTE | 2025-10-13 18:11 | ED.FALL ---
HPI - Fall General Chief Complaint: Fall Stated Complaint: FALL, ABRASION TO FOREHEAD Time Seen by Provider: 10/13/25 17:25 History of Present Illness HPI Narrative: Patient is an 85-year-old male who presents ER with head injury. He has dementia and was attempting to go the bathroom and did not have its distance and fell and struck his head. No fevers or chills or sweats. No blood thinners. Patient is in no distress and has no other complaints. Related Data Home Medications ?Medication ?Instructions ?Recorded ?Confirmed ?Last Taken ?Type atorvastatin 40 mg tablet (Lipitor) 40 mg PO QHS 03/16/25 03/29/25 Unknown History quetiapine 25 mg tablet (Seroquel) 12.5 mg PO QHS 03/16/25 03/29/25 Unknown History tamsulosin 0.4 mg capsule (Flomax) 0.8 mg PO QHS 03/16/25 03/29/25 Unknown History Allergies Allergy/AdvReac Type Severity Reaction Status Date / Time No Known Allergies Allergy Verified 03/29/25 08:50 Review of Systems Review of Systems: ROS unobtainable: Yes unobtainable due to mental status [facility] Past Medical History Medical History (Updated 10/13/25 @ 18:17 by Rosalio Rice MD) Memory changes Hip pain Convulsions Degenerative joint disease (DJD) of hip Right hip pain Frequent urination Arthritis Surgical History Surgical History History of bilateral knee replacement Family History Family History Mother Hypertension Family history of cardiomyopathy, Onset Age: 86 Patient's mother is Father Family history of congenital heart disease, Onset Age: 80 Unknown Hypertension Depression Diabetes mellitus Cerebrovascular accident Arthritis Social History Social History Social History: Caffeine-coffee Full Code per facility documentation but no POLST Smoking status: Never smoker Alcohol intake: former Substance use: never Substance use type: does not use Lack of Transportation: No Lack of Food: Never True Current Housing: I Have Housing Concerned About Future Housing: No Difficulty Paying Gas/Electric Bills: No Difficulty Paying for Meds: No Currently Unemployed: No Education: Master's Degree or Higher Difficulty w/ Childcare or Family Care: Decline to Answer Additional living arrangements comments: [facility] since 08/26/2023 Occupation/Education: retired 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 HEAD: Normocephalic, large contusion left forehead EYES: PERRLA and EOMI. ENT: Mucous membranes moist. NECK: Supple. CHEST: Clear to auscultation. No respiratory distress. HEART: Regular rate and rhythm. Normal peripheral pulses. EXTREMITIES: Normal range of motion. No edema. SKIN: Warm, dry, no rash. NEURO: No focal deficits. Alert and oriented x2. Course Course Emergency Course: No acute bleed. Discharge back to facility. Vital Signs Vital signs: Vital Signs Temperature 97.6 F 10/13/25 15:03 Pulse Rate 67 10/13/25 15:03 Respiratory Rate 18 10/13/25 15:03 Blood Pressure 144/61 H 10/13/25 15:03 Pulse Oximetry 99 10/13/25 15:03 Oxygen Delivery Room Air 10/13/25 15:03 Temperature 97.6 F 10/13/25 15:03 Pulse Rate 80 10/13/25 17:31 Respiratory Rate 14 10/13/25 17:31 Blood Pressure 164/75 H 10/13/25 17:31 Pulse Oximetry 99 10/13/25 17:31 Oxygen Delivery Room Air 10/13/25 15:03 MDM Differential Diagnosis Differential Diagnosis: Intracranial hemorrhage, is extremely fracture, a facial fracture Medical Records I have reviewed the following patient records and this information was taken into consideration when formulating the assessment and plan.: previous clinic visits (shelter paperwork) Imaging Data Radiologist's impression: ITS Impressions Head CT 10/13/25 18:03 IMPRESSION: 1. No acute findings noted in the limited noncontrast CT head. Chronic changes similar to prior study. Discharge Plan Discharge Clinical Impression: Forehead contusion Patient Disposition: Home Condition: Stable Instructions: Contusion in Adults (ED) Additional Instructions: Return ER if you have fever over 100.4? F, you can not keep down food water, you lose consciousness, or you have additional concerns. Patient Language: Estonian Prescriptions: No Action quetiapine [Seroquel] 25 mg tablet 12.5 mg PO QHS atorvastatin [Lipitor] 40 mg tablet 40 mg PO QHS tamsulosin [Flomax] 0.4 mg capsule 0.8 mg PO QHS doxycycline hyclate 100 mg capsule 100 mg PO Q12H 5 Days Qty: 10 0RF amoxicillin-pot clavulanate 875-125 mg tablet 1 tablet PO Q12H Qty: 10 0RF nitrofurantoin monohyd/m-cryst [Macrobid] 100 mg capsule 100 mg PO Q12H 7 Days Qty: 14 0RF Rx Instructions: must administer with a meal/food lacosamide 100 mg tablet 100 mg PO Q12H Qty: 60 0RF acetaminophen 650 mg tablet extended release 650 mg PO TID Qty: 270 2RF loperamide [Imodium A-D] 2 mg capsule 2 mg PO Q6H PRN (Reason: loose stool) Qty: 20 0RF finasteride 5 mg tablet 5 mg PO DAILY Qty: 90 0RF Follow-up/Referrals: Sarbjit Saldivar DO [Primary Care Provider, Internal Medicine] - 1 Week
[2025-10-13 18:17] VITALS: PULSE 68; RESP 15; O2SAT 99
[2025-10-13 18:30] VITALS: PULSE 72; RESP 18; O2SAT 97
[2025-10-13 18:48] VITALS: PULSE 70; RESP 13; O2SAT 99
--- NOTE | 2025-10-13 18:51 | PC.NURSE ---
Report called to Radha at [facility]. All questions answered. Radha states she already talked to pt. son.
[2025-10-13 19:00] VITALS: BP 158/78; PULSE 69; RESP 10; TEMP 37.1; O2SAT 99
== END 2025-10-13 19:40 ==
PROVIDERS: Emergency Provider Emergency Medicine; PCP Internal Medicine
DX: S00.83XA Contusion of other part of head, initial encounter (principal); F03.90 Unspecified dementia, unspecified severity, without behavioral disturbance, psychotic disturbance, mood disturbance, and anxiety; M16.9 Osteoarthritis of hip, unspecified; Z96.653 Presence of artificial knee joint, bilateral; W18.39XA Other fall on same level, initial encounter
CPT/HCPCS: 70450; 99284